=== PATIENT | female | born 1970 | race Caucasian/White ===

== ENCOUNTER 2018-04-25 02:00 | Inpatient (IN) | END 2018-04-29 17:23 | disposition home or self-care (01) | DRG 392 ==

== ENCOUNTER 2019-01-03 18:25 | Inpatient (IN) | payer OTHER ==
[~2019-01-03] VITALS: Ht 162.6 cm; Wt 82.9 kg
[~2019-01-03 18:25] MED LIST: CIPR500T4 PO; METR500T PO
[2019-01-03] MEDS ORDERED: SOD CHLORIDE 0.9% 1,000 ML IV STA (19:42)
[2019-01-03] MEDS ORDERED: ONDANSETRON 4 MG INJ IV STA ×2 (19:42→22:41)
[2019-01-03] MEDS ORDERED: HYDROmorphONE 1 MG/ML SYG IV STA (19:42)
[2019-01-03] MEDS ORDERED: IOHEXOL 300MG/ML 150 ML BTL ONE (21:42)
[2019-01-03] MEDS ORDERED: SOD CHLORIDE 0.9% 100 ML ONE (21:42)
[2019-01-03] MEDS ORDERED: HYDROmorphONE 2 MG/ML SYG IV STA (22:41)
--- NOTE | 2019-01-03 22:54 | ERD ---
ER Documentation Chief Complaint Chief Complaint AP X'S 3 DAYS; HX OF DIVERTICULITIS HPI This is a 48-year-old female with a history of diverticulitis complaints 3 days left lower quadrant pain little bit of nausea vomiting and diarrhea with subjective fever at home yesterday. No bloody stools. No back pain hematuria or dysuria. Pain is in the left lower quadrant constant sharp no radiation no ROS All systems reviewed and are negative except as per history of present illness. Medications Home Meds Active Scripts Metronidazole* (Flagyl*) 500 Mg Tablet, 500 MG PO TID for 5 Days, TAB Prov:DANILO KUNZ MD 04/29/18 Ciprofloxacin Hcl* (Ciprofloxacin Hcl*) 500 Mg Tablet, 500 MG PO BID for 5 Days, #14 TAB Prov:DANILO KUNZ MD 04/29/18 Allergies Allergies: Coded Allergies: No Known Drug Allergy (Verified Allergy, Unknown, 04/10/07) PMhx/Soc History of Surgery: Yes (Inguinal Hernia Repair; Fibroid removal (Aug 2012)) Anesthesia Reaction: No Hx Neurological Disorder: Yes (c/o bilteral lower extremity numbness/tingling) Hx Respiratory Disorders: No Hx Cardiac Disorders: No Hx Psychiatric Problems: No Hx Miscellaneous Medical Probl: No Hx Alcohol Use: Yes ([place] alcoholic drink, 1 glass, 04/21) Hx Substance Use: No (recreational marijuana twice a week) Hx Tobacco Use: No Smoking Status: Current some day smoker FmHx Family History: No coronary disease Physical Exam Vitals Vital Signs Date Temp Pulse Resp B/P (MAP) Pulse Ox O2 O2 Flow FiO2 Time Delivery Rate 01/03/19 99.3 100 18 137/87 99 18:36 (104) Physical Exam Const: Well-developed, well-nourished Head: Atraumatic, normocephalic Eyes: Normal Conjunctiva, PERRLA, EOMI, normal sclera, no nystagmus ENT: Normal External Ears, Nose and Mouth, moist mucus membranes. Neck: Full range of motion. No meningismus, no lymphadenopathy. Resp: Clear to auscultation bilaterally, no wheezing, rhonchi, rales Cardio: Regular rate and rhythm, no murmurs, S1 S2 present Abd: Soft, moderate left lower quadrant tenderness, non distended. Normal bowel sounds, no guarding or rebound, no pulsitile abdominal masses or bruits Skin: No petechiae or rashes, no ecchymosis , no maculopapular rash Back: No midline or flank tenderness Ext: No cyanosis, or edema, FROM x 4, normal inspection, neurovascularly intact x 4 Neur: Awake and alert, STR 5/5 x 4, sensation intact x 4, no focal findings, cerebellum intact Psych: Normal Mood and Affect Result Diagram: 01/03/19185501/03/191855 Results 24 hrs Laboratory Tests Test 01/03/19 18:56 White Blood Count 12.5 10^3/ul Red Blood Count 4.14 10^6/ul Hemoglobin 12.7 g/dl Hematocrit 38.4 % Mean Corpuscular Volume 92.8 fl Mean Corpuscular Hemoglobin 30.7 pg Mean Corpuscular Hemoglobin Concent 33.1 g/dl Red Cell Distribution Width 12.9 % Platelet Count 335 10^3/UL Mean Platelet Volume 9.9 fl Immature Granulocytes % 0.600 % Neutrophils % 76.2 % Lymphocytes % 13.8 % Monocytes % 7.7 % Eosinophils % 1.4 % Basophils % 0.3 % Nucleated Red Blood Cells % 0.0 /100WBC Immature Granulocytes # 0.070 10^3/ul Neutrophils # 9.5 10^3/ul Lymphocytes # 1.7 10^3/ul Monocytes # 1.0 10^3/ul Eosinophils # 0.2 10^3/ul Basophils # 0.0 10^3/ul Nucleated Red Blood Cells # 0.0 10^3/ul Sodium Level 140 mmol/L Potassium Level 4.1 mmol/L Chloride Level 105 mmol/L Carbon Dioxide Level 27 mmol/L Anion Gap 8 Blood Urea Nitrogen 10 mg/dl Creatinine 0.65 mg/dl Est Glomerular Filtrat Rate mL/min > 60 mL/min Glucose Level 123 mg/dl Calcium Level 9.0 mg/dl Total Bilirubin 0.3 mg/dl Direct Bilirubin 0.00 mg/dl Indirect Bilirubin 0.3 mg/dl Aspartate Amino Transf (AST/SGOT) 20 IU/L Alanine Aminotransferase (ALT/SGPT) 13 IU/L Alkaline Phosphatase 117 IU/L Total Protein 7.0 g/dl Albumin 3.9 g/dl Globulin 3.10 g/dl Albumin/Globulin Ratio 1.25 Serum HCG, Qualitative NEGATIVE Current Medications Medications Dose Sig/Trudy Start Time Status Last (Trade) Ordered Route PRN Stop Time Admin Dose Reason Admin Sodium 1,000 ml @ Q1H STAT 01/03/19 DC 01/03/19 Chloride 1,000 mls/hr IV 19:42 01/03/19 20:00 20:41 1 mg ONCE STAT 01/03/19 DC 01/03/19 Hydromorphone IV 19:42 01/03/19 20:00 HCl 19:43 (Dilaudid) Ondansetron 4 mg ONCE STAT 01/03/19 DC 01/03/19 HCl (Zofran IV 19:42 01/03/19 20:00 Inj) 19:43 IV Flush 10 ml STK-MED 01/03/19 DC (NS 10 ml) ONCE .ROUTE 21:42 01/03/19 21:43 Sodium 100 ml @ ud STK-MED 01/03/19 DC Chloride ONCE .ROUTE 21:42 01/03/19 21:43 Iohexol 150 ml STK-MED 01/03/19 DC (Omnipaque ONCE .ROUTE 21:42 01/03/19 300mg/ ml) 21:43 1 mg ONCE STAT 01/03/19 DC 01/03/19 Hydromorphone IV 22:41 01/03/19 22:50 HCl 22:49 (Dilaudid) Ondansetron 4 mg ONCE STAT 01/03/19 DC 01/03/19 HCl (Zofran IV 22:41 01/03/19 22:50 Inj) 22:49 Ertapenem 1 100 ml @ ONCE ONCE 01/03/19 gm/ Sodium 200 mls/hr IVPB 23:00 01/03/19 Chloride 23:29 Procedures/[place] [address] Radiology Main Line: [phone] DIAGNOSTIC IMAGING REPORT Patient: MARCELLO COLLIER : 1970 Age: 48 Sex: F MR #: [id number] DOS: 01/03/191941 Ordering MD: URIAH POON DO Location: E/R Room/Bed: PROCEDURE: CT Abdomen and Pelvis with contrast. CLINICAL INDICATION: Abdominal pain. TECHNIQUE: CT scan of the abdomen and pelvis with contrast was performed on a multi-detector high-resolution CT scanner. The patient was scanned following the uncomplicated intravenous administration of 100 cc of Omnipaque 300. Coron al and sagittal reformatted images were obtained from the axial source images. Images were reviewed on a high-resolution PACS workstation. The total exam CTDI equals 18.2 mGy and the total exam DLP equals 1083.0 mGy-cm. DICOM images are available. One or more of the following dose reduction techniques were utilized: 1.) Automated exposure control 2.) Adjustment of the mA +/- kV according to patient's size 3.) Use of iterative reconstruction technique. COMPARISON: Abdominal series x-rays 04/26/2018. FINDINGS: Partially visualized mild bibasilar pulmonary subsegmental atelectasis. Heart base appears normal. Systemic vasculature appears grossly normal. No pathologic lymphadenopathy identified by imaging criteria. Liver demonstrates normal size and contour, without identifiable focal mass lesion. Portal vein enhances normally. Gallbladder is mildly distended without identifiable pericholecystic inflammatory change or biliary ductal dilatation. Pancreas, spleen and adrenal glands appear normal. Bowel is unobstructed without free air. Appendix appears normal. Multiple scatte red left colonic diverticuli. Moderate segmental wall thickening in the proximal sigmoid colon, likely reflecting acute diverticulitis, in the presence of a 2.7 x 2.1 x 3.0 cm peripherally enhancing exophytic collection of fluid and air with moderate adjacent left lower quadrant mesenteric stranding, thought most likely to reflect a severely distended, inflamed diverticulum, or possibly a contained perforation/abscess. Trace free fluid layers in the adjacent left lower quadrant mesenteries and inferior left paracolic gutter. Kidneys perfuse normally with scattered small bilateral cortical hypoattenuating foci too small to characterize, likely reflecting cysts. No nephrolithiasis nor hydronephrosis. The ureters run unobstructed to a normal - appearing incompletely distended bladder. The uterus contains multiple heterogeneously enhancing masses likely reflecting fibroids, largest appearing subserosal, projecting superiorly from the posterior uterine body and measuring up to 5.2 cm (axial image 135, coronal image 48, sagittal image 62). Complex, multi loculated uterine cervical solid and cystic mass measuring 3.0 x 5.7 x 3.5 cm (axial image 151, coronal image 65, sagittal image 72), concerning for malignancy. Osseous structures are intact with a densely sclerotic 7 mm probable bone island in the left iliac wing (axial image 123, coronal image 65). Mild diffuse developmental narrowing of the lumbar canal related to vertebral morphology with shortened pedicles, with mild multilevel spondylotic changes contributing to probable mild canal and bilateral neural foraminal stenosis at L4-5, suboptimally evaluated by CT. Small fatty umbilical hernia. IMPRESSION: 1. Evidence of severe acute sigmoid diverticulitis in the presence of inflamed, fluid distended 3 cm diverticulum versus contained perforation/abscess. The bowel is unobstructed without free air. 2. 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 Clinical correlation with gynecologic exam recommended. 3. Fibroid uterus with 5.2 cm probable subserosal fibroid projecting superiorly from the posterior uterine body. This can be better evaluated by pelvic ultrasound or MRI pelvis if clinically warranted. 4. No nephrolithiasis nor hydronephrosis. 5. Mild diffuse developmental narrowing of the lumbar canal with mild spondylotic changes most pronounced at L4-5 where there is probable mild focal c anal and bilateral neural foraminal stenosis. This can be better evaluated by MRI L-spine if clinically warranted. Critical findings discussed with and acknowledged by Dr. Poon's nurse for immediate relay to Dr. Poon at 10:30 p.m. 01/03/2019. RPTAT: HSAN Physician Eric Date Time Electronically viewed and signed by Judith Bobby Physician on 01/03/2019 22:54 xN/ CC: URIAH POON DO [id number] Patient has severe diverticulitis with a area of fluid distended 3 cm diverticulum versus contained per/abscess. There is no free air. Patient will be admitted for IV antibiotics and observation Departure Diagnosis: Primary Impression: Diverticulitis Condition: Stable URIAH POON DO Jan 03, 2019 22:54
[2019-01-03] MEDS ORDERED: ERTAPENEM SODIUM 1 GM in SOD CHLORIDE 0.9% 100 ML IVPB ONE (23:00)
[2019-01-03] MEDS ORDERED: SOD CHLORIDE 0.9% 1,000 ML IV SCH (23:14)
[2019-01-03] MEDS ORDERED: ONDANSETRON (ODT) 4 MG TAB ODT STA (23:28)
[2019-01-03] MEDS ORDERED: HYDROmorphONE 0.5 MG/0.5 ML SYG IV STA (23:28)
[2019-01-03] MEDS ORDERED: ACETAMINOPHEN 500 MG TAB PO STA (23:28)
[2019-01-03] MEDS ORDERED: ONDANSETRON 4 MG INJ IV PRN (23:30)
[2019-01-03] MEDS ORDERED: ACETAMINOPHEN 325 MG TAB PO PRN (23:30)
[2019-01-04 00:25] VITALS: Ht 162.6 cm; Wt 82.9 kg
[2019-01-04] MEDS: DEXTROSE 5%-0.9% NACL 1,000 ML IV SCH ×2 (01:04→16:21)
[2019-01-04 02:06] VITALS: BP 99/57; PULSE 68; RESP 19
[2019-01-04] MEDS ORDERED: BIOT1CAP3 PO (02:15)
[2019-01-04] MEDS ORDERED: VIT1TABL46 PO (02:15)
[2019-01-04] MEDS ORDERED: CALC-545 PO (02:15)
[2019-01-04] MEDS ORDERED: LACT1TAB25 PO (02:15)
[2019-01-04] MEDS ORDERED: ACET1TAB40 PO (02:15)
[2019-01-04] MEDS: HYDROmorphONE 0.5 MG/0.5 ML SYG IV PRN ×5 (02:58→20:13)
[2019-01-04] MEDS: PIPER-TAZO 3.375 GM IV (PMX) 100 ML IVPB SCH ×3 (05:30→22:42)
[2019-01-04] MEDS ORDERED: PANTOPRAZOLE 40 MG INJ IV SCH (06:00)
[2019-01-04 07:41] VITALS: BP 101/54; PULSE 68; RESP 18
--- NOTE | 2019-01-04 10:16 | HP ---
Date/Time of Note Date/Time of Note DATE: 01/04/19 TIME: 10:15 Assessment/Plan VTE Prophylaxis Risk score (from [facility])>0 risk: 3 SCD applied (from [facility]): No SCD contraindicated: other Pharmacological prophylaxis: NA/contraindicated Pharm contraindication: surgical contra Lines/Catheters IV [facility]ter Type (from [facility]): Peripheral IV Assessment/Plan Hospital Course 1. SIRS 2.2 diverticulitis 2. Acute diverticulitis. Ct scan showed : Evidence of severe acute sigmoid diverticulitis in the presence of inflamed, fluid distended 3 cm diverticulum versus contained perforation/abscess. The bowel is unobstructed without free air. 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 Clinical correlation with gynecologic exam recommended. Fibroid uterus with 5.2 cm probable subserosal fibroid projecting superiorly from the posterior uterine bod y. This can be better evaluated by pelvic ultrasound or MRI pelvis if clinically warranted. No nephrolithiasis nor hydronephrosis. Mild diffuse developmental narrowing of the lumbar canal with mild spondylotic changes most pronounced at L4-5 where there is probable mild focal canal and bilateral neural foraminal stenosis. 3. Hx of diverticulosis. 4. Normocytic normochromic anemia 5. s/p Inguinal Hernia Repair left ; 6. s/p uterine fibroid removal, 2012 7. Current smoker and marijuana user 8. Obesity 9. 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 Protonix -c/w IV ab - surg. CONSULT dr Lucia did not see pt yet -pelvic US Result Diagram: 01/04/19 0441 01/04/19 0440 Results 24hrs Laboratory Tests Test 01/03/19 18:56 01/04/19 04:40 01/04/19 04:41 White Blood Count 12.5 #H 13.0 H Red Blood Count 4.14 L 3.73 L Hemoglobin 12.7 11.2 L Hematocrit 38.4 34.7 L Mean Corpuscular Volume 92.8 93.0 Mean Corpuscular Hemoglobin 30.7 30.0 Mean Corpuscular Hemoglobin Concent 33.1 32.3 Red Cell Distribution Width 12.9 12.9 Platelet Count 335 # 297 Mean Platelet Volume 9.9 10.2 Immature Granulocytes % 0.600 H 0.500 H Neutrophils % 76.2 73.8 Lymphocytes % 13.8 L 14.7 L Monocytes % 7.7 8.5 Eosinophils % 1.4 2.1 Basophils % 0.3 0.4 Nucleated Red Blood Cells % 0.0 0.0 Immature Granulocytes # 0.070 H 0.060 H Neutrophils # 9.5 H 9.6 H Lymphocytes # 1.7 1.9 Monocytes # 1.0 H 1.1 H Eosinophils # 0.2 0.3 Basophils # 0.0 0.1 Nucleated Red Blood Cells # 0.0 0.0 Sodium Level 140 140 Potassium Level 4.1 4.0 Chloride Level 105 110 Carbon Dioxide Level 27 23 Anion Gap 8 7 Blood Urea Nitrogen 10 6 L Creatinine 0.65 0.52 Est Glomerular Filtrat Rate mL/min > 60 > 60 Glucose Level 123 118 Calcium Level 9.0 8.1 L Total Bilirubin 0.3 0.3 Direct Bilirubin 0.00 0.00 Indirect Bilirubin 0.3 0.3 Aspartate Amino Transf (AST/SGOT) 20 15 Alanine Aminotransferase (ALT/SGPT) 13 16 Alkaline Phosphatase 117 100 Total Protein 7.0 6.2 Albumin 3.9 3.2 L Globulin 3.10 3.00 Albumin/Globulin Ratio 1.25 1.06 Serum HCG, Qualitative NEGATIVE HPI/ROS Admit Date/Time Admit Date/Time Jan 03, 2019 at 23:15 Hx of Present Illness This is a 48-year-old female with a history of diverticulitis complaints on 3 days left lower quadrant pain, she describes it as constant, sharp, without radiation. She reported nausea, vomiting and diarrhea with subjective fever at home. No bloody stools. No back pain hematuria or dysuria. pt was hospitalized in apr, 2018 a dn followed special diet, until recently she might eat seeds of tomato. ROS Respiratory: no complaints, pain, cough, pleuritic pain, shortness of breath, sputum, wheezing, other Gastrointestinal: pain, vomiting; No no complaints, No blood, No constipation, No decreased appetite, No di arrhea, No flatus, No nausea, No passing stool, No other Musculoskeletal: no complaints Neurologic: no complaints PMH/Family/Social Past Medical History Medications Current Medications Sodium Chloride 1,000 ml @ 80 mls/hr [id number] IV ; Start 6/7/19 at 23:14; Stop 01/04/19 at 11:43 Ondansetron HCl (Zofran Inj) 4 mg BRIDGE ORDER PRN IV NAUSEA/VOMITING; Start 01/03/19 at 23:30; Stop 01/04/19 at 23:29 Acetaminophen (Tylenol Tab) 650 mg ER BRIDGE PRN PO .MILD PAIN 1-3 OR TEMP Last administered on 01/03/19at 23:36; Admin Dose 650 MG; Start 01/03/19 at 23:30; Stop 01/04/19 at 23:29 Dextrose/Sodium Chloride 1,000 ml @ 75 mls/hr [id number] IV Last administered on 01/04/19at 01:04; Admin Dose 75 MLS/HR; Start 01/04/19 at 01:00 Pantoprazole (Protonix Iv) 40 mg DAILY@06 IV Last administered on 01/04/19at 05:30; Admin Dose 40 MG; Start 01/04/19 at 06:00 Acetaminophen (Tylenol Supp) 650 mg Q6H PRN [place] PAIN/FEVER; Start 01/04/19 at 01:00 Ondansetron HCl (Zofran Inj) 4 mg Q4H PRN IV NAUSEA AND/OR VOMITING; Start 01/04/19 at 01:00 Hydromorphone HCl (Dilaudid) 0.5 mg Q4H PRN IV SEVERE PAIN LEVEL 7-10 Last administered on 01/04/19at 08:08; Admin Dose 0.5 MG; Start 01/04/19 at 01:00 Piperacillin Sod/ Tazobactam Sod 100 ml @ 200 mls/hr Q8 IVPB Last administered on 01/04/19at 05:30; Admin Dose 200 MLS/HR; Start 01/04/19 at 06:00 Coded Allergies: No Known Drug Allergy (Verified Allergy, Unknown, 04/10/07) Past Surgical History Past Surgical Hx: other ((Inguinal Hernia Repair; Fibroid removal (Aug 2012) Family History Significant Family History: no pertinent family hx Social History lives with Smoking Status: Current every day smoker Exam/Review of Systems Vital Signs Vitals Vital Signs Date Temp Pulse Resp B/P (MAP) Pulse Ox O2 O2 Flow FiO2 Time Delivery Rate 01/04/19 98.1 68 18 101/54 98 Room Air 07:41 (70) Intake and Output 01/03/19 01/03/19 01/04/19 1515:00 23:00 07:00 IntakeIntake Total 650 ml BalanceBalance 650 ml Exam Constitutional: alert, oriented ENMT: nl external ears & nose Neck: supple Respiratory: congested cough Cardiovascular: regular rate and rhythm Gastrointestinal: soft, surgical scars (left inguinal regina) Extremities: normal pulses LAURA FANG Jan 04, 2019 10:16
[2019-01-04] MEDS: NICOTINE (21 MG/24 HR) PATCH TRANSDERM SCH (13:45)
[2019-01-04 14:28] VITALS: BP 106/70; PULSE 66; RESP 18
--- NOTE | 2019-01-04 15:52 | CONS ---
Assessment/Plan Assessment/Plan Hospital Course (Demo Recall) Patient with recurrent diverticulitis in addition large uterus with possible tumor. Patient will be treated with antibiotics. Assessment/Plan (Daily) Patient with recurrent diverticulitis. I spoke to the invasive radiologist. And invasive radiologist does not feel comfortable to drain the but possible he thinks may be diverticular versus abscess. The decision is to continue antibiotics for few days and repeat imaging may be Sunday. [employer] MANAGER consult is required. Consultation Date/Type/Reason Admit Date/Time Jan 03, 2019 at 23:15 Date of Consultation: Jan 04, 2019 Type of Consult Surgical Date/Time of Note DATE: 01/04/19 TIME: 15:43 Hx of Present Illness 48-year-old female with second attack of diverticulitis admitted for emergency room. She had a similar attack year ago was admitted to the to the hospital was treated with antibiotics. She never seek to medical attention since then. This is her second attack. In the emergency room the CT scan was performed that showed there is a possible abscess versus large diverticulum. Constitutional: no complaints, improved Eyes: no complaints ENT: no complaints Respiratory: no complaints Cardiovascular: no complaints Gastrointestinal: pain, decreased appetite Genitourinary: no complaints Musculoskeletal: no complaints Skin: no complaints Neurologic: no complaints Endocrine: no complaints Past Medical History Home Meds Reported Medications Biotin (BIOTIN) 1 Mg Capsule, 1 MG PO DAILY, CAP 01/04/19 Calcium Phosphate Trib/Vit D3 (CALCIUM GUMMIES) 1 Each Tab.chew, 1 EACH PO DAILY, TAB.CHEW 01/04/19 Vitamin B Complex* (Vitamin B Complex*) 1 Each Tablet, 1 TAB PO DAILY, TAB 01/04/19 Lactobacillus Acidophilus (Probiotic Acidophilus) 1 Each Tablet, 1 EACH PO DAILY, TAB 01/04/19 Acetaminophen with Codeine (Acetaminophen-Cod #3 Tablet) 1 Each Tablet, 1 TAB PO Q6H, #7 TAB 01/04/19 Discontinued Scripts Metronidazole* (Flagyl*) 500 Mg Tablet, 500 MG PO TID for 5 Days, TAB Prov:DANILO KUNZ MD 04/29/18 Ciprofloxacin Hcl* (Ciprofloxacin Hcl*) 500 Mg Tablet, 500 MG PO BID for 5 Days, #14 TAB Prov:DANILO KUNZ MD 04/29/18 Medications Current Medications Ondansetron HCl (Zofran Inj) 4 mg BRIDGE ORDER PRN IV NAUSEA/VOMITING; Start 01/03/19 at 23:30; Stop 01/04/19 at 23:29 Acetaminophen (Tylenol Tab) 650 mg ER BRIDGE PRN PO .MILD PAIN 1-3 OR TEMP Last administered on 01/03/19at 23:36; Admin Dose 650 MG; Start 01/03/19 at 23:30; Stop 01/04/19 at 23:29 Dextrose/Sodium Chloride 1,000 ml @ 75 mls/hr [id number] IV Last administered on 01/04/19 01:04; Admin Dose 75 MLS/HR; Start 01/04/19 at 01:00 Pantoprazole (Protonix Iv) 40 mg DAILY@06 IV Last administered on 01/04/19 05:30; Admin Dose 40 MG; Start 01/04/19 at 06:00 Acetaminophen (Tylenol Supp) 650 mg Q6H PRN [place] PAIN/FEVER; Start 01/04/19 at 01:00 Ondansetron HCl (Zofran Inj) 4 mg Q4H PRN IV NAUSEA AND/OR VOMITING; Start 01/04/19 at 01:00 Hydromorphone HCl (Dilaudid) 0.5 mg Q4H PRN IV SEVERE PAIN LEVEL 7-10 Last administered on 01/04/19 12:01; Admin Dose 0.5 MG; Start 01/04/19 at 01:00 Piperacillin Sod/ Tazobactam Sod 100 ml @ 200 mls/hr Q8 IVPB Last administered on 01/04/19 13:46; Admin Dose 200 MLS/HR; Start 01/04/19 at 06:00 Nicotine (Nicoderm 21 Mg/ 24hr) 1 patch DAILY TRANSDERM Last administered on 01/04/19 13:45; Admin Dose 1 PATCH; Start 01/04/19 at 12:00 Allergies: Coded Allergies: No Known Drug Allergy (Verified Allergy, Unknown, 04/10/07) Past Surgical History Past Surgical Hx: other ((Inguinal Hernia Repair; Fibroid removal (Aug 2012) Social History Smoking Status: Current every day smoker Exam/Review of Systems Exam Vitals Vital Signs Date Temp Pulse Resp B/P (MAP) Pulse Ox O2 O2 Flow FiO2 Time Delivery Rate 01/04/19 99.0 66 18 106/70 98 Room Air 14:28 (82) Intake and Output 01/03/19 01/03/19 01/04/19 1515:00 23:00 07:00 IntakeIntake Total 650 ml BalanceBalance 650 ml Constitutional: alert, oriented, well developed Psych: no complaints, nl mood/affect Head: normocephalic, atraumatic Eyes: nl conjunctiva, EOMI, nl lids, nl sclera, PERRL ENMT: nl external ears & nose, nl lips & teeth, nl nasal mucosa & septum Neck: supple, non-tender Respiratory: clear to auscultation, normal air movement Cardiovascular: regular rate and rhythm, nl pulses Gastrointestinal: soft, nl liver, spleen, other (There is a tenderness in the left lower quadrant without rebound.) Musculoskeletal: nl extremities to inspection, nl gait and stance Extremities: normal pulses Neurological: MANAGER AUDIO II-XII intact, nl mental status, nl speech, nl strength Skin: nl turgor; No rash or lesions Lymph: nl lymph nodes Results Result Diagram: 01/04/1944001/04/19439 Results 24hrs Laboratory Tests Test 01/03/19 18:56 01/04/19 04:40 01/04/19 04:41 White Blood Count 12.5 #H 13.0 H Red Blood Count 4.14 L 3.73 L Hemoglobin 12.7 11.2 L Hematocrit 38.4 34.7 L Mean Corpuscular Volume 92.8 93.0 Mean Corpuscular Hemoglobin 30.7 30.0 Mean Corpuscular Hemoglobin Concent 33.1 32.3 Red Cell Distribution Width 12.9 12.9 Platelet Count 335 # 297 Mean Platelet Volume 9.9 10.2 Immature Granulocytes % 0.600 H 0.500 H Neutrophils % 76.2 73.8 Lymphocytes % 13.8 L 14.7 L Monocytes % 7.7 8.5 Eosinophils % 1.4 2.1 Basophils % 0.3 0.4 Nucleated Red Blood Cells % 0.0 0.0 Immature Granulocytes # 0.070 H 0.060 H Neutrophils # 9.5 H 9.6 H Lymphocytes # 1.7 1.9 Monocytes # 1.0 H 1.1 H Eosinophils # 0.2 0.3 Basophils # 0.0 0.1 Nucleated Red Blood Cells # 0.0 0.0 Sodium Level 140 140 Potassium Level 4.1 4.0 Chloride Level 105 110 Carbon Dioxide Level 27 23 Anion Gap 8 7 Blood Urea Nitrogen 10 6 L Creatinine 0.65 0.52 Est Glomerular Filtrat Rate mL/min > 60 > 60 Glucose Level 123 118 Calcium Level 9.0 8.1 L Total Bilirubin 0.3 0.3 Direct Bilirubin 0.00 0.00 Indirect Bilirubin 0.3 0.3 Aspartate Amino Transf (AST/SGOT) 20 15 Alanine Aminotransferase (ALT/SGPT) 13 16 Alkaline Phosphatase 117 100 Total Protein 7.0 6.2 Albumin 3.9 3.2 L Globulin 3.10 3.00 Albumin/Globulin Ratio 1.25 1.06 Serum HCG, Qualitative NEGATIVE Medications Medication Current Medications Ondansetron HCl (Zofran Inj) 4 mg BRIDGE ORDER PRN IV NAUSEA/VOMITING; Start 01/03/19 at 23:30; Stop 01/04/19 at 23:29 Acetaminophen (Tylenol Tab) 650 mg ER BRIDGE PRN PO .MILD PAIN 1-3 OR TEMP Last administered on 01/03/19at 23:36; Admin Dose 650 MG; Start 01/03/19 at 23:30; Stop 01/04/19 at 23:29 Dextrose/Sodium Chloride 1,000 ml @ 75 mls/hr [id number] IV Last administered on 01/04/19at 01:04; Admin Dose 75 MLS/HR; Start 01/04/19 at 01:00 Pantoprazole (Protonix Iv) 40 mg DAILY@06 IV Last administered on 01/04/19at 05:3 0; Admin Dose 40 MG; Start 01/04/19 at 06:00 Acetaminophen (Tylenol Supp) 650 mg Q6H PRN [place] PAIN/FEVER; Start 01/04/19 at 01:00 Ondansetron HCl (Zofran Inj) 4 mg Q4H PRN IV NAUSEA AND/OR VOMITING; Start 01/04/19 at 01:00 Hydromorphone HCl (Dilaudid) 0.5 mg Q4H PRN IV SEVERE PAIN LEVEL 7-10 Last admi nistered on 01/04/19at 12:01; Admin Dose 0.5 MG; Start 01/04/19 at 01:00 Piperacillin Sod/ Tazobactam Sod 100 ml @ 200 mls/hr Q8 IVPB Last administered on 01/04/19at 13:46; Admin Dose 200 MLS/HR; Start 01/04/19 at 06:00 Nicotine (Nicoderm 21 Mg/ 24hr) 1 patch DAILY TRANSDERM Last administered on 01/04/19at 13:45; Admin Dose 1 PATCH; Start 01/04/19 at 12:00 DONNY MEAD MD Jan 04, 2019 15:52
[2019-01-04 19:37] VITALS: BP 112/59; PULSE 85; RESP 18
[2019-01-04] MEDS: ONDANSETRON 4 MG INJ IV PRN (20:12)
[2019-01-04] MEDS: ACETAMINOPHEN 650 MG SUPP PR PRN (22:47)
[2019-01-05 01:27] VITALS: BP 106/70; PULSE 78; RESP 18
[2019-01-05] MEDS: ONDANSETRON 4 MG INJ IV PRN ×3 (01:28→22:42)
[2019-01-05] MEDS: HYDROmorphONE 0.5 MG/0.5 ML SYG IV PRN ×5 (01:32→22:38)
[2019-01-05] MEDS: DEXTROSE 5%-0.9% NACL 1,000 ML IV SCH ×3 (04:28→20:50)
[2019-01-05] MEDS: ACETAMINOPHEN 650 MG SUPP PR PRN ×2 (04:59→16:28)
[2019-01-05] MEDS: PIPER-TAZO 3.375 GM IV (PMX) 100 ML IVPB SCH ×3 (05:43→21:42)
[2019-01-05 07:58] VITALS: BP 98/62; RESP 17
[2019-01-05] MEDS: FAMOTIDINE 20 MG INJ IV SCH ×2 (08:54→20:47)
[2019-01-05] MEDS: NICOTINE (21 MG/24 HR) PATCH TRANSDERM SCH (08:55)
--- NOTE | 2019-01-05 09:58 | PN ---
Date/Time of Note Date/Time of Note DATE: 01/05/19 TIME: 09:57 Assessment/Plan VTE Prophylaxis Risk score (from Ns)>0 risk: 4 SCD applied (from Ns): Yes SCD contraindicated: low risk/ambulating Pharmacological prophylaxis: NA/contraindicated Pharm contraindication: surgical contra Lines/Catheters IV C[facility] Type (from [facility] Peripheral IV Assessment/Plan Hospital Course 1. SIRS 2.2 diverticulitis. WBC decreased 2. Acute diverticulitis. Ct scan showed : Evidence of severe acute sigmoid diverticulitis in the presence of inflamed, fluid distended 3 cm diverticulum versus contained perforation/abscess. The bowel is unobstructed without free air. 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 Clinical correlation with gynecologic exam recommended. Fibroid uterus with 5.2 cm probable subserosal fibroid projecting superiorly from the posterior uterine body. This can be better evaluated by pelvic ultrasound or MRI pelvis if clinically warranted. No nephrolithiasis nor hydronephrosis. Mild diffuse developmental narrowing of the lumbar canal with mild spondylotic changes most pronounced at L4-5 where there is probable mild focal canal and bilateral neural foraminal stenosis. 3. Hx of diverticulosis. 4. Normocytic normochromic iron deficiency anemia 5. s/p Inguinal Hernia Repair left ; 6. s/p uterine fibroid removal, 2012 7. Current smoker and marijuana user 8. Obesity 9. Complex uterine cervical 5.7 cm mass Assessment/Plan -yesterday unable to reach gynecology commissions coordinator via ext. [phone], called for few times, need recommendations for suspicious uterine mass -left a message to a laborist commissions coordinator today dr Misael Darnell, spoke to him to see the pt. -DVT proph. SCD, no chemical due to possible surg. interventions -c/w IV fluids -pain control. after bowel movement severe pain, additional 0.5 mg dose of Dilaudid -start Ferrlicit -nicotine patch -GI proph. Protonix -c/w IV ab - surg. consult dr Lucia consulted the pt -pelvic US reviewed: Fibroid uterus. Cervical Nabothian cysts. Result Diagram: 01/05/195 01/05/19 0425 Results 24hrs Laboratory Tests Test 01/05/19 04:25 White Blood Count 11.4 H Red Blood Count 3.84 L Hemoglobin 11.4 L Hematocrit 35.7 L Mean Corpuscular Volume 93.0 Mean Corpuscular Hemoglobin 29.7 Mean Corpuscular Hemoglobin Concent 31.9 L Red Cell Distribution Width 12.9 Platelet Count 318 Mean Platelet Volume 10.2 Immature Granulocytes % 0.500 H Neutrophils % 76.7 Lymphocytes % 12.4 L Monocytes % 8.4 Eosinophils % 1.8 Basophils % 0.2 Nucleated Red Blood Cells % 0.0 Immature Granulocytes # 0.060 H Neutrophils # 8.8 H Lymphocytes # 1.4 Monocytes # 1.0 H Eosinophils # 0.2 Basophils # 0.0 Nucleated Red Blood Cells # 0.0 Sodium Level 139 Potassium Level 3.8 Chloride Level 109 Carbon Dioxide Level 25 Anion Gap 5 Blood Urea Nitrogen 3 L Creatinine 0.62 Est Glomerular Filtrat Rate mL/min > 60 Glucose Level 104 Calcium Level 8.4 Iron Level 14 L Total Iron Binding Capacity 256 Percent Iron Saturation 5 L Subjective 24 Hr Interval Summary Gastrointestinal: no complaints, pain (mod to severe), blood, constipation, decreased appetite, diarrhea, flatus, nausea, passing stool, vomiting, other Exam/Review of Systems Exam Vitals Vital Signs Date Temp Pulse Resp B/P (MAP) Pulse Ox O2 O2 Flow FiO2 Time Delivery Rate 01/05/19 98.9 17 98/62 (74) 97 Room Air 07:58 01/05/19 78 01:27 Intake and Output 01/04/19 01/04/19 01/05/19 1515:00 23:00 07:00 IntakeIntake Total 100 ml 610 ml 1290 ml BalanceBalance 100 ml 610 ml 1290 ml Constitutional: alert, oriented Psych: no complaints Eyes: nl conjunctiva ENMT: nl external ears & nose Neck: supple Respiratory: diminished breath sounds Cardiovascular: regular rate and rhythm Gastrointestinal: rebound or guarding (lower abdomen) Results Results 24hrs Laboratory Tests Test 01/05/19 04:25 White Blood Count 11.4 H Red Blood Count 3.84 L Hemoglobin 11.4 L Hematocrit 35.7 L Mean Corpuscular Volume 93.0 Mean Corpuscular Hemoglobin 29.7 Mean Corpuscular Hemoglobin Concent 31.9 L Red Cell Distribution Width 12.9 Platelet Count 318 Mean Platelet Volume 10.2 Immature Granulocytes % 0.500 H Neutrophils % 76.7 Lymphocytes % 12.4 L Monocytes % 8.4 Eosinophils % 1.8 Basophils % 0.2 Nucleated Red Blood Cells % 0.0 Immature Granulocytes # 0.060 H Neutrophils # 8.8 H Lymphocytes # 1.4 Monocytes # 1.0 H Eosinophils # 0.2 Basophils # 0.0 Nucleated Red Blood Cells # 0.0 Sodium Level 139 Potassium Level 3.8 Chloride Level 109 Carbon Dioxide Level 25 Anion Gap 5 Blood Urea Nitrogen 3 L Creatinine 0.62 Est Glomerular Filtrat Rate mL/min > 60 Glucose Level 104 Calcium Level 8.4 Iron Level 14 L Total Iron Binding Capacity 256 Percent Iron Saturation 5 L Medications Medication Current Medications Dextrose/Sodium Chloride 1,000 ml @ 75 mls/hr [id number] IV Last administered on 01/05/19 04:28; Admin Dose 75 MLS/HR; Start 01/04/19 at 01:00 Acetaminophen (Tylenol Supp) 650 mg Q6H PRN [place] PAIN/FEVER Last administered on 01/05/19 04:59; Admin Dose 650 MG; Start 01/04/19 at 01:00 Ondansetron HCl (Zofran Inj) 4 mg Q4H PRN IV NAUSEA AND/OR VOMITING Last administered on 01/05/19 01:28; Admin Dose 4 MG; Start 01/04/19 at 01:00 Hydromorphone HCl (Dilaudid) 0.5 mg Q4H PRN IV SEVERE PAIN LEVEL 7-10 Last administered on 01/05/19 01:32; Admin Dose 0.5 MG; Start 01/04/19 at 01:00 Piperacillin Sod/ Tazobactam Sod 100 ml @ 200 mls/hr Q8 IVPB Last administered on 01/05/19 05:43; Admin Dose 200 MLS/HR; Start 01/04/19 at 06:00 Nicotine (Nicoderm 21 Mg/ 24hr) 1 patch DAILY TRANSDERM Last administered on 01/05/19 08:55; Admin Dose 1 PATCH; Start 01/04/19 at 12:00 Famotidine (Pepcid Iv) 20 mg Q12 IV Last administered on 01/05/19 08:54; Admin Dose 20 MG; Start 01/05/19 at 09:00 LAURA FANG Jan 05, 2019 09:58
[2019-01-05] MEDS ORDERED: HYDROmorphONE 0.5 MG/0.5 ML SYG IV STA (10:41)
[2019-01-05] MEDS: LORAZEPAM 2 MG INJ IV PRN (12:32)
[2019-01-05] MEDS: SOD FERRIC GLUC COMPLX 125 MG in SOD CHLORIDE 0.9% 100 ML IVPB SCH (13:16)
[2019-01-05 14:00] VITALS: BP 120/68; PULSE 104; RESP 17
--- NOTE | 2019-01-05 14:53 | QN ---
Documentation Comment Thank you for consulting with [facility] team 48 yo with fibroid uterus ad a cervical mass ,she is admitted with abdominal pain and diverticulitis and possible abscess Denies any VB or N[facility] related symptoms she hasn't seen a electronic publisher for few years PMH Denies PSH Inguila hernia repain Allegy NKDA PE VS stable Gen NAD Abd soft NT ND Genitalia 4 x 5 cm cervical mass is felt in vaginal exam otherwise wNL Ultrasound and CT reviewed The mass is most likely fibroid but malignancy cannot be ruled out Recommendations: --->patient needs a follow up appointment with a electronic publisher or [facility] oncology as an outpatient --->Different alternatives of therapy discussed with patient and she needs to follow up with a electronic publisher in her network --->Questions answered --->If there is any new symptoms please do not hesitate to contact the outside solar sales consultant laborist NA RIZO M.D. Jan 05, 2019 14:53
--- NOTE | 2019-01-05 17:18 | PN ---
Date/Time of Note Date/Time of Note DATE: 01/05/19 TIME: 17:16 Assessment/Plan Lines/Catheters IV Catheter Type (from Nrs): Peripheral IV Assessment/Plan Problems: (1) Diverticulitis Status: Acute Assessment/Plan Patient is secondary on antibiotics for acute diverticulitis, that was not drained by invasive radiologist due to the suspicion there is not an abscess but rather large diverticulum. Patient will need to repeat the CT scan on Sunday. Currently continue antibiotics and keep the patient n.p.o. Subjective 24 Hr Interval Summary Patient is day 2 after admission for acute diverticulitis. Patient feels slightly better. However seen complains of the left side abdominal pain. Is afebrile her white count went down from 12 to 11,000. Patient complains of the lower abdomen pain in addition to the left side pain. Feeding: NPO Pain Control: moderate Exam/Review of Systems Vital Signs Vitals Vital Signs Date Temp Pulse Resp B/P (MAP) Pulse Ox O2 O2 Flow FiO2 Time Delivery Rate 01/05/19 99.6 104 17 120/68 98 Room Air 14:00 (85) Intake and Output 01/04/19 01/04/19 01/05/19 1515:00 23:00 07:00 IntakeIntake Total 100 ml 610 ml 1290 ml BalanceBalance 100 ml 610 ml 1290 ml Exam Gastrointestinal: other (dry can tender in the left lower quadrant with mild rebound.) Results Result Diagram: 01/05/19 0425 01/05/19 0425 DONNY MEAD MD Jan 05, 2019 17:18
[2019-01-05 19:28] VITALS: BP 118/71; PULSE 112; RESP 18
[2019-01-06 02:08] VITALS: BP 116/69; PULSE 97; RESP 18
[2019-01-06] MEDS: ONDANSETRON 4 MG INJ IV PRN ×2 (02:45→15:02)
[2019-01-06] MEDS: HYDROmorphONE 0.5 MG/0.5 ML SYG IV PRN ×5 (02:45→20:08)
[2019-01-06] MEDS: PIPER-TAZO 3.375 GM IV (PMX) 100 ML IVPB SCH ×3 (05:53→22:08)
[2019-01-06 07:36] VITALS: BP 119/69; PULSE 104; RESP 16
[2019-01-06] MEDS: FAMOTIDINE 20 MG INJ IV SCH ×2 (09:08→20:07)
[2019-01-06] MEDS: NICOTINE (21 MG/24 HR) PATCH TRANSDERM SCH (09:08)
[2019-01-06] MEDS: SOD FERRIC GLUC COMPLX 125 MG in SOD CHLORIDE 0.9% 100 ML IVPB SCH (12:50)
[2019-01-06 13:17] VITALS: BP 119/68; PULSE 109; RESP 16
--- NOTE | 2019-01-06 13:26 | PN ---
Date/Time of Note Date/Time of Note DATE: 01/06/19 TIME: 13:22 Assessment/Plan VTE Prophylaxis Risk score (from Ns)>0 risk: 3 SCD applied (from Ns): Yes Pharmacological prophylaxis: NA/contraindicated Pharm contraindication: low risk/ambulating Lines/Catheters IV [facility]ter Type (from [email or web address] Peripheral IV Assessment/Plan Hospital Course 1. SIRS 2.2 diverticulitis. WBC 13 today 2. Acute diverticulitis. Ct scan showed : Evidence of severe acute sigmoid diverticulitis in the presence of inflamed, fluid distended 3 cm diverticulum versus contained perforation/abscess. The bowel is unobstructed without free air. 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 Clinical correlation with gynecologic exam recommended. Fibroid uterus with 5.2 cm probable subserosal fibroid projecting superiorly from the posterior uterine body. This can be better evaluated by pelvic ultrasound or MRI pelvis if clinically warranted. No nephrolithiasis nor hydronephrosis. Mild diffuse developmental narrowing of the lumbar canal with mild spondylotic changes most pronounced at L4-5 where there is probable mild focal canal and bilateral neural foraminal stenosis. 3. Hx of diverticulosis. 4. Normocytic normochromic iron deficiency anemia 5. s/p Inguinal Hernia Repair left ; 6. s/p uterine fibroid removal, 2012 7. Current smoker and marijuana user 8. Obesity 9. Complex uterine cervical 5.7 cm mass however none seen on the vaginal ultrasound Assessment/Plan -Pain control with IV Dilaudid and also with Ativan for anxiety -Continue with IV fluids/n.p.o./Zosyn -Per surgery note will obtain for repeat CAT scan of the abdomen and pelvis tomorrow -Oncology gynecology no intervention now needs to follow-up with the gynecology as an outpatient. per them ; The mass is most likely fibroid but malignancy cannot be ruled out -cw Ferrlicit -nicotine patch -GI proph. Protonix -c/w IV ab - fu Dr Lucia rectigist Result Diagram: 01/06/1945101/06/19451 Results 24hrs Laboratory Tests Test 01/06/19 04:52 White Blood Count 13.0 H Red Blood Count 4.21 Hemoglobin 12.4 Hematocrit 38.6 Mean Corpuscular Volume 91.7 Mean Corpuscular Hemoglobin 29.5 Mean Corpuscular Hemoglobin Concent 32.1 Red Cell Distribution Width 12.8 Platelet Count 353 Mean Platelet Volume 10.1 Immature Granulocytes % 0.600 H Neutrophils % 86.0 H Lymphocytes % 7.1 L Monocytes % 5.8 Eosinophils % 0.3 Basophils % 0.2 Nucleated Red Blood Cells % 0.0 Immature Granulocytes # 0.080 H Neutrophils # 11.2 H Lymphocytes # 0.9 Monocytes # 0.8 Eosinophils # 0.0 Basophils # 0.0 Nucleated Red Blood Cells # 0.0 Sodium Level 138 Potassium Level 4.0 Chloride Level 106 Carbon Dioxide Level 26 Anion Gap 6 Blood Urea Nitrogen 3 L Creatinine 0.62 Est Glomerular Filtrat Rate mL/min > 60 Glucose Level 124 Calcium Level 8.5 Subjective 24 Hr Interval Summary Free Text/Dictation Patient said that her real bad pain yesterday however pain is slightly better than yesterday n.p.o. Exam/Review of Systems Exam Vitals Vital Signs Date Temp Pulse Resp B/P (MAP) Pulse Ox O2 O2 Flow FiO2 Time Delivery Rate 01/06/19 98.8 109 16 119/68 95 13:17 (85) 01/05/19 Room Air 14:00 Intake and Output 01/05/19 01/05/19 01/06/19 1515:00 23:00 07:00 IntakeIntake Total 1150 ml 600 ml BalanceBalance 1150 ml 600 ml Exam Constitutional: alert, oriented Psych: no complaints Eyes: nl conjunctiva ENMT: nl external ears & nose Neck: supple Respiratory: diminished breath sounds Cardiovascular: regular rate and rhythm Gastrointestinal: NO rebound or guarding (lower abdomen), tenderness in the left lower quadrant Results Results 24hrs Laboratory Tests Test 01/06/19 04:52 White Blood Count 13.0 H Red Blood Count 4.21 Hemoglobin 12.4 Hematocrit 38.6 Mean Corpuscular Volume 91.7 Mean Corpuscular Hemoglobin 29.5 Mean Corpuscular Hemoglobin Concent 32.1 Red Cell Distribution Width 12.8 Platelet Count 353 Mean Platelet Volume 10.1 Immature Granulocytes % 0.600 H Neutrophils % 86.0 H Lymphocytes % 7.1 L Monocytes % 5.8 Eosinophils % 0.3 Basophils % 0.2 Nucleated Red Blood Cells % 0.0 Immature Granulocytes # 0.080 H Neutrophils # 11.2 H Lymphocytes # 0.9 Monocytes # 0.8 Eosinophils # 0.0 Basophils # 0.0 Nucleated Red Blood Cells # 0.0 Sodium Level 138 Potassium Level 4.0 Chloride Level 106 Carbon Dioxide Level 26 Anion Gap 6 Blood Urea Nitrogen 3 L Creatinine 0.62 Est Glomerular Filtrat Rate mL/min > 60 Glucose Level 124 Calcium Level 8.5 Medications Medication Current Medications Dextrose/Sodium Chloride 1,000 ml @ 75 mls/hr [id number] IV Last administered on 01/05/19 20:50; Admin Dose 75 MLS/HR; Start 01/04/19 at 01:00 Acetaminophen (Tylenol Supp) 650 mg Q6H PRN ID PAIN/FEVER Last administered on 01/05/19 16:28; Admin Dose 650 MG; Start 01/04/19 at 01:00 Ondansetron HCl (Zofran Inj) 4 mg Q4H PRN IV NAUSEA AND/OR VOMITING Last administered on 01/06/19 02:45; Admin Dose 4 MG; Start 01/04/19 at 01:00 Hydromorphone HCl (Dilaudid) 0.5 mg Q4H PRN IV SEVERE PAIN LEVEL 7-10 Last administered on 01/06/19 11:12; Admin Dose 0.5 MG; Start 01/04/19 at 01:00 Piperacillin Sod/ Tazobactam Sod 100 ml @ 200 mls/hr Q8 IVPB Last administered on 01/06/19 05:53; Admin Dose 200 MLS/HR; Start 01/04/19 at 06:00 Nicotine (Nicoderm 21 Mg/ 24hr) 1 patch DAILY TRANSDERM Last administered on 01/06/19 09:08; Admin Dose 1 PATCH; Start 01/04/19 at 12:00 Famotidine (Pepcid Iv) 20 mg Q12 IV Last administered on 01/06/19 09:08; Admin Dose 20 MG; Start 01/05/19 at 09:00 Ferric Sodium Gluconate Complex 125 mg/Sodium Chloride 100 ml @ 100 mls/hr DAILY@1300 IVPB Last administered on 01/06/19 12:50; Admin Dose 100 MLS/HR; Start 01/05/19 at 13:00; Stop 01/07/19 at 13:59 Lorazepam (Ativan) 0.5 mg Q8H PRN IV ANXIETY Last administered on 01/05/19 12:32; Admin Dose 0.5 MG; Start 01/05/19 at 12:30 DANILO KUNZ MD Jan 06, 2019 13:26
--- NOTE | 2019-01-06 13:57 | PN ---
Date/Time of Note Date/Time of Note DATE: 01/06/19 TIME: 13:55 Assessment/Plan Lines/Catheters IV Catheter Type (from Nrs): Peripheral IV Assessment/Plan Assessment/Plan Patient was probably has a drained abscess in the left lower quadrant needs to be drained NONI Subjective 24 Hr Interval Summary Patient is not responding to conservative treatment. Most probably the patient has undrained diverticular abscess. Highly unlikely that the patient had that size of diverticulum in the sigmoid colon as per radiologist interpretation. Patient needs to be drained as soon as possible. White count is going up. She complains of more pain. Feeding: NPO Pain Control: severe Exam/Review of Systems Vital Signs Vitals Vital Signs Date Temp Pulse Resp B/P (MAP) Pulse Ox O2 O2 Flow FiO2 Time Delivery Rate 01/06/19 98.8 109 16 119/68 95 13:17 (85) 01/05/19 Room Air 14:00 Intake and Output 01/05/19 01/05/19 01/06/19 1515:00 23:00 07:00 IntakeIntake Total 1150 ml 600 ml BalanceBalance 1150 ml 600 ml Exam Gastrointestinal: other (Tender in the left lower quadrant with rebound.) Results Result Diagram: 01/06/19 0452 01/06/19 0452 DONNY MEAD MD Jan 06, 2019 13:57
[2019-01-06] MEDS: ACETAMINOPHEN 650 MG SUPP PR PRN ×2 (14:38→22:18)
[2019-01-06] MEDS: LORAZEPAM 2 MG INJ IV PRN (15:02)
[2019-01-06] MEDS: DEXTROSE 5%-0.9% NACL 1,000 ML IV SCH (17:49)
[2019-01-06 19:38] VITALS: BP 113/61; PULSE 110; RESP 16
[2019-01-07] MEDS: HYDROmorphONE 0.5 MG/0.5 ML SYG IV PRN ×6 (00:14→20:24)
[2019-01-07 02:00] VITALS: BP 116/73; PULSE 105; RESP 16
[2019-01-07] MEDS: ONDANSETRON 4 MG INJ IV PRN ×2 (04:18→23:29)
[2019-01-07] MEDS: PIPER-TAZO 3.375 GM IV (PMX) 100 ML IVPB SCH ×3 (05:34→22:02)
[2019-01-07] MEDS: DEXTROSE 5%-0.9% NACL 1,000 ML IV SCH ×2 (07:00→10:31)
[2019-01-07] MEDS ORDERED: SOD CHLORIDE 0.9% 100 ML ONE (07:37)
[2019-01-07] MEDS ORDERED: IOHEXOL 300MG/ML 150 ML BTL ONE (07:37)
[2019-01-07 07:43] VITALS: BP 115/69; PULSE 108; RESP 18
[2019-01-07] MEDS: NICOTINE (21 MG/24 HR) PATCH TRANSDERM SCH (08:11)
[2019-01-07] MEDS: FAMOTIDINE 20 MG INJ IV SCH ×2 (08:11→20:25)
[2019-01-07] MEDS: SOD FERRIC GLUC COMPLX 125 MG in SOD CHLORIDE 0.9% 100 ML IVPB SCH (12:38)
[2019-01-07 14:46] VITALS: BP 123/69; PULSE 103; RESP 18
--- NOTE | 2019-01-07 15:03 | PN ---
Date/Time of Note Date/Time of Note DATE: 01/07/19 TIME: 15:01 Assessment/Plan Lines/Catheters IV C[facility]ter Type (from [facility]): Saline Lock Assessment/Plan Chief Complaint/Hosp Course Acute perforated diverticulitis on IV antibiotics for 4 days. No collection to drain. Assessment/Plan We will continue antibiotics for the next 24-48hrs. if no improvement will consider surgical intervention. Subjective 24 Hr Interval Summary There is no improvement over the last [address] scan repeated did not show significant changes. Fortunately there is no significant collection to be drained by invasive radiologist. Patient has white count elevated from 13- 16,000. However she remains afebrile. Planes of the left lower quadrant pain will responds to IV narcotics. Feeding: NPO Exam/Review of Systems Vital Signs Vitals Vital Signs Date Temp Pulse Resp B/P (MAP) Pulse Ox O2 O2 Flow FiO2 Time Delivery Rate 01/07/19 100.1 103 18 123/69 97 Room Air 14:46 (87) 01/06/19 1.0 08:30 Intake and Output 01/06/19 01/06/19 01/07/19 1515:00 23:00 07:00 IntakeIntake Total 101 ml 600 ml 1200 ml BalanceBalance 101 ml 600 ml 1200 ml Exam Gastrointestinal: other (Marked tenderness in the left lower quadrant otherwise the abdomen is soft.) Results Result Diagram: 01/07/19 0453 01/07/19 0453 DONNY MEAD MD Jan 07, 2019 15:03
[2019-01-07] MEDS ORDERED: SOD CHLORIDE 0.9% 500 ML IV ONE (15:30)
[2019-01-07] MEDS ORDERED: ACETAMINOPHEN 325 MG TAB PO PRN (15:30)
--- NOTE | 2019-01-07 16:05 | PN ---
Date/Time of Note Date/Time of Note DATE: 01/07/19 TIME: 16:02 Assessment/Plan VTE Prophylaxis Risk score (from Ns)>0 risk: 2 SCD applied (from Ns): Yes Pharmacological prophylaxis: NA/contraindicated Pharm contraindication: low risk/ambulating Lines/Catheters IV Catheter Type (from Nrs): Saline Lock Assessment/Plan Hospital Course 1. SIRS 2.2 diverticulitis. WBC 13 today> [address] scan showed : Evidence of severe acute sigmoid diverticulitis in the presence of inflamed, fluid distended 3 cm diverticulum versus contained perforation/abscess. The bowel is unobstructed without free air. 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 Clinical correlation with gynecologic exam recommended. Fibroid uterus with 5.2 cm probable subserosal fibroid projecting superiorly from the posterior uterine body. This can be better evaluated by pelvic ultrasound or MRI pelvis if clinically warranted. No nephrolithiasis nor hydronephrosis. Mild diffuse developmental narrowing of the lumbar canal with mild spondylotic changes most pronounced at L4-5 where there is probable mild focal canal and bilateral neural foraminal stenosis. 3. Hx of diverticulosis. 4. Normocytic normochromic iron deficiency anemia 5. s/p Inguinal Hernia Repair left ; 6. s/p uterine fibroid removal, 2012 7. Current smoker and marijuana user 8. Obesity 9. Complex uterine cervical 5.7 cm mass however none seen on the vaginal ultrasound Assessment/Plan -Repeat CT scan reviewed with Dr. Christopher ryan. Dr. Lucia spoke to radiology and there is surgical drainage that can be done at this point -Spoke to Dr. lucia , white count has increased from 13-16 patient has low-grade fevers we will maximize maximize the medical treatment at this point and if patient does not respond within a day or so patient would likely need surgery which will be likely colostomy -Continue with IV fluids/n.p.o./Zosyn, add meropenam - cw iv fluids, NS bolus -Oncology gynecology no intervention now needs to follow-up with the gynecology as an outpatient. per them ; The mass is most likely fibroid but malignancy cannot be ruled out -cw Ferrlicit -nicotine patch -GI proph. Protonix - pain control - fu Dr Lucia recs Result Diagram: 01/07/1945201/07/193 Results 24hrs Laboratory Tests Test 6/11/19 04:53 White Blood Count 16.1 #H Red Blood Count 3.97 L Hemoglobin 11.7 L Hematocrit 36.2 L Mean Corpuscular Volume 91.2 Mean Corpuscular Hemoglobin 29.5 Mean Corpuscular Hemoglobin Concent 32.3 Red Cell Distribution Width 12.9 Platelet Count 361 Mean Platelet Volume 10.0 Immature Granulocytes % 1.300 H Neutrophils % 85.3 H Lymphocytes % 6.0 L Monocytes % 6.8 Eosinophils % 0.4 Basophils % 0.2 Nucleated Red Blood Cells % 0.0 Immature Granulocytes # 0.210 H Neutrophils # 13.8 H Lymphocytes # 1.0 Monocytes # 1.1 H Eosinophils # 0.1 Basophils # 0.0 Nucleated Red Blood Cells # 0.0 Sodium Level 138 Potassium Level 3.5 Chloride Level 107 Carbon Dioxide Level 23 Anion Gap 8 Blood Urea Nitrogen 4 L Creatinine 0.54 Est Glomerular Filtrat Rate mL/min > 60 Glucose Level 110 Calcium Level 8.4 Phosphorus Level 2.9 Magnesium Level 2.2 Subjective 24 Hr Interval Summary Free Text/Dictation Low-grade fevers 100.4 Patient still having some abdominal pain Had 2 BM today. Passing gas Exam/Review of Systems Exam Vitals Vital Signs Date Temp Pulse Resp B/P (MAP) Pulse Ox O2 O2 Flow FiO2 Time Delivery Rate 01/07/19 100.1 15:20 01/07/19 103 18 123/69 97 Room Air 14:46 (87) 01/06/19 1.0 08:30 Intake and Output 01/06/19 01/06/19 01/07/19 1515:00 23:00 07:00 IntakeIntake Total 101 ml 600 ml 1200 ml BalanceBalance 101 ml 600 ml 1200 ml Exam Constitutional: alert, oriented Psych: no complaints Eyes: nl conjunctiva ENMT: nl external ears & nose Neck: supple Respiratory: diminished breath sounds Cardiovascular: regular rate and rhythm Gastrointestinal: NO rebound or guarding (lower abdomen), tenderness in the left lower quadrant and diffusely, + BS Results Results 24hrs Laboratory Tests Test 01/07/19 04:53 White Blood Count 16.1 #H Red Blood Count 3.97 L Hemoglobin 11.7 L Hematocrit 36.2 L Mean Corpuscular Volume 91.2 Mean Corpuscular Hemoglobin 29.5 Mean Corpuscular Hemoglobin Concent 32.3 Red Cell Distribution Width 12.9 Platelet Count 361 Mean Platelet Volume 10.0 Immature Granulocytes % 1.300 H Neutrophils % 85.3 H Lymphocytes % 6.0 L Monocytes % 6.8 Eosinophils % 0.4 Basophils % 0.2 Nucleated Red Blood Cells % 0.0 Immature Granulocytes # 0.210 H Neutrophils # 13.8 H Lymphocytes # 1.0 Monocytes # 1.1 H Eosinophils # 0.1 Basophils # 0.0 Nucleated Red Blood Cells # 0.0 Sodium Level 138 Potassium Level 3.5 Chloride Level 107 Carbon Dioxide Level 23 Anion Gap 8 Blood Urea Nitrogen 4 L Creatinine 0.54 Est Glomerular Filtrat Rate mL/min > 60 Glucose Level 110 Calcium Level 8.4 Phosphorus Level 2.9 Magnesium Level 2.2 Medications Medication Current Medications Acetaminophen (Tylenol Supp) 650 mg Q6H PRN IA PAIN/FEVER Last administered on 01/06/19 22:18; Admin Dose 650 MG; Start 01/04/19 at 01:00 Ondansetron HCl (Zofran Inj) 4 mg Q4H PRN IV NAUSEA AND/OR VOMITING Last administered on 01/07/19 04:18; Admin Dose 4 MG; Start 01/04/19 at 01:00 Hydromorphone HCl (Dilaudid) 0.5 mg Q4H PRN IV SEVERE PAIN LEVEL 7-10 Last administered on 01/07/19 12:20; Admin Dose 0.5 MG; Start 01/04/19 at 01:00 Piperacillin Sod/ Tazobactam Sod 100 ml @ 200 mls/hr Q8 IVPB Last administered on 01/07/19 13:53; Admin Dose 200 MLS/HR; Start 01/04/19 at 06:00 Nicotine (Nicoderm 21 Mg/ 24hr) 1 patch DAILY TRANSDERM Last administered on 01/07/19 08:11; Admin Dose 1 PATCH; Start 01/04/19 at 12:00 Famotidine (Pepcid Iv) 20 mg Q12 IV Last administered on 01/07/19 08:11; Admin Dose 20 MG; Start 01/05/19 at 09:00 Lorazepam (Ativan) 0.5 mg Q8H PRN IV ANXIETY Last administered on 01/06/19 15:02; Admin Dose 0.5 MG; Start 01/05/19 at 12:30 Dextrose/Sodium Chloride 1,000 ml @ 75 mls/hr [id number] IV Last administered on 01/07/19at 10:31; Admin Dose 75 MLS/HR; Start 01/07/19 at 07:00 Sodium Chloride 500 ml @ 500 mls/hr Q1H ONCE IV Last administered on 01/07/19at 15:20; Admin Dose 500 MLS/HR; Start 01/07/19 at 15:30; Stop 01/07/19 at 16:29 Acetaminophen (Tylenol Tab) 650 mg Q6H PRN PO MILD PAIN(1-3)OR ELEVATED TEMP Last administered on 01/07/19at 15:20; Admin Dose 650 MG; Start 01/07/19 at 15:30 DANILO KUNZ MD Jan 07, 2019 16:05
--- NOTE | 2019-01-07 17:57 | CONS ---
DATE OF ADMISSION: 01/03/2019 DATE OF CONSULTATION: 01/07/2019 TYPE OF CONSULTATION: Infectious disease. REASON FOR CONSULTATION: Antibiotic management. HISTORY OF PRESENT ILLNESS: Avelina Rossi is a 48-year-old female who comes in with a history of diverticulitis and complaints of 3 days of lower abdominal quadrant pain with nausea, vomiting and d iarrhea. She had subjective fever on the day prior to admission. She has no back pain, hematuria, d ysuria or pyuria. Pain is left lower quadrant sharp without radiation. PAST SURGICAL HISTORY: Inguinal hernia repair, fibroid removal in 08/2012. She also complains of bi lateral lower extremity numbness and tingling and probably neuropathy. PAST MEDICAL HISTORY: Otherwise is as outlined. FAMILY HISTORY: Noncontributory. SOCIAL HISTORY: She drinks occasional alcohol. She smokes on occasion and she uses marijuana twice a week. ALLERGIES: NONE TO PENICILLIN, SULFA OR FOODS. MEDICATIONS: Per chart. REVIEW OF SYSTEMS: Noncontributory. PHYSICAL EXAMINATION: GENERAL: She is a well-developed, well-nourished female who is awake, responsive, in no acute distre ss. VITAL SIGNS: Stable. She is afebrile. SKIN: Without generalized rash. HEENT: Within normal limits. NECK: Supple. LYMPH NODES: None palpable. CHEST: Decreased breath sounds at the bases. ABDOMEN: Soft. On admission, she had moderate left lower quadrant tenderness without distention. EXTREMITIES: Without cyanosis, clubbing or edema. RECTAL AND GENITAL: Deferred. NEUROLOGIC: No focal neurological abnormality. HOSPITAL COURSE: White count on admission was 12.5, H and H of 12.7 and 38.4, platelet count 335,000 . BUN and creatinine is 10/0.65. Glucose of 123. She had 76% neutrophils. The patient was felt to have diverticulitis. She was started on ertapenem. CT scan of the abdomen showed partially visuali zed mild bibasilar pulmonary subsegmental atelectasis, bowel was unobstructed, multiple scattered lef t colonic diverticula, moderate segmental wall thickening in the proximal sigmoid colon likely reflec ting acute diverticulitis in the presence of 2.7 x 2.1 x 3.0 peripherally enhancing exophytic collect ion of fluid with air with moderate adjacent left lower quadrant mesenteric stranding but most likely to reflect severely distended inflamed diverticulum possibly a contained perforation/abscess, trace free fluid layers in the adjacent left lower quadrant, mesentery is in inferior left pericolic border s so she has evidence of severe acute sigmoid diverticulitis and presence of inflammation. She has a complex uterine cervical 5.7 cm mass concerning for malignancy. Clinical correlation with gynecolog ic exam recommended, fibroid uterus, mild diffusely developmental narrowing of the lumbar canal with mild spondylitic changes most pronounced at L4 to L5 where there is probable mild focal canal and day ateral neural foraminal stenosis. The patient was seen for recurrent diverticulitis in addition to l arge uterus with possible tumor. The patient will be treated with antibiotics. Invasive radiology d oes not feel comfortable to drain this. He thinks it may be diverticular versus abscess. So far, we will continue therapy with antibiotics. Dr. Rizo saw the patient in [employer] [employer] consultation. The alisson ent needs a followup appointment with a theater company producer. Mass is most likely fibroid, but malignancy ca nnot be ruled out. Different alternatives of therapy were discussed with patient. She needs to foll ow up with her theater company producer. The patient is with acute diverticulitis as noted by Dr. Rubio. The p atient was placed on Zosyn and again today, she has SIRS secondary to diverticulitis. White count no w is up to 16.1. Acute diverticulitis as noted previously. This may be better evaluated by pelvic u ltrasound or MRI of the pelvis if clinically warranted. Mild diffuse developmental narrowing of the lumbar canal was noted previously. Repeat CT scan reviewed with surgical drainage that can be done at this point. White count has increased. If the patient does not respond within a day or so, the patient would likely need surgery which would entail a colostomy. The patient is currently o n Zosyn. Dr. Rubio was thinking of adding ertapenem which would be a duplication, but Zosyn is what she is on at the present time and meropenem was not added. We will continue her on this regimen and await decision on surgery. I will dictate my findings to Dr. Rubio and Dr. Rodas. Dictated By: AMANDA NOLAN MD, JD/GERTRUDE Conf#: [id number] DID#: [id number] CC: NA RIZO MD; MAE RODAS MD;*End*
[2019-01-07 20:22] VITALS: BP 111/64; PULSE 99; RESP 20
[2019-01-07] MEDS ORDERED: MEROPENEM 500MG/50 ML (PMX) 50 ML IVPB SCH (21:00)
[2019-01-07] MEDS: ACETAMINOPHEN 650 MG SUPP PR PRN (23:40)
[2019-01-07] MEDS: LORAZEPAM 2 MG INJ IV PRN (23:46)
[2019-01-08 02:11] VITALS: BP 114/71; PULSE 96; RESP 18
[2019-01-08] MEDS: ONDANSETRON 4 MG INJ IV PRN ×5 (04:56→21:59)
[2019-01-08] MEDS: HYDROmorphONE 0.5 MG/0.5 ML SYG IV PRN ×5 (04:56→22:00)
[2019-01-08] MEDS: DEXTROSE 5%-0.9% NACL 1,000 ML IV SCH ×2 (06:04→09:40)
[2019-01-08] MEDS: PIPER-TAZO 3.375 GM IV (PMX) 100 ML IVPB SCH ×2 (06:07→13:08)
[2019-01-08 08:13] VITALS: BP 109/62; PULSE 98; RESP 18
[2019-01-08] MEDS: FAMOTIDINE 20 MG INJ IV SCH ×2 (08:48→21:50)
[2019-01-08] MEDS: NICOTINE (21 MG/24 HR) PATCH TRANSDERM SCH (08:51)
--- NOTE | 2019-01-08 12:55 | PN ---
Date/Time of Note Date/Time of Note DATE: 01/08/19 TIME: 12:55 Assessment/Plan VTE Prophylaxis Risk score (from Ns)>0 risk: 2 SCD applied (from Ns): Yes Pharmacological prophylaxis: NA/contraindicated Pharm contraindication: low risk/ambulating Lines/Catheters [facility] Peripheral IV Assessment/Plan Hospital Course 1. SIRS 2.2 diverticulitis. WBC 13 today> [address] scan showed : Evidence of severe acute sigmoid diverticulitis in the presence of inflamed, fluid distended 3 cm diverticulum versus contained perforation/abscess. The bowel is unobstructed without free air. 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 Clinical correlation with gynecologic exam recommended. Fibroid uterus with 5.2 cm prob able subserosal fibroid projecting superiorly from the posterior uterine body. This can be better evaluated by pelvic ultrasound or MRI pelvis if clinically warranted. No nephrolithiasis nor hydronephrosis. Mild diffuse developmental narrowing of the lumbar canal with mild spondylotic changes most pronounced at L4-5 where there is probable mild focal canal and bilateral neural foraminal stenosis. 3. Hx of diverticulosis. 4. Normocytic normochromic iron deficiency anemia 5. s/p Inguinal Hernia Repair left ; 6. s/p uterine fibroid removal, 2012 7. Current smoker and marijuana user 8. Obesity 9. Complex uterine cervical 5.7 cm mass however none seen on the vaginal ultrasound Assessment/Plan -Repeat CT scan reviewed with Dr. Christopher ryan. Dr. Lucia spoke to radiology and there is surgical drainage that can be done at this point - per ID will change to vancomycin/meropenam, wbc improved today - pt clinically feels better today> management per surgery - cw iv fluids -Oncology gynecology no intervention now needs to follow-up with the gynecology as an outpatient. per them ; The mass is most likely fibroid but malignancy cannot be ruled out -GI proph. Protonix - pain control - fu Dr Lucia recs Result Diagram: 01/08/1944801/08/19448 Results 24hrs Laboratory Tests Test 01/08/19 04:49 White Blood Count 14.8 H Red Blood Count 4.01 L Hemoglobin 12.2 Hematocrit 37.0 Mean Corpuscular Volume 92.3 Mean Corpuscular Hemoglobin 30.4 Mean Corpuscular Hemoglobin Concent 33.0 Red Cell Distribution Width 13.0 Platelet Count 401 Mean Platelet Volume 9.6 Immature Granulocytes % 1.200 H Neutrophils % 83.7 H Lymphocytes % 7.7 L Monocytes % 6.4 Eosinophils % 0.7 Basophils % 0.3 Nucleated Red Blood Cells % 0.0 Immature Granulocytes # 0.170 H Neutrophils # 12.4 H Lymphocytes # 1.1 Monocytes # 0.9 Eosinophils # 0.1 Basophils # 0.0 Nucleated Red Blood Cells # 0.0 Sodium Level 144 Potassium Level 3.5 Chloride Level 108 Carbon Dioxide Level 26 Anion Gap 10 Blood Urea Nitrogen 4 L Creatinine 0.58 Est Glomerular Filtrat Rate mL/min > 60 Glucose Level 111 Calcium Level 8.6 Phosphorus Level 3.8 Magnesium Level 2.5 Total Bilirubin 0.3 Direct Bilirubin 0.00 Indirect Bilirubin 0.3 Aspartate Amino Transf (AST/SGOT) 12 L Alanine Aminotransferase (ALT/SGPT) 14 Alkaline Phosphatase 113 Total Protein 6.7 Albumin 3.3 Globulin 3.40 H Albumin/Globulin Ratio 0.97 Subjective 24 Hr Interval Summary Free Text/Dictation pt says that feels alot better today less pain wants to eat Exam/Review of Systems Exam Vitals Vital Signs Date Temp Pulse Resp B/P (MAP) Pulse Ox O2 O2 Flow FiO2 Time Delivery Rate 01/08/19 99.0 98 18 109/62 97 Room Air 08:13 (78) 01/06/19 1.0 08:30 Intake and Output 01/07/19 01/07/19 01/08/19 1515:00 23:00 07:00 IntakeIntake Total 100 ml 1250 ml 550 ml BalanceBalance 100 ml 1250 ml 550 ml Exam onstitutional: alert, oriented Psych: no complaints Eyes: nl conjunctiva ENMT: nl external ears & nose Neck: supple Respiratory: diminished breath sounds Cardiovascular: regular rate and rhythm Gastrointestinal: NO rebound or guarding (lower abdomen), tenderness in the left lower quadrant and diffusely, + BS Results Results 24hrs Laboratory Tests Test 01/08/19 04:49 White Blood Count 14.8 H Red Blood Count 4.01 L Hemoglobin 12.2 Hematocrit 37.0 Mean Corpuscular Volume 92.3 Mean Corpuscular Hemoglobin 30.4 Mean Corpuscular Hemoglobin Concent 33.0 Red Cell Distribution Width 13.0 Platelet Count 401 Mean Platelet Volume 9.6 Immature Granulocytes % 1.200 H Neutrophils % 83.7 H Lymphocytes % 7.7 L Monocytes % 6.4 Eosinophils % 0.7 Basophils % 0.3 Nucleated Red Blood Cells % 0.0 Immature Granulocytes # 0.170 H Neutrophils # 12.4 H Lymphocytes # 1.1 Monocytes # 0.9 Eosinophils # 0.1 Basophils # 0.0 Nucleated Red Blood Cells # 0.0 Sodium Level 144 Potassium Level 3.5 Chloride Level 108 Carbon Dioxide Level 26 Anion Gap 10 Blood Urea Nitrogen 4 L Creatinine 0.58 Est Glomerular Filtrat Rate mL/min > 60 Glucose Level 111 Calcium Level 8.6 Phosphorus Level 3.8 Magnesium Level 2.5 Total Bilirubin 0.3 Direct Bilirubin 0.00 Indirect Bilirubin 0.3 Aspartate Amino Transf (AST/SGOT) 12 L Alanine Aminotransferase (ALT/SGPT) 14 Alkaline Phosphatase 113 Total Protein 6.7 Albumin 3.3 Globulin 3.40 H Albumin/Globulin Ratio 0.97 Medications Medication Current Medications Acetaminophen (Tylenol Supp) 650 mg Q6H PRN [place] PAIN/FEVER Last administered on 01/07/19 23:40; Admin Dose 650 MG; Start 01/04/19 at 01:00 Ondansetron HCl (Zofran Inj) 4 mg Q4H PRN IV NAUSEA AND/OR VOMITING Last administered on 01/08/19 09:00; Admin Dose 4 MG; Start 01/04/19 at 01:00 Hydromorphone HCl (Dilaudid) 0.5 mg Q4H PRN IV SEVERE PAIN LEVEL 7-10 Last administered on 01/08/19 09:00; Admin Dose 0.5 MG; Start 01/04/19 at 01:00 Piperacillin Sod/ Tazobactam Sod 100 ml @ 200 mls/hr Q8 IVPB Last administered on 01/08/19 06:07; Admin Dose 200 MLS/HR; Start 01/04/19 at 06:00 Nicotine (Nicoderm 21 Mg/ 24hr) 1 patch DAILY TRANSDERM Last administered on 01/08/19 08:51; Admin Dose 1 PATCH; Start 01/04/19 at 12:00 Famotidine (Pepcid Iv) 20 mg Q12 IV Last administered on 01/08/19 08:48; Admin Dose 20 MG; Start 01/05/19 at 09:00 Lorazepam (Ativan) 0.5 mg Q8H PRN IV ANXIETY Last administered on 01/07/19at 23:46; Admin Dose 0.5 MG; Start 01/05/19 at 12:30 Dextrose/Sodium Chloride 1,000 ml @ 75 mls/hr [id number] IV Last administered on 01/08/19 06:04; Admin Dose 75 MLS/HR; Start 01/07/19 at 07:00 Acetaminophen (Tylenol Tab) 650 mg Q6H PRN PO MILD PAIN(1-3)OR ELEVATED TEMP Last administered on 01/07/19at 15:20; Admin Dose 650 MG; Start 01/07/19 at 15:30 DANILO KUNZ MD Jan 08, 2019 12:55
--- NOTE | 2019-01-08 13:16 | CONS ---
Assessment/Plan Assessment/Plan Hospital Course (Demo Recall) Patient is alert looks comfortable denies pain no fevers overnight WBC 14.8 platelets 401 neutrophils 83.7 BUN 4 creatinine 0.58 Antimicrobials: Zosyn Physical examination: Well-developed well-nourished middle-aged woman who is alert in no distress. Head atraumatic normocephalic sclera nonicteric vehicle mucosa pink neck is supple chest rise symmetrical breath sounds clear heart: S1- S2 abdomen soft mild tenderness on palpation bowel sounds present extremities without cyanosis Assessment: 1. Acute diverticulitis with abscess 2. Leukocytosis secondary to that Plan: Change antibiotics to meropenem, Vanco and fluconazole, consider midline or PICC line for long-term antibiotics likely 10 days to 2 weeks, repeat CT of the abdomen prior to discontinuation of antibiotics and follow surgical recommendations. Discussed with patient Consultation Date/Type/Reason Admit Date/Time Jan 03, 2019 at 23:15 Initial Consult Date 01/04/19 Type of Consult id Date/Time of Note DATE: 01/08/19 TIME: 13:16 Exam/Review of Systems Exam Vitals Vital Signs Date Temp Pulse Resp B/P (MAP) Pulse Ox O2 O2 Flow FiO2 Time Delivery Rate 01/08/19 99.0 98 18 109/62 97 Room Air 08:13 (78) 01/06/19 1.0 08:30 Intake and Output 01/07/19 01/07/19 01/08/19 1515:00 23:00 07:00 IntakeIntake Total 100 ml 1250 ml 550 ml BalanceBalance 100 ml 1250 ml 550 ml Results Result Diagram: 01/08/19 0449 01/08/19 0449 Results 24hrs Laboratory Tests Test 01/08/19 04:49 White Blood Count 14.8 H Red Blood Count 4.01 L Hemoglobin 12.2 Hematocrit 37.0 Mean Corpuscular Volume 92.3 Mean Corpuscular Hemoglobin 30.4 Mean Corpuscular Hemoglobin Concent 33.0 Red Cell Distribution Width 13.0 Platelet Count 401 Mean Platelet Volume 9.6 Immature Granulocytes % 1.200 H Neutrophils % 83.7 H Lymphocytes % 7.7 L Monocytes % 6.4 Eosinophils % 0.7 Basophils % 0.3 Nucleated Red Blood Cells % 0.0 Immature Granulocytes # 0.170 H Neutrophils # 12.4 H Lymphocytes # 1.1 Monocytes # 0.9 Eosinophils # 0.1 Basophils # 0.0 Nucleated Red Blood Cells # 0.0 Sodium Level 144 Potassium Level 3.5 Chloride Level 108 Carbon Dioxide Level 26 Anion Gap 10 Blood Urea Nitrogen 4 L Creatinine 0.58 Est Glomerular Filtrat Rate mL/min > 60 Glucose Level 111 Calcium Level 8.6 Phosphorus Level 3.8 Magnesium Level 2.5 Total Bilirubin 0.3 Direct Bilirubin 0.00 Indirect Bilirubin 0.3 Aspartate Amino Transf (AST/SGOT) 12 L Alanine Aminotransferase (ALT/SGPT) 14 Alkaline Phosphatase 113 Total Protein 6.7 Albumin 3.3 Globulin 3.40 H Albumin/Globulin Ratio 0.97 Medications Medication Current Medications Acetaminophen (Tylenol Supp) 650 mg Q6H PRN [place] PAIN/FEVER Last administered on 01/07/19 23:40; Admin Dose 650 MG; Start 01/04/19 at 01:00 Ondansetron HCl (Zofran Inj) 4 mg Q4H PRN IV NAUSEA AND/OR VOMITING Last administered on 01/08/19 13:04; Admin Dose 4 MG; Start 01/04/19 at 01:00 Hydromorphone HCl (Dilaudid) 0.5 mg Q4H PRN IV SEVERE PAIN LEVEL 7-10 Last administered on 01/08/19 13:04; Admin Dose 0.5 MG; Start 01/04/19 at 01:00 Piperacillin Sod/ Tazobactam Sod 100 ml @ 200 mls/hr Q8 IVPB Last administered on 01/08/19 13:08; Admin Dose 200 MLS/HR; Start 01/04/19 at 06:00 Nicotine (Nicoderm 21 Mg/ 24hr) 1 patch DAILY TRANSDERM Last administered on 01/08/19 08:51; Admin Dose 1 PATCH; Start 01/04/19 at 12:00 Famotidine (Pepcid Iv) 20 mg Q12 IV Last administered on 01/08/19 08:48; Admin Dose 20 MG; Start 01/05/19 at 09:00 Lorazepam (Ativan) 0.5 mg Q8H PRN IV ANXIETY Last administered on 01/07/19 23:46; Admin Dose 0.5 MG; Start 01/05/19 at 12:30 Dextrose/Sodium Chloride 1,000 ml @ 75 mls/hr [id number] IV Last administered on 6/12/19at 06:04; Admin Dose 75 MLS/HR; Start 01/07/19 at 07:00 Acetaminophen (Tylenol Tab) 650 mg Q6H PRN PO MILD PAIN(1-3)OR ELEVATED TEMP Last administered on 01/07/19at 15:20; Admin Dose 650 MG; Start 01/07/19 at 15:30 DALE ARREOLA NP Jan 08, 2019 13:16
[2019-01-08] MEDS ORDERED: VANCOMYCIN IV PER PHARMACY XX SCH (13:30)
[2019-01-08] MEDS ORDERED: VANCOMYCIN HCL 1.5 GM in SOD CHLORIDE 0.9% 250 ML IVPB ONE (14:00)
[2019-01-08 14:52] VITALS: BP 115/74; PULSE 103; RESP 18
[2019-01-08] MEDS: ACETAMINOPHEN 650 MG SUPP PR PRN (15:55)
[2019-01-08] MEDS ORDERED: SOD CHLORIDE 0.9% 500 ML IV ONE (16:30)
[2019-01-08] MEDS: LORAZEPAM 2 MG INJ IV PRN (16:41)
--- NOTE | 2019-01-08 16:53 | PN ---
Date/Time of Note Date/Time of Note DATE: 01/08/19 TIME: 16:50 Assessment/Plan Lines/Catheters IV Catheter Type (from [facility]): Peripheral IV Assessment/Plan Chief Complaint/Hosp Course Acute perforated diverticulitis on IV antibiotics for 4 days. No collection to drain. Assessment/Plan My impression that in spite of chills the patient has some improvement. I think the patient should be cultured and antibiotics treatment to continue. I would also address her burning sensation during urination. Given the physical exam with soft abdomen and overall significant improvement in pain I do not think the patient is a candidate for surgical treatment currently. Subjective 24 Hr Interval Summary Patient felt this morning significantly better. Pain was minimal. She was ambulating. Hungry. [place] significant improvement. However later this afternoon she developed chills. Pain is still very well controlled. Her white count this morning dropped down to 13 from 16,000 patient also complains on burning sensation during urination. Feeding: NPO Pain Control: well controlled Exam/Review of Systems Vital Signs Vitals Vital Signs Date Temp Pulse Resp B/P (MAP) Pulse Ox O2 O2 Flow FiO2 Time Delivery Rate 01/08/19 100.2 16:44 01/08/19 103 18 115/74 98 Nasal 14:52 (88) Cannula 01/06/19 1.0 08:30 Intake and Output 01/07/19 01/07/19 01/08/19 1515:00 23:00 07:00 IntakeIntake Total 100 ml 1250 ml 550 ml BalanceBalance 100 ml 1250 ml 550 ml Exam Gastrointestinal: other (Pain is significantly softer compared to my exam yesterday. There is no tenderness in the left lower quadrant anymore. No peritoneal signs.) Results Result Diagram: 01/08/19 0449 01/08/19 0449 DONNY MEAD MD Jan 08, 2019 16:53
[2019-01-08] MEDS: FLUCONAZOLE 100 MG/50 ML (PMX) 50 ML IVPB SCH (19:23)
[2019-01-08 19:39] VITALS: BP 115/73; PULSE 110; RESP 18
[2019-01-08] MEDS: MEROPENEM 1 GM/50ML(PMX) 50 ML IVPB SCH (21:50)
[2019-01-09] MEDS: VANCOMYCIN 1 GM 250 ML IVPB SCH ×2 (01:36→14:55)
[2019-01-09] MEDS: DEXTROSE 5%-0.9% NACL 1,000 ML IV SCH ×3 (01:37→16:45)
[2019-01-09 01:52] VITALS: BP 94/56; PULSE 93; RESP 16
[2019-01-09] MEDS: ONDANSETRON 4 MG INJ IV PRN ×5 (02:42→22:25)
[2019-01-09] MEDS: HYDROmorphONE 0.5 MG/0.5 ML SYG IV PRN ×5 (02:42→22:25)
[2019-01-09 07:41] VITALS: BP 116/76; PULSE 86; RESP 18
[2019-01-09] MEDS: FAMOTIDINE 20 MG INJ IV SCH ×2 (08:38→21:34)
[2019-01-09] MEDS: MEROPENEM 1 GM/50ML(PMX) 50 ML IVPB SCH ×2 (08:38→21:34)
--- NOTE | 2019-01-09 10:57 | CONS ---
Assessment/Plan Assessment/Plan Hospital Course (Demo Recall) Low grade temps yesterday, bld cx neg, urine cx neg Antimicrobials: Vanco, Merrem, Diflucan Physical examination: Well-developed well-nourished middle-aged woman who is alert in no distress. Head atraumatic normocephalic sclera nonicteric vehicle mucosa pink neck is supple chest rise symmetrical breath sounds clear heart: S1- S2 abdomen soft mild tenderness on palpation bowel sounds present extremities without cyanosis Assessment: 1. Acute diverticulitis with abscess 2. SIRS Plan: Surgical rec-s noted, continue abx, repeat cxr, await for clinical improvement Consultation Date/Type/Reason Admit Date/Time Jan 03, 2019 at 23:15 Initial Consult Date 01/04/19 Type of Consult id Date/Time of Note DATE: 01/09/19 TIME: 10:55 Exam/Review of Systems Exam Vitals Vital Signs Date Temp Pulse Resp B/P (MAP) Pulse Ox O2 O2 Flow FiO2 Time Delivery Rate 01/09/19 97.9 86 18 116/76 97 Room Air 07:41 (89) 01/06/19 1.0 08:30 Intake and Output 01/08/19 01/08/19 01/09/19 1515:00 23:00 07:00 IntakeIntake Total 100 ml 1350 ml 1150 ml BalanceBalance 100 ml 1350 ml 1150 ml Results Result Diagram: 01/09/19 0814 01/09/19 0814 Results 24hrs Laboratory Tests Test 01/08/19 17:16 01/08/19 17:18 01/08/19 20:03 01/09/19 08:14 Lactic Acid Level 1.0 1.0 White Blood Count 6.2 # 7.0 Red Blood Count 3.93 L 3.79 L Hemoglobin 11.7 L 11.1 L Hematocrit 35.7 L 34.2 L Mean Corpuscular 90.8 90.2 Volume Mean Corpuscular 29.8 29.3 Hemoglobin Mean Corpuscular 32.8 32.5 Hemoglobin Concent Red Cell 13.1 13.3 Distribution Width Platelet Count 313 # 348 Mean Platelet Volume 10.3 9.3 Immature 2.300 H 1.700 H Granulocytes % Neutrophils % 89.0 H 74.9 Lymphocytes % 6.8 L 10.7 L Monocytes % 1.1 8.1 Eosinophils % 0.5 4.3 Basophils % 0.3 0.3 Nucleated Red Blood 0.0 0.0 Cells % Immature 0.140 H 0.120 H Granulocytes # Neutrophils # 5.5 5.3 Lymphocytes # 0.4 L 0.8 Monocytes # 0.1 L 0.6 Eosinophils # 0.0 0.3 Basophils # 0.0 0.0 Nucleated Red Blood 0.0 0.0 Cells # Sodium Level 140 Potassium Level 3.1 L Chloride Level 109 Carbon Dioxide Level 22 Anion Gap 9 Blood Urea Nitrogen 6 L Creatinine 0.46 Est Glomerular > 60 Filtrat Rate mL/min Glucose Level 110 Calcium Level 8.3 L Medications Medication Current Medications Acetaminophen (Tylenol Supp) 650 mg Q6H PRN [place] PAIN/FEVER Last administered on 01/08/19 15:55; Admin Dose 650 MG; Start 01/04/19 at 01:00 Ondansetron HCl (Zofran Inj) 4 mg Q4H PRN IV NAUSEA AND/OR VOMITING Last administered on 01/09/19 06:58; Admin Dose 4 MG; Start 01/04/19 at 01:00 Hydromorphone HCl (Dilaudid) 0.5 mg Q4H PRN IV SEVERE PAIN LEVEL 7-10 Last administered on 01/09/19 06:58; Admin Dose 0.5 MG; Start 01/04/19 at 01:00 Nicotine (Nicoderm 21 Mg/ 24hr) 1 patch DAILY TRANSDERM Last administered on 01/08/19 08:51; Admin Dose 1 PATCH; Start 01/04/19 at 12:00 Famotidine (Pepcid Iv) 20 mg Q12 IV Last administered on 01/09/19 08:38; Admin Dose 20 MG; Start 01/05/19 at 09:00 Lorazepam (Ativan) 0.5 mg Q8H PRN IV ANXIETY Last administered on 01/08/19 16:41; Admin Dose 0.5 MG; Start 01/05/19 at 12:30 Dextrose/Sodium Chloride 1,000 ml @ 100 mls/hr Q10H IV Last administered on 01/09/19 01:37; Admin Dose 100 MLS/HR; Start 01/07/19 at 07:00 Acetaminophen (Tylenol Tab) 650 mg Q6H PRN PO MILD PAIN(1-3)OR ELEVATED TEMP Last administered on 01/07/19at 15:20; Admin Dose 650 MG; Start 01/07/19 at 15:30 Meropenem/Sodium Chloride 50 ml @ 100 mls/hr Q12 IVPB Last administered on 01/09/19at 08:38; Admin Dose 100 MLS/HR; Start 01/08/19 at 21:00 Vancomycin HCl (Vanco Iv Per Pharmacy) VANCOMYCIN PER PHARMACY PER PROTOCOL XX ; Start 01/08/19 at 13:30 Fluconazole/ Sodium Chloride 50 ml @ 50 mls/hr Q24H IVPB Last administered on 01/08/19at 19:23; Admin Dose 50 MLS/HR; Start 01/08/19 at 13:30 Vancomycin HCl 250 ml @ 125 mls/hr Q12H IVPB Last administered on 01/09/19at 01:36; Admin Dose 125 MLS/HR; Start 01/09/19 at 02:00 Potassium Chloride 100 ml @ 50 mls/hr Q2H IVPB ; Start 01/09/19 at 11:30; Stop 01/09/19 at 15:29 DALE ARREOLA NP Jan 09, 2019 10:57
[2019-01-09] MEDS: NICOTINE (21 MG/24 HR) PATCH TRANSDERM SCH (11:23)
[2019-01-09] MEDS: FLUCONAZOLE 100 MG/50 ML (PMX) 50 ML IVPB SCH (13:51)
[2019-01-09 14:00] VITALS: BP 112/80; PULSE 83; RESP 18
[2019-01-09] MEDS: POTASSIUM CHLORIDE 100 ML IVPB SCH ×2 (14:12→16:44)
--- NOTE | 2019-01-09 16:27 | PN ---
Date/Time of Note Date/Time of Note DATE: 01/09/19 TIME: 16:26 Assessment/Plan VTE Prophylaxis Risk score (from Nsg)>0 risk: 2 SCD applied (from Ns): No SCD contraindicated: low risk/ambulating Pharmacological prophylaxis: NA/contraindicated Pharm contraindication: low risk/ambulating Lines/Catheters IV Catheter Type (from Nrs): Peripheral IV Assessment/Plan Hospital Course 1. SIRS 2.2 diverticulitis. WBC 13 today> [address] Acute [address]. [address] scan showed : Evidence of severe acute sigmoid diverticulitis in the presence of inflamed, fluid distended 3 cm diverticulum versus contained perforation/abscess. The bowel is unobstructed without free air. 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 Clinical correlation with gynecologic exam recommended. Fibroid uterus with 5.2 cm probable subserosal fibroid projecting superiorly from the posterior uterine body. This can be better evaluated by pelvic ultrasound or MRI pelvis if clinically warranted. No nephrolithiasis nor hydronephrosis. Mild diffuse developmental narrowing of the lumbar canal with mild spondylotic changes most pronounced at L4-5 where there is probable mild focal canal and bilateral neural foraminal stenosis. 3. Hx of diverticulosis. 4. Normocytic normochromic iron deficiency anemia 5. s/p Inguinal Hernia Repair left ; 6. s/p uterine fibroid removal, 2012 7. Current smoker and marijuana user 8. Obesity 9. Complex uterine cervical 5.7 cm mass however none seen on the vaginal ultrasound Assessment/Plan - cw vancomycin/meropenam and fluconazole - pt clinically feels better today> management per surgery - cw iv fluids -Oncology gynecology no intervention now needs to follow-up with the gynecology as an outpatient. per them ; The mass is most likely fibroid but malignancy cannot be ruled out -GI proph. Protonix - pain control - fu Dr Lucia recs Result Diagram: 01/09/19 0814 01/09/19 0814 Results 24hrs Laboratory Tests Test 01/08/19 17:16 01/08/19 17:18 01/08/19 20:03 01/09/19 08:14 Lactic Acid Level 1.0 1.0 White Blood Count 6.2 # 7.0 Red Blood Count 3.93 L 3.79 L Hemoglobin 11.7 L 11.1 L Hematocrit 35.7 L 34.2 L Mean Corpuscular 90.8 90.2 Volume Mean Corpuscular 29.8 29.3 Hemoglobin Mean Corpuscular 32.8 32.5 Hemoglobin Concent Red Cell 13.1 13.3 Distribution Width Platelet Count 313 # 348 Mean Platelet Volume 10.3 9.3 Immature 2.300 H 1.700 H Granulocytes % Neutrophils % 89.0 H 74.9 Lymphocytes % 6.8 L 10.7 L Monocytes % 1.1 8.1 Eosinophils % 0.5 4.3 Basophils % 0.3 0.3 Nucleated Red Blood 0.0 0.0 Cells % Immature 0.140 H 0.120 H Granulocytes # Neutrophils # 5.5 5.3 Lymphocytes # 0.4 L 0.8 Monocytes # 0.1 L 0.6 Eosinophils # 0.0 0.3 Basophils # 0.0 0.0 Nucleated Red Blood 0.0 0.0 Cells # Sodium Level 140 Potassium Level 3.1 L Chloride Level 109 Carbon Dioxide Level 22 Anion Gap 9 Blood Urea Nitrogen 6 L Creatinine 0.46 Est Glomerular > 60 Filtrat Rate mL/min Glucose Level 110 Calcium Level 8.3 L Subjective 24 Hr Interval Summary Free Text/Dictation FEELS BETTER TODAY Exam/Review of Systems Exam Vitals Vital Signs Date Temp Pulse Resp B/P (MAP) Pulse Ox O2 O2 Flow FiO2 Time Delivery Rate 01/09/19 98.3 83 18 112/80 97 Room Air 14:00 (91) 01/06/19 1.0 08:30 Intake and Output 01/08/19 01/08/19 01/09/19 1515:00 23:00 07:00 IntakeIntake Total 100 ml 1350 ml 1150 ml BalanceBalance 100 ml 1350 ml 1150 ml Exam onstitutional: alert, oriented Psych: no complaints Eyes: nl conjunctiva ENMT: nl external ears & nose Neck: supple Respiratory: diminished breath sounds Cardiovascular: regular rate and rhythm Gastrointestinal: NO rebound or guarding (lower abdomen), tenderness in the left lower quadrant IMPROVED Results Results 24hrs Laboratory Tests Test 01/08/19 17:16 01/08/19 17:18 01/08/19 20:03 01/09/19 08:14 Lactic Acid Level 1.0 1.0 White Blood Count 6.2 # 7.0 Red Blood Count 3.93 L 3.79 L Hemoglobin 11.7 L 11.1 L Hematocrit 35.7 L 34.2 L Mean Corpuscular 90.8 90.2 Volume Mean Corpuscular 29.8 29.3 Hemoglobin Mean Corpuscular 32.8 32.5 Hemoglobin Concent Red Cell 13.1 13.3 Distribution Width Platelet Count 313 # 348 Mean Platelet Volume 10.3 9.3 Immature 2.300 H 1.700 H Granulocytes % Neutrophils % 89.0 H 74.9 Lymphocytes % 6.8 L 10.7 L Monocytes % 1.1 8.1 Eosinophils % 0.5 4.3 Basophils % 0.3 0.3 Nucleated Red Blood 0.0 0.0 Cells % Immature 0.140 H 0.120 H Granulocytes # Neutrophils # 5.5 5.3 Lymphocytes # 0.4 L 0.8 Monocytes # 0.1 L 0.6 Eosinophils # 0.0 0.3 Basophils # 0.0 0.0 Nucleated Red Blood 0.0 0.0 Cells # Sodium Level 140 Potassium Level 3.1 L Chloride Level 109 Carbon Dioxide Level 22 Anion Gap 9 Blood Urea Nitrogen 6 L Creatinine 0.46 Est Glomerular > 60 Filtrat Rate mL/min Glucose Level 110 Calcium Level 8.3 L Medications Medication Current Medications Acetaminophen (Tylenol Supp) 650 mg Q6H PRN [place] PAIN/FEVER Last administered on 01/08/19 15:55; Admin Dose 650 MG; Start 01/04/19 at 01:00 Ondansetron HCl (Zofran Inj) 4 mg Q4H PRN IV NAUSEA AND/OR VOMITING Last administered on 01/09/19 13:49; Admin Dose 4 MG; Start 01/04/19 at 01:00 Hydromorphone HCl (Dilaudid) 0.5 mg Q4H PRN IV SEVERE PAIN LEVEL 7-10 Last administered on 01/09/19 13:49; Admin Dose 0.5 MG; Start 01/04/19 at 01:00 Nicotine (Nicoderm 21 Mg/ 24hr) 1 patch DAILY TRANSDERM Last administered on 01/09/19 11:23; Admin Dose 1 PATCH; Start 01/04/19 at 12:00 Famotidine (Pepcid Iv) 20 mg Q12 IV Last administered on 01/09/19 08:38; Admin Dose 20 MG; Start 01/05/19 at 09:00 Lorazepam (Ativan) 0.5 mg Q8H PRN IV ANXIETY Last administered on 01/08/19at 16:41; Admin Dose 0.5 MG; Start 01/05/19 at 12:30 Dextrose/Sodium Chloride 1,000 ml @ 100 mls/hr Q10H IV Last administered on 01/09/19at 01:37; Admin Dose 100 MLS/HR; Start 01/07/19 at 07:00 Acetaminophen (Tylenol Tab) 650 mg Q6H PRN PO MILD PAIN(1-3)OR ELEVATED TEMP Last administered on 01/07/19at 15:20; Admin Dose 650 MG; Start 01/07/19 at 15:30 Meropenem/Sodium Chloride 50 ml @ 100 mls/hr Q12 IVPB Last administered on 01/09/19 08:38; Admin Dose 100 MLS/HR; Start 01/08/19 at 21:00 Vancomycin HCl (Vanco Iv Per Pharmacy) VANCOMYCIN PER PHARMACY PER PROTOCOL XX ; Start 01/08/19 at 13:30 Fluconazole/ Sodium Chloride 50 ml @ 50 mls/hr Q24H IVPB Last administered on 01/09/19at 13:51; Admin Dose 50 MLS/HR; Start 01/08/19 at 13:30 Vancomycin HCl 250 ml @ 125 mls/hr Q12H IVPB Last administered on 01/09/19at 14:55; Admin Dose 125 MLS/HR; Start 01/09/19 at 02:00 Miscellaneous Information (*Rx Drug Level Order Reminder*) VANCO TR ON 01/10 @ 100 0100 ONCE XX ; Start 01/10/19 at 01:00; Stop 01/10/19 at 01:01 DANILO KUNZ MD Jan 09, 2019 16:27
--- NOTE | 2019-01-09 17:51 | PN ---
Date/Time of Note Date/Time of Note DATE: 01/09/19 TIME: 17:50 Assessment/Plan Lines/Catheters IV Catheter Type (from [facility]): Peripheral IV Assessment/Plan Chief Complaint/Hosp Course Acute perforated diverticulitis on IV antibiotics for 6 days. No collection to drain. Assessment/Plan Acute perforated diverticulitis responding to antibiotics. Will consider start clears tomorrow. Subjective 24 Hr Interval Summary Patient with acute perforated diverticulitis. Significant improvement over the last 24 hours. Patient is afebrile stable, pain is minimal. White count dropped down to normal. Exam/Review of Systems Vital Signs Vitals Vital Signs Date Temp Pulse Resp B/P (MAP) Pulse Ox O2 O2 Flow FiO2 Time Delivery Rate 01/09/19 98.3 83 18 112/80 97 Room Air 14:00 (91) 01/06/19 1.0 08:30 Intake and Output 01/08/19 01/08/19 01/09/19 1515:00 23:00 07:00 IntakeIntake Total 100 ml 1350 ml 1150 ml BalanceBalance 100 ml 1350 ml 1150 ml Exam Gastrointestinal: soft, nl liver, spleen, non-tender Results Result Diagram: 01/09/19 0814 01/09/19 0814 DONNY MEAD MD Jan 09, 2019 17:51
[2019-01-09 20:33] VITALS: BP 127/73; PULSE 87; RESP 18
[2019-01-10] MEDS: DEXTROSE 5%-0.9% NACL 1,000 ML IV SCH ×3 (02:05→18:50)
[2019-01-10] MEDS: VANCOMYCIN 1 GM 250 ML IVPB SCH ×3 (02:07→18:49)
[2019-01-10] MEDS: HYDROmorphONE 0.5 MG/0.5 ML SYG IV PRN ×5 (02:10→19:44)
[2019-01-10] MEDS: ONDANSETRON 4 MG INJ IV PRN ×4 (02:10→18:49)
[2019-01-10 02:53] VITALS: BP 125/70; PULSE 94; RESP 19
[2019-01-10 07:55] VITALS: BP 111/62; PULSE 75; RESP 18
[2019-01-10] MEDS: FAMOTIDINE 20 MG INJ IV SCH ×2 (10:20→21:40)
[2019-01-10] MEDS: NICOTINE (21 MG/24 HR) PATCH TRANSDERM SCH (10:20)
[2019-01-10] MEDS: MEROPENEM 1 GM/50ML(PMX) 50 ML IVPB SCH ×2 (10:20→21:40)
--- NOTE | 2019-01-10 10:37 | PN ---
Date/Time of Note Date/Time of Note DATE: 01/10/19 TIME: 10:35 Assessment/Plan VTE Prophylaxis Risk score (from Ns)>0 risk: 2 SCD applied (from Ns): No SCD contraindicated: low risk/ambulating Pharmacological prophylaxis: NA/contraindicated Pharm contraindication: surgical contra Lines/Catheters IV Catheter Type (from [facility]): Peripheral IV Assessment/Plan Hospital Course 1. SIRS 2.2 diverticulitis. WBC decreased 2. Acute diverticulitis, now perforated. Ct scan showed : Evidence of severe acute sigmoid diverticulitis in the presence of inflamed, fluid distended 3 cm diverticulum versus contained perforation/abscess. The bowel is unobstructed wi thout free air. 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 Clinical correlation with gynecologic exam recommended. Fibroid uterus with 5.2 cm probable subserosal fibroid projecting superiorly from the posterior uterine body. This can be better evaluated by pelvic ultrasound or MRI pelvis if clinically warranted. No nephrolithiasis nor hydronephrosis. Mild diffuse developmental narrowing of the lumbar canal with mild spondylotic changes most pronounced at L4-5 where there is probable mild focal canal and bilateral neural foraminal stenosis. 3. Hx of diverticulosis. 4. Normocytic normochromic iron deficiency anemia 5. s/p Inguinal Hernia Repair left ; 6. s/p uterine fibroid removal, 2012 7. Current smoker and marijuana user 8. Obesity 9. 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 Anxiety Assessment/Plan - cw iv fluids -Oncology gynecology no intervention now needs to follow-up with the gynecology as an outpatient. per them ; The mass is most likely fibroid but malignancy cannot be ruled out -GI proph. Protonix - pain control -DVT proph. SCD and ambulation GI proph,. Protonix - fu Dr Lucia recs Result Diagram: 01/10/1952701/10/19527 Results 24hrs Laboratory Tests Test 01/10/19 00:49 01/10/19 05:28 Vancomycin Level Trough < 5.0 L White Blood Count 4.9 # Red Blood Count 3.89 L Hemoglobin 11.5 L Hematocrit 35.7 L Mean Corpuscular Volume 91.8 Mean Corpuscular Hemoglobin 29.6 Mean Corpuscular Hemoglobin Concent 32.2 Red Cell Distribution Width 13.6 Platelet Count 390 Mean Platelet Volume 9.4 Immature Granulocytes % 2.300 H Neutrophils % 66.5 Lymphocytes % 19.5 Monocytes % 6.8 Eosinophils % 4.5 Basophils % 0.4 Nucleated Red Blood Cells % 0.0 Immature Granulocytes # 0.110 H Neutrophils # 3.3 Lymphocytes # 1.0 Monocytes # 0.3 Eosinophils # 0.2 Basophils # 0.0 Nucleated Red Blood Cells # 0.0 Sodium Level 142 Potassium Level 3.7 Chloride Level 110 Carbon Dioxide Level 24 Anion Gap 8 Blood Urea Nitrogen 6 L Creatinine 0.49 Est Glomerular Filtrat Rate mL/min > 60 Glucose Level 90 Calcium Level 8.3 L Phosphorus Level 3.5 Magnesium Level 2.3 Subjective 24 Hr Interval Summary Constitutional: improved Exam/Review of Systems Exam Vitals Vital Signs Date Temp Pulse Resp B/P (MAP) Pulse Ox O2 O2 Flow FiO2 Time Delivery Rate 01/10/19 98.1 75 18 111/62 97 Room Air 07:55 (78) 01/06/19 1.0 08:30 Intake and Output 01/09/19 01/09/19 01/10/19 1515:00 23:00 07:00 IntakeIntake Total 100 ml 1250 ml 700 ml BalanceBalance 100 ml 1250 ml 700 ml Constitutional: alert, oriented Psych: anxiety Respiratory: clear to auscultation Cardiovascular: regular rate and rhythm Gastrointestinal: soft Results Results 24hrs Laboratory Tests Test 01/10/19 00:49 01/10/19 05:28 Vancomycin Level Trough < 5.0 L White Blood Count 4.9 # Red Blood Count 3.89 L Hemoglobin 11.5 L Hematocrit 35.7 L Mean Corpuscular Volume 91.8 Mean Corpuscular Hemoglobin 29.6 Mean Corpuscular Hemoglobin Concent 32.2 Red Cell Distribution Width 13.6 Platelet Count 390 Mean Platelet Volume 9.4 Immature Granulocytes % 2.300 H Neutrophils % 66.5 Lymphocytes % 19.5 Monocytes % 6.8 Eosinophils % 4.5 Basophils % 0.4 Nucleated Red Blood Cells % 0.0 Immature Granulocytes # 0.110 H Neutrophils # 3.3 Lymphocytes # 1.0 Monocytes # 0.3 Eosinophils # 0.2 Basophils # 0.0 Nucleated Red Blood Cells # 0.0 Sodium Level 142 Potassium Level 3.7 Chloride Level 110 Carbon Dioxide Level 24 Anion Gap 8 Blood Urea Nitrogen 6 L Creatinine 0.49 Est Glomerular Filtrat Rate mL/min > 60 Glucose Level 90 Calcium Level 8.3 L Phosphorus Level 3.5 Magnesium Level 2.3 Medications Medication Current Medications Acetaminophen (Tylenol Supp) 650 mg Q6H PRN [place] PAIN/FEVER Last administered on 01/08/19 15:55; Admin Dose 650 MG; Start 01/04/19 at 01:00 Ondansetron HCl (Zofran Inj) 4 mg Q4H PRN IV NAUSEA AND/OR VOMITING Last administered on 01/10/19 06:50; Admin Dose 4 MG; Start 01/04/19 at 01:00 Hydromorphone HCl (Dilaudid) 0.5 mg Q4H PRN IV SEVERE PAIN LEVEL 7-10 Last administered on 01/10/19 06:50; Admin Dose 0.5 MG; Start 01/04/19 at 01:00 Nicotine (Nicoderm 21 Mg/ 24hr) 1 patch DAILY TRANSDERM Last administered on 01/10/19 10:20; Admin Dose 1 PATCH; Start 01/04/19 at 12:00 Famotidine (Pepcid Iv) 20 mg Q12 IV Last administered on 01/10/19 10:20; Admin Dose 20 MG; Start 01/05/19 at 09:00 Lorazepam (Ativan) 0.5 mg Q8H PRN IV ANXIETY Last administered on 01/08/19 16:41; Admin Dose 0.5 MG; Start 01/05/19 at 12:30 Acetaminophen (Tylenol Tab) 650 mg Q6H PRN PO MILD PAIN(1-3)OR ELEVATED TEMP Last administered on 01/07/19 15:20; Admin Dose 650 MG; Start 01/07/19 at 15:30 Meropenem/Sodium Chloride 50 ml @ 100 mls/hr Q12 IVPB Last administered on 01/10/19 10:20; Admin Dose 100 MLS/HR; Start 01/08/19 at 21:00 Vancomycin HCl (Vanco Iv Per Pharmacy) VANCOMYCIN PER PHARMACY PER PROTOCOL XX ; Start 01/08/19 at 13:30 Fluconazole/ Sodium Chloride 50 ml @ 50 mls/hr Q24H IVPB Last administered on 01/09/19 13:51; Admin Dose 50 MLS/HR; Start 01/08/19 at 13:30 Vancomycin HCl 250 ml @ 125 mls/hr Q8H IVPB Last administered on 01/10/19at 02:07; Admin Dose 125 MLS/HR; Start 01/10/19 at 02:00 LAURA FANG Jan 10, 2019 10:37
--- NOTE | 2019-01-10 12:02 | CONS ---
Assessment/Plan Assessment/Plan Hospital Course (Demo Recall) No events over night, no fevers Antimicrobials: Vanco, Merrem, Diflucan Physical examination: Well-developed well-nourished middle-aged woman who is alert in no distress. Head atraumatic normocephalic sclera nonicteric vehicle mucosa pink neck is supple chest rise symmetrical breath sounds clear heart: S1- S2 abdomen soft mild tenderness on palpation bowel sounds present extremities without cyanosis Assessment: 1. Acute diverticulitis with abscess 2. SIRS Plan: Stable, anticipate te keep on current abx for at least 7 more days and possibly longer with repeat CT at the end of therapy, surgical rec-s noted Consultation Date/Type/Reason Admit Date/Time Jan 03, 2019 at 23:15 Initial Consult Date 01/04/19 Type of Consult id Date/Time of Note DATE: 01/10/19 TIME: 12:01 Exam/Review of Systems Exam Vitals Vital Signs Date Temp Pulse Resp B/P (MAP) Pulse Ox O2 O2 Flow FiO2 Time Delivery Rate 01/10/19 98.1 75 18 111/62 97 Room Air 07:55 (78) 01/06/19 1.0 08:30 Intake and Output 01/09/19 01/09/19 01/10/19 1515:00 23:00 07:00 IntakeIntake Total 100 ml 1250 ml 700 ml BalanceBalance 100 ml 1250 ml 700 ml Results Result Diagram: 01/10/19 0528 01/10/19 0528 Results 24hrs Laboratory Tests Test 01/10/19 00:49 01/10/19 05:28 Vancomycin Level Trough < 5.0 L White Blood Count 4.9 # Red Blood Count 3.89 L Hemoglobin 11.5 L Hematocrit 35.7 L Mean Corpuscular Volume 91.8 Mean Corpuscular Hemoglobin 29.6 Mean Corpuscular Hemoglobin Concent 32.2 Red Cell Distribution Width 13.6 Platelet Count 390 Mean Platelet Volume 9.4 Immature Granulocytes % 2.300 H Neutrophils % 66.5 Lymphocytes % 19.5 Monocytes % 6.8 Eosinophils % 4.5 Basophils % 0.4 Nucleated Red Blood Cells % 0.0 Immature Granulocytes # 0.110 H Neutrophils # 3.3 Lymphocytes # 1.0 Monocytes # 0.3 Eosinophils # 0.2 Basophils # 0.0 Nucleated Red Blood Cells # 0.0 Sodium Level 142 Potassium Level 3.7 Chloride Level 110 Carbon Dioxide Level 24 Anion Gap 8 Blood Urea Nitrogen 6 L Creatinine 0.49 Est Glomerular Filtrat Rate mL/min > 60 Glucose Level 90 Calcium Level 8.3 L Phosphorus Level 3.5 Magnesium Level 2.3 Medications Medication Current Medications Acetaminophen (Tylenol Supp) 650 mg Q6H PRN [place] PAIN/FEVER Last administered on 01/08/19 15:55; Admin Dose 650 MG; Start 01/04/19 at 01:00 Ondansetron HCl (Zofran Inj) 4 mg Q4H PRN IV NAUSEA AND/OR VOMITING Last administered on 01/10/19 11:32; Admin Dose 4 MG; Start 01/04/19 at 01:00 Hydromorphone HCl (Dilaudid) 0.5 mg Q4H PRN IV SEVERE PAIN LEVEL 7-10 Last administered on 01/10/19 11:20; Admin Dose 0.5 MG; Start 01/04/19 at 01:00 Nicotine (Nicoderm 21 Mg/ 24hr) 1 patch DAILY TRANSDERM Last administered on 01/10/19 10:20; Admin Dose 1 PATCH; Start 01/04/19 at 12:00 Famotidine (Pepcid Iv) 20 mg Q12 IV Last administered on 01/10/19 10:20; Admin Dose 20 MG; Start 01/05/19 at 09:00 Lorazepam (Ativan) 0.5 mg Q8H PRN IV ANXIETY Last administered on 01/08/19 16: 41; Admin Dose 0.5 MG; Start 01/05/19 at 12:30 Acetaminophen (Tylenol Tab) 650 mg Q6H PRN PO MILD PAIN(1-3)OR ELEVATED TEMP Last administered on 01/07/19 15:20; Admin Dose 650 MG; Start 01/07/19 at 15:30 Meropenem/Sodium Chloride 50 ml @ 100 mls/hr Q12 IVPB Last administered on 01/10/19 10:20; Admin Dose 100 MLS/HR; Start 01/08/19 at 21:00 Vancomycin HCl (Vanco Iv Per Pharmacy) VANCOMYCIN PER PHARMACY PER PROTOCOL XX ; Start 01/08/19 at 13:30 Fluconazole/ Sodium Chloride 50 ml @ 50 mls/hr Q24H IVPB Last administered on 01/09/19 13:51; Admin Dose 50 MLS/HR; Start 01/08/19 at 13:30 Vancomycin HCl 250 ml @ 125 mls/hr Q8H IVPB Last administered on 01/10/19 11:20; Admin Dose 125 MLS/HR; Start 01/10/19 at 02:00 Dextrose/Sodium Chloride 1,000 ml @ 40 mls/hr Q24H IV Last administered on 01/10/19 11:20; Admin Dose 40 MLS/HR; Start 01/10/19 at 11:00 DALE ARREOLA NP Jan 10, 2019 12:02
[2019-01-10] MEDS: FLUCONAZOLE 100 MG/50 ML (PMX) 50 ML IVPB SCH ×2 (13:30→15:27)
[2019-01-10 13:46] VITALS: BP 116/70; PULSE 71; RESP 18
[2019-01-10 19:30] VITALS: BP 122/71; PULSE 79; RESP 18
[2019-01-10] MEDS: LORAZEPAM 2 MG INJ IV PRN (21:48)
[2019-01-11] MEDS: VANCOMYCIN 1 GM 250 ML IVPB SCH ×2 (01:27→11:00)
[2019-01-11 01:29] VITALS: BP 116/71; PULSE 78; RESP 18
[2019-01-11 08:33] VITALS: BP 119/69; PULSE 88; RESP 18
[2019-01-11] MEDS: FAMOTIDINE 20 MG INJ IV SCH ×2 (08:38→20:13)
[2019-01-11] MEDS: ONDANSETRON 4 MG INJ IV PRN ×2 (08:38→15:41)
[2019-01-11] MEDS: NICOTINE (21 MG/24 HR) PATCH TRANSDERM SCH (08:45)
[2019-01-11] MEDS: MEROPENEM 1 GM/50ML(PMX) 50 ML IVPB SCH ×2 (10:14→22:24)
--- NOTE | 2019-01-11 10:44 | PN ---
Date/Time of Note Date/Time of Note DATE: 01/11/19 TIME: 10:43 Assessment/Plan VTE Prophylaxis Risk score (from Ns)>0 risk: 2 SCD applied (from Ns): No SCD contraindicated: low risk/ambulating Pharmacological prophylaxis: NA/contraindicated Pharm contraindication: surgical contra Lines/Catheters IV [facility] (from [facility]): Mid Line Urinary Cath still in place: No Assessment/Plan Hospital Course 1. SIRS 2.2 diverticulitis. WBC decreased 2. Acute diverticulitis, now perforated. Ct scan showed : Evidence of severe acute sigmoid diverticulitis in the presence of inflamed, fluid distended 3 cm diverticulum versus contained perforation/abscess. The bowel is unobstructed without free air. 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 Clinical correlation with gynecologic exam recommended. Fibroid uterus with 5.2 cm probable subserosal fibroid projecting superiorly from the posterior uterine body. This can be better evaluated by pelvic ultrasound or MRI pelvis if clinically warranted. No nephrolithiasis nor hydronephrosis. Mild diffuse developmental narrowing of the lumbar canal with mild spondylotic changes most pronounced at L4-5 where there is probable mild focal canal and bilateral neural foraminal stenosis. 3. Hx of diverticulosis. 4. Normocytic normochromic iron deficiency anemia 5. s/p Inguinal Hernia Repair left ; 6. s/p uterine fibroid removal, 2012 7. Current smoker and marijuana user 8. Obesity 9. 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 Anxiety Assessment/Plan - cw iv fluids -potassium supplement -Oncology gynecology no intervention now -GI proph. Protonix - pain control -DVT proph. SCD and ambulation GI proph,. Protonix - fu Dr Lucia recs Result Diagram: 01/11/19 0438 01/11/19 0438 Results 24hrs Laboratory Tests Test 01/11/19 04:38 01/11/19 09:07 White Blood Count 4.1 L Red Blood Count 3.66 L Hemoglobin 10.7 L Hematocrit 33.3 L Mean Corpuscular Volume 91.0 Mean Corpuscular Hemoglobin 29.2 Mean Corpuscular Hemoglobin Concent 32.1 Red Cell Distribution Width 13.3 Platelet Count 383 Mean Platelet Volume 9.5 Immature Granulocytes % 2.000 H Neutrophils % 58.8 Lymphocytes % 22.9 Monocytes % 10.6 Eosinophils % 5.2 Basophils % 0.5 Nucleated Red Blood Cells % 0.0 Immature Granulocytes # 0.080 H Neutrophils # 2.4 Lymphocytes # 0.9 Monocytes # 0.4 Eosinophils # 0.2 Basophils # 0.0 Nucleated Red Blood Cells # 0.0 Sodium Level 141 Potassium Level 3.4 L Chloride Level 109 Carbon Dioxide Level 25 Anion Gap 7 Blood Urea Nitrogen 4 L Creatinine 0.48 Est Glomerular Filtrat Rate mL/min > 60 Glucose Level 85 Calcium Level 8.2 L Vancomycin Level Trough 7.4 L Subjective 24 Hr Interval Summary Gastrointestinal: pain; No no complaints, No blood, No constipation, No decreased appetite, No diarrhea, No flatus, No nausea, No passing stool, No vomiting, No other Exam/Review of Systems Exam Vitals Vital Signs Date Temp Pulse Resp B/P (MAP) Pulse Ox O2 O2 Flow FiO2 Time Delivery Rate 01/11/19 98.5 88 18 119/69 98 Room Air 08:33 (86) Intake and Output 01/10/19 01/10/19 01/11/19 1515:00 23:00 07:00 IntakeIntake Total 300 ml 350 ml 570 ml BalanceBalance 300 ml 350 ml 570 ml Constitutional: alert, oriented Respiratory: clear to auscultation Cardiovascular: regular rate and rhythm Gastrointestinal: rebound or guarding; No soft, No nl liver, spleen, No non-tender, No ascites, No bowel sounds, No distended, No firm, No hepatomegaly, No mass, No splenomegaly, No surgical scars, No tender, No other Results Results 24hrs Laboratory Tests Test 01/11/19 04:38 01/11/19 09:07 White Blood Count 4.1 L Red Blood Count 3.66 L Hemoglobin 10.7 L Hematocrit 33.3 L Mean Corpuscular Volume 91.0 Mean Corpuscular Hemoglobin 29.2 Mean Corpuscular Hemoglobin Concent 32.1 Red Cell Distribution Width 13.3 Platelet Count 383 Mean Platelet Volume 9.5 Immature Granulocytes % 2.000 H Neutrophils % 58.8 Lymphocytes % 22.9 Monocytes % 10.6 Eosinophils % 5.2 Basophils % 0.5 Nucleated Red Blood Cells % 0.0 Immature Granulocytes # 0.080 H Neutrophils # 2.4 Lymphocytes # 0.9 Monocytes # 0.4 Eosinophils # 0.2 Basophils # 0.0 Nucleated Red Blood Cells # 0.0 Sodium Level 141 Potassium Level 3.4 L Chloride Level 109 Carbon Dioxide Level 25 Anion Gap 7 Blood Urea Nitrogen 4 L Creatinine 0.48 Est Glomerular Filtrat Rate mL/min > 60 Glucose Level 85 Calcium Level 8.2 L Vancomycin Level Trough 7.4 L Medications Medication Current Medications Acetaminophen (Tylenol Supp) 650 mg Q6H PRN [place] PAIN/FEVER Last administered on 01/08/19 15:55; Admin Dose 650 MG; Start 01/04/19 at 01:00 Ondansetron HCl (Zofran Inj) 4 mg Q4H PRN IV NAUSEA AND/OR VOMITING Last administered on 01/11/19 08:38; Admin Dose 4 MG; Start 01/04/19 at 01:00 Hydromorphone HCl (Dilaudid) 0.5 mg Q4H PRN IV SEVERE PAIN LEVEL 7-10 Last administered on 01/10/19 19:44; Admin Dose 0.5 MG; Start 01/04/19 at 01:00 Nicotine (Nicoderm 21 Mg/ 24hr) 1 patch DAILY TRANSDERM Last administered on 01/11/19 08:45; Admin Dose 1 PATCH; Start 01/04/19 at 12:00 Famotidine (Pepcid Iv) 20 mg Q12 IV Last administered on 01/11/19 08:38; Admin Dose 20 MG; Start 01/05/19 at 09:00 Lorazepam (Ativan) 0.5 mg Q8H PRN IV ANXIETY Last administered on 01/10/19 21:48; Admin Dose 0.5 MG; Start 01/05/19 at 12:30 Acetaminophen (Tylenol Tab) 650 mg Q6H PRN PO MILD PAIN(1-3)OR ELEVATED TEMP Last administered on 01/07/19 15:20; Admin Dose 650 MG; Start 01/07/19 at 15:30 Meropenem/Sodium Chloride 50 ml @ 100 mls/hr Q12 IVPB Last administered on 01/11/19 10:14; Admin Dose 100 MLS/HR; Start 01/08/19 at 21:00 Vancomycin HCl (Vanco Iv Per Pharmacy) VANCOMYCIN PER PHARMACY PER PROTOCOL XX ; Start 01/08/19 at 13:30 Fluconazole/ Sodium Chloride 50 ml @ 50 mls/hr Q24H IVPB Last administered on 01/10/19 15:27; Admin Dose 50 MLS/HR; Start 01/08/19 at 13:30 Vancomycin HCl 250 ml @ 125 mls/hr Q8H IVPB Last administered on 01/11/19at 01:27; Admin Dose 125 MLS/HR; Start 01/10/19 at 02:00 Dextrose/Sodium Chloride 1,000 ml @ 40 mls/hr Q24H IV Last administered on 12/28 11/15at 18:50; Admin Dose 40 MLS/HR; Start 01/10/19 at 11:00 LAURA FANG Jan 11, 2019 10:44
--- NOTE | 2019-01-11 14:07 | CONS ---
Assessment/Plan Assessment/Plan Hospital Course (Demo Recall) Patient is alert feels good denies pain no fevers overnight Antimicrobials: Vanco, Merrem, Diflucan Physical examination: Well-developed well-nourished middle-aged woman who is alert in no distress. Head atraumatic normocephalic sclera nonicteric vehicle mucosa pink neck is supple chest rise symmetrical breath sounds clear heart: S1- S2 abdomen soft mild tenderness on palpation bowel sounds present extremities without cyanosis Assessment: 1. Acute diverticulitis with abscess 2. SIRS Plan: Stable, continue antibiotics, consider repeat CT, follow surgical recommendation Consultation Date/Type/Reason Admit Date/Time Jan 03, 2019 at 23:15 Initial Consult Date 01/04/19 Type of Consult id Date/Time of Note DATE: 01/11/19 TIME: 14:06 Exam/Review of Systems Exam Vitals Vital Signs Date Temp Pulse Resp B/P (MAP) Pulse Ox O2 O2 Flow FiO2 Time Delivery Rate 01/11/19 98.5 88 18 119/69 98 Room Air 08:33 (86) Intake and Output 01/10/19 01/10/19 01/11/19 1515:00 23:00 07:00 IntakeIntake Total 300 ml 350 ml 570 ml BalanceBalance 300 ml 350 ml 570 ml Results Result Diagram: 01/11/19 0438 01/11/19 0438 Results 24hrs Laboratory Tests Test 01/11/19 04:38 01/11/19 09:07 White Blood Count 4.1 L Red Blood Count 3.66 L Hemoglobin 10.7 L Hematocrit 33.3 L Mean Corpuscular Volume 91.0 Mean Corpuscular Hemoglobin 29.2 Mean Corpuscular Hemoglobin Concent 32.1 Red Cell Distribution Width 13.3 Platelet Count 383 Mean Platelet Volume 9.5 Immature Granulocytes % 2.000 H Neutrophils % 58.8 Lymphocytes % 22.9 Monocytes % 10.6 Eosinophils % 5.2 Basophils % 0.5 Nucleated Red Blood Cells % 0.0 Immature Granulocytes # 0.080 H Neutrophils # 2.4 Lymphocytes # 0.9 Monocytes # 0.4 Eosinophils # 0.2 Basophils # 0.0 Nucleated Red Blood Cells # 0.0 Sodium Level 141 Potassium Level 3.4 L Chloride Level 109 Carbon Dioxide Level 25 Anion Gap 7 Blood Urea Nitrogen 4 L Creatinine 0.48 Est Glomerular Filtrat Rate mL/min > 60 Glucose Level 85 Calcium Level 8.2 L Vancomycin Level Trough 7.4 L Medications Medication Current Medications Acetaminophen (Tylenol Supp) 650 mg Q6H PRN [place] PAIN/FEVER Last administered on 01/08/19 15:55; Admin Dose 650 MG; Start 01/04/19 at 01:00 Ondansetron HCl (Zofran Inj) 4 mg Q4H PRN IV NAUSEA AND/OR VOMITING Last administered on 01/11/19 08:38; Admin Dose 4 MG; Start 01/04/19 at 01:00 Hydromorphone HCl (Dilaudid) 0.5 mg Q4H PRN IV SEVERE PAIN LEVEL 7-10 Last administered on 01/10/19 19:44; Admin Dose 0.5 MG; Start 01/04/19 at 01:00 Nicotine (Nicoderm 21 Mg/ 24hr) 1 patch DAILY TRANSDERM Last administered on 01/11/19 08:45; Admin Dose 1 PATCH; Start 01/04/19 at 12:00 Famotidine (Pepcid Iv) 20 mg Q12 IV Last administered on 01/11/19 08:38; Admin Dose 20 MG; Start 01/05/19 at 09:00 Lorazepam (Ativan) 0.5 mg Q8H PRN IV ANXIETY Last administered on 01/10/19 21:48; Admin Dose 0.5 MG; Start 01/05/19 at 12:30 Acetaminophen (Tylenol Tab) 650 mg Q6H PRN PO MILD PAIN(1-3)OR ELEVATED TEMP Last administered on 01/07/19 15:20; Admin Dose 650 MG; Start 01/07/19 at 15:30 Meropenem/Sodium Chloride 50 ml @ 100 mls/hr Q12 IVPB Last administered on 01/11/19 10:14; Admin Dose 100 MLS/HR; Start 01/08/19 at 21:00 Vancomycin HCl (Vanco Iv Per Pharmacy) VANCOMYCIN PER PHARMACY PER PROTOCOL XX ; Start 01/08/19 at 13:30 Fluconazole/ Sodium Chloride 50 ml @ 50 mls/hr Q24H IVPB Last administered on 01/10/19 15:27; Admin Dose 50 MLS/HR; Start 01/08/19 at 13:30 Vancomycin HCl 250 ml @ 125 mls/hr Q8H IVPB Last administered on 01/11/19at 11:00; Admin Dose 125 MLS/HR; Start 01/10/19 at 02:00; Stop 01/11/19 at 16:00 Dextrose/Sodium Chloride 1,000 ml @ 40 mls/hr Q24H IV Last administered on 01/10/19at 18:50; Admin Dose 40 MLS/HR; Start 01/10/19 at 11:00 Potassium Chloride 100 ml @ 50 mls/hr Q2H IVPB ; Start 01/11/19 at 12:00; Stop 01/11/19 at 15:59 Vancomycin HCl 1.25 gm/Sodium Chloride 250 ml @ 83.333 mls/ hr Q8H IVPB ; Start 01/11/19 at 20:00 DALE ARREOLA NP Jan 11, 2019 14:07
[2019-01-11 14:21] VITALS: BP 118/79; PULSE 99; RESP 18
[2019-01-11] MEDS ORDERED: TPN 1,000 ML IV SCH (14:35)
[2019-01-11] MEDS: FLUCONAZOLE 100 MG/50 ML (PMX) 50 ML IVPB SCH (16:58)
[2019-01-11] MEDS ORDERED: ACCU-CHEK XX SCH (17:00)
[2019-01-11] MEDS: HYDROmorphONE 0.5 MG/0.5 ML SYG IV PRN ×2 (17:04→21:09)
[2019-01-11] MEDS: POTASSIUM CHLORIDE 100 ML IVPB SCH ×2 (18:19→20:13)
[2019-01-11 19:37] VITALS: BP 129/86; PULSE 84; RESP 18
[2019-01-11] MEDS: VANCOMYCIN HCL 1.25 GM in SOD CHLORIDE 0.9% 250 ML IVPB SCH ×2 (20:00→23:39)
[2019-01-12] MEDS: LORAZEPAM 2 MG INJ IV PRN ×2 (01:21→22:08)
[2019-01-12 01:36] VITALS: BP 118/76; PULSE 73; RESP 18
[2019-01-12] MEDS: HYDROmorphONE 0.5 MG/0.5 ML SYG IV PRN ×4 (04:57→18:34)
[2019-01-12 07:30] VITALS: BP 112/71; PULSE 71; RESP 17
[2019-01-12] MEDS: VANCOMYCIN HCL 1.25 GM in SOD CHLORIDE 0.9% 250 ML IVPB SCH ×3 (07:36→23:14)
[2019-01-12] MEDS ORDERED: FAT EMULSION 20% 250 ML IV SCH (09:00)
[2019-01-12] MEDS: MEROPENEM 1 GM/50ML(PMX) 50 ML IVPB SCH ×2 (09:01→21:28)
[2019-01-12] MEDS: FAMOTIDINE 20 MG INJ IV SCH ×2 (09:01→21:28)
[2019-01-12] MEDS: NICOTINE (21 MG/24 HR) PATCH TRANSDERM SCH (09:02)
--- NOTE | 2019-01-12 10:51 | PN ---
Date/Time of Note Date/Time of Note DATE: 01/12/19 TIME: 10:50 Assessment/Plan VTE Prophylaxis Risk score (from Ns)>0 risk: 1 SCD applied (from Ns): No SCD contraindicated: low risk/ambulating Pharmacological prophylaxis: NA/contraindicated Pharm contraindication: surgical contra Lines/Catheters [facility] Mid Line Urinary Cath still in place: No Assessment/Plan Hospital Course 1. SIRS 2.2 diverticulitis. WBC decreased 2. Acute diverticulitis, now perforated. Ct scan showed : Evidence of severe acute sigmoid diverticulitis in the presence of inflamed, fluid distended 3 cm diverticulum versus contained perforation/abscess. The bowel is unobstructed without free air. 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 Clinical correlation with gynecologic exam recommended. Fibroid uterus with 5.2 cm probable subserosal fibroid projecting superiorly from the posterior uterine body. This can be better evaluated by pelvic ultrasound or MRI pelvis if clinically warranted. No nephrolithiasis nor hydronephrosis. Mild diffuse developmental narrowing of the lumbar canal with mild spondylotic changes most pronounced at L4-5 where there is probable mild focal canal and bilateral neural foraminal stenosis. 3. Hx of diverticulosis. 4. Normocytic normochromic iron deficiency anemia 5. s/p Inguinal Hernia Repair left ; 6. s/p uterine fibroid removal, 2012 7. Current smoker and marijuana user 8. Obesity 9. 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 Anxiety Assessment/Plan - cw iv fluids -start clear liquid -ambulate -decrease4 am. of narcotics -potassium supplement PRN -Oncology gynecology no intervention now -GI proph. Protonix - pain control -DVT proph. SCD and ambulation -GI proph,. Protonix - fu Dr Lucia recs Result Diagram: 01/12/19 0444 01/12/19 0445 Results 24hrs Laboratory Tests Test 01/11/19 15:03 01/12/19 04:44 01/12/19 04:45 Sodium Level 142 138 Potassium Level 3.6 3.8 Chloride Level 108 109 Carbon Dioxide Level 24 20 L Anion Gap 10 9 Blood Urea Nitrogen 5 L 5 L Creatinine 0.48 0.40 L Est Glomerular Filtrat Rate mL/min > 60 > 60 Glucose Level 93 82 Calcium Level 8.7 8.2 L Phosphorus Level 3.6 3.3 Magnesium Level 2.3 2.2 Total Bilirubin 0.2 Direct Bilirubin 0.00 Indirect Bilirubin 0.2 Aspartate Amino Transf (AST/SGOT) 28 Alanine Aminotransferase (ALT/SGPT) 21 Alkaline Phosphatase 108 Total Protein 6.9 Albumin 3.5 Globulin 3.40 H Albumin/Globulin Ratio 1.02 Prealbumin 8.8 L Triglycerides Level 217 H White Blood Count 4.9 Red Blood Count 3.64 L Hemoglobin 10.8 L Hematocrit 33.4 L Mean Corpuscular Volume 91.8 Mean Corpuscular Hemoglobin 29.7 Mean Corpuscular Hemoglobin Concent 32.3 Red Cell Distribution Width 13.2 Platelet Count 392 Mean Platelet Volume 9.3 Immature Granulocytes % 2.000 H Neutrophils % 63.6 Lymphocytes % 23.3 Monocytes % 7.7 Eosinophils % 3.2 Basophils % 0.2 Nucleated Red Blood Cells % 0.0 Immature Granulocytes # 0.100 H Neutrophils # 3.1 Lymphocytes # 1.2 Monocytes # 0.4 Eosinophils # 0.2 Basophils # 0.0 Nucleated Red Blood Cells # 0.0 Subjective 24 Hr Interval Summary Constitutional: improved Gastrointestinal: pain; No no complaints, No blood, No constipation, No decreased appetite, No diarrhea, No flatus, No nausea, No passing stool, No vomiting, No other Exam/Review of Systems Exam Vitals Vital Signs Date Temp Pulse Resp B/P (MAP) Pulse Ox O2 O2 Flow FiO2 Time Delivery Rate 01/12/19 98.3 71 17 112/71 97 Room Air 07:30 (85) Intake and Output 01/11/19 01/11/19 01/12/19 1515:00 23:00 07:00 IntakeIntake Total 300 ml 250 ml 370 ml BalanceBalance 300 ml 250 ml 370 ml Constitutional: alert, oriented Neck: supple Respiratory: clear to auscultation Cardiovascular: regular rate and rhythm Gastrointestinal: soft, rebound or guarding; No nl liver, spleen, No non-tender, No ascites, No bowel sounds, No distended, No firm, No hepatomegaly, No mass, No splenomegaly, No surgical scars, No tender, No other Results Results 24hrs Laboratory Tests Test 01/11/19 15:03 01/12/19 04:44 01/12/19 04:45 Sodium Level 142 138 Potassium Level 3.6 3.8 Chloride Level 108 109 Carbon Dioxide Level 24 20 L Anion Gap 10 9 Blood Urea Nitrogen 5 L 5 L Creatinine 0.48 0.40 L Est Glomerular Filtrat Rate mL/min > 60 > 60 Glucose Level 93 82 Calcium Level 8.7 8.2 L Phosphorus Level 3.6 3.3 Magnesium Level 2.3 2.2 Total Bilirubin 0.2 Direct Bilirubin 0.00 Indirect Bilirubin 0.2 Aspartate Amino Transf (AST/SGOT) 28 Alanine Aminotransferase (ALT/SGPT) 21 Alkaline Phosphatase 108 Total Protein 6.9 Albumin 3.5 Globulin 3.40 H Albumin/Globulin Ratio 1.02 Prealbumin 8.8 L Triglycerides Level 217 H White Blood Count 4.9 Red Blood Count 3.64 L Hemoglobin 10.8 L Hematocrit 33.4 L Mean Corpuscular Volume 91.8 Mean Corpuscular Hemoglobin 29.7 Mean Corpuscular Hemoglobin Concent 32.3 Red Cell Distribution Width 13.2 Platelet Count 392 Mean Platelet Volume 9.3 Immature Granulocytes % 2.000 H Neutrophils % 63.6 Lymphocytes % 23.3 Monocytes % 7.7 Eosinophils % 3.2 Basophils % 0.2 Nucleated Red Blood Cells % 0.0 Immature Granulocytes # 0.100 H Neutrophils # 3.1 Lymphocytes # 1.2 Monocytes # 0.4 Eosinophils # 0.2 Basophils # 0.0 Nucleated Red Blood Cells # 0.0 Medications Medication Current Medications Acetaminophen (Tylenol Supp) 650 mg Q6H PRN [place] PAIN/FEVER Last administered on 01/08/19 15:55; Admin Dose 650 MG; Start 01/04/19 at 01:00 Ondansetron HCl (Zofran Inj) 4 mg Q4H PRN IV NAUSEA AND/OR VOMITING Last administered on 01/11/19 15:41; Admin Dose 4 MG; Start 01/04/19 at 01:00 Hydromorphone HCl (Dilaudid) 0.5 mg Q4H PRN IV SEVERE PAIN LEVEL 7-10 Last adm inistered on 01/12/19 09:22; Admin Dose 0.5 MG; Start 01/04/19 at 01:00 Nicotine (Nicoderm 21 Mg/ 24hr) 1 patch DAILY TRANSDERM Last administered on 01/12/19 09:02; Admin Dose 1 PATCH; Start 01/04/19 at 12:00 Famotidine (Pepcid Iv) 20 mg Q12 IV Last administered on 01/12/19 09:01; Admin Dose 20 MG; Start 01/05/19 at 09:00 Lorazepam (Ativan) 0.5 mg Q8H PRN IV ANXIETY Last administered on 01/12/19 01:21; Admin Dose 0.5 MG; Start 01/05/19 at 12:30 Acetaminophen (Tylenol Tab) 650 mg Q6H PRN PO MILD PAIN(1-3)OR ELEVATED TEMP Last administered on 01/07/19 15:20; Admin Dose 650 MG; Start 01/07/19 at 15:30 Meropenem/Sodium Chloride 50 ml @ 100 mls/hr Q12 IVPB Last administered on 01/12/19 09:01; Admin Dose 100 MLS/HR; Start 01/08/19 at 21:00 Vancomycin HCl (Vanco Iv Per Pharmacy) VANCOMYCIN PER PHARMACY PER PROTOCOL XX ; Start 01/08/19 at 13:30 Fluconazole/ Sodium Chloride 50 ml @ 50 mls/hr Q24H IVPB Last administered on 01/11/19 16:58; Admin Dose 50 MLS/HR; Start 01/08/19 at 13:30 Dextrose/Sodium Chloride 1,000 ml @ 40 mls/hr Q24H IV Last administered on 01/10/19 18:50; Admin Dose 40 MLS/HR; Start 01/10/19 at 11:00 Diagnostic Test (Pha) (Accu-Chek) 1 ea Q4 XX ; Start 01/11/19 at 17:00; Status UNV Total Parenteral Nutrition 1,000 ml @ 0 mls/hr Q0M IV ; Start 01/11/19 at 14 :35; Status UNV Fat Emulsion Intravenous 250 ml @ 20 mls/hr DAILY IV ; Start 01/12/19 at 09:00; Status UNV Miscellaneous Information (* Miscellaneous Pharmacy Order) 1 ea ONCE ONCE XX ; Start 01/11/19 at 15:00; Stop 01/11/19 at 15:01; Status UNV Vancomycin HCl 1.25 gm/Sodium Chloride 250 ml @ 83.333 mls/ hr Q8H IVPB Last administered on 01/12/19at 07:36; Admin Dose 83.333 MLS/HR; Start 01/12/19 at 07:30 LAURA FANG Jan 12, 2019 10:51
[2019-01-12] MEDS: DEXTROSE 5%-0.9% NACL 1,000 ML IV SCH (11:00)
[2019-01-12] MEDS: FLUCONAZOLE 100 MG/50 ML (PMX) 50 ML IVPB SCH (13:51)
[2019-01-12 14:05] VITALS: BP 117/76; PULSE 73; RESP 18
--- NOTE | 2019-01-12 15:14 | CONS ---
Consultation Date/Type/Reason Admit Date/Time Jan 03, 2019 at 23:15 Initial Consult Date 01/04/19 Type of Consult SUBJECTIVE: Patient is awake,alert, afebrile VS: stable T: 98.0 LABS: reviewed. WBC- 4.9 Antimicrobials: Vanco, Merrem, Diflucan Physical examination: GEN: Well-developed well-nourished middle-aged woman, who is alert in no distress. HENT: Head atraumatic normocephalic; sclera nonicteric vehicle mucosa pink; neck is supple PULM: chest rise symmetrical breath sounds clear Heart: S1-S2 Abdomen: soft, mild tenderness on palpation bowel sounds present Extremities without cyanosis Assessment: 1. Acute diverticulitis with abscess 2. SIRS Plan: Pt is stable. Continue current antibiotics. Consider repeat CT, follow surgical recommendation Date/Time of Note DATE: 01/12/19 TIME: 15:12 Exam/Review of Systems Exam Vitals Vital Signs Date Temp Pulse Resp B/P (MAP) Pulse Ox O2 O2 Flow FiO2 Time Delivery Rate 01/12/19 98.0 73 18 117/76 97 Room Air 14:05 (90) Intake and Output 01/11/19 01/11/19 01/12/19 1515:00 23:00 07:00 IntakeIntake Total 300 ml 250 ml 370 ml BalanceBalance 300 ml 250 ml 370 ml Results Result Diagram: 01/12/19 0444 01/12/19 0445 Results 24hrs Laboratory Tests Test 01/12/19 04:44 01/12/19 04:45 White Blood Count 4.9 Red Blood Count 3.64 L Hemoglobin 10.8 L Hematocrit 33.4 L Mean Corpuscular Volume 91.8 Mean Corpuscular Hemoglobin 29.7 Mean Corpuscular Hemoglobin Concent 32.3 Red Cell Distribution Width 13.2 Platelet Count 392 Mean Platelet Volume 9.3 Immature Granulocytes % 2.000 H Neutrophils % 63.6 Lymphocytes % 23.3 Monocytes % 7.7 Eosinophils % 3.2 Basophils % 0.2 Nucleated Red Blood Cells % 0.0 Immature Granulocytes # 0.100 H Neutrophils # 3.1 Lymphocytes # 1.2 Monocytes # 0.4 Eosinophils # 0.2 Basophils # 0.0 Nucleated Red Blood Cells # 0.0 Phosphorus Level 3.3 Magnesium Level 2.2 Sodium Level 138 Potassium Level 3.8 Chloride Level 109 Carbon Dioxide Level 20 L Anion Gap 9 Blood Urea Nitrogen 5 L Creatinine 0.40 L Est Glomerular Filtrat Rate mL/min > 60 Glucose Level 82 Calcium Level 8.2 L Medications Medication Current Medications Acetaminophen (Tylenol Supp) 650 mg Q6H PRN [place] PAIN/FEVER Last administered on 01/08/19 15:55; Admin Dose 650 MG; Start 01/04/19 at 01:00 Ondansetron HCl (Zofran Inj) 4 mg Q4H PRN IV NAUSEA AND/OR VOMITING Last administered on 01/11/19 15:41; Admin Dose 4 MG; Start 01/04/19 at 01:00 Hydromorphone HCl (Dilaudid) 0.5 mg Q4H PRN IV SEVERE PAIN LEVEL 7-10 Last administered on 01/12/19 13:55; Admin Dose 0.5 MG; Start 01/04/19 at 01:00 Nicotine (Nicoderm 21 Mg/ 24hr) 1 patch DAILY TRANSDERM Last administered on 01/12/19 09:02; Admin Dose 1 PATCH; Start 01/04/19 at 12:00 Famotidine (Pepcid Iv) 20 mg Q12 IV Last administered on 01/12/19 09:01; Admin Dose 20 MG; Start 01/05/19 at 09:00 Lorazepam (Ativan) 0.5 mg Q8H PRN IV ANXIETY Last administered on 01/12/19 01:21; Admin Dose 0.5 MG; Start 01/05/19 at 12:30 Acetaminophen (Tylenol Tab) 650 mg Q6H PRN PO MILD PAIN(1-3)OR ELEVATED TEMP Last administered on 01/07/19 15:20; Admin Dose 650 MG; Start 01/07/19 at 15:30 Meropenem/Sodium Chloride 50 ml @ 100 mls/hr Q12 IVPB Last administered on 01/12/19 09:01; Admin Dose 100 MLS/HR; Start 01/08/19 at 21:00 Vancomycin HCl (Vanco Iv Per Pharmacy) VANCOMYCIN PER PHARMACY PER PROTOCOL XX ; Start 01/08/19 at 13:30 Fluconazole/ Sodium Chloride 50 ml @ 50 mls/hr Q24H IVPB Last administered on 01/12/19 13:51; Admin Dose 50 MLS/HR; Start 01/08/19 at 13:30 Dextrose/Sodium Chloride 1,000 ml @ 40 mls/hr Q24H IV Last administered on 01/10/19at 18:50; Admin Dose 40 MLS/HR; Start 01/10/19 at 11:00 Diagnostic Test (Pha) (Accu-Chek) 1 ea Q4 XX ; Start 01/11/19 at 17:00; Status UNV Total Parenteral Nutrition 1,000 ml @ 0 mls/hr Q0M IV ; Start 01/11/19 at 14:35; Status UNV Fat Emulsion Intravenous 250 ml @ 20 mls/hr DAILY IV ; Start 01/12/19 at 09:00; Status UNV Miscellaneous Information (* Miscellaneous Pharmacy Order) 1 ea ONCE ONCE XX ; Start 01/11/19 at 15:00; Stop 01/11/19 at 15:01; Status UNV Vancomycin HCl 1.25 gm/Sodium Chloride 250 ml @ 83.333 mls/ hr Q8H IVPB Last administered on 01/12/19at 07:36; Admin Dose 83.333 MLS/HR; Start 01/12/19 at 07:30 Miscellaneous Information (*Rx Drug Level Order Reminder*) VANCOMYCIN TROUGH AT 0630 0630 ONCE XX ; Start 01/13/19 at 06:30; Stop 01/13/19 at 06:31 SHARMIN BYRNE Jan 12, 2019 15:14
[2019-01-12] MEDS: ONDANSETRON 4 MG INJ IV PRN (16:35)
[2019-01-12] MEDS ORDERED: TPN 1,000 ML IV SCH ×2 (18:00→19:00)
[2019-01-12 19:37] VITALS: BP 128/74; PULSE 85; RESP 18
[2019-01-12] MEDS: NYSTATIN 15 GM CR TOP SCH (21:28)
[2019-01-13 01:11] VITALS: BP 118/77; PULSE 82; RESP 18
[2019-01-13] MEDS: ONDANSETRON 4 MG INJ IV PRN ×4 (06:31→21:49)
[2019-01-13] MEDS: HYDROmorphONE 0.5 MG/0.5 ML SYG IV PRN ×4 (06:33→21:50)
[2019-01-13 08:05] VITALS: BP 118/63; PULSE 95; RESP 20
[2019-01-13] MEDS: VANCOMYCIN HCL 1.25 GM in SOD CHLORIDE 0.9% 250 ML IVPB SCH ×2 (08:07→15:47)
[2019-01-13] MEDS: NICOTINE (21 MG/24 HR) PATCH TRANSDERM SCH (08:40)
[2019-01-13] MEDS: MEROPENEM 1 GM/50ML(PMX) 50 ML IVPB SCH (08:40)
[2019-01-13] MEDS: FAMOTIDINE 20 MG INJ IV SCH ×2 (08:40→20:07)
[2019-01-13] MEDS: NYSTATIN 15 GM CR TOP SCH ×2 (08:57→20:09)
--- NOTE | 2019-01-13 11:31 | PN ---
Date/Time of Note Date/Time of Note DATE: 01/13/19 TIME: 11:30 Assessment/Plan Lines/Catheters IV Catheter Type (from Nrs): Mid Line Alberto in Place (from Nrs): No Assessment/Plan Chief Complaint/Hosp Course Acute perforated diverticulitis on IV antibiotics for 10 days. No collection to drain. Assessment/Plan Advance diet discharge planning. Will follow as needed Subjective 24 Hr Interval Summary Resolving acute diverticulitis. Good response to antibiotics. Pain subsided. Tolerating liquids. Exam/Review of Systems Vital Signs Vitals Vital Signs Date Temp Pulse Resp B/P (MAP) Pulse Ox O2 O2 Flow FiO2 Time Delivery Rate 01/13/19 98.3 95 20 118/63 97 08:05 (81) 01/12/19 Room Air 14:05 Intake and Output 01/12/19 01/12/19 01/13/19 1515:00 23:00 07:00 IntakeIntake Total 710 ml 900 ml 250 ml BalanceBalance 710 ml 900 ml 250 ml Exam Gastrointestinal: soft, nl liver, spleen, non-tender Results Result Diagram: 01/13/19 0612 01/12/19 0445 DONNY MEAD MD Jan 13, 2019 11:31
--- NOTE | 2019-01-13 11:36 | PN ---
Date/Time of Note Date/Time of Note DATE: 01/13/19 TIME: 11:35 Assessment/Plan Lines/Catheters IV Catheter Type (from [facility]): Mid Line Alberto in Place (from [facility]): No Assessment/Plan Chief Complaint/Hosp Course Acute perforated diverticulitis on IV antibiotics for 10 days. No collection to drain. Assessment/Plan Advance diet. Will follow as needed Subjective 24 Hr Interval Summary Acute perforated diverticulitis responded to antibiotics. Exam/Review of Systems Vital Signs Vitals Vital Signs Date Temp Pulse Resp B/P (MAP) Pulse Ox O2 O2 Flow FiO2 Time Delivery Rate 01/13/19 98.3 95 20 118/63 97 08:05 (81) 01/12/19 Room Air 14:05 Intake and Output 01/12/19 01/12/19 01/13/19 1515:00 23:00 07:00 IntakeIntake Total 710 ml 900 ml 250 ml BalanceBalance 710 ml 900 ml 250 ml Results Result Diagram: 01/13/19 0612 01/12/19 0445 DONNY MEAD MD Jan 13, 2019 11:36
[2019-01-13] MEDS: FLUCONAZOLE 100 MG/50 ML (PMX) 50 ML IVPB SCH (13:14)
--- NOTE | 2019-01-13 13:24 | PN ---
Date/Time of Note Date/Time of Note DATE: 01/13/19 TIME: 13:24 Assessment/Plan VTE Prophylaxis Risk score (from Ns)>0 risk: 1 SCD applied (from Ns): Yes Pharmacological prophylaxis: NA/contraindicated Pharm contraindication: low risk/ambulating Lines/Catheters [facility]from [facility] Mid Line Urinary Cath still in place: No Assessment/Plan Hospital Course 1. SIRS 2.2 diverticulitis. WBC 13 today> 16 > resolved 5.2 2. Acute diverticulitis. with abscess 3. Hx of diverticulosis. 4. Normocytic normochromic iron deficiency anemia 5. s/p Inguinal Hernia Repair left ; 6. s/p uterine fibroid removal, 2012 7. Current smoker and marijuana user 8. Obesity 9. 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 drug Assessment/Plan - add benadryl for rash - spoke to ID tapering abx? - cw vancomycin/meropenam and fluconazole for now - pt clinically feels better today> management per surgery> advance to full liquids - cw iv fluids -Oncology gynecology no intervention now needs to follow-up with the gynecology as an outpatient. per them ; The mass is most likely fibroid but malignancy cannot be ruled out -GI proph. Protonix - pain control - fu Dr Rea pate Result Diagram: 01/13/19 0612 01/12/19 0445 Results 24hrs Laboratory Tests Test 01/13/19 06:12 White Blood Count 5.2 Red Blood Count 4.02 L Hemoglobin 11.8 L Hematocrit 36.3 L Mean Corpuscular Volume 90.3 Mean Corpuscular Hemoglobin 29.4 Mean Corpuscular Hemoglobin Concent 32.5 Red Cell Distribution Width 13.1 Platelet Count 428 H Mean Platelet Volume 9.3 Immature Granulocytes % 1.300 H Neutrophils % 65.7 Lymphocytes % 19.3 Monocytes % 9.4 Eosinophils % 3.9 Basophils % 0.4 Nucleated Red Blood Cells % 0.0 Immature Granulocytes # 0.070 H Neutrophils # 3.4 Lymphocytes # 1.0 Monocytes # 0.5 Eosinophils # 0.2 Basophils # 0.0 Nucleated Red Blood Cells # 0.0 Vancomycin Level Trough 14.7 Subjective 24 Hr Interval Summary Free Text/Dictation feels a lot better today able to tolerate clear liquids rash noted on sides of abdomen/feet Exam/Review of Systems Exam Vitals Vital Signs Date Temp Pulse Resp B/P (MAP) Pulse Ox O2 O2 Flow FiO2 Time Delivery Rate 01/13/19 98.3 95 20 118/63 97 08:05 (81) 01/12/19 Room Air 14:05 Intake and Output 01/12/19 01/12/19 01/13/19 1515:00 23:00 07:00 IntakeIntake Total 710 ml 900 ml 250 ml BalanceBalance 710 ml 900 ml 250 ml Exam Constitutional: alert, oriented Neck: supple Respiratory: clear to auscultation Cardiovascular: regular rate and rhythm Gastrointestinal: soft, rebound or guarding; maculopapular rash on sides of abdomen, hands Results Results 24hrs Laboratory Tests Test 01/13/19 06:12 White Blood Count 5.2 Red Blood Count 4.02 L Hemoglobin 11.8 L Hematocrit 36.3 L Mean Corpuscular Volume 90.3 Mean Corpuscular Hemoglobin 29.4 Mean Corpuscular Hemoglobin Concent 32.5 Red Cell Distribution Width 13.1 Platelet Count 428 H Mean Platelet Volume 9.3 Immature Granulocytes % 1.300 H Neutrophils % 65.7 Lymphocytes % 19.3 Monocytes % 9.4 Eosinophils % 3.9 Basophils % 0.4 Nucleated Red Blood Cells % 0.0 Immature Granulocytes # 0.070 H Neutrophils # 3.4 Lymphocytes # 1.0 Monocytes # 0.5 Eosinophils # 0.2 Basophils # 0.0 Nucleated Red Blood Cells # 0.0 Vancomycin Level Trough 14.7 Medications Medication Current Medications Acetaminophen (Tylenol Supp) 650 mg Q6H PRN [place] PAIN/FEVER Last administered on 01/08/19at 15:55; Admin Dose 650 MG; Start 01/04/19 at 01:00 Ondansetron HCl (Zofran Inj) 4 mg Q4H PRN IV NAUSEA AND/OR VOMITING Last administered on 01/13/19at 12:13; Admin Dose 4 MG; Start 01/04/19 at 01:00 Hydromorphone HCl (Dilaudid) 0.5 mg Q4H PRN IV SEVERE PAIN LEVEL 7-10 Last administered on 01/13/19at 12:13; Admin Dose 0.5 MG; Start 01/04/19 at 01:00 Nicotine (Nicoderm 21 Mg/ 24hr) 1 patch DAILY TRANSDERM Last administered on 01/13/19 08:40; Admin Dose 1 PATCH; Start 01/04/19 at 12:00 Famotidine (Pepcid Iv) 20 mg Q12 IV Last administered on 01/13/19 08:40; Admin Dose 20 MG; Start 01/05/19 at 09:00 Lorazepam (Ativan) 0.5 mg Q8H PRN IV ANXIETY Last administered on 01/12/19 22:08; Admin Dose 0.5 MG; Start 01/05/19 at 12:30 Acetaminophen (Tylenol Tab) 650 mg Q6H PRN PO MILD PAIN(1-3)OR ELEVATED TEMP Last administered on 01/07/19 15:20; Admin Dose 650 MG; Start 01/07/19 at 15:30 Meropenem/Sodium Chloride 50 ml @ 100 mls/hr Q12 IVPB Last administered on 01/13/19 08:40; Admin Dose 100 MLS/HR; Start 01/08/19 at 21:00 Vancomycin HCl (Vanco Iv Per Pharmacy) VANCOMYCIN PER PHARMACY PER PROTOCOL XX ; Start 01/08/19 at 13:30 Fluconazole/ Sodium Chloride 50 ml @ 50 mls/hr Q24H IVPB Last administered on 01/13/19 13:14; Admin Dose 50 MLS/HR; Start 01/08/19 at 13:30 Vancomycin HCl 1.25 gm/Sodium Chloride 250 ml @ 83.333 mls/ hr Q8H IVPB Last administered on 01/13/19 08:07; Admin Dose 83.333 MLS/HR; Start 01/12/19 at 07:30 Nystatin (Nystatin Cr) 1 applic BID TOP Last administered on 01/13/19 08:57; Admin Dose 1 APPLIC; Start 01/12/19 at 21:00 Diphenhydramine HCl (Benadryl) 25 mg Q6H PRN IV ITCHING; Start 01/13/19 at 13:30; Status DANILO TORRES MD Jan 13, 2019 13:24
[2019-01-13 13:29] VITALS: BP 146/73; PULSE 96; RESP 20
[2019-01-13] MEDS: DIPHENHYDRAMINE 50 MG INJ IV PRN (13:42)
--- NOTE | 2019-01-13 15:19 | CONS ---
Assessment/Plan Assessment/Plan Hospital Course (Demo Recall) Patient is alert feels good, developed rash last night, no fevers Antimicrobials: Vanco, Merrem, Diflucan Physical examination: Well-developed well-nourished middle-aged woman who is alert in no distress. Head atraumatic normocephalic sclera nonicteric vehicle mucosa pink neck is supple chest rise symmetrical breath sounds clear heart: S1- S2 abdomen soft mild tenderness on palpation bowel sounds present extremities without cyanosis Assessment: 1. Acute diverticulitis with abscess 2. SIRS 3. Rash, consistent with allergic Plan: Patient remains stable we will discontinue meropenem and start her on aztreonam and Flagyl, continue Benadryl, repeat CT of the abdomen Consultation Date/Type/Reason Admit Date/Time Jan 03, 2019 at 23:15 Initial Consult Date 01/04/19 Type of Consult id Date/Time of Note DATE: 01/13/19 TIME: 15:17 Exam/Review of Systems Exam Vitals Vital Signs Date Temp Pulse Resp B/P (MAP) Pulse Ox O2 O2 Flow FiO2 Time Delivery Rate 01/13/19 98.6 96 20 146/73 98 13:29 (97) 01/12/19 Room Air 14:05 Intake and Output 01/12/19 01/12/19 01/13/19 1515:00 23:00 07:00 IntakeIntake Total 710 ml 900 ml 250 ml BalanceBalance 710 ml 900 ml 250 ml Results Result Diagram: 01/13/19 0612 01/12/19 0445 Results 24hrs Laboratory Tests Test 01/13/19 06:12 White Blood Count 5.2 Red Blood Count 4.02 L Hemoglobin 11.8 L Hematocrit 36.3 L Mean Corpuscular Volume 90.3 Mean Corpuscular Hemoglobin 29.4 Mean Corpuscular Hemoglobin Concent 32.5 Red Cell Distribution Width 13.1 Platelet Count 428 H Mean Platelet Volume 9.3 Immature Granulocytes % 1.300 H Neutrophils % 65.7 Lymphocytes % 19.3 Monocytes % 9.4 Eosinophils % 3.9 Basophils % 0.4 Nucleated Red Blood Cells % 0.0 Immature Granulocytes # 0.070 H Neutrophils # 3.4 Lymphocytes # 1.0 Monocytes # 0.5 Eosinophils # 0.2 Basophils # 0.0 Nucleated Red Blood Cells # 0.0 Vancomycin Level Trough 14.7 Medications Medication Current Medications Acetaminophen (Tylenol Supp) 650 mg Q6H PRN [place] PAIN/FEVER Last administered on 01/08/19 15:55; Admin Dose 650 MG; Start 01/04/19 at 01:00 Ondansetron HCl (Zofran Inj) 4 mg Q4H PRN IV NAUSEA AND/OR VOMITING Last administered on 01/13/19 12:13; Admin Dose 4 MG; Start 01/04/19 at 01:00 Hydromorphone HCl (Dilaudid) 0.5 mg Q4H PRN IV SEVERE PAIN LEVEL 7-10 Last administered on 01/13/19 12:13; Admin Dose 0.5 MG; Start 01/04/19 at 01:00 Nicotine (Nicoderm 21 Mg/ 24hr) 1 patch DAILY TRANSDERM Last administered on 01/13/19 08:40; Admin Dose 1 PATCH; Start 01/04/19 at 12:00 Famotidine (Pepcid Iv) 20 mg Q12 IV Last administered on 01/13/19 08:40; Admin Dose 20 MG; Start 01/05/19 at 09:00 Lorazepam (Ativan) 0.5 mg Q8H PRN IV ANXIETY Last administered on 01/12/19at 2 2:08; Admin Dose 0.5 MG; Start 01/05/19 at 12:30 Acetaminophen (Tylenol Tab) 650 mg Q6H PRN PO MILD PAIN(1-3)OR ELEVATED TEMP Last administered on 01/07/19at 15:20; Admin Dose 650 MG; Start 01/07/19 at 15:30 Meropenem/Sodium Chloride 50 ml @ 100 mls/hr Q12 IVPB Last administered on 01/13/19 08:40; Admin Dose 100 MLS/HR; Start 01/08/19 at 21:00 Vancomycin HCl (Vanco Iv Per Pharmacy) VANCOMYCIN PER PHARMACY PER PROTOCOL XX ; Start 01/08/19 at 13:30 Fluconazole/ Sodium Chloride 50 ml @ 50 mls/hr Q24H IVPB Last administered on 01/13/19 13:14; Admin Dose 50 MLS/HR; Start 01/08/19 at 13:30 Vancomycin HCl 1.25 gm/Sodium Chloride 250 ml @ 83.333 mls/ hr Q8H IVPB Last administered on 6/17/19at 08:07; Admin Dose 83.333 MLS/HR; Start 01/12/19 at 07:30 Nystatin (Nystatin Cr) 1 applic BID TOP Last administered on 01/13/19at 08:57; Admin Dose 1 APPLIC; Start 01/12/19 at 21:00 Diphenhydramine HCl (Benadryl) 25 mg Q6H PRN IV ITCHING Last administered on 01/13/19at 13:42; Admin Dose 25 MG; Start 01/13/19 at 13:30 Zinc Acetate/ Diphenhydramine (Benadryl 2% Cr) 1 applic Q8 TOP ; Start 01/13/19 at 15:00 DALE ARREOLA NP Jan 13, 2019 15:19
[2019-01-13] MEDS: DIPHENHYDRAMINE 2%/ZINC 28.4 GM CR TOP SCH ×2 (15:47→21:52)
[2019-01-13 19:47] VITALS: BP 115/61; PULSE 92; RESP 18
[2019-01-13] MEDS: AZTREONAM 1 GM/NS (PMX) 50 ML IVPB SCH (20:07)
[2019-01-13] MEDS: metroNIDAZOLE 500 MG/NS (PMX) 100 ML IVPB SCH (21:49)
[2019-01-14] MEDS: LORAZEPAM 2 MG INJ IV PRN ×2 (00:16→14:40)
[2019-01-14] MEDS: VANCOMYCIN HCL 1.25 GM in SOD CHLORIDE 0.9% 250 ML IVPB SCH ×4 (00:16→23:36)
[2019-01-14 02:00] VITALS: BP 94/58; PULSE 83; RESP 18
[2019-01-14] MEDS: DIPHENHYDRAMINE 2%/ZINC 28.4 GM CR TOP SCH ×3 (05:30→22:10)
[2019-01-14] MEDS: metroNIDAZOLE 500 MG/NS (PMX) 100 ML IVPB SCH ×3 (05:30→22:06)
[2019-01-14] MEDS: ONDANSETRON 4 MG INJ IV PRN ×4 (07:00→20:27)
[2019-01-14] MEDS: HYDROmorphONE 0.5 MG/0.5 ML SYG IV PRN ×4 (07:01→20:33)
[2019-01-14 07:48] VITALS: BP 107/56; PULSE 75; RESP 20
[2019-01-14] MEDS ORDERED: SOD CHLORIDE 0.9% 100 ML ONE (08:13)
[2019-01-14] MEDS ORDERED: IOHEXOL 300MG/ML 150 ML BTL ONE (08:13)
[2019-01-14] MEDS: NICOTINE (21 MG/24 HR) PATCH TRANSDERM SCH (08:45)
[2019-01-14] MEDS: FAMOTIDINE 20 MG INJ IV SCH ×2 (08:45→20:30)
[2019-01-14] MEDS: NYSTATIN 15 GM CR TOP SCH ×2 (08:46→22:08)
--- NOTE | 2019-01-14 11:56 | CONS ---
Assessment/Plan Assessment/Plan Hospital Course (Demo Recall) no acute changes, CT abd noted Antimicrobials: Vanco, Azactam Flagyl, Diflucan Physical examination: Well-developed well-nourished middle-aged woman who is alert in no distress. Head atraumatic normocephalic sclera nonicteric vehicle mucosa pink neck is supple chest rise symmetrical breath sounds clear heart: S1- S2 abdomen soft mild tenderness on palpation bowel sounds present extremities without cyanosis Assessment: 1. Acute diverticulitis with abscess 2. SIRS 3. Rash, consistent with allergic Plan: Clinically unchanged, repeat CT abdomen noted, surgical rec-s noted, continue abx Consultation Date/Type/Reason Admit Date/Time Jan 03, 2019 at 23:15 Initial Consult Date 01/04/19 Type of Consult id Date/Time of Note DATE: 01/14/19 TIME: 11:54 Exam/Review of Systems Exam Vitals Vital Signs Date Temp Pulse Resp B/P (MAP) Pulse Ox O2 O2 Flow FiO2 Time Delivery Rate 01/14/19 98.8 75 20 107/56 96 07:48 (73) 01/12/19 Room Air 14:05 Intake and Output 01/13/19 01/13/19 01/14/19 1515:00 23:00 07:00 IntakeIntake Total 1590 ml 1070 ml 400 ml BalanceBalance 1590 ml 1070 ml 400 ml Results Result Diagram: 01/14/19 0437 01/14/19 0436 Results 24hrs Laboratory Tests Test 01/14/19 04:36 01/14/19 04:37 Sodium Level 140 Potassium Level 3.6 Chloride Level 104 Carbon Dioxide Level 28 Anion Gap 8 Blood Urea Nitrogen 5 L Creatinine 0.43 L Est Glomerular Filtrat Rate mL/min > 60 Glucose Level 96 Calcium Level 8.7 Triglycerides Level 188 H White Blood Count 5.0 Red Blood Count 3.99 L Hemoglobin 11.6 L Hematocrit 36.0 L Mean Corpuscular Volume 90.2 Mean Corpuscular Hemoglobin 29.1 Mean Corpuscular Hemoglobin Concent 32.2 Red Cell Distribution Width 13.0 Platelet Count 440 H Mean Platelet Volume 9.6 Immature Granulocytes % 1.800 H Neutrophils % 63.0 Lymphocytes % 20.9 Monocytes % 9.9 Eosinophils % 4.0 Basophils % 0.4 Nucleated Red Blood Cells % 0.0 Immature Granulocytes # 0.090 H Neutrophils # 3.1 Lymphocytes # 1.0 Monocytes # 0.5 Eosinophils # 0.2 Basophils # 0.0 Nucleated Red Blood Cells # 0.0 Phosphorus Level 3.9 Magnesium Level 2.2 Medications Medication Current Medications Acetaminophen (Tylenol Supp) 650 mg Q6H PRN [place] PAIN/FEVER Last administered on 01/08/19 15:55; Admin Dose 650 MG; Start 01/04/19 at 01:00 Ondansetron HCl (Zofran Inj) 4 mg Q4H PRN IV NAUSEA AND/OR VOMITING Last administered on 01/14/19 11:40; Admin Dose 4 MG; Start 01/04/19 at 01:00 Hydromorphone HCl (Dilaudid) 0.5 mg Q4H PRN IV SEVERE PAIN LEVEL 7-10 Last administered on 01/14/19 11:41; Admin Dose 0.5 MG; Start 01/04/19 at 01:00 Nicotine (Nicoderm 21 Mg/ 24hr) 1 patch DAILY TRANSDERM Last administered on 01/14/19 08:45; Admin Dose 1 PATCH; Start 01/04/19 at 12:00 Famotidine (Pepcid Iv) 20 mg Q12 IV Last administered on 01/14/19 08:45; Admin Dose 20 MG; Start 01/05/19 at 09:00 Lorazepam (Ativan) 0.5 mg Q8H PRN IV ANXIETY Last administered on 01/14/19 00:16; Admin Dose 0.5 MG; Start 01/05/19 at 12:30 Acetaminophen (Tylenol Tab) 650 mg Q6H PRN PO MILD PAIN(1-3)OR ELEVATED TEMP Last administered on 01/07/19 15:20; Admin Dose 650 MG; Start 01/07/19 at 15:30 Vancomycin HCl (Vanco Iv Per Pharmacy) VANCOMYCIN PER PHARMACY PER PROTOCOL XX ; Start 01/08/19 at 13:30 Fluconazole/ Sodium Chloride 50 ml @ 50 mls/hr Q24H IVPB Last administered on 01/13/19 13:14; Admin Dose 50 MLS/HR; Start 01/08/19 at 13:30 Vancomycin HCl 1.25 gm/Sodium Chloride 250 ml @ 83.333 mls/ hr Q8H IVPB Last administered on 6/18/19at 08:46; Admin Dose 83.333 MLS/HR; Start 01/12/19 at 07:30 Nystatin (Nystatin Cr) 1 applic BID TOP Last administered on 01/14/19at 08:46; Admin Dose 1 APPLIC; Start 01/12/19 at 21:00 Diphenhydramine HCl (Benadryl) 25 mg Q6H PRN IV ITCHING Last administered on 01/13/19at 13:42; Admin Dose 25 MG; Start 01/13/19 at 13:30 Zinc Acetate/ Diphenhydramine (Benadryl 2% Cr) 1 applic Q8 TOP Last administered on 01/14/19at 05:30; Admin Dose 1 APPLIC; Start 01/13/19 at 15:00 Aztreonam 50 ml @ 100 mls/hr Q12 IVPB Last administered on 01/13/19at 20:07; Admin Dose 100 MLS/HR; Start 01/13/19 at 21:00 Metronidazole 100 ml @ 100 mls/hr Q8 IVPB Last administered on 01/14/19at 05:30; Admin Dose 100 MLS/HR; Start 01/13/19 at 22:00 DALE ARREOLA NP Jan 14, 2019 11:56
[2019-01-14] MEDS: AZTREONAM 1 GM/NS (PMX) 50 ML IVPB SCH (12:54)
[2019-01-14 13:45] VITALS: BP 113/68; PULSE 101; RESP 20
[2019-01-14] MEDS: FLUCONAZOLE 100 MG/50 ML (PMX) 50 ML IVPB SCH (14:19)
--- NOTE | 2019-01-14 15:10 | PN ---
Date/Time of Note Date/Time of Note DATE: 01/14/19 TIME: 15:07 Assessment/Plan VTE Prophylaxis Risk score (from Ns)>0 risk: 1 SCD applied (from Ns): Yes Pharmacological prophylaxis: NA/contraindicated Pharm contraindication: low risk/ambulating Lines/Catheters IV Catheter Type (from [facility]): Mid Line Urinary Cath still in place: No Assessment/Plan Hospital Course 1. SIRS 2.2 diverticulitis. WBC 13 today> 16 > resolved 5.2 2. Acute diverticulitis. with abscess 3. Hx of diverticulosis. 4. Normocytic normochromic iron deficiency anemia 5. s/p Inguinal Hernia Repair left ; 6. s/p uterine fibroid removal, 2012 7. Current smoker and marijuana user 8. Obesity 9. 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 drug reaction to meropenam? Assessment/Plan - cw benadryl for rash - cw vancomycin/Aztreonam nd fluconazole /flagyl - spoke to surgery Dr Lucia who will review the CT scan today - pt clinically feels better today> management per surgery> advance to full liquids - cw iv fluids -Oncology gynecology no intervention now needs to follow-up with the gynecology as an outpatient. per them ; The mass is most likely fibroid but malignancy cannot be ruled out -GI proph. Protonix - pain control - fu Dr Lucia recs Result Diagram: 01/14/19 0437 01/14/19 0436 Results 24hrs Laboratory Tests Test 01/14/19 04:36 01/14/19 04:37 Sodium Level 140 Potassium Level 3.6 Chloride Level 104 Carbon Dioxide Level 28 Anion Gap 8 Blood Urea Nitrogen 5 L Creatinine 0.43 L Est Glomerular Filtrat Rate mL/min > 60 Glucose Level 96 Calcium Level 8.7 Triglycerides Level 188 H White Blood Count 5.0 Red Blood Count 3.99 L Hemoglobin 11.6 L Hematocrit 36.0 L Mean Corpuscular Volume 90.2 Mean Corpuscular Hemoglobin 29.1 Mean Corpuscular Hemoglobin Concent 32.2 Red Cell Distribution Width 13.0 Platelet Count 440 H Mean Platelet Volume 9.6 Immature Granulocytes % 1.800 H Neutrophils % 63.0 Lymphocytes % 20.9 Monocytes % 9.9 Eosinophils % 4.0 Basophils % 0.4 Nucleated Red Blood Cells % 0.0 Immature Granulocytes # 0.090 H Neutrophils # 3.1 Lymphocytes # 1.0 Monocytes # 0.5 Eosinophils # 0.2 Basophils # 0.0 Nucleated Red Blood Cells # 0.0 Phosphorus Level 3.9 Magnesium Level 2.2 Subjective 24 Hr Interval Summary Free Text/Dictation Patient's abdominal pain has improved Exam/Review of Systems Exam Vitals Vital Signs Date Temp Pulse Resp B/P (MAP) Pulse Ox O2 O2 Flow FiO2 Time Delivery Rate 01/14/19 98.2 101 20 113/68 98 13:45 (83) 01/12/19 Room Air 14:05 Intake and Output 01/13/19 01/13/19 01/14/19 1515:00 23:00 07:00 IntakeIntake Total 1590 ml 1070 ml 400 ml BalanceBalance 1590 ml 1070 ml 400 ml Exam Constitutional: alert, oriented Neck: supple Respiratory: clear to auscultation Cardiovascular: regular rate and rhythm Gastrointestinal: soft, rebound or guarding; maculopapular rash on sides of abdomen, hands Results Results 24hrs Laboratory Tests Test 01/14/19 04:36 01/14/19 04:37 Sodium Level 140 Potassium Level 3.6 Chloride Level 104 Carbon Dioxide Level 28 Anion Gap 8 Blood Urea Nitrogen 5 L Creatinine 0.43 L Est Glomerular Filtrat Rate mL/min > 60 Glucose Level 96 Calcium Level 8.7 Triglycerides Level 188 H White Blood Count 5.0 Red Blood Count 3.99 L Hemoglobin 11.6 L Hematocrit 36.0 L Mean Corpuscular Volume 90.2 Mean Corpuscular Hemoglobin 29.1 Mean Corpuscular Hemoglobin Concent 32.2 Red Cell Distribution Width 13.0 Platelet Count 440 H Mean Platelet Volume 9.6 Immature Granulocytes % 1.800 H Neutrophils % 63.0 Lymphocytes % 20.9 Monocytes % 9.9 Eosinophils % 4.0 Basophils % 0.4 Nucleated Red Blood Cells % 0.0 Immature Granulocytes # 0.090 H Neutrophils # 3.1 Lymphocytes # 1.0 Monocytes # 0.5 Eosinophils # 0.2 Basophils # 0.0 Nucleated Red Blood Cells # 0.0 Phosphorus Level 3.9 Magnesium Level 2.2 Medications Medication Current Medications Acetaminophen (Tylenol Supp) 650 mg Q6H PRN [place] PAIN/FEVER Last administered on 01/08/19at 15:55; Admin Dose 650 MG; Start 01/04/19 at 01:00 Ondansetron HCl (Zofran Inj) 4 mg Q4H PRN IV NAUSEA AND/OR VOMITING Last admi nistered on 01/14/19 11:40; Admin Dose 4 MG; Start 01/04/19 at 01:00 Hydromorphone HCl (Dilaudid) 0.5 mg Q4H PRN IV SEVERE PAIN LEVEL 7-10 Last administered on 01/14/19 11:41; Admin Dose 0.5 MG; Start 01/04/19 at 01:00 Nicotine (Nicoderm 21 Mg/ 24hr) 1 patch DAILY TRANSDERM Last administered on 08:45; Admin Dose 1 PATCH; Start 01/04/19 at 12:00 Famotidine (Pepcid Iv) 20 mg Q12 IV Last administered on 01/14/19 08:45; Admin Dose 20 MG; Start 01/05/19 at 09:00 Lorazepam (Ativan) 0.5 mg Q8H PRN IV ANXIETY Last administered on 01/14/19 14:40; Admin Dose 0.5 MG; Start 01/05/19 at 12:30 Acetaminophen (Tylenol Tab) 650 mg Q6H PRN PO MILD PAIN(1-3)OR ELEVATED TEMP Last administered on 01/07/19 15:20; Admin Dose 650 MG; Start 01/07/19 at 15:30 Vancomycin HCl (Vanco Iv Per Pharmacy) VANCOMYCIN PER PHARMACY PER PROTOCOL XX ; Start 01/08/19 at 13:30 Fluconazole/ Sodium Chloride 50 ml @ 50 mls/hr Q24H IVPB Last administered on 01/14/19 14:19; Admin Dose 50 MLS/HR; Start 01/08/19 at 13:30 Vancomycin HCl 1.25 gm/Sodium Chloride 250 ml @ 83.333 mls/ hr Q8H IVPB Last administered on 01/14/19 08:46; Admin Dose 83.333 MLS/HR; Start 01/12/19 at 07:30 Nystatin (Nystatin Cr) 1 applic BID TOP Last administered on 01/14/19 08:46; Admin Dose 1 APPLIC; Start 01/12/19 at 21:00 Diphenhydramine HCl (Benadryl) 25 mg Q6H PRN IV ITCHING Last administered on 6/17/19at 13:42; Admin Dose 25 MG; Start 01/13/19 at 13:30 Zinc Acetate/ Diphenhydramine (Benadryl 2% Cr) 1 applic Q8 TOP Last ad ministered on 01/14/19at 14:23; Admin Dose 1 APPLIC; Start 01/13/19 at 15:00 Aztreonam 50 ml @ 100 mls/hr Q12 IVPB Last administered on 01/14/19at 12:54; Admin Dose 100 MLS/HR; Start 01/13/19 at 21:00 Metronidazole 100 ml @ 100 mls/hr Q8 IVPB Last administered on 01/14/19at 14:41; Admin Dose 100 MLS/HR; Start 01/13/19 at 22:00 DANILO KUNZ MD Jan 14, 2019 15:10
--- NOTE | 2019-01-14 15:19 | CONS ---
Assessment/Plan Assessment/Plan Hospital Course (Demo Recall) Patient is alert feels good and tolerates full liquid diet, no pain no nausea vomiting diarrhea Antimicrobials: Vanco, Azactam Flagyl, Diflucan Physical examination: Well-developed well-nourished middle-aged woman who is alert in no distress. Head atraumatic normocephalic sclera nonicteric vehicle mucosa pink neck is supple chest rise symmetrical breath sounds clear heart: S1- S2 abdomen soft mild tenderness on palpation bowel sounds present extremities without cyanosis Assessment: 1. Acute diverticulitis with abscess 2. SIRS 3. Rash, consistent with allergic Plan: Clinically unchanged, repeat CT abdomen noted, will change aztreonam to Levaquin, continue antibiotics we will ask surgical team to evaluate CAT scan of the abdomen Consultation Date/Type/Reason Admit Date/Time Jan 03, 2019 at 23:15 Initial Consult Date 01/04/19 Type of Consult id Date/Time of Note DATE: 01/14/19 TIME: 15:18 Exam/Review of Systems Exam Vitals Vital Signs Date Temp Pulse Resp B/P (MAP) Pulse Ox O2 O2 Flow FiO2 Time Delivery Rate 01/14/19 98.2 101 20 113/68 98 13:45 (83) 01/12/19 Room Air 14:05 Intake and Output 01/13/19 01/13/19 01/14/19 1515:00 23:00 07:00 IntakeIntake Total 1590 ml 1070 ml 400 ml BalanceBalance 1590 ml 1070 ml 400 ml Results Result Diagram: 01/14/19 0437 01/14/19 0436 Results 24hrs Laboratory Tests Test 01/14/19 04:36 01/14/19 04:37 Sodium Level 140 Potassium Level 3.6 Chloride Level 104 Carbon Dioxide Level 28 Anion Gap 8 Blood Urea Nitrogen 5 L Creatinine 0.43 L Est Glomerular Filtrat Rate mL/min > 60 Glucose Level 96 Calcium Level 8.7 Triglycerides Level 188 H White Blood Count 5.0 Red Blood Count 3.99 L Hemoglobin 11.6 L Hematocrit 36.0 L Mean Corpuscular Volume 90.2 Mean Corpuscular Hemoglobin 29.1 Mean Corpuscular Hemoglobin Concent 32.2 Red Cell Distribution Width 13.0 Platelet Count 440 H Mean Platelet Volume 9.6 Immature Granulocytes % 1.800 H Neutrophils % 63.0 Lymphocytes % 20.9 Monocytes % 9.9 Eosinophils % 4.0 Basophils % 0.4 Nucleated Red Blood Cells % 0.0 Immature Granulocytes # 0.090 H Neutrophils # 3.1 Lymphocytes # 1.0 Monocytes # 0.5 Eosinophils # 0.2 Basophils # 0.0 Nucleated Red Blood Cells # 0.0 Phosphorus Level 3.9 Magnesium Level 2.2 Medications Medication Current Medications Acetaminophen (Tylenol Supp) 650 mg Q6H PRN [place] PAIN/FEVER Last administered on 01/08/19 15:55; Admin Dose 650 MG; Start 01/04/19 at 01:00 Ondansetron HCl (Zofran Inj) 4 mg Q4H PRN IV NAUSEA AND/OR VOMITING Last administered on 01/14/19 11:40; Admin Dose 4 MG; Start 01/04/19 at 01:00 Hydromorphone HCl (Dilaudid) 0.5 mg Q4H PRN IV SEVERE PAIN LEVEL 7-10 Last administered on 01/14/19 11:41; Admin Dose 0.5 MG; Start 01/04/19 at 01:00 Nicotine (Nicoderm 21 Mg/ 24hr) 1 patch DAILY TRANSDERM Last administered on 01/14/19 08:45; Admin Dose 1 PATCH; Start 01/04/19 at 12:00 Famotidine (Pepcid Iv) 20 mg Q12 IV Last administered on 01/14/19 08:45; Admin Dose 20 MG; Start 01/05/19 at 09:00 Lorazepam (Ativan) 0.5 mg Q8H PRN IV ANXIETY Last administered on 01/14/19 14:40; Admin Dose 0.5 MG; Start 01/05/19 at 12:30 Acetaminophen (Tylenol Tab) 650 mg Q6H PRN PO MILD PAIN(1-3)OR ELEVATED TEMP Last administered on 01/07/19 15:20; Admin Dose 650 MG; Start 01/07/19 at 15:30 Vancomycin HCl (Vanco Iv Per Pharmacy) VANCOMYCIN PER PHARMACY PER PROTOCOL XX ; Start 01/08/19 at 13:30 Fluconazole/ Sodium Chloride 50 ml @ 50 mls/hr Q24H IVPB Last administered on 01/14/19 14:19; Admin Dose 50 MLS/HR; Start 01/08/19 at 13:30 Vancomycin HCl 1.25 gm/Sodium Chloride 250 ml @ 83.333 mls/ hr Q8H IVPB Last administered on 01/14/19 08:46; Admin Dose 83.333 MLS/HR; Start 01/12/19 at 07:30 Nystatin (Nystatin Cr) 1 applic BID TOP Last administered on 01/14/19 08:46; Admin Dose 1 APPLIC; Start 01/12/19 at 21:00 Diphenhydramine HCl (Benadryl) 25 mg Q6H PRN IV ITCHING Last administered on 01/13/19 13:42; Admin Dose 25 MG; Start 01/13/19 at 13:30 Zinc Acetate/ Diphenhydramine (Benadryl 2% Cr) 1 applic Q8 TOP Last administered on 01/14/19 14:23; Admin Dose 1 APPLIC; Start 01/13/19 at 15:00 Aztreonam 50 ml @ 100 mls/hr Q12 IVPB Last administered on 01/14/19 12:54; Admin Dose 100 MLS/HR; Start 01/13/19 at 21:00 Metronidazole 100 ml @ 100 mls/hr Q8 IVPB Last administered on 01/14/19 14:41; Admin Dose 100 MLS/HR; Start 01/13/19 at 22:00 DALE ARREOLA NP Jan 14, 2019 15:19
[2019-01-14 19:48] VITALS: BP 127/71; PULSE 90; RESP 18
[2019-01-14] MEDS: LEVOFLOXACIN 750MG/D5W (PMX) 150 ML IVPB SCH (20:24)
[2019-01-14] MEDS: DIPHENHYDRAMINE 50 MG INJ IV PRN (22:25)
[2019-01-15] MEDS: LORAZEPAM 2 MG INJ IV PRN (00:10)
[2019-01-15 01:51] VITALS: BP 105/73; PULSE 76; RESP 19
[2019-01-15] MEDS: ONDANSETRON 4 MG INJ IV PRN ×2 (04:24→12:06)
[2019-01-15] MEDS: metroNIDAZOLE 500 MG/NS (PMX) 100 ML IVPB SCH ×2 (05:13→14:19)
[2019-01-15] MEDS: DIPHENHYDRAMINE 2%/ZINC 28.4 GM CR TOP SCH ×2 (05:14→14:19)
[2019-01-15] MEDS: VANCOMYCIN HCL 1.25 GM in SOD CHLORIDE 0.9% 250 ML IVPB SCH ×2 (06:30→15:30)
[2019-01-15 07:47] VITALS: BP 92/50; PULSE 73; RESP 18
[2019-01-15] MEDS: FAMOTIDINE 20 MG INJ IV SCH (08:36)
[2019-01-15] MEDS: NYSTATIN 15 GM CR TOP SCH (08:37)
[2019-01-15] MEDS: NICOTINE (21 MG/24 HR) PATCH TRANSDERM SCH (08:37)
[2019-01-15] MEDS: HYDROmorphONE 0.5 MG/0.5 ML SYG IV PRN ×2 (09:42→14:49)
[2019-01-15 09:45] VITALS: BP 101/61; RESP 18
[2019-01-15] MEDS: FLUCONAZOLE 100 MG/50 ML (PMX) 50 ML IVPB SCH (13:30)
--- NOTE | 2019-01-15 13:55 | CONS ---
Assessment/Plan Assessment/Plan Hospital Course (Demo Recall) No events, no fevers Antimicrobials: Vanco, Levaquin Flagyl, Diflucan Physical examination: Well-developed well-nourished middle-aged woman who is alert in no distress. Head atraumatic normocephalic sclera nonicteric vehicle mucosa pink neck is supple chest rise symmetrical breath sounds clear heart: S1- S2 abdomen soft mild tenderness on palpation bowel sounds present extremities without cyanosis Assessment: 1. Acute diverticulitis with abscess 2. SIRS 3. Rash, consistent with allergic Plan: Stable, continue abx, surgical rec-s noted, unable to do CT guided drainage Consultation Date/Type/Reason Admit Date/Time Jan 03, 2019 at 23:15 Initial Consult Date 01/04/19 Type of Consult id Date/Time of Note DATE: 01/15/19 TIME: 13:53 Exam/Review of Systems Exam Vitals Vital Signs Date Temp Pulse Resp B/P (MAP) Pulse Ox O2 O2 Flow FiO2 Time Delivery Rate 01/15/19 101/61 09:45 (74) 01/15/19 98.3 73 97 07:47 01/12/19 Room Air 14:05 Intake and Output 01/14/19 01/14/19 01/15/19 1515:00 23:00 07:00 IntakeIntake Total 1420 ml 1070 ml 450 ml BalanceBalance 1420 ml 1070 ml 450 ml Results Result Diagram: 01/15/19 0440 01/15/19 0440 Results 24hrs Laboratory Tests Test 01/15/19 04:40 01/15/19 08:18 White Blood Count 5.6 Red Blood Count 3.98 L Hemoglobin 11.7 L Hematocrit 36.4 L Mean Corpuscular Volume 91.5 Mean Corpuscular Hemoglobin 29.4 Mean Corpuscular Hemoglobin Concent 32.1 Red Cell Distribution Width 13.2 Platelet Count 444 H Mean Platelet Volume 9.4 Immature Granulocytes % 0.700 H Neutrophils % 66.6 Lymphocytes % 19.0 Monocytes % 10.2 Eosinophils % 3.0 Basophils % 0.5 Nucleated Red Blood Cells % 0.0 Immature Granulocytes # 0.040 H Neutrophils # 3.7 Lymphocytes # 1.1 Monocytes # 0.6 Eosinophils # 0.2 Basophils # 0.0 Nucleated Red Blood Cells # 0.0 Sodium Level 144 Potassium Level 3.8 Chloride Level 104 Carbon Dioxide Level 27 Anion Gap 13 Blood Urea Nitrogen 3 L Creatinine 0.50 Est Glomerular Filtrat Rate mL/min > 60 Glucose Level 100 Calcium Level 8.6 Phosphorus Level 4.3 Magnesium Level 2.1 Prothrombin Time 14.9 Prothrombin Time Ratio 1.2 INR International Normalized Ratio 1.16 Activated Partial Thromboplast Time 32.8 Medications Medication Current Medications Acetaminophen (Tylenol Supp) 650 mg Q6H PRN [place] PAIN/FEVER Last administered on 01/08/19 15:55; Admin Dose 650 MG; Start 01/04/19 at 01:00 Ondansetron HCl (Zofran Inj) 4 mg Q4H PRN IV NAUSEA AND/OR VOMITING Last administered on 01/15/19 12:06; Admin Dose 4 MG; Start 01/04/19 at 01:00 Hydromorphone HCl (Dilaudid) 0.5 mg Q4H PRN IV SEVERE PAIN LEVEL 7-10 Last adm inistered on 01/15/19 09:42; Admin Dose 0.5 MG; Start 01/04/19 at 01:00 Nicotine (Nicoderm 21 Mg/ 24hr) 1 patch DAILY TRANSDERM Last administered on 01/15/19 08:37; Admin Dose 1 PATCH; Start 01/04/19 at 12:00 Famotidine (Pepcid Iv) 20 mg Q12 IV Last administered on 01/15/19 08:36; Admin Dose 20 MG; Start 01/05/19 at 09:00 Lorazepam (Ativan) 0.5 mg Q8H PRN IV ANXIETY Last administered on 01/15/19 00:10; Admin Dose 0.5 MG; Start 01/05/19 at 12:30 Acetaminophen (Tylenol Tab) 650 mg Q6H PRN PO MILD PAIN(1-3)OR ELEVATED TEMP Last administered on 01/07/19 15:20; Admin Dose 650 MG; Start 01/07/19 at 15:30 Vancomycin HCl (Vanco Iv Per Pharmacy) VANCOMYCIN PER PHARMACY PER PROTOCOL XX ; Start 01/08/19 at 13:30 Fluconazole/ Sodium Chloride 50 ml @ 50 mls/hr Q24H IVPB Last administered on 01/14/19 14:19; Admin Dose 50 MLS/HR; Start 01/08/19 at 13:30 Vancomycin HCl 1.25 gm/Sodium Chloride 250 ml @ 83.333 mls/ hr Q8H IVPB Last administered on 01/15/19 06:30; Admin Dose 83.333 MLS/HR; Start 01/12/19 at 07:30 Nystatin (Nystatin Cr) 1 applic BID TOP Last administered on 01/15/19at 08:37; A dmin Dose 1 APPLIC; Start 01/12/19 at 21:00 Diphenhydramine HCl (Benadryl) 25 mg Q6H PRN IV ITCHING Last administered on 01/14/19at 22:25; Admin Dose 25 MG; Start 01/13/19 at 13:30 Zinc Acetate/ Diphenhydramine (Benadryl 2% Cr) 1 applic Q8 TOP Last administered on 01/15/19at 05:14; Admin Dose 1 APPLIC; Start 01/13/19 at 15:00 Metronidazole 100 ml @ 100 mls/hr Q8 IVPB Last administered on 01/15/19 05:13; Admin Dose 100 MLS/HR; Start 01/13/19 at 22:00 Levofloxacin/ Dextrose 150 ml @ 100 mls/hr Q24H IVPB Last administered on 01/14/19at 20:24; Admin Dose 100 MLS/HR; Start 01/14/19 at 17:00 DALE ARREOLA NP Jan 15, 2019 13:55
--- NOTE | 2019-01-15 15:04 | PN ---
Date/Time of Note Date/Time of Note DATE: 01/15/19 TIME: 15:02 Assessment/Plan VTE Prophylaxis Risk score (from Ns)>0 risk: 1 SCD applied (from [facility] [place]): No SCD contraindicated: low risk/ambulating Pharmacological prophylaxis: NA/contraindicated Pharm contraindication: low risk/ambulating Lines/Catheters IV Catheter Type (from [facility], [place]): Mid Line Urinary Cath still in place: No Assessment/Plan Hospital Course 1. SIRS 2.2 diverticulitis. WBC 13 today> 16 > resolved 5.2 2. Acute diverticulitis. with abscess however unable to drain as per radiology 3. Hx of diverticulosis. 4. Normocytic normochromic iron deficiency anemia 5. s/p Inguinal Hernia Repair left ; 6. s/p uterine fibroid removal, 2012 7. Current smoker and marijuana user 8. Obesity 9. 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 drug reaction to meropenam? Assessment/Plan - cw benadryl for rash -CT guided drainage not possible due to location patient is clinically improving no fevers tolerating diet, check with surgery if they are okay patient will be sent home - fu DR Rea irving planning if cleared by dr longo Result Diagram: 01/15/19 0440 01/15/19 0440 Results 24hrs Laboratory Tests Test 01/15/19 04:40 01/15/19 08:18 White Blood Count 5.6 Red Blood Count 3.98 L Hemoglobin 11.7 L Hematocrit 36.4 L Mean Corpuscular Volume 91.5 Mean Corpuscular Hemoglobin 29.4 Mean Corpuscular Hemoglobin Concent 32.1 Red Cell Distribution Width 13.2 Platelet Count 444 H Mean Platelet Volume 9.4 Immature Granulocytes % 0.700 H Neutrophils % 66.6 Lymphocytes % 19.0 Monocytes % 10.2 Eosinophils % 3.0 Basophils % 0.5 Nucleated Red Blood Cells % 0.0 Immature Granulocytes # 0.040 H Neutrophils # 3.7 Lymphocytes # 1.1 Monocytes # 0.6 Eosinophils # 0.2 Basophils # 0.0 Nucleated Red Blood Cells # 0.0 Sodium Level 144 Potassium Level 3.8 Chloride Level 104 Carbon Dioxide Level 27 Anion Gap 13 Blood Urea Nitrogen 3 L Creatinine 0.50 Est Glomerular Filtrat Rate mL/min > 60 Glucose Level 100 Calcium Level 8.6 Phosphorus Level 4.3 Magnesium Level 2.1 Prothrombin Time 14.9 Prothrombin Time Ratio 1.2 INR International Normalized Ratio 1.16 Activated Partial Thromboplast Time 32.8 Subjective 24 Hr Interval Summary Free Text/Dictation She feels a lot better today tolerated the low residue diet. no Fevers Exam/Review of Systems Exam Vitals Vital Signs Date Temp Pulse Resp B/P (MAP) Pulse Ox O2 O2 Flow FiO2 Time Delivery Rate 01/15/19 18 101/61 09:45 (74) 01/15/19 98.3 73 97 07:47 01/12/19 Room Air 14:05 Intake and Output 01/14/19 01/14/19 01/15/19 1515:00 23:00 07:00 IntakeIntake Total 1420 ml 1070 ml 450 ml BalanceBalance 1420 ml 1070 ml 450 ml Exam Constitutional: alert, oriented Neck: supple Respiratory: clear to auscultation Cardiovascular: regular rate and rhythm Gastrointestinal: soft, no rebound or guarding; maculopapular rash on sides of abdomen, hands Results Results 24hrs Laboratory Tests Test 01/15/19 04:40 01/15/19 08:18 White Blood Count 5.6 Red Blood Count 3.98 L Hemoglobin 11.7 L Hematocrit 36.4 L Mean Corpuscular Volume 91.5 Mean Corpuscular Hemoglobin 29.4 Mean Corpuscular Hemoglobin Concent 32.1 Red Cell Distribution Width 13.2 Platelet Count 444 H Mean Platelet Volume 9.4 Immature Granulocytes % 0.700 H Neutrophils % 66.6 Lymphocytes % 19.0 Monocytes % 10.2 Eosinophils % 3.0 Basophils % 0.5 Nucleated Red Blood Cells % 0.0 Immature Granulocytes # 0.040 H Neutrophils # 3.7 Lymphocytes # 1.1 Monocytes # 0.6 Eosinophils # 0.2 Basophils # 0.0 Nucleated Red Blood Cells # 0.0 Sodium Level 144 Potassium Level 3.8 Chloride Level 104 Carbon Dioxide Level 27 Anion Gap 13 Blood Urea Nitrogen 3 L Creatinine 0.50 Est Glomerular Filtrat Rate mL/min > 60 Glucose Level 100 Calcium Level 8.6 Phosphorus Level 4.3 Magnesium Level 2.1 Prothrombin Time 14.9 Prothrombin Time Ratio 1.2 INR International Normalized Ratio 1.16 Activated Partial Thromboplast Time 32.8 Medications Medication Current Medications Acetaminophen (Tylenol Supp) 650 mg Q6H PRN FL PAIN/FEVER Last administered on 01/08/19 15:55; Admin Dose 650 MG; Start 01/04/19 at 01:00 Ondansetron HCl (Zofran Inj) 4 mg Q4H PRN IV NAUSEA AND/OR VOMITING Last administered on 01/15/19 12:06; Admin Dose 4 MG; Start 01/04/19 at 01:00 Hydromorphone HCl (Dilaudid) 0.5 mg Q4H PRN IV SEVERE PAIN LEVEL 7-10 Last administered on 01/15/19 14:49; Admin Dose 0.5 MG; Start 01/04/19 at 01:00 Nicotine (Nicoderm 21 Mg/ 24hr) 1 patch DAILY TRANSDERM Last administered on 01/15/19 08:37; Admin Dose 1 PATCH; Start 01/04/19 at 12:00 Famotidine (Pepcid Iv) 20 mg Q12 IV Last administered on 01/15/19 08:36; Admin Dose 20 MG; Start 01/05/19 at 09:00 Lorazepam (Ativan) 0.5 mg Q8H PRN IV ANXIETY Last administered on 01/15/19 00:10; Admin Dose 0.5 MG; Start 01/05/19 at 12:30 Acetaminophen (Tylenol Tab) 650 mg Q6H PRN PO MILD PAIN(1-3)OR ELEVATED TEMP Last administered on 01/07/19 15:20; Admin Dose 650 MG; Start 01/07/19 at 15:30 Vancomycin HCl (Vanco Iv Per Pharmacy) VANCOMYCIN PER PHARMACY PER PROTOCOL XX ; Start 01/08/19 at 13:30 Fluconazole/ Sodium Chloride 50 ml @ 50 mls/hr Q24H IVPB Last administered on 01/14/19 14:19; Admin Dose 50 MLS/HR; Start 01/08/19 at 13:30 Vancomycin HCl 1.25 gm/Sodium Chloride 250 ml @ 83.333 mls/ hr Q8H IVPB Last administered on 01/15/19 06:30; Admin Dose 83.333 MLS/HR; Start 01/12/19 at 07:30 Nystatin (Nystatin Cr) 1 applic BID TOP Last administered on 01/15/19 08:37; Admin Dose 1 APPLIC; Start 01/12/19 at 21:00 Diphenhydramine HCl (Benadryl) 25 mg Q6H PRN IV ITCHING Last administered on 01/14/19at 22:25; Admin Dose 25 MG; Start 01/13/19 at 13:30 Zinc Acetate/ Diphenhydramine (Benadryl 2% Cr) 1 applic Q8 TOP Last administered on 01/15/19at 14:19; Admin Dose 1 APPLIC; Start 01/13/19 at 15:00 Metronidazole 100 ml @ 100 mls/hr Q8 IVPB Last administered on 01/15/19at 14:19; Admin Dose 100 MLS/HR; Start 01/13/19 at 22:00 Levofloxacin/ Dextrose 150 ml @ 100 mls/hr Q24H IVPB Last administered on 01/14/19at 20:24; Admin Dose 100 MLS/HR; Start 01/14/19 at 17:00 DANILO KUNZ MD Jan 15, 2019 15:04
--- NOTE | 2019-01-15 15:14 | PDOCDIS ---
Discharge Instructions DIAGNOSIS Discharge Diagnosis Diverticulitis with abscess CONDITION [id number] Patient Condition: [id number] Fair HOME CARE INSTRUCTIONS: [id number] Special Diet: [id number] Low residue diet ACTIVITY: [id number] Activity Restrictions: [id number] Slowly Increase Activity Rest between Activity Avoid heavy lifting FOLLOW UP/APPOINTMENTS Follow-up Plan fu With PCP in about 1 to 2 weeks follow up with surgery in about 1 to 2 weeks Take antibiotics as directed Return to ER if has severe abdominal pain nausea vomiting fevers chills DANILO KUNZ MD Jan 15, 2019 15:14
[2019-01-15] MEDS ORDERED: DIPH25CA6 PO (15:16)
[2019-01-15] MEDS ORDERED: LEVO750T25 PO (15:16)
[2019-01-15] MEDS ORDERED: METR500T PO (15:16)
[2019-01-15] MEDS ORDERED: ONDA4TAB13 PO (15:16)
[2019-01-15] MEDS ORDERED: NICO-546 TRANSDERM (15:16)
[2019-01-15] MEDS ORDERED: HYDR-4011 PO (15:16)
[2019-01-15 16:13] VITALS: BP 111/66; RESP 17
[2019-01-15] MEDS: LEVOFLOXACIN 750MG/D5W (PMX) 150 ML IVPB SCH (17:00)
--- NOTE | 2019-01-16 10:11 | DS ---
DATE OF ADMISSION: 01/03/2019 DATE OF DISCHARGE: 01/15/2019 HISTORY OF PRESENT ILLNESS AND HOSPITAL COURSE: This is a 48-year-old female with a history of diver ticulitis, present in the past, presented to the emergency department complaining of left lower quadr ant pain reported nausea, vomiting and diarrhea with subjective fevers, chills at home, low back pain , hematuria and dysuria. On admission, vital signs were stable. The patient had soft surgical scars in the left inguinal area. No rebound, guarding or tenderness. No peritoneal signs. The patient h ad a CT of the abdomen and pelvis that showed evidence of acute sigmoid diverticulitis, presence of i nflamed fluid distended diverticulum versus contained perforation abscess. The bowel is nonobstructe d without free air complex 5.7 cm mass malignancy. Clinical correlation with gynecological exam is r ecommended, fibroid from the posterior uterine body, mild diffuse developmental narrowing, lumbar can al spondylotic changes. The patient was seen by Dr. Rizo and the mass is most likely fibroid, ma lignancy cannot be ruled out. According to him, the patient will need appointment with pharmacy cashier [employer] as an outpatient. The patient was asymptomatic from this. The patient was started on IV Zos yn. The patient was seen by Dr. Farley for surgery consultation. The patient was continued on IV ant ibiotics. The patient's condition was waxing and waning during the hospitalization course. Next day she started having fevers. White count went up to 16,000. The patient again had an abdominal CT th at was done on 01/07/2019 for loculated fluid collection suggestive of abscess, stable in size of mul tiple requests for radiology to drain the abscess. However, according to the location, it could not be drained. ID was consulted. Antibiotics were switched. The patient was started on vancomycin, az treonam and then fluconazole. The patient's condition got better. Fever subsided. White count came down to 5.6. Clinically, the patient was improving every day. Blood cultures have been negative. The patient also had again CT scan, which was done on 01/14/2019 that showed consistent with acute si gmoid diverticulitis, rim enhancing fluid and gas collection on the superior aspect of inflamed sigmo id colon, loop of distal ileum representing pericolonic abscess contained perforation cannot be ruled out given the presence of gas. Extensive inflammatory changes in the mid abdomen and pelvis, decrea sed wall thickening of terminal ileum, likely secondary to inflammatory changes, mass extending to th e pelvis is decreased, interval resolution of right and interval decrease in the right, trace left pl eural effusion, large uterine fibroid. The patient was clinically improving every day. Again, radio logy request for possible surgery for drainage; however, it could not be done because of the location ; however, the patient was clinically feeling better every day, was tolerating low residue diet with no present of any nausea, vomiting, fevers. Clinically, the patient is stable to be discharged home on oral antibiotics as per ID and Dr. Farley. The patient was seen by surgery who had cleared her bef ore discharge. The patient also started having some maculopapular rash, possibly secondary to Merope nem. Meropenem, which was discontinued. The patient was started on Benadryl. The rash is improving . The patient will be going home on Levaquin and Flagyl for a 10-day course. FINAL DISCHARGE DIAGNOSES: 1. Sore secondary to diverticulitis, improved. 2. Code diverticulitis with abscess with a contained perforation, questionable. The patient clinica lly improved, unable to drain the abscess as per etiology. As per surgery, the patient is stable to be discharged home. 3. History of diverticulosis. 4. Normocytic normochromic anemia. 5. Status post inguinal hernia, left. 6. History of uterine fibroid removal with the new fibroid. 7. History of smoking and marijuana user. 8. Obesity. 9. Complex rash uterine cervical, 5.7 cm mass will need to be followed up as an outpatient. 10. Drug rash, probably secondary to meropenem per ID. DISCHARGE CONDITION: Stable. DISCHARGE DIET: Low residue diet. DISCHARGE MEDICATIONS: 1. Benadryl q.8h. p.r.n. rash. 2. [place] 1 tab p.o. q.6 p.r.n. pain. 3. Levaquin 750 daily for 10 days. 4. Flagyl 500 mg p.o. hours for 10 days. 5. Nicotine patch and Zofran p.r.n. nausea, vomiting. PLAN: The patient was instructed to return to the ER if she has severe abdominal pain, nausea, vomit ing, fevers and chills. The patient should follow up with PCP in 1 to 2 weeks, GI in 2 to 3 weeks si nce surgery, Dr. Farley in about 2 to 3 weeks. Return precautions were explained to the patient. Dictated By: DANILO KIRKLAND/GERTRUDE Conf#: [id number] DID#: [id number] CC: NA RIZO MD; MAE RODAS MD;*EndCC*
== END 2019-01-15 17:15 | disposition home or self-care (01) | DRG 392 ==
LOC: E/R 18:25 → 2NE 23:15
PROVIDERS: ADMIT Internal Medicine Nephrology; ATTEND Internal Medicine Nephrology
DX: K57.20 Diverticulitis of large intestine with perforation and abscess without bleeding (principal); R65.10 Systemic inflammatory response syndrome (SIRS) of non-infectious origin without acute organ dysfunction; D64.9 Anemia, unspecified; E66.9 Obesity, unspecified; Z68.31 Body mass index [BMI] 31.0-31.9, adult; Z72.0 Tobacco use; F12.90 Cannabis use, unspecified, uncomplicated; N88.8 Other specified noninflammatory disorders of cervix uteri; R30.0 Dysuria; R21 Rash and other nonspecific skin eruption
CPT/HCPCS: 36415; 74177; 76700; 76830; 80048; 80053; 80202; 83540; 83605; 83735; 84100; 84134; 84478; 84703; 85025; 85610; 85730; 87086; 96374; 96375; 96376; C9113; J1170; J1200; J1335; J1450; J1956; J2060; J2185; J2405; J2543; J2916; J3370; J3480; J7030; J7040; J7042; J7050; Q9967

== ENCOUNTER 2019-01-26 21:45 | Inpatient (IN) | payer OTHER ==
[~2019-01-26] VITALS: Ht 162.6 cm; Wt 78.6 kg
[~2019-01-26 21:45] MED LIST changes: +ACET1TAB40 PO; +BIOT1CAP3 PO; +CALC-545 PO; -CIPR500T4 PO; +DIPH25CA6 PO; +HYDR-4011 PO; +LACT1TAB25 PO; +LEVO750T25 PO; +NICO-546 TRANSDERM; +ONDA4TAB13 PO; +VIT1TABL46 PO
[2019-01-27] MEDS ORDERED: ACETAMINOPHEN 325 MG TAB PO STA (00:14)
[2019-01-27] MEDS ORDERED: CEFTRIAXONE 1 GM/50 ML (PMX) 50 ML IVPB STA (00:14)
[2019-01-27] MEDS ORDERED: SODIUM CHLORIDE 0.9% 1L BAG IV* STA (00:14)
--- NOTE | 2019-01-27 00:22 | ERD ---
ER Documentation Chief Complaint Chief Complaint FEVER, CHILLS X'S 4 HRS. RECENTLY RELEASED AFTER ADMIT DIVERTICULITIS HPI 48-year-old female with history of diverticulitis presenting to the emergency department with sudden onset fever and chills and body aches about 6 hours prior to my examination. She took no medication for relief of symptoms. She also reports weakness in her legs. She had some left upper quadrant abdominal pain earlier but it has now resolved. She denies any nausea, vomiting, diarrhea, sore throat, cough, dysuria, or other symptoms at this time. Symptoms are currently moderate in severity. ROS All systems reviewed and are negative except as per history of present illness. Medications Home Meds Active Scripts Diphenhydramine Hcl (Benadryl) 25 Mg Cap, 25 MG PO Q8 PRN for rash for 10 Days, CAP Prov:DANILO KUNZ MD 01/15/19 Hydrocodone/Acetaminophen ([place]ba 5-325 Tablet) 1 Each Tablet, 1 EACH PO Q8 PRN for PAIN for 10 Days, TAB Prov:DANILO KUNZ MD 01/15/19 Ondansetron Hcl* (Zofran*) 4 Mg Tab, 20 MG PO Q6H PRN for NAUSEA AND OR VOMITING for 10 Days, TAB Prov:DANILO KUNZ MD 01/15/19 Metronidazole* (Flagyl*) 500 Mg Tablet, 500 MG PO Q8 for 10 Days, TAB Prov:DANILO KUNZ MD 01/15/19 Levofloxacin* (Levaquin*) 750 Mg Tablet, 750 MG PO DAILY for 10 Days, TAB Prov:DANILO KUNZ MD 01/15/19 Nicotine* (Nicotine* Patch) 21 mg/day Patch, 1 PATCH TRANSDERM DAILY for 14 Days Prov:DANILO KUNZ MD 01/15/19 Reported Medications Biotin (BIOTIN) 1 Mg Capsule, 1 MG PO DAILY, CAP 01/04/19 Calcium Phosphate Trib/Vit D3 (CALCIUM GUMMIES) 1 Each Tab.chew, 1 EACH PO DAILY, TAB.CHEW 01/04/19 Vitamin B Complex* (Vitamin B Complex*) 1 Each Tablet, 1 TAB PO DAILY, TAB 01/04/19 Lactobacillus Acidophilus (Probiotic Acidophilus) 1 Each Tablet, 1 EACH PO DAILY, TAB 01/04/19 Acetaminophen with Codeine (Acetaminophen-Cod #3 Tablet) 1 Each Tablet, 1 TAB PO Q6H, #7 TAB 01/04/19 Allergies Allergies: Coded Allergies: No Known Drug Allergy (Verified Allergy, Unknown, 04/10/07) PMhx/Soc History of Surgery: No (INGUINAL HERNIA REPAIR(2013), FIBROID REMOVAL (2012)) Anesthesia Reaction: No Hx Neurological Disorder: Yes (BLE NUMBNESS/TINGLING) Hx Respiratory Disorders: No Hx Cardiac Disorders: No Hx Psychiatric Problems: No Hx Miscellaneous Medical Probl: Yes (Mass on Cervix, Diverticulitis) Hx Alcohol Use: Yes (SOCIALLY) Hx Substance Use: No Hx Tobacco Use: Yes Smoking Status: Current every day smoker FmHx Family History: No diabetes Physical Exam Vitals Vital Signs Date Temp Pulse Resp B/P (MAP) Pulse Ox O2 O2 Flow FiO2 Time Delivery Rate 01/27/19 100.6 00:45 01/26/19 100.6 139 18 117/70 96 21:55 (86) Physical Exam Const: No acute distress Head: Atraumatic Eyes: Normal Conjunctiva ENT: Normal External Ears, Nose and Mouth. Neck: Full range of motion. No meningismus. Resp: Clear to auscultation bilaterally Cardio: Regular rate and rhythm, no murmurs Abd: Soft, mild left upper quadrant tenderness on palpation, no rebound tenderness or guarding, no McBurney's point tenderness, non distended. Normal bowel sounds Skin: No petechiae or rashes Back: No midline or flank tenderness Ext: No cyanosis, or edema Neur: Awake and alert Psych: Normal Mood and Affect Result Diagram: 01/27/19 0026 01/27/19 0026 Results 24 hrs Laboratory Tests Test 01/27/19 00:26 01/27/19 00:30 01/27/19 00:45 01/27/19 02:26 White Blood Count 22.1 10^3/ul Red Blood Count 4.26 10^6/ul Hemoglobin 12.6 g/dl Hematocrit 38.7 % Mean Corpuscular 90.8 fl Volume Mean Corpuscular 29.6 pg Hemoglobin Mean Corpuscular 32.6 g/dl Hemoglobin Concent Red Cell Distribution 13.3 % Width Platelet Count 354 10^3/UL Mean Platelet Volume 10.4 fl Immature Granulocytes 1.000 % % Neutrophils % % Segmented Neutrophils 82 % % (Manual) Band Neutrophils % 15 % (Manual) Lymphocytes % % Lymphocytes % 1 % (Manual) Monocytes % % Monocytes % (Manual) 2 % Eosinophils % % Basophils % % Nucleated Red Blood 0.0 /100WBC Cells % Immature Granulocytes 0.220 10^3/ul # Neutrophils # 10^3/ul Neutrophils # 18.9 10^3/ul (Manual) Band Neutrophils # 3.3 10^3/ul Lymphocytes (Manual) 0.2 10^3/ul Lymphocytes # 10^3/ul Monocytes # 10^3/ul Monocytes # (Manual) 0.4 10^3/ul Eosinophils # 10^3/ul Basophils # 10^3/ul Nucleated Red Blood 10^3/ul Cells # Platelet Estimate NORMAL Giant Platelets 2 % Polychromasia 1+ Prothrombin Time 12.8 Sec Prothrombin Time 1.0 Ratio INR International 0.96 Normalized Ratio Activated 25.9 Sec Partial Thromboplast Time Urine Color YELLOW Urine Clarity CLEAR Urine pH 5.0 Urine Specific 1.026 [place] Urine Ketones TRACE mg/dL Urine Nitrite NEGATIVE mg/dL Urine Bilirubin NEGATIVE mg/dL Urine Urobilinogen NEGATIVE mg/dL Urine Leukocyte NEGATIVE Sena/ul Esterase Urine Hemoglobin NEGATIVE mg/dL Urine Glucose NEGATIVE mg/dL Urine Total Protein NEGATIVE mg/dl Sodium Level 142 mmol/L Potassium Level 3.9 mmol/L Chloride Level 104 mmol/L Carbon Dioxide Level 27 mmol/L Anion Gap 11 Blood Urea Nitrogen 10 mg/dl Creatinine 0.59 mg/dl Est Glomerular > 60 mL/min Filtrat Rate mL/min Glucose Level 102 mg/dl Calcium Level 9.5 mg/dl Total Bilirubin 0.3 mg/dl Direct Bilirubin 0.00 mg/dl Indirect Bilirubin 0.3 mg/dl Aspartate Amino 19 IU/L Transf (AST/SGOT) Alanine 23 IU/L Aminotransferase (ALT /SGPT) Alkaline Phosphatase 150 IU/L Troponin I < 0.012 ng/ml Total Protein 7.2 g/dl Albumin 3.9 g/dl Globulin 3.30 g/dl Albumin/Globulin 1.18 Ratio POC Venous Lactate 1.7 mmol/L POC Beta HCG, NEGATIVE Qualitative Lactic Acid Level 1.2 mmol/L Current Medications Medications Dose Sig/Trudy Start Time Status Last (Trade) Ordered Route PRN Stop Time Admin Dose Reason Admin Sodium 2,260 ml BOLUS OVER 2 01/27/19 DC 01/27/19 Chloride HOURS STAT 00:14 01/27/19 00:36 (NS) IV* 00:18 650 mg ONCE STAT 01/27/19 DC 01/27/19 Acetaminophen PO 00:14 01/27/19 00:45 (Tylenol 00:18 Tab) Ceftriaxone 50 ml @ ONCE STAT 01/27/19 DC 01/27/19 Sodium 100 mls/hr IVPB 00:14 01/27/19 00:44 00:43 Sodium 100 ml @ ud STK-MED 01/27/19 DC 01/27/19 Chloride ONCE .ROUTE 01:21 01/27/19 01:39 01:22 Iohexol 150 ml STK-MED 01/27/19 DC 01/27/19 (Omnipaque ONCE .ROUTE 01:01/27/19 01:39 300mg/ ml) 01:22 Piperacillin 100 ml @ ONCE ONCE 01/27/19 DC 01/27/19 Sod/ 200 mls/hr IVPB 03:30 01/27/19 04:06 Tazobactam 03:59 Sod Lorazepam 1 mg ONCE ONCE 01/27/19 DC 01/27/19 (Ativan) IV 04:30 01/27/19 04:28 04:31 [place] [id number] Radiology Main Line: [phone] DIAGNOSTIC IMAGING REPORT Patient: MARCELLO COLLIER : 1970 Age: 48 Sex: F MR #: [id number] DOS: 01/27/19 0000 Ordering MD: FRANCISCO FLORENCE PA-C Location: E Room/Bed: PROCEDURE: CT Abdomen and Pelvis with contrast. CLINICAL INDICATION: Abdominal pain and fever TECHNIQUE: CT scan of the abdomen and pelvis with contrast was performed on a multi-detector high-resolution CT scanner. The patient was scanned following the intravenous administration of 100 cc of Omnipaque-300. Coronal and sagittal reformatted images were obtained from the axial source images. Images were reviewed on a high-resolution PACS workstation. The total exam CTDI equals 14.03 mGy and the total exam DLP equals 841.13 mGy-cm. One or more the following dose reduction techniques were utilized: Automated exposure control, adjustment of the mA and / or kV according to patient's size, or use of iterative reconstruction technique. DICOM images are available. COMPARISON: CT 01/14/2019 FINDINGS: Mild dependent atelectasis at posterior lung bases. No free pneumoperitoneum is seen. No abnormalities in the liver, gallbladder, pancreas, spleen or adrenals. Multiple bilateral sub centimeter rounded renal densities too small to characterize are again seen in the kidneys the largest 8 mm in the mid right kidney - no follow-up imaging of these is recommended. There is nonspecific minimal hydronephrosis bilaterally appearing since previous study. No abdominal aortic aneurysm is seen. Small umbilical hernia containing fat only again seen. No biliary dilatation is seen. No abnormalities seen in the bladder. Phleboliths in the pelvis. There is again the appearance of rounded uterine masses most likely fibroids the largest 4.5 cm arising from the posterior body. Nabothian cyst apparent in the cervix. There has been overall no significant change in acute diverticulitis since previous study. There is an approximate 3.5 cm maximum dimension rounded apparent complex fluid collection with small foci of air in the proximal to mid sigmoid colon consistent with a pericolonic abscess with inflammation involving adjacent small bowel loops again seen overall not significantly changed in size compared to the previous study. Diverticula are again seen in the sigmoid colon. There has been some interval decrease in soft tissue stranding in the adjacent fat. Diverticula are also seen in the descending colon. There is the appearance of a non-inflamed appendix. There is nonspecific mild dilatation of a small bowel loop in the left mid abdomen with maximal diameter approximately 2.8 cm. There is no evidence of small bowel obstruction seen. No enlarged lymph nodes are seen in the abdomen or pelvis. Small scattered likely bone islands again seen. Mild degenerative enthesopathy in spine. IMPRESSION: Overall no significant change in acute diverticulitis since the previous study. There is an approximate 3.5 cm maximum dimension rounded apparent complex fluid collection with small foci of air in the proximal to mid sigmoid colon consistent with a pericolonic abscess with inflammation involving adjacent small bowel loops again seen overall not significantly changed in size compared to the previous study. Diverticula are again seen in the sigmoid colon. There has been some interval decrease in soft tissue stranding in the adjacent fat. Diverticula are also seen in the descending colon. Nonspecific minimal bilateral hydronephrosis appearing since previous study. Consistent with uterine fibroids again seen. Please see above. RPTAT: HJES .Alexi Nielsen MD, MD Date Time Electronically viewed and signed by .Alexi Nielsen MD, MD on 01/27/2019 03:09 .S/ CC: FRANCISCO FLORENCE PA-C [id number] Procedures/MDM 48-year-old female presenting to the emergency department with complaints of sudden onset high fevers and chills which began just prior to arrival. Signs were concerning for possible sepsis on arrival and sepsis protocol was initiated. Initial lactic was 1.7. Patient was administered IV Rocephin and 30 cc fluid per hour normal saline. Patient was made comfortable. CT scan of the abdomen and pelvis revealed a pericolonic abscess. White count was notable at 22,000. Patient will need to be admitted for surgical consultation and further management of intra-abdominal infection. Patient is made aware of results and she agreed with plan for admission. I did speak to the attending ED physician, Dr. Harjinder Byrnes, who is in agreement with the ED course and further facilitated the admission process. The patient remained hemodynamically stable under my direct care. EKG: Interpreted by ED physician. Rate/Rhythm: Sinus tachycardia with a rate of 109 bpm. QRS, ST, T-waves: No changes consistent w/ acute ischemia Impression: No evidence of ischemia or arrhythmia Departure Diagnosis: Primary Impression: Pericolonic abscess due to diverticulitis Condition: Fair FRANCISCO FLORENCE PA-C Jan 27, 2019 00:22
[2019-01-27] MEDS ORDERED: IOHEXOL 300MG/ML 150 ML BTL ONE (01:21)
[2019-01-27] MEDS ORDERED: SOD CHLORIDE 0.9% 100 ML ONE (01:21)
[2019-01-27] MEDS ORDERED: PIPER-TAZO 3.375 GM IV (PMX) 100 ML IVPB ONE (03:30)
[2019-01-27] MEDS ORDERED: LORAZEPAM 2 MG INJ IV ONE (04:30)
[2019-01-27 08:01] VITALS: BP 109/60; PULSE 98; RESP 20
[2019-01-27 08:05] VITALS: Ht 162.6 cm; Wt 78.6 kg
[2019-01-27] MEDS ORDERED: NACL 0.9% 3 ML SYG IV SCH (10:30)
[2019-01-27] MEDS ORDERED: morphine 2 MG INJ IV PRN (10:30)
[2019-01-27] MEDS ORDERED: ACETAMINOPHEN 325 MG TAB PO PRN (10:30)
[2019-01-27] MEDS: SOD CHLORIDE 0.9% 1,000 ML IV SCH ×2 (10:36→20:08)
[2019-01-27] MEDS ORDERED: HYDROmorphONE 2 MG/ML SYG IV PRN (11:22)
[2019-01-27] MEDS: metroNIDAZOLE 500 MG/NS (PMX) 100 ML IVPB SCH ×2 (13:49→21:23)
--- NOTE | 2019-01-27 14:26 | CONS ---
DATE OF ADMISSION: 01/27/2019 DATE OF CONSULTATION: 01/27/2019 HISTORY OF PRESENT ILLNESS: The patient is a 48-year-old female with a history of diverticulitis, co mes to the Emergency Room for fever, chills and abdominal pain. In the ER, she was evaluated. On a CAT scan, the patient was found to have a diverticulitis with a small abscess. The patient had the s rosalino abscess during last hospitalization and they could not drain it. Surgical consult was called in and patient's surgeon was reluctant to do any kind of surgery. The patient was placed on Levaquin an d Flagyl; does not respond to oral antibiotic. Her WBC count today is 22,000. No GI bleeding, no ch est pain, no shortness of breath, no or CREW PERSON problem. ALLERGIES: As per the EMR, NUTS. PAST MEDICAL HISTORY: Inguinal hernia surgery. SOCIAL HISTORY: Drinks socially, smokes on a regular basis. FAMILY HISTORY: No diabetes. PHYSICAL EXAMINATION: GENERAL: Well-built, nourished, not in distress. VITAL SIGNS: Stable. HEENT: Unremarkable. NECK: Supple, no thyromegaly, no lymphadenopathy. CARDIOVASCULAR: No murmur, gallop or click. LUNGS: Clear. ABDOMEN: Surprisingly is benign, very minimal tenderness in the left lower quadrant. Bowel sounds g ood. No mass felt per abdomen. EXTREMITIES: No edema. CENTRAL NERVOUS SYSTEM: Grossly within normal limits. LABORATORY DATA: WBC is 22,000, hematocrit is stable. CMP is also grossly within normal limit excep t for a mild elevation of alkaline phosphatase. IMPRESSION: Persistent diverticulitis with a leukocytosis and abscess. PLAN: To keep the patient n.p.o. Continue Zosyn. We will add Flagyl to the present regimen. Monit or WBC count and clinically her symptoms and we talked to the radiologist if they can still drain shaista t. Otherwise, will treat the patient conservatively. Dictated By: LEONA VILLATORO/GERTRUDE Conf#: [id number] DID#: [id number] CC: DANILO KUNZ;*EndCC*
[2019-01-27 14:30] VITALS: BP 119/58; PULSE 78; RESP 19
[2019-01-27] MEDS: PIPER-TAZO 3.375 GM IV (PMX) 100 ML IVPB SCH ×2 (14:45→22:03)
[2019-01-27] MEDS: ONDANSETRON 4 MG INJ IV PRN ×2 (14:49→21:36)
--- NOTE | 2019-01-27 14:49 | HP ---
DATE OF ADMISSION: 01/27/2019 REASON FOR ADMISSION: Abdominal pain and fevers. HISTORY OF PRESENTING ILLNESS: This is a 48-year-old female with a past medical history of fibroids, history of inguinal hernia repair, history of complex uterine cervical mass, who was recently admitted in [facility] from 01/04/2019 to 01/15/2019. At that time, the patient was treated for diverticulitis. The patient was seen by Dr. Farley for a surgical consultation. The patient had a sore secondary to diverticulitis with abscess. The patient was treated conservatively. The patient's abdominal pain was improved. White count had improved from 12.5 to 5 and the patient was discharged home with Levaquin and Flagyl for 10 days. According to the patient when she left before, she was also developing rash which was thought probably secondary to meropenem per ID. The patient said that when she went home on 01/18/2019 she had hives all over. She had skin peeling on her hand and she went to [facility]. Her antibiotics were discontinued and she was started on amoxicillin. The patient had been taking the medication; however last night she started having chills, started having lower abdominal pain and came to the emergency department for further evaluation. On admission, the patient had fever of 100.6. Her initial pulse was 139. White count was 22. BMP within normal limit. Had a CT of the abdomen and pelvis that showed overall not significantly acute diverticulitis, approximately 3.5 cm rounded complex fluid collection, small foci of air proximal to mid colon consistent with pericolonic abscess which is significantly changed. The patient was treated for Zosyn and Rocephin and was admitted for further management. PAST MEDICAL HISTORY: 1. History of diverticulitis x2. 2. Inguinal hernia repair in 2013. 3. Fibroid removal in 2012. ALLERGIES: 1. QUESTIONABLE ALLERGY TO MEROPENEM. 2. QUESTIONABLE LEVAQUIN, NOT SURE. SOCIAL HISTORY: The patient is an ex-smoker and also uses marijuana. Lives at home with family. FAMILY HISTORY: Noncontributory. REVIEW OF SYSTEMS: The patient complained of pain in the upper abdomen. Denied any nausea or vomiting. Had bowel movement yesterday. Had some low grade fevers. Denied any hematuria. Denied any hematemesis, any melena. The rash in the body is resolved. PHYSICAL EXAMINATION: VITAL SIGNS: Temperature 100.6, heart rate 139, blood pressure 117/70, saturating 90% on room air. GENERAL: The patient is awake, alert, oriented, does not appear to be in acute distress. HEENT: Pupils are equal, round, reactive to light. NECK: Supple. HEART: Tachycardic. LUNGS: Clear to auscultate bilaterally. ABDOMEN: Some mild left upper quadrant tenderness. No McBurney point tenderness. Normal bowel sounds. LABORATORY DATA: White count 22.1. BUN and creatinine within normal limit. DIAGNOSTIC DATA: CT of the abdomen and pelvis: As above. Chest x-ray: Decreased lung inflation. ASSESSMENT AND PLAN: This is a 48-year-old female with: 1. Recurrent diverticulitis with pericolonic abscess. 2. Systemic inflammatory response syndrome with leukocytosis secondary to #1. 3. Drug rash, likely meropenem 4. History of diverticulosis. 5. Normocytic normochromic anemia. 6. History of inguinal hernia repair. 7. History of uterine fibroid removal in 2018. 8. History of complex uterine mass and vaginal ultrasound need to be followed up with gynecology as an outpatient. PLAN: At this period of time, the patient will be kept n.p.o., started on IV antibiotics with Zosyn and Flagyl. Surgery consultation with Dr. Lucia has been obtained again. We will also call Dr. Hoyt for GI consultation. I am not sure we will discuss with ID if the patient needs to be on. Listed as a rash to Levaquin and meropenem. Rest of the treatment will depend of the patient's hospitalization course. Dictated By: DANILO KIRKLAND/GERTRUDE Conf#: [id number] DID#: [id number] CC: AMANDA NOLAN MD;*EndCC* MTDD
[2019-01-27] MEDS ORDERED: HYDROmorphONE 1 MG/ML SYG IV PRN (15:22)
--- NOTE | 2019-01-27 17:07 | CONS ---
DATE OF ADMISSION: 01/27/2019 DATE OF CONSULTATION: 01/27/2019 TYPE OF CONSULTATION: Infectious disease. REASON FOR CONSULTATION: Antibiotic management. HISTORY OF PRESENT ILLNESS: Avelina Rossi is a 48-year-old female. She comes in with fever and chills for 4 hours, recently released after admission for diverticulitis. The patient is a 48-year-o ld with history of diverticulitis, presented to the emergency room with sudden onset of fever, chills and bodyaches. She was seen in the emergency room and examined. She had some left upper quadrant p ain earlier, but that is now resolved. She denies any nausea, vomiting, diarrhea or sore throat. Martinez raymundo has a history of an inguinal hernia repair in 2013 and removal of fibroids in 2012. She has bilate ral lower extremity numbness and tingling. She also has a mass on her cervix and a history of divert iculitis. PAST MEDICAL HISTORY: As outlined. FAMILY HISTORY: Noncontributory. SOCIAL HISTORY: She is a current every day smoker and she drinks socially. She does not abuse drugs . On admission, her temperature was 100.6. Her white count was 22.1 today with 82% neutrophils, 15% ba nds, H and H of 12.6 and 38.7, platelet count 354,000. BUN and creatinine is 10/0.59, glucose of 102 . PHYSICAL EXAMINATION: SKIN: Without generalized rash. HEENT: Within normal limits. NECK: Supple. LYMPH NODES: None palpable. CHEST: Decreased breath sounds at the bases. HEART: Without murmur or gallop. ABDOMEN: Soft. She has mild left upper quadrant tenderness on palpation. She has no rebound, no Mc Atkins point tenderness. EXTREMITIES: Without cyanosis, clubbing or edema. RECTAL AND GENITAL: Deferred. NEUROLOGICAL: No focal neurological abnormalities. HOSPITAL COURSE: Urine is negative for nitrite and leukocyte esterase. She was given ceftriaxone an d then given Zosyn. A CT scan of the abdomen and pelvis shows that there is an approximately 3.5 cm maximal dimension rounded apparent complex fluid collection with small foci of air in the proximal to mid sigmoid colon consistent with pericolonic abscess with inflammation involving adjacent small bow el loops again seen overall not significantly changed in size compared to the previous study. Divert icula are again seen in the sigmoid colon. There has been some interval decrease in soft tissue stra nding in the adjacent fat. Diverticula were also seen in the descending colon. Nonspecific minimal bilateral hydronephrosis appearing since the previous study consistent with uterine fibroids again we re seen. The patient had signs consistent with sepsis on arrival. CT scan showed pericolonic absces s. White count was 22,000. The patient was admitted for further management of intraabdominal infect ion. I believe that she was put on Zosyn and Flagyl, although Zosyn has good coverage. She had an a llergic reaction to meropenem on her last visit, so we will observe her carefully with regards to Zos yn. I will dictate my findings to the hospitalist. Dictated By: AMANDA NOLAN MD, JD/GERTRUDE Conf#: [id number] DID#: [id number] CC: DANILO KUNZ;*EndCC*
--- NOTE | 2019-01-27 17:18 | CONS ---
Assessment/Plan Assessment/Plan Assessment/Plan (Daily) Acute perforated diverticulitis, relapse, in spite of prolonged antibiotic treatment. Patient exhausted conservative measures. Plan for surgery tomorrow. My plan is to proceed with laparoscopy washout drainage of the abscess and diverting loop ileostomy. Consultation Date/Type/Reason Admit Date/Time Jan 27, 2019 at 04:42 Date of Consultation: Jan 27, 2019 Type of Consult Surgical Reason for Consultation Recurrent attack of acute diverticulitis Date/Time of Note DATE: 01/27/19 TIME: 17:17 Hx of Present Illness This is a 48-year-old female with a past medical history of fibroids, history of inguinal hernia repair, history of complex uterine cervical mass, who was recently admitted in [facility] from 01/04/2019 to 01/15/2019. At that time, the patient was treated for diverticulitis. The patient was seen by Dr. Farley for a surgical consultation. The patient had a sore secondary to diverticulitis with abscess. The patient was treated conservatively. The patient's abdominal pain was improved. White count had improved from 12.5 to 5 and the patient was discharged home with Levaquin and Flagyl for 10 days. According to the patient when she left before, she was also developing rash which was thought probably secondary to meropenem per ID. The patient said that when she went home on 01/18/2019 she had hives all over. She had skin peeling on her hand and she went to [facility]. Her antibiotics were disconti nued and she was started on amoxicillin. The patient had been taking the medication; however last night she started having chills, started having lower abdominal pain and came to the emergency department for further evaluation. On admission, the patient had fever of 100.6. Her initial pulse was 139. White count was 22. BMP within normal limit. Had a CT of the abdomen and pelvis that showed overall not significantly acute diverticulitis, approximately 3.5 cm rounded complex fluid collection, small foci of air proximal to mid colon consistent with pericolonic abscess which is significantly changed. The patient was treated for Zosyn and Rocephin and was admitted for further management. Constitutional: chills Eyes: no complaints ENT: no complaints Respiratory: no complaints Cardiovascular: no complaints Gastrointestinal: pain, decreased appetite Genitourinary: no complaints Musculoskeletal: no complaints Skin: no complaints Neurologic: no complaints Endocrine: no complaints Past Medical History Home Meds Active Scripts Diphenhydramine Hcl (Benadryl) 25 Mg Cap, 25 MG PO Q8 PRN for rash for 10 Days, CAP Prov:DANILO KUNZ MD 01/15/19 Hydrocodone/Acetaminophen (Cement 5-325 Tablet) 1 Each Tablet, 1 EACH PO Q8 PRN for PAIN for 10 Days, TAB Prov:DANILO KUNZ MD 01/15/19 Ondansetron Hcl* (Zofran*) 4 Mg Tab, 20 MG PO Q6H PRN for NAUSEA AND OR VOMITING for 10 Days, TAB Prov:DANILO KUNZ MD 01/15/19 Metronidazole* (Flagyl*) 500 Mg Tablet, 500 MG PO Q8 for 10 Days, TAB Prov:DANILO KUNZ MD 01/15/19 Levofloxacin* (Levaquin*) 750 Mg Tablet, 750 MG PO DAILY for 10 Days, TAB Prov:DANILO KUNZ MD 01/15/19 Nicotine* (Nicotine* Patch) 21 mg/day Patch, 1 PATCH TRANSDERM DAILY for 14 Days Prov:DANILO KUNZ MD 01/15/19 Reported Medications Biotin (BIOTIN) 1 Mg Capsule, 1 MG PO DAILY, CAP 01/04/19 Calcium Phosphate Trib/Vit D3 (CALCIUM GUMMIES) 1 Each Tab.chew, 1 EACH PO DAILY, TAB.CHEW 01/04/19 Vitamin B Complex* (Vitamin B Complex*) 1 Each Tablet, 1 TAB PO DAILY, TAB 01/04/19 Lactobacillus Acidophilus (Probiotic Acidophilus) 1 Each Tablet, 1 EACH PO DAILY, TAB 01/04/19 Acetaminophen with Codeine (Acetaminophen-Cod #3 Tablet) 1 Each Tablet, 1 TAB PO Q6H, #7 TAB 01/04/19 Medications Current Medications Sodium Chloride 1,000 ml @ 100 mls/hr Q10H IV Last administered on 01/27/19at 10:36; Admin Dose 100 MLS/HR; Start 01/27/19 at 10:08 IV Flush (NS 3 ml) 3 ml PER PROTOCOL IV ; Start 01/27/19 at 10:30 Ondansetron HCl (Zofran Inj) 4 mg Q6H PRN IV NAUSEA/VOMITING Last administered on 01/27/19at 14:49; Admin Dose 4 MG; Start 01/27/19 at 10:30 Acetaminophen (Tylenol Tab) 650 mg Q6H PRN PO .PAIN 1-3 OR TEMP; Start 01/27/19 at 10:30 Pantoprazole (Protonix Iv) 40 mg DAILY@06 IV ; Start 01/28/19 at 06:00 Piperacillin Sod/ Tazobactam Sod 100 ml @ 200 mls/hr Q8 IVPB Last administered on 01/27/19at 14:45; Admin Dose 200 MLS/HR; Start 01/27/19 at 14:00 Metronidazole 100 ml @ 100 mls/hr Q8 IVPB Last administered on 01/27/19at 13:49; Admin Dose 100 MLS/HR; Start 01/27/19 at 14:00 Hydromorphone HCl (Dilaudid) 0.5 mg Q4H PRN IV SEVERE PAIN LEVEL 7-10; Start 01/27/19 at 15:22 Allergies: Coded Allergies: meropenem (Verified Allergy, Severe, rash all over the body, 01/27/19) Past Surgical History Past Surgical Hx: no surgical history, other Family History Significant Family History: no pertinent family hx Social History Smoking Status: Former smoker Exam/Review of Systems Exam Vitals Vital Signs Date Temp Pulse Resp B/P (MAP) Pulse Ox O2 O2 Flow FiO2 Time Delivery Rate 01/27/19 98.0 78 19 119/58 96 14:30 (78) 01/27/19 Room Air 08:01 Intake and Output 01/26/19 01/26/19 01/27/19 1515:00 23:00 07:00 IntakeIntake Total 2510 ml BalanceBalance 2510 ml Constitutional: alert, oriented, well developed Psych: no complaints, nl mood/affect Head: normocephalic, atraumatic Eyes: nl conjunctiva, EOMI, nl lids, nl sclera, PERRL ENMT: nl external ears & nose, nl lips & teeth, nl nasal mucosa & septum Neck: supple, non-tender Respiratory: clear to auscultation, normal air movement Cardiovascular: regular rate and rhythm, nl pulses Gastrointestinal: soft, nl liver, spleen, other (Tenderness in the left lower quadrant otherwise the abdomen is soft.) Musculoskeletal: nl extremities to inspection, nl gait and stance Extremities: normal pulses Neurological: SENIOR MEDIA DIRECTOR II-XII intact, nl mental status, nl speech, nl strength Skin: nl turgor; No rash or lesions Lymph: nl lymph nodes Results Result Diagram: 01/27/19 0026 01/27/19 0026 Results 24hrs Laboratory Tests Test 01/27/19 00:26 01/27/19 00:30 01/27/19 00:45 01/27/19 02:26 White Blood Count 22.1 #H Red Blood Count 4.26 Hemoglobin 12.6 Hematocrit 38.7 Mean Corpuscular Volume 90.8 Mean Corpuscular 29.6 Hemoglobin Mean Corpuscular 32.6 Hemoglobin Concent Red Cell Distribution 13.3 Width Platelet Count 354 # Mean Platelet Volume 10.4 Immature Granulocytes % 1.000 H Neutrophils % Segmented Neutrophils 82 H % (Manual) Band Neutrophils % 15 H (Manual) Lymphocytes % Lymphocytes % (Manual) 1 L Monocytes % Monocytes % (Manual) 2 Eosinophils % Basophils % Nucleated Red Blood 0.0 Cells % Immature Granulocytes # 0.220 H Neutrophils # Neutrophils # (Manual) 18.9 H Band Neutrophils # 3.3 H Lymphocytes (Manual) 0.2 L Lymphocytes # Monocytes # Monocytes # (Manual) 0.4 Eosinophils # Basophils # Nucleated Red Blood Cells # Platelet Estimate NORMAL Giant Platelets 2 H Polychromasia 1+ Prothrombin Time 12.8 Prothrombin Time Ratio 1.0 INR International 0.96 Normalized Ratio Activated 25.9 Partial Thromboplast Time Urine Color YELLOW Urine Clarity CLEAR Urine pH 5.0 Urine Specific [place] 1.026 Urine Ketones TRACE A Urine Nitrite NEGATIVE Urine Bilirubin NEGATIVE Urine Urobilinogen NEGATIVE Urine Leukocyte Esterase NEGATIVE Urine Hemoglobin NEGATIVE Urine Glucose NEGATIVE Urine Total Protein NEGATIVE Sodium Level 142 Potassium Level 3.9 Chloride Level 104 Carbon Dioxide Level 27 Anion Gap 11 Blood Urea Nitrogen 10 Creatinine 0.59 Est Glomerular Filtrat > 60 Rate mL/min Glucose Level 102 Calcium Level 9.5 Total Bilirubin 0.3 Direct Bilirubin 0.00 Indirect Bilirubin 0.3 Aspartate Amino 19 Transf (AST/SGOT) Alanine 23 Aminotransferase (ALT/SG PT) Alkaline Phosphatase 150 H Troponin I < 0.012 Total Protein 7.2 Albumin 3.9 Globulin 3.30 H Albumin/Globulin Ratio 1.18 POC Venous Lactate 1.7 POC Beta HCG, NEGATIVE Qualitative Lactic Acid Level 1.2 Test 01/27/19 06:35 Lactic Acid Level 1.0 Medications Medication Current Medications Sodium Chloride 1,000 ml @ 100 mls/hr Q10H IV Last administered on 01/27/19at 10:36; Admin Dose 100 MLS/HR; Start 01/27/19 at 10:08 IV Flush (NS 3 ml) 3 ml PER PROTOCOL IV ; Start 01/27/19 at 10:30 Ondansetron HCl (Zofran Inj) 4 mg Q6H PRN IV NAUSEA/VOMITING Last administered on 01/27/19at 14:49; Admin Dose 4 MG; Start 01/27/19 at 10:30 Acetaminophen (Tylenol Tab) 650 mg Q6H PRN PO .PAIN 1-3 OR TEMP; Start 01/27/19 at 10:30 Pantoprazole (Protonix Iv) 40 mg DAILY@06 IV ; Start 01/28/19 at 06:00 Piperacillin Sod/ Tazobactam Sod 100 ml @ 200 mls/hr Q8 IVPB Last administered on 01/27/19at 14:45; Admin Dose 200 MLS/HR; Start 01/27/19 at 14:00 Metronidazole 100 ml @ 100 mls/hr Q8 IVPB Last administered on 01/27/19at 13:49; Admin Dose 100 MLS/HR; Start 01/27/19 at 14:00 Hydromorphone HCl (Dilaudid) 0.5 mg Q4H PRN IV SEVERE PAIN LEVEL 7-10; Start 01/27/19 at 15:22 DONNY MEAD MD Jan 27, 2019 17:18
--- NOTE | 2019-01-27 17:40 | PREAC ---
Date/Time of Note Date/Time of Note DATE: 01/27/19 TIME: 17:39 Anesthesia Eval and Record Evaluation Time Pre-Procedure Interview DATE: 01/27/19 TIME: 17:39 Age 48 Sex female NPO: 8 hrs Preoperative diagnosis Acute perforated diverticulitis Planned procedure EXPLORATORY LAPAROSCOPY LOOP ILEOSTOMY Past Medical History Past Medical History: Includes Pulm: Smoking Hx GI: Obesity Surgery & Anesthesia Issues No known issue Meds Anticoagulation: No Beta Juan Luis within 24 hr: No Reason Beta Juan Luis not given: Pt. not on B-Juan Luis Active Scripts Diphenhydramine Hcl (Benadryl) 25 Mg Cap, 25 MG PO Q8 PRN for rash for 10 Days, CAP Prov:DANILO KUNZ MD 01/15/19 Hydrocodone/Acetaminophen ([place] 5-325 Tablet) 1 Each Tablet, 1 EACH PO Q8 PRN for PAIN for 10 Days, TAB Prov:DANILO KUNZ MD 01/15/19 Ondansetron Hcl* (Zofran*) 4 Mg Tab, 20 MG PO Q6H PRN for NAUSEA AND OR VOMITING for 10 Days, TAB Prov:DANILO KUNZ MD 01/15/19 Metronidazole* (Flagyl*) 500 Mg Tablet, 500 MG PO Q8 for 10 Days, TAB Prov:DANILO KUNZ MD 01/15/19 Levofloxacin* (Levaquin*) 750 Mg Tablet, 750 MG PO DAILY for 10 Days, TAB Prov:DANILO KUNZ MD 01/15/19 Nicotine* (Nicotine* Patch) 21 mg/day Patch, 1 PATCH TRANSDERM DAILY for 14 Days Prov:DANILO KUNZ MD 01/15/19 Reported Medications Biotin (BIOTIN) 1 Mg Capsule, 1 MG PO DAILY, CAP 01/04/19 Calcium Phosphate Trib/Vit D3 (CALCIUM GUMMIES) 1 Each Tab.chew, 1 EACH PO DAILY, TAB.CHEW 01/04/19 Vitamin B Complex* (Vitamin B Complex*) 1 Each Tablet, 1 TAB PO DAILY, TAB 01/04/19 Lactobacillus Acidophilus (Probiotic Acidophilus) 1 Each Tablet, 1 EACH PO DAILY, TAB 01/04/19 Acetaminophen with Codeine (Acetaminophen-Cod #3 Tablet) 1 Each Tablet, 1 TAB PO Q6H, #7 TAB 01/04/19 Current Medications Sodium Chloride 1,000 ml @ 100 mls/hr Q10H IV Last administered on 01/27/19at 10:36; Admin Dose 100 MLS/HR; Start 01/27/19 at 10:08 IV Flush (NS 3 ml) 3 ml PER PROTOCOL IV ; Start 01/27/19 at 10:30 Ondansetron HCl (Zofran Inj) 4 mg Q6H PRN IV NAUSEA/VOMITING Last administered on 01/27/19at 14:49; Admin Dose 4 MG; Start 01/27/19 at 10:30 Acetaminophen (Tylenol Tab) 650 mg Q6H PRN PO .PAIN 1-3 OR TEMP; Start 01/27/19 at 10:30 Pantoprazole (Protonix Iv) 40 mg DAILY@06 IV ; Start 01/28/19 at 06:00 Piperacillin Sod/ Tazobactam Sod 100 ml @ 200 mls/hr Q8 IVPB Last administered on 01/27/19at 14:45; Admin Dose 200 MLS/HR; Start 01/27/19 at 14:00 Metronidazole 100 ml @ 100 mls/hr Q8 IVPB Last administered on 01/27/19at 13:49; Admin Dose 100 MLS/HR; Start 01/27/19 at 14:00 Hydromorphone HCl (Dilaudid) 0.5 mg Q4H PRN IV SEVERE PAIN LEVEL 7-10; Start 01/27/19 at 15:22 Meds reviewed: Yes Allergies Coded Allergies: meropenem (Verified Allergy, Severe, rash all over the body, 01/27/19) Allergies Reviewed: Yes Labs/Studies Labs Reviewed: Reviewed by anesthesiologist Result Diagram: 01/27/19 0026 01/27/19 0026 Laboratory Tests 01/27/19 00:26 test: Negative Pre-procedure Exam Last vitals Vital Signs Date Temp Pulse Resp B/P (MAP) Pulse Ox O2 O2 Flow FiO2 Time Delivery Rate 01/27/19 98.0 78 19 119/58 96 14:30 (78) 01/27/19 Room Air 08:01 Airway: Adequate mouth opening Mallampati: Mallampati II Teeth: Normal Lung: Normal Heart: Normal ASA Physical Status ASA physical status: 2 Emergency: None Planned Anesthetic General/MAC: ETT Pre-operative Attestations Prior to commencing anesthesia and surgery, the patient was re-evaluated, there was verification of: *The patient's identity *The results of appropriate recent lab work and preoperative vital signs *The above evaluation not changing prior to induction *Anesthetic plan, risk benefits, alternative and complications discussed with patient/family; questions answered; patient/family understands, accepts and wishes to proceed. CINTHYA VILLANUEVA Jan 27, 2019 17:40
[2019-01-27] MEDS: HYDROmorphONE 0.5 MG/0.5 ML SYG IV PRN ×2 (17:52→22:01)
[2019-01-27 20:15] VITALS: BP 118/68; PULSE 82; RESP 18
[2019-01-28] VITALS (21 sets, daily range): BP systolic 95–122; BP diastolic 59–74; PULSE 74–102; RESP 10–20
[2019-01-28] MEDS: SOD CHLORIDE 0.9% 1,000 ML IV SCH ×3 (00:23→14:09)
[2019-01-28] MEDS: HYDROmorphONE 0.5 MG/0.5 ML SYG IV PRN ×4 (02:16→14:56)
[2019-01-28] MEDS: ONDANSETRON 4 MG INJ IV PRN ×2 (03:44→14:17)
[2019-01-28] MEDS: PIPER-TAZO 3.375 GM IV (PMX) 100 ML IVPB SCH ×3 (05:42→22:12)
[2019-01-28] MEDS: PANTOPRAZOLE 40 MG INJ IV SCH (05:42)
[2019-01-28] MEDS: metroNIDAZOLE 500 MG/NS (PMX) 100 ML IVPB SCH ×3 (05:42→22:43)
--- NOTE | 2019-01-28 08:23 | CONS ---
Assessment/Plan Assessment/Plan Hospital Course (Demo Recall) 48 yo female with 1. Persistent diverticulitis with an abscess. -EXPLORATORY LAPAROSCOPY LOOP ILEOSTOMY planned for today 2. Leukocytosis -resolved -continue with abx 3. Mild anemia, normocytic and normochromic -will monitor 4. H/O inguinal hernia repair. 5. Rash likely drug induced (meropenum) -improved PLAN: NPO IVF hydration continue with antibiotics. Surgical recommendations- ex lap today Pt examined and plan of care d/w Dr. Hoyt Consultation Date/Type/Reason Admit Date/Time Jan 27, 2019 at 04:42 Initial Consult Date 01/27/19 Date/Time of Note DATE: 01/28/19 TIME: 08:09 24 HR Interval Summary Free Text/Dictation Pt continues to have abd tenderness but improved, pt is receiving dilaudid. BM yesterday, soft, formed with mucus. WBC wnl. NPO for exploratory lap Exam/Review of Systems Exam Vitals Vital Signs Date Temp Pulse Resp B/P (MAP) Pulse Ox O2 O2 Flow FiO2 Time Delivery Rate 01/28/19 98.4 97 20 122/60 96 07:41 (80) 01/27/19 Room Air 08:01 Intake and Output 01/27/19 01/27/19 01/28/19 1515:00 23:00 07:00 IntakeIntake Total 200 ml 550 ml 1350 ml BalanceBalance 200 ml 550 ml 1350 ml Constitutional: alert, oriented Psych: no complaints Head: normocephalic Respiratory: normal air movement Cardiovascular: regular rate and rhythm Gastrointestinal: soft, bowel sounds, tender Musculoskeletal: nl gait and stance Extremities: normal pulses Neurological: nl mental status Results Result Diagram: 01/28/19 0444 01/28/19 0444 Results 24hrs Laboratory Tests Test 01/28/19 04:44 White Blood Count 10.7 # Red Blood Count 3.88 L Hemoglobin 11.4 L Hematocrit 35.2 L Mean Corpuscular Volume 90.7 Mean Corpuscular Hemoglobin 29.4 Mean Corpuscular Hemoglobin Concent 32.4 Red Cell Distribution Width 13.5 Platelet Count 271 # Mean Platelet Volume 10.4 Immature Granulocytes % 0.800 H Neutrophils % 80.2 H Lymphocytes % 10.9 L Monocytes % 7.2 Eosinophils % 0.7 Basophils % 0.2 Nucleated Red Blood Cells % 0.0 Immature Granulocytes # 0.090 H Neutrophils # 8.6 H Lymphocytes # 1.2 Monocytes # 0.8 Eosinophils # 0.1 Basophils # 0.0 Nucleated Red Blood Cells # 0.0 Sodium Level 138 Potassium Level 3.9 Chloride Level 105 Carbon Dioxide Level 25 Anion Gap 8 Blood Urea Nitrogen 6 L Creatinine 0.55 Est Glomerular Filtrat Rate mL/min > 60 Glucose Level 108 Hemoglobin A1c 5.2 Calcium Level 8.3 L Phosphorus Level 4.1 Magnesium Level 2.1 Total Bilirubin 0.6 Direct Bilirubin 0.00 Indirect Bilirubin 0.6 Aspartate Amino Transf (AST/SGOT) 24 Alanine Aminotransferase (ALT/SGPT) 31 Alkaline Phosphatase 96 Total Protein 6.0 #L Albumin 3.1 L Globulin 2.90 Albumin/Globulin Ratio 1.06 Medications Medication Current Medications Sodium Chloride 1,000 ml @ 100 mls/hr Q10H IV Last administered on 01/28/19 00:23; Admin Dose 100 MLS/HR; Start 01/27/19 at 10:08 IV Flush (NS 3 ml) 3 ml PER PROTOCOL IV ; Start 01/27/19 at 10:30 Ondansetron HCl (Zofran Inj) 4 mg Q6H PRN IV NAUSEA/VOMITING Last administered on 01/28/19at 03:44; Admin Dose 4 MG; Start 01/27/19 at 10:30 Acetaminophen (Tylenol Tab) 650 mg Q6H PRN PO .PAIN 1-3 OR TEMP Last administered on 01/27/19at 21:36; Admin Dose 650 MG; Start 01/27/19 at 10:30 Pantoprazole (Protonix Iv) 40 mg DAILY@06 IV Last administered on 01/28/19at 05 :42; Admin Dose 40 MG; Start 01/28/19 at 06:00 Piperacillin Sod/ Tazobactam Sod 100 ml @ 200 mls/hr Q8 IVPB Last administered on 01/28/19 05:42; Admin Dose 200 MLS/HR; Start 01/27/19 at 14:00 Metronidazole 100 ml @ 100 mls/hr Q8 IVPB Last administered on 01/28/19 05:42; Admin Dose 100 MLS/HR; Start 01/27/19 at 14:00 Hydromorphone HCl (Dilaudid) 0.5 mg Q4H PRN IV SEVERE PAIN LEVEL 7-10 Last administered on 01/28/19at 06:44; Admin Dose 0.5 MG; Start 01/27/19 at 15:22 DANIEL CROWLEY Jan 28, 2019 08:21
--- NOTE | 2019-01-28 14:33 | PN ---
Date/Time of Note Date/Time of Note DATE: 01/28/19 TIME: 14:32 Assessment/Plan VTE Prophylaxis Risk score (from Ns)>0 risk: 1 SCD applied (from Ns): No SCD contraindicated: low risk/ambulating Pharmacological prophylaxis: NA/contraindicated Pharm contraindication: low risk/ambulating Lines/Catheters IV C[facility] Type [facility]from [facility]): Peripheral IV Urinary Cath still in place: No Assessment/Plan Assessment/Plan ASSESSMENT AND PLAN: This is a 48-year-old female with: 1. Recurrent diverticulitis with pericolonic abscess. 2. Systemic inflammatory response syndrome with leukocytosis secondary to #1. 3. Drug rash, questionable meropenem which has been resolved. 4. History of diverticulosis. 5. Normocytic normochromic anemia. 6. History of inguinal hernia repair. 7. History of uterine fibroid removal in 2018. 8. History of complex uterine mass and vaginal ultrasound need to be followed up with gynecology as an outpatient. Plan - WBC improved today - OR today - cw zosyn/flagyl - NS at 100 cc/hr - pain control Result Diagram: 01/28/194 01/28/19 0444 Results 24hrs Laboratory Tests Test 01/28/19 04:44 White Blood Count 10.7 # Red Blood Count 3.88 L Hemoglobin 11.4 L Hematocrit 35.2 L Mean Corpuscular Volume 90.7 Mean Corpuscular Hemoglobin 29.4 Mean Corpuscular Hemoglobin Concent 32.4 Red Cell Distribution Width 13.5 Platelet Count 271 # Mean Platelet Volume 10.4 Immature Granulocytes % 0.800 H Neutrophils % 80.2 H Lymphocytes % 10.9 L Monocytes % 7.2 Eosinophils % 0.7 Basophils % 0.2 Nucleated Red Blood Cells % 0.0 Immature Granulocytes # 0.090 H Neutrophils # 8.6 H Lymphocytes # 1.2 Monocytes # 0.8 Eosinophils # 0.1 Basophils # 0.0 Nucleated Red Blood Cells # 0.0 Sodium Level 138 Potassium Level 3.9 Chloride Level 105 Carbon Dioxide Level 25 Anion Gap 8 Blood Urea Nitrogen 6 L Creatinine 0.55 Est Glomerular Filtrat Rate mL/min > 60 Glucose Level 108 Hemoglobin A1c 5.2 Calcium Level 8.3 L Phosphorus Level 4.1 Magnesium Level 2.1 Total Bilirubin 0.6 Direct Bilirubin 0.00 Indirect Bilirubin 0.6 Aspartate Amino Transf (AST/SGOT) 24 Alanine Aminotransferase (ALT/SGPT) 31 Alkaline Phosphatase 96 Total Protein 6.0 #L Albumin 3.1 L Globulin 2.90 Albumin/Globulin Ratio 1.06 Subjective 24 Hr Interval Summary Free Text/Dictation Clinically feels better today White count is improved. Exam/Review of Systems Exam Vitals Vital Signs Date Temp Pulse Resp B/P (MAP) Pulse Ox O2 O2 Flow FiO2 Time Delivery Rate 01/28/19 98.4 95 20 111/70 98 13:42 (84) 01/27/19 Room Air 08:01 Intake and Output 01/27/19 01/27/19 01/28/19 1515:00 23:00 07:00 IntakeIntake Total 200 ml 550 ml 1350 ml BalanceBalance 200 ml 550 ml 1350 ml Exam GENERAL: The patient is awake, alert, oriented, does not appear to be in acute distress. HEENT: Pupils are equal, round, reactive to light. NECK: Supple. HEART ctab LUNGS: Clear to auscultate bilaterally. ABDOMEN: Some mild left upper quadrant tenderness. No McBurney point tenderness. Normal bowel sounds. Results Results 24hrs Laboratory Tests Test 01/28/19 04:44 White Blood Count 10.7 # Red Blood Count 3.88 L Hemoglobin 11.4 L Hematocrit 35.2 L Mean Corpuscular Volume 90.7 Mean Corpuscular Hemoglobin 29.4 Mean Corpuscular Hemoglobin Concent 32.4 Red Cell Distribution Width 13.5 Platelet Count 271 # Mean Platelet Volume 10.4 Immature Granulocytes % 0.800 H Neutrophils % 80.2 H Lymphocytes % 10.9 L Monocytes % 7.2 Eosinophils % 0.7 Basophils % 0.2 Nucleated Red Blood Cells % 0.0 Immature Granulocytes # 0.090 H Neutrophils # 8.6 H Lymphocytes # 1.2 Monocytes # 0.8 Eosinophils # 0.1 Basophils # 0.0 Nucleated Red Blood Cells # 0.0 Sodium Level 138 Potassium Level 3.9 Chloride Level 105 Carbon Dioxide Level 25 Anion Gap 8 Blood Urea Nitrogen 6 L Creatinine 0.55 Est Glomerular Filtrat Rate mL/min > 60 Glucose Level 108 Hemoglobin A1c 5.2 Calcium Level 8.3 L Phosphorus Level 4.1 Magnesium Level 2.1 Total Bilirubin 0.6 Direct Bilirubin 0.00 Indirect Bilirubin 0.6 Aspartate Amino Transf (AST/SGOT) 24 Alanine Aminotransferase (ALT/SGPT) 31 Alkaline Phosphatase 96 Total Protein 6.0 #L Albumin 3.1 L Globulin 2.90 Albumin/Globulin Ratio 1.06 Medications Medication Current Medications Sodium Chloride 1,000 ml @ 100 mls/hr Q10H IV Last administered on 01/28/19 14:09; Admin Dose 100 MLS/HR; Start 01/27/19 at 10:08 IV Flush (NS 3 ml) 3 ml PER PROTOCOL IV ; Start 01/27/19 at 10:30 Ondansetron HCl (Zofran Inj) 4 mg Q6H PRN IV NAUSEA/VOMITING Last administered on 01/28/19 14:17; Admin Dose 4 MG; Start 01/27/19 at 10:30 Acetaminophen (Tylenol Tab) 650 mg Q6H PRN PO .PAIN 1-3 OR TEMP Last administered on 01/27/19 21:36; Admin Dose 650 MG; Start 01/27/19 at 10:30 Pantoprazole (Protonix Iv) 40 mg DAILY@06 IV Last administered on 01/28/19 05:42; Admin Dose 40 MG; Start 01/28/19 at 06:00 Piperacillin Sod/ Tazobactam Sod 100 ml @ 200 mls/hr Q8 IVPB Last administered on 01/28/19 14:09; Admin Dose 200 MLS/HR; Start 01/27/19 at 14:00 Metronidazole 100 ml @ 100 mls/hr Q8 IVPB Last administered on 01/28/19 05:42; Admin Dose 100 MLS/HR; Start 01/27/19 at 14:00 Hydromorphone HCl (Dilaudid) 0.5 mg Q4H PRN IV SEVERE PAIN LEVEL 7-10 Last administered on 01/28/19 10:56; Admin Dose 0.5 MG; Start 01/27/19 at 15:22 DANILO KUNZ MD Jan 28, 2019 14:33
--- NOTE | 2019-01-28 15:10 | CONS ---
Assessment/Plan Assessment/Plan Hospital Course (Demo Recall) Patient is alert feels better looks comfortable she is afebrile, waiting for surgery. WBC 10.7 platelets 271 neutrophils 80.2 BUN 6 creatinine 0.55 Blood culture and urine culture negative Antimicrobials: Zosyn and Flagyl Physical examination: Well-developed well-nourished middle-aged woman who is alert in no distress. Head atraumatic normocephalic sclera nonicteric vehicle mucosa pink neck is supple chest rise symmetrical breath sounds clear heart: S1- S2 abdomen soft mild tenderness on palpation bowel sounds present extremities without cyanosis Assessment: 1. Acute diverticulitis with abscess 2. SIRS Plan: Stable, continue abx, plan for OR today Consultation Date/Type/Reason Admit Date/Time Jan 27, 2019 at 04:42 Initial Consult Date 01/27/19 Type of Consult id Date/Time of Note DATE: 01/28/19 TIME: 15:09 Exam/Review of Systems Exam Vitals Vital Signs Date Temp Pulse Resp B/P (MAP) Pulse Ox O2 O2 Flow FiO2 Time Delivery Rate 01/28/19 98.4 95 20 111/70 98 13:42 (84) 01/27/19 Room Air 08:01 Intake and Output 01/27/19 01/27/19 01/28/19 1515:00 23:00 07:00 IntakeIntake Total 200 ml 550 ml 1350 ml BalanceBalance 200 ml 550 ml 1350 ml Results Result Diagram: 01/28/19 0444 01/28/19 0444 Results 24hrs Laboratory Tests Test 01/28/19 04:44 White Blood Count 10.7 # Red Blood Count 3.88 L Hemoglobin 11.4 L Hematocrit 35.2 L Mean Corpuscular Volume 90.7 Mean Corpuscular Hemoglobin 29.4 Mean Corpuscular Hemoglobin Concent 32.4 Red Cell Distribution Width 13.5 Platelet Count 271 # Mean Platelet Volume 10.4 Immature Granulocytes % 0.800 H Neutrophils % 80.2 H Lymphocytes % 10.9 L Monocytes % 7.2 Eosinophils % 0.7 Basophils % 0.2 Nucleated Red Blood Cells % 0.0 Immature Granulocytes # 0.090 H Neutrophils # 8.6 H Lymphocytes # 1.2 Monocytes # 0.8 Eosinophils # 0.1 Basophils # 0.0 Nucleated Red Blood Cells # 0.0 Sodium Level 138 Potassium Level 3.9 Chloride Level 105 Carbon Dioxide Level 25 Anion Gap 8 Blood Urea Nitrogen 6 L Creatinine 0.55 Est Glomerular Filtrat Rate mL/min > 60 Glucose Level 108 Hemoglobin A1c 5.2 Calcium Level 8.3 L Phosphorus Level 4.1 Magnesium Level 2.1 Total Bilirubin 0.6 Direct Bilirubin 0.00 Indirect Bilirubin 0.6 Aspartate Amino Transf (AST/SGOT) 24 Alanine Aminotransferase (ALT/SGPT) 31 Alkaline Phosphatase 96 Total Protein 6.0 #L Albumin 3.1 L Globulin 2.90 Albumin/Globulin Ratio 1.06 Medications Medication Current Medications Sodium Chloride 1,000 ml @ 100 mls/hr Q10H IV Last administered on 01/28/19 14:09; Admin Dose 100 MLS/HR; Start 01/27/19 at 10:08 IV Flush (NS 3 ml) 3 ml PER PROTOCOL IV ; Start 01/27/19 at 10:30 Ondansetron HCl (Zofran Inj) 4 mg Q6H PRN IV NAUSEA/VOMITING Last administered on 01/28/19 14:17; Admin Dose 4 MG; Start 01/27/19 at 10:30 Acetaminophen (Tylenol Tab) 650 mg Q6H PRN PO .PAIN 1-3 OR TEMP Last admini stered on 01/27/19 21:36; Admin Dose 650 MG; Start 01/27/19 at 10:30 Pantoprazole (Protonix Iv) 40 mg DAILY@06 IV Last administered on 01/28/19 05:42; Admin Dose 40 MG; Start 01/28/19 at 06:00 Piperacillin Sod/ Tazobactam Sod 100 ml @ 200 mls/hr Q8 IVPB Last administered on 01/28/19 14:09; Admin Dose 200 MLS/HR; Start 01/27/19 at 14:00 Metronidazole 100 ml @ 100 mls/hr Q8 IVPB Last administered on 01/28/19 14:53; Admin Dose 100 MLS/HR; Start 01/27/19 at 14:00 Hydromorphone HCl (Dilaudid) 0.5 mg Q4H PRN IV SEVERE PAIN LEVEL 7-10 Last administered on 01/28/19 14:56; Admin Dose 0.5 MG; Start 01/27/19 at 15:22 DALE ARREOLA NP Jan 28, 2019 15:10
--- NOTE | 2019-01-28 16:59 | PN ---
Date/Time of Note Date/Time of Note DATE: 01/28/19 TIME: 16:57 Assessment/Plan Lines/Catheters IV Catheter Type (from Nrs): Peripheral IV Alberto in Place (from Nrs): No Assessment/Plan Problems: (1) Pericolonic abscess due to diverticulitis Status: Acute Assessment/Plan Patient failed the conservative treatment. Invasive radiology cannot drain here abscess. Plan is for exploratory laparoscopy drainage of the intra-abdominal abscess and possible diverting loop ileostomy. We discussed risks and benefits were discussed possible side effects, possible complications including but not limited to bleeding, infection, injury to other organs, anesthesia complication, patient understood risk and benefits and wished to proceed. Subjective 24 Hr Interval Summary Patient still febrile. Complains of left lower quadrant pain Constitutional: chills, febrile Feeding: NPO Pain Control: moderate Exam/Review of Systems Vital Signs Vitals Vital Signs Date Temp Pulse Resp B/P (MAP) Pulse Ox O2 O2 Flow FiO2 Time Delivery Rate 01/28/19 98.4 95 20 111/70 98 13:42 (84) 01/27/19 Room Air 08:01 Intake and Output 01/27/19 01/27/19 01/28/19 1414:59 22:59 06:59 IntakeIntake Total 200 ml 550 ml 1350 ml BalanceBalance 200 ml 550 ml 1350 ml Exam Gastrointestinal: tender (Right lower quadrant tenderness) Results Result Diagram: 01/28/19 0444 01/28/19 0444 DONNY MEAD MD Jan 28, 2019 16:59
[2019-01-28] MEDS ORDERED: BUPIVACAINE 0.25%/EPI (SDV) 30 ML INJ ONE (17:32)
[2019-01-28] MEDS ORDERED: LIDOCAINE 1% (MPF) 30 ML INJ ONE (17:32)
[2019-01-28] MEDS ORDERED: SEVOFLURANE 15 MIN ONE (18:00)
[2019-01-28] MEDS ORDERED: ROCURONIUM 50 MG INJ ONE (18:01)
[2019-01-28] MEDS ORDERED: LIDOCAINE 2% (SDV) 5 ML INJ ONE (18:01)
[2019-01-28] MEDS ORDERED: SUCCINYLCHOLINE CHLORIDE 100 MG/5 ML SYG IV ONE (18:01)
[2019-01-28] MEDS ORDERED: PROPOFOL 20 ML ONE (18:01)
[2019-01-28] MEDS ORDERED: MIDAZOLAM 1 MG/ML 2 ML INJ ONE (18:02)
[2019-01-28] MEDS ORDERED: ROPIVACAINE 0.5 % 30 ML VIAL ONE (18:02)
[2019-01-28] MEDS ORDERED: metroNIDAZOLE 500 MG/NS (PMX) 100 ML IVPB ONE (18:24)
[2019-01-28] MEDS ORDERED: ONDANSETRON 4 MG INJ ONE (18:27)
[2019-01-28] MEDS ORDERED: DEXAMETHASONE 4 MG/ML 5 ML INJ ONE (18:27)
[2019-01-28] MEDS ORDERED: FAMOTIDINE 20 MG INJ ONE (18:27)
[2019-01-28] MEDS ORDERED: PIPER-TAZO 3.375 GM IV (PMX) 100 ML IVPB SCH (18:30)
[2019-01-28] MEDS ORDERED: GLYCOPYRROLATE 0.4 MG INJ ONE (19:15)
[2019-01-28] MEDS ORDERED: NEOSTIGMINE 3 MG/3 ML SYRINGE ONE (19:15)
[2019-01-28] MEDS ORDERED: KETOROLAC 30 MG INJ ONE (19:17)
--- NOTE | 2019-01-28 19:22 | SIPON ---
Date/Time of Note Date/Time of Note DATE: 01/28/19 TIME: 19:20 Operative Report Preoperative Diagnosis Perforated diverticulitis with intra-abdominal abscess Postoperative Diagnosis The same Operation/Procedure Performed Exploratory laparoscopy and drainage of the intra-abdominal abscess Surgeon see signature line physician's assistant None Anesthesia: general Estimated blood loss: 0 - 10 ml's Transfusion Required none Specimen None Grafts/Implants none Complications none DONNY MEAD MD Jan 28, 2019 19:22
[2019-01-28] MEDS ORDERED: ONDANSETRON 4 MG INJ IV PRN ×2 (19:30→20:00)
[2019-01-28] MEDS ORDERED: DIPHENHYDRAMINE 50 MG INJ IV PRN ×2 (19:30→20:00)
[2019-01-28] MEDS ORDERED: ACETAMINOPHEN 325 MG TAB PO PRN (19:30)
[2019-01-28] MEDS ORDERED: KETOROLAC 30 MG INJ IV PRN (19:30)
--- NOTE | 2019-01-28 19:34 | PAC ---
Date/Time of Note Date/Time of Note DATE: 01/28/19 TIME: 19:34 Post-Anesthesia Notes Post-Anesthesia Note Last documented vital signs Vital Signs Date Temp Pulse Resp B/P (MAP) Pulse Ox O2 O2 Flow FiO2 Time Delivery Rate 01/28/19 98.4 95 20 111/70 98 13:42 (84) 01/27/19 Room Air 08:01 Activity: WNL Respiratory function: WNL Cardiovascular function: WNL Mental status: Baseline Pain reasonably controlled: Yes Hydration appropriate: Yes Nausea/Vomiting absent: Yes Comments BP: 116/63 HR: 99 RR: 15 T: 97.9 SaO2: 100% JANENE SCHULTZ MD Jan 28, 2019 19:34
[2019-01-28] MEDS: HYDROmorphONE 1 MG/5 ML IV SYRINGE IV PRN ×2 (19:55→20:08)
[2019-01-28] MEDS: FENTAnyl 50 MCG/ML VIAL IV PRN ×2 (19:56→20:09)
[2019-01-28] MEDS ORDERED: PROCHLORPERAZINE 10 MG INJ IV PRN (20:00)
[2019-01-28] MEDS ORDERED: FENTAnyl 50 MCG/ML VIAL IV PRN ×2 (20:00)
[2019-01-28] MEDS ORDERED: HYDROmorphONE 1 MG/5 ML IV SYRINGE IV PRN ×2 (20:00)
[2019-01-28] MEDS ORDERED: MEPERIDINE 25 MG INJ IV PRN (20:00)
[2019-01-28] MEDS: D5W-0.45 NACL + KCL 20 MEQ 1,000 ML IV SCH (21:54)
[2019-01-29] MEDS: HYDROmorphONE 0.5 MG/0.5 ML SYG IV PRN ×5 (01:09→18:54)
[2019-01-29 02:28] VITALS: BP 90/57; PULSE 76; RESP 18
[2019-01-29] MEDS: PANTOPRAZOLE 40 MG INJ IV SCH (05:14)
[2019-01-29] MEDS: PIPER-TAZO 3.375 GM IV (PMX) 100 ML IVPB SCH ×3 (05:14→21:27)
[2019-01-29] MEDS: D5W-0.45 NACL + KCL 20 MEQ 1,000 ML IV SCH ×2 (05:22→11:37)
[2019-01-29] MEDS: metroNIDAZOLE 500 MG/NS (PMX) 100 ML IVPB SCH ×3 (05:48→22:15)
[2019-01-29 07:54] VITALS: BP 109/70; PULSE 63; RESP 16
[2019-01-29] MEDS: LORAZEPAM 2 MG INJ IV PRN ×2 (11:19→19:54)
--- NOTE | 2019-01-29 13:02 | PN ---
Date/Time of Note Date/Time of Note DATE: 01/29/19 TIME: 12:57 Assessment/Plan VTE Prophylaxis Risk score (from Ns)>0 risk: 2 SCD applied (from Ns): Yes Pharmacological prophylaxis: NA/contraindicated Pharm contraindication: low risk/ambulating Lines/Catheters [facility] Peripheral IV Urinary Cath still in place: No Assessment/Plan Assessment/Plan This is a 48-year-old female with: 1. Recurrent diverticulitis with pericolonic abscess.S/P Exploratory laparoscopy and drainage of the intra-abdominal abscess POD#1 2. Systemic inflammatory response syndrome with leukocytosis secondary to #1. 3. Drug rash, questionable meropenem which has been resolved. 4. History of diverticulosis. 5. Normocytic normochromic anemia. 6. History of inguinal hernia repair. 7. History of uterine fibroid removal in 2018. 8. History of complex uterine mass and vaginal ultrasound need to be followed up with gynecology as an outpatient. Plan - WBC improved today - Pain control - cw zosyn/flagyl - NS with kcl at 100 cc/hr - pain control Result Diagram: 01/29/19 0452 01/29/19 0452 Results 24hrs Laboratory Tests Test 01/29/19 04:52 White Blood Count 11.2 H Red Blood Count 3.45 L Hemoglobin 10.2 L Hematocrit 31.2 L Mean Corpuscular Volume 90.4 Mean Corpuscular Hemoglobin 29.6 Mean Corpuscular Hemoglobin Concent 32.7 Red Cell Distribution Width 13.3 Platelet Count 229 Mean Platelet Volume 10.7 H Immature Granulocytes % 0.800 H Neutrophils % 87.7 H Lymphocytes % 6.0 L Monocytes % 5.3 Eosinophils % 0.0 Basophils % 0.2 Nucleated Red Blood Cells % 0.0 Immature Granulocytes # 0.090 H Neutrophils # 9.8 H Lymphocytes # 0.7 L Monocytes # 0.6 Eosinophils # 0.0 Basophils # 0.0 Nucleated Red Blood Cells # 0.0 Sodium Level 138 Potassium Level 4.5 Chloride Level 108 Carbon Dioxide Level 22 Anion Gap 8 Blood Urea Nitrogen 5 L Creatinine 0.46 Est Glomerular Filtrat Rate mL/min > 60 Glucose Level 147 Calcium Level 8.1 L Phosphorus Level 3.8 Magnesium Level 2.3 Subjective 24 Hr Interval Summary Free Text/Dictation sp Exploratory laparoscopy and drainage of the intra-abdominal abscess POD#1 Passed gas but no bowel movement yet Exam/Review of Systems Exam Vitals Vital Signs Date Temp Pulse Resp B/P (MAP) Pulse Ox O2 O2 Flow FiO2 Time Delivery Rate 01/29/19 98.0 63 16 109/70 100 07:54 (83) 01/28/19 Nasal 2.0 23:19 Cannula Intake and Output 01/28/19 01/28/19 01/29/19 1515:00 23:00 07:00 IntakeIntake Total 600 ml 100 ml 1000 ml OutputOutput Total 155 ml 70 ml BalanceBalance 600 ml -55 ml 930 ml Exam Exam GENERAL: The patient is awake, alert, oriented, does not appear to be in acute distress. HEENT: Pupils are equal, round, reactive to light. NECK: Supple. HEART ctab LUNGS: Clear to auscultate bilaterally. ABDOMEN: Some mild left upper quadrant tenderness. cheri DRAIN Results Results 24hrs Laboratory Tests Test 01/29/19 04:52 White Blood Count 11.2 H Red Blood Count 3.45 L Hemoglobin 10.2 L Hematocrit 31.2 L Mean Corpuscular Volume 90.4 Mean Corpuscular Hemoglobin 29.6 Mean Corpuscular Hemoglobin Concent 32.7 Red Cell Distribution Width 13.3 Platelet Count 229 Mean Platelet Volume 10.7 H Immature Granulocytes % 0.800 H Neutrophils % 87.7 H Lymphocytes % 6.0 L Monocytes % 5.3 Eosinophils % 0.0 Basophils % 0.2 Nucleated Red Blood Cells % 0.0 Immature Granulocytes # 0.090 H Neutrophils # 9.8 H Lymphocytes # 0.7 L Monocytes # 0.6 Eosinophils # 0.0 Basophils # 0.0 Nucleated Red Blood Cells # 0.0 Sodium Level 138 Potassium Level 4.5 Chloride Level 108 Carbon Dioxide Level 22 Anion Gap 8 Blood Urea Nitrogen 5 L Creatinine 0.46 Est Glomerular Filtrat Rate mL/min > 60 Glucose Level 147 Calcium Level 8.1 L Phosphorus Level 3.8 Magnesium Level 2.3 Medications Medication Current Medications IV Flush (NS 3 ml) 3 ml PER PROTOCOL IV ; Start 01/27/19 at 10:30 Ondansetron HCl (Zofran Inj) 4 mg Q6H PRN IV NAUSEA/VOMITING Last administered on 01/28/19at 14:17; Admin Dose 4 MG; Start 01/27/19 at 10:30 Pantoprazole (Protonix Iv) 40 mg DAILY@06 IV Last administered on 01/29/19at 05:14; Admin Dose 40 MG; Start 01/28/19 at 06:00 Piperacillin Sod/ Tazobactam Sod 100 ml @ 200 mls/hr Q8 IVPB Last administered on 01/29/19at 05:14; Admin Dose 200 MLS/HR; Start 01/27/19 at 14:00 Metronidazole 100 ml @ 100 mls/hr Q8 IVPB Last administered on 01/29/19at 05:48; Admin Dose 100 MLS/HR; Start 01/27/19 at 14:00 Hydromorphone HCl (Dilaudid) 0.5 mg Q4H PRN IV SEVERE PAIN LEVEL 7-10 Last administered on 01/29/19at 09:29; Admin Dose 0.5 MG; Start 01/27/19 at 15:22 Morphine Sulfate (morphine) 2 mg Q2H PRN IV BREAKTHROUGH PAIN; Start 01/28/19 at 19:30 Acetaminophen/ Hydrocodone Bitart ([place] (5/325)) 1 tab Q6H PRN PO PAIN LEVEL 6-10; Start 01/28/19 at 19:30 Ketorolac Tromethamine (Toradol) 30 mg Q6H PRN IV PAIN; Start 01/28/19 at 19:30; Stop 01/31/19 at 19:29 Acetaminophen (Tylenol Tab) 650 mg Q6H PRN PO MILD PAIN(1-3)OR ELEVATED TEMP; Start 01/28/19 at 19:30 Diphenhydramine HCl (Benadryl) 25 mg Q6H PRN IV ITCHING; Start 01/28/19 at 19:30 Metoclopramide HCl (Reglan) 10 mg Q6H PRN IV NAUSEA AND/OR VOMITING; Start 01/28/19 at 19:30 Ondansetron HCl (Zofran Inj) 4 mg Q6H PRN IV NAUSEA AND/OR VOMITING; Start 01/28/19 at 19:30 Potassium Chloride/Dextrose/ Sod Cl 1,000 ml @ 100 mls/hr Q10H IV Last administered on 01/29/19at 11:37; Admin Dose 100 MLS/HR; Start 01/28/19 at 19:22 Lorazepam (Ativan) 0.5 mg Q8H PRN IV anxiety Last administered on 01/29/19at 11:19; Admin Dose 0.5 MG; Start 01/29/19 at 10:00 DANILO KUNZ MD Jan 29, 2019 13:02
--- NOTE | 2019-01-29 13:45 | CONS ---
Assessment/Plan Assessment/Plan Hospital Course (Demo Recall) Alert, feels better, no fevers, nad Blood culture and urine culture negative Antimicrobials: Zosyn and Flagyl Physical examination: Well-developed well-nourished middle-aged woman who is alexis rt in no distress. Head atraumatic normocephalic sclera nonicteric vehicle mucosa pink neck is supple chest rise symmetrical breath sounds clear heart: S1- S2 abdomen soft, OSMAN present, sero-sanguinous drainage, mild tenderness on palpation bowel sounds present extremities without cyanosis Assessment: 1. Acute diverticulitis with abscess, s/p exploratory laparoscopy and drainage of the intra-abdominal abscess 01/28/19 2. SIRS Plan: Doing better, continue abx, f/u surgical rec-s, IS DW pt Consultation Date/Type/Reason Admit Date/Time Jan 27, 2019 at 04:42 Initial Consult Date 01/27/19 Type of Consult id Date/Time of Note DATE: 01/29/19 TIME: 13:43 Exam/Review of Systems Exam Vitals Vital Signs Date Temp Pulse Resp B/P (MAP) Pulse Ox O2 O2 Flow FiO2 Time Delivery Rate 01/29/19 98.0 63 16 109/70 100 07:54 (83) 01/28/19 Nasal 2.0 23:19 Cannula Intake and Output 01/28/19 01/28/19 01/29/19 1414:59 22:59 06:59 IntakeIntake Total 600 ml 100 ml 1000 ml OutputOutput Total 155 ml 70 ml BalanceBalance 600 ml -55 ml 930 ml Results Result Diagram: 01/29/19 0452 01/29/19 0452 Results 24hrs Laboratory Tests Test 01/29/19 04:52 White Blood Count 11.2 H Red Blood Count 3.45 L Hemoglobin 10.2 L Hematocrit 31.2 L Mean Corpuscular Volume 90.4 Mean Corpuscular Hemoglobin 29.6 Mean Corpuscular Hemoglobin Concent 32.7 Red Cell Distribution Width 13.3 Platelet Count 229 Mean Platelet Volume 10.7 H Immature Granulocytes % 0.800 H Neutrophils % 87.7 H Lymphocytes % 6.0 L Monocytes % 5.3 Eosinophils % 0.0 Basophils % 0.2 Nucleated Red Blood Cells % 0.0 Immature Granulocytes # 0.090 H Neutrophils # 9.8 H Lymphocytes # 0.7 L Monocytes # 0.6 Eosinophils # 0.0 Basophils # 0.0 Nucleated Red Blood Cells # 0.0 Sodium Level 138 Potassium Level 4.5 Chloride Level 108 Carbon Dioxide Level 22 Anion Gap 8 Blood Urea Nitrogen 5 L Creatinine 0.46 Est Glomerular Filtrat Rate mL/min > 60 Glucose Level 147 Calcium Level 8.1 L Phosphorus Level 3.8 Magnesium Level 2.3 Medications Medication Current Medications IV Flush (NS 3 ml) 3 ml PER PROTOCOL IV ; Start 01/27/19 at 10:30 Ondansetron HCl (Zofran Inj) 4 mg Q6H PRN IV NAUSEA/VOMITING Last administered on 01/28/19at 14:17; Admin Dose 4 MG; Start 01/27/19 at 10:30 Pantoprazole (Protonix Iv) 40 mg DAILY@06 IV Last administered on 01/29/19at 05:14; Admin Dose 40 MG; Start 01/28/19 at 06:00 Piperacillin Sod/ Tazobactam Sod 100 ml @ 200 mls/hr Q8 IVPB Last administered on 01/29/19at 05:14; Admin Dose 200 MLS/HR; Start 01/27/19 at 14:00 Metronidazole 100 ml @ 100 mls/hr Q8 IVPB Last administered on 01/29/19at 05:48; Admin Dose 100 MLS/HR; Start 01/27/19 at 14:00 Hydromorphone HCl (Dilaudid) 0.5 mg Q4H PRN IV SEVERE PAIN LEVEL 7-10 Last administered on 01/29/19at 09:29; Admin Dose 0.5 MG; Start 01/27/19 at 15:22 Morphine Sulfate (morphine) 2 mg Q2H PRN IV BREAKTHROUGH PAIN; Start 01/28/19 at 19:30 Acetaminophen/ Hydrocodone Bitart ([place] (5/325)) 1 tab Q6H PRN PO PAIN LEVEL 6-10; Start 01/28/19 at 19:30 Ketorolac Tromethamine (Toradol) 30 mg Q6H PRN IV PAIN; Start 01/28/19 at 19:30; Stop 01/31/19 at 19:29 Acetaminophen (Tylenol Tab) 650 mg Q6H PRN PO MILD PAIN(1-3)OR ELEVATED TEMP; Start 01/28/19 at 19:30 Diphenhydramine HCl (Benadryl) 25 mg Q6H PRN IV ITCHING; Start 01/28/19 at 19:30 Metoclopramide HCl (Reglan) 10 mg Q6H PRN IV NAUSEA AND/OR VOMITING; Start 01/28/19 at 19:30 Ondansetron HCl (Zofran Inj) 4 mg Q6H PRN IV NAUSEA AND/OR VOMITING; Start 01/28/19 at 19:30 Potassium Chloride/Dextrose/ Sod Cl 1,000 ml @ 100 mls/hr Q10H IV Last administered on 01/29/19at 11:37; Admin Dose 100 MLS/HR; Start 01/28/19 at 19:22 Lorazepam (Ativan) 0.5 mg Q8H PRN IV anxiety Last administered on 01/29/19at 11:19; Admin Dose 0.5 MG; Start 01/29/19 at 10:00 DALE ARREOLA NP Jan 29, 2019 13:45
[2019-01-29 14:54] VITALS: BP 107/68; PULSE 67; RESP 15
--- NOTE | 2019-01-29 15:43 | PN ---
Date/Time of Note Date/Time of Note DATE: 01/29/19 TIME: 15:40 Assessment/Plan Lines/Catheters IV Catheter Type (from Nrsg): Peripheral IV Alberto in Place (from Nrsg): No Assessment/Plan Assessment/Plan Small post operative course. Await hoahaoism of the bowel function to feed. Continue antibiotics. Subjective 24 Hr Interval Summary Post operative day #1 after laparoscopic drainage of the intra-abdominal abscess. Patient remains afebrile, pain is well controlled, patient feels overall well. Ambulating. Still not passing gas. Denies nausea and vomiting. OSMAN drainage drain serosanguineous fluid. Wounds clean. Abdomen is soft. Mild incisional tenderness. Feeding: NPO Pain Control: well controlled Exam/Review of Systems Vital Signs Vitals Vital Signs Date Temp Pulse Resp B/P (MAP) Pulse Ox O2 O2 Flow FiO2 Time Delivery Rate 01/29/19 98.1 67 15 107/68 97 14:54 (81) 01/28/19 Nasal 2.0 23:19 Cannula Intake and Output 01/28/19 01/28/19 01/29/19 1515:00 23:00 07:00 IntakeIntake Total 600 ml 100 ml 1000 ml OutputOutput Total 155 ml 70 ml BalanceBalance 600 ml -55 ml 930 ml Results Result Diagram: 01/29/19 0452 01/29/19 0452 DONNY MEAD MD Jan 29, 2019 15:43
--- NOTE | 2019-01-29 18:29 | CONS ---
Assessment/Plan Assessment/Plan Assessment/Plan (Daily) Hospital Course (Demo Recall) 48 yo female with 1. Persistent diverticulitis with an abscess. -EXPLORATORY LAPAROSCOPY LOOP ILEOSTOMY planned for today 2. Leukocytosis -resolved -continue with abx 3. Mild anemia, normocytic and normochromic -will monitor 4. H/O inguinal hernia repair. 5. Rash likely drug induced (meropenum) -improved 6. Status post laparoscopic drainage of diverticular abscess PLAN: NPO IVF hydration continue with antibiotics. Continue postoperative care Consultation Date/Type/Reason Admit Date/Time Jan 27, 2019 at 04:42 Initial Consult Date 01/27/19 Date/Time of Note DATE: 01/29/19 TIME: 18:28 24 HR Interval Summary Free Text/Dictation And had a good bowel movements No nausea no vomiting Abdominal pain is reduced Constitutional: improved Exam/Review of Systems Exam Vitals Vital Signs Date Temp Pulse Resp B/P (MAP) Pulse Ox O2 O2 Flow FiO2 Time Delivery Rate 01/29/19 98.1 67 15 107/68 97 14:54 (81) 01/28/19 Nasal 2.0 23:19 Cannula Intake and Output 01/28/19 01/28/19 01/29/19 1515:00 23:00 07:00 IntakeIntake Total 600 ml 100 ml 1000 ml OutputOutput Total 155 ml 70 ml BalanceBalance 600 ml -55 ml 930 ml Eyes: nl conjunctiva ENMT: nl lips & teeth Cardiovascular: regular rate and rhythm, nl pulses Gastrointestinal: soft, surgical scars Results Result Diagram: 01/29/19 0452 01/29/19 0452 Results 24hrs Laboratory Tests Test 01/29/19 04:52 White Blood Count 11.2 H Red Blood Count 3.45 L Hemoglobin 10.2 L Hematocrit 31.2 L Mean Corpuscular Volume 90.4 Mean Corpuscular Hemoglobin 29.6 Mean Corpuscular Hemoglobin Concent 32.7 Red Cell Distribution Width 13.3 Platelet Count 229 Mean Platelet Volume 10.7 H Immature Granulocytes % 0.800 H Neutrophils % 87.7 H Lymphocytes % 6.0 L Monocytes % 5.3 Eosinophils % 0.0 Basophils % 0.2 Nucleated Red Blood Cells % 0.0 Immature Granulocytes # 0.090 H Neutrophils # 9.8 H Lymphocytes # 0.7 L Monocytes # 0.6 Eosinophils # 0.0 Basophils # 0.0 Nucleated Red Blood Cells # 0.0 Sodium Level 138 Potassium Level 4.5 Chloride Level 108 Carbon Dioxide Level 22 Anion Gap 8 Blood Urea Nitrogen 5 L Creatinine 0.46 Est Glomerular Filtrat Rate mL/min > 60 Glucose Level 147 Calcium Level 8.1 L Phosphorus Level 3.8 Magnesium Level 2.3 Medications Medication Current Medications IV Flush (NS 3 ml) 3 ml PER PROTOCOL IV ; Start 01/27/19 at 10:30 Ondansetron HCl (Zofran Inj) 4 mg Q6H PRN IV NAUSEA/VOMITING Last administered on 01/28/19at 14:17; Admin Dose 4 MG; Start 01/27/19 at 10:30 Pantoprazole (Protonix Iv) 40 mg DAILY@06 IV Last administered on 01/29/19at 05: 14; Admin Dose 40 MG; Start 01/28/19 at 06:00 Piperacillin Sod/ Tazobactam Sod 100 ml @ 200 mls/hr Q8 IVPB Last administered on 01/29/19at 15:02; Admin Dose 200 MLS/HR; Start 01/27/19 at 14:00 Metronidazole 100 ml @ 100 mls/hr Q8 IVPB Last administered on 01/29/19at 15:02; Admin Dose 100 MLS/HR; Start 01/27/19 at 14:00 Hydromorphone HCl (Dilaudid) 0.5 mg Q4H PRN IV SEVERE PAIN LEVEL 7-10 Last administered on 01/29/19at 14:32; Admin Dose 0.5 MG; Start 01/27/19 at 15:22 Morphine Sulfate (morphine) 2 mg Q2H PRN IV BREAKTHROUGH PAIN; Start 01/28/19 at 19:30 Acetaminophen/ Hydrocodone Bitart ([place] (5/325)) 1 tab Q6H PRN PO PAIN LEVEL 6-10; Start 01/28/19 at 19:30 Ketorolac Tromethamine (Toradol) 30 mg Q6H PRN IV PAIN; Start 01/28/19 at 19:30; Stop 01/31/19 at 19:29 Acetaminophen (Tylenol Tab) 650 mg Q6H PRN PO MILD PAIN(1-3)OR ELEVATED TEMP; Start 01/28/19 at 19:30 Diphenhydramine HCl (Benadryl) 25 mg Q6H PRN IV ITCHING; Start 01/28/19 at 19:30 Metoclopramide HCl (Reglan) 10 mg Q6H PRN IV NAUSEA AND/OR VOMITING; Start 01/28/19 at 19:30 Ondansetron HCl (Zofran Inj) 4 mg Q6H PRN IV NAUSEA AND/OR VOMITING; Start 01/28/19 at 19:30 Potassium Chloride/Dextrose/ Sod Cl 1,000 ml @ 100 mls/hr Q10H IV Last administered on 01/29/19at 11:37; Admin Dose 100 MLS/HR; Start 01/28/19 at 19:22 Lorazepam (Ativan) 0.5 mg Q8H PRN IV anxiety Last administered on 01/29/19at 11:19; Admin Dose 0.5 MG; Start 01/29/19 at 10:00 LEONA OLIVAREZ MD Jan 29, 2019 18:29
[2019-01-29 20:01] VITALS: BP 107/69; PULSE 60; RESP 16
[2019-01-30] MEDS: D5W-0.45 NACL + KCL 20 MEQ 1,000 ML IV SCH ×2 (00:24→13:35)
[2019-01-30] MEDS: HYDROmorphONE 0.5 MG/0.5 ML SYG IV PRN ×5 (00:37→20:49)
[2019-01-30 01:56] VITALS: BP 110/60; PULSE 62; RESP 16
[2019-01-30] MEDS: PANTOPRAZOLE 40 MG INJ IV SCH (05:25)
[2019-01-30] MEDS: PIPER-TAZO 3.375 GM IV (PMX) 100 ML IVPB SCH ×3 (05:25→21:29)
[2019-01-30] MEDS: metroNIDAZOLE 500 MG/NS (PMX) 100 ML IVPB SCH ×3 (06:00→22:15)
[2019-01-30 07:44] VITALS: BP 105/64; PULSE 61; RESP 15
--- NOTE | 2019-01-30 12:42 | PN ---
Date/Time of Note Date/Time of Note DATE: 01/30/19 TIME: 12:41 Assessment/Plan VTE Prophylaxis Risk score (from Ns)>0 risk: 2 SCD applied (from Ns): Yes Pharmacological prophylaxis: NA/contraindicated Pharm contraindication: low risk/ambulating Lines/Catheters IV Catheter Type (from Nrsg): Peripheral IV Urinary Cath still in place: No Assessment/Plan Assessment/Plan This is a 48-year-old female with: 1. Recurrent diverticulitis with pericolonic abscess.S/P Exploratory laparoscopy and drainage of the intra-abdominal abscess POD#2 2. Systemic inflammatory response syndrome with leukocytosis secondary to #1. 3. Drug rash, questionable meropenem which has been resolved. 4. History of diverticulosis. 5. Normocytic normochromic anemia. 6. History of inguinal hernia repair. 7. History of uterine fibroid removal in 2018. 8. History of complex uterine mass and vaginal ultrasound need to be followed up with gynecology as an outpatient. Plan - Clear liquid diet - WBC improved today - Pain control - cw zosyn/flagyl - decNS with kcl - pain control ambulate - fu cx Result Diagram: 01/30/19 0509 01/30/19 0509 Results 24hrs Laboratory Tests Test 01/30/19 05:09 White Blood Count 8.7 # Red Blood Count 3.24 L Hemoglobin 9.4 L Hematocrit 29.4 L Mean Corpuscular Volume 90.7 Mean Corpuscular Hemoglobin 29.0 Mean Corpuscular Hemoglobin Concent 32.0 Red Cell Distribution Width 13.8 Platelet Count 239 Mean Platelet Volume 10.7 H Immature Granulocytes % 0.800 H Neutrophils % 65.0 Lymphocytes % 25.1 Monocytes % 8.2 Eosinophils % 0.6 Basophils % 0.3 Nucleated Red Blood Cells % 0.0 Immature Granulocytes # 0.070 H Neutrophils # 5.7 Lymphocytes # 2.2 Monocytes # 0.7 Eosinophils # 0.1 Basophils # 0.0 Nucleated Red Blood Cells # 0.0 Sodium Level 139 Potassium Level 3.8 Chloride Level 111 H Carbon Dioxide Level 25 Anion Gap 3 L Blood Urea Nitrogen 5 L Creatinine 0.51 Est Glomerular Filtrat Rate mL/min > 60 Glucose Level 116 Calcium Level 7.9 L Phosphorus Level 2.3 #L Magnesium Level 2.2 Subjective 24 Hr Interval Summary Free Text/Dictation pt feels better just some sorenss had bowel movement x2 on clears Exam/Review of Systems Exam Vitals Vital Signs Date Temp Pulse Resp B/P (MAP) Pulse Ox O2 O2 Flow FiO2 Time Delivery Rate 01/30/19 98.6 61 15 105/64 98 07:44 (78) 01/29/19 Nasal 2.0 22:05 Cannula Intake and Output 01/29/19 01/29/19 01/30/19 1515:00 23:00 07:00 IntakeIntake Total 400 ml 1100 ml 1750 ml OutputOutput Total 30 ml 20 ml BalanceBalance 400 ml 1070 ml 1730 ml Exam ENERAL: The patient is awake, alert, oriented, does not appear to be in acute distress. HEENT: Pupils are equal, round, reactive to light. NECK: Supple. HEART ctab LUNGS: Clear to auscultate bilaterally. ABDOMEN: Some mild left upper quadrant tenderness. cheri DRAIN Results Results 24hrs Laboratory Tests Test 01/30/19 05:09 White Blood Count 8.7 # Red Blood Count 3.24 L Hemoglobin 9.4 L Hematocrit 29.4 L Mean Corpuscular Volume 90.7 Mean Corpuscular Hemoglobin 29.0 Mean Corpuscular Hemoglobin Concent 32.0 Red Cell Distribution Width 13.8 Platelet Count 239 Mean Platelet Volume 10.7 H Immature Granulocytes % 0.800 H Neutrophils % 65.0 Lymphocytes % 25.1 Monocytes % 8.2 Eosinophils % 0.6 Basophils % 0.3 Nucleated Red Blood Cells % 0.0 Immature Granulocytes # 0.070 H Neutrophils # 5.7 Lymphocytes # 2.2 Monocytes # 0.7 Eosinophils # 0.1 Basophils # 0.0 Nucleated Red Blood Cells # 0.0 Sodium Level 139 Potassium Level 3.8 Chloride Level 111 H Carbon Dioxide Level 25 Anion Gap 3 L Blood Urea Nitrogen 5 L Creatinine 0.51 Est Glomerular Filtrat Rate mL/min > 60 Glucose Level 116 Calcium Level 7.9 L Phosphorus Level 2.3 #L Magnesium Level 2.2 Medications Medication Current Medications IV Flush (NS 3 ml) 3 ml PER PROTOCOL IV ; Start 01/27/19 at 10:30 Ondansetron HCl (Zofran Inj) 4 mg Q6H PRN IV NAUSEA/VOMITING Last administered on 01/28/19at 14:17; Admin Dose 4 MG; Start 01/27/19 at 10:30 Pantoprazole (Protonix Iv) 40 mg DAILY@06 IV Last administered on 01/30/19at 05:25; Admin Dose 40 MG; Start 01/28/19 at 06:00 Piperacillin Sod/ Tazobactam Sod 100 ml @ 200 mls/hr Q8 IVPB Last administered on 01/30/19at 05:25; Admin Dose 200 MLS/HR; Start 01/27/19 at 14:00 Metronidazole 100 ml @ 100 mls/hr Q8 IVPB Last administered on 01/30/19at 06:00; Admin Dose 100 MLS/HR; Start 01/27/19 at 14:00 Hydromorphone HCl (Dilaudid) 0.5 mg Q4H PRN IV SEVERE PAIN LEVEL 7-10 Last administered on 01/30/19at 09:10; Admin Dose 0.5 MG; Start 01/27/19 at 15:22 Morphine Sulfate (morphine) 2 mg Q2H PRN IV BREAKTHROUGH PAIN; Start 01/28/19 at 19:30 Acetaminophen/ Hydrocodone Bitart ([place] (5/325)) 1 tab Q6H PRN PO PAIN LEVEL 6-10; Start 01/28/19 at 19:30 Ketorolac Tromethamine (Toradol) 30 mg Q6H PRN IV PAIN; Start 01/28/19 at 19:30; Stop 01/31/19 at 19:29 Acetaminophen (Tylenol Tab) 650 mg Q6H PRN PO MILD PAIN(1-3)OR ELEVATED TEMP; Start 01/28/19 at 19:30 Diphenhydramine HCl (Benadryl) 25 mg Q6H PRN IV ITCHING; Start 01/28/19 at 19:30 Metoclopramide HCl (Reglan) 10 mg Q6H PRN IV NAUSEA AND/OR VOMITING; Start 01/28/19 at 19:30 Ondansetron HCl (Zofran Inj) 4 mg Q6H PRN IV NAUSEA AND/OR VOMITING; Start 01/28/19 at 19:30 Potassium Chloride/Dextrose/ Sod Cl 1,000 ml @ 100 mls/hr Q10H IV Last administered on 01/30/19at 00:24; Admin Dose 100 MLS/HR; Start 01/28/19 at 19:22 Lorazepam (Ativan) 0.5 mg Q8H PRN IV anxiety Last administered on 01/29/19at 19:54; Admin Dose 0.5 MG; Start 01/29/19 at 10:00 DANILO KUNZ MD Jan 30, 2019 12:42
[2019-01-30 14:32] VITALS: BP 128/85; PULSE 79; RESP 19
[2019-01-30] MEDS: ONDANSETRON 4 MG INJ IV PRN (14:38)
--- NOTE | 2019-01-30 14:39 | CONS ---
Assessment/Plan Assessment/Plan Assessment/Plan (Daily) Hospital Course (Demo Recall) 48 yo female with 1. Persistent diverticulitis with an abscess. -EXPLORATORY LAPAROSCOPY LOOP ILEOSTOMY planned for today 2. Leukocytosis -resolved -continue with abx 3. Mild anemia, normocytic and normochromic -will monitor 4. H/O inguinal hernia repair. 5. Rash likely drug induced (meropenum) -improved 6. Status post laparoscopic drainage of diverticular abscess PLAN: NPO IVF hydration continue with antibiotics. Continue postoperative care Advance diet as per the surgeon Consultation Date/Type/Reason Admit Date/Time Jan 27, 2019 at 04:42 Initial Consult Date 01/27/19 Date/Time of Note DATE: 01/30/19 TIME: 14:39 24 HR Interval Summary Constitutional: improved Exam/Review of Systems Exam Vitals Vital Signs Date Temp Pulse Resp B/P (MAP) Pulse Ox O2 O2 Flow FiO2 Time Delivery Rate 01/30/19 98.1 79 19 128/85 98 14:32 (99) 01/29/19 Nasal 2.0 22:05 Cannula Intake and Output 01/29/19 01/29/19 01/30/19 1515:00 23:00 07:00 IntakeIntake Total 400 ml 1100 ml 1750 ml OutputOutput Total 30 ml 20 ml BalanceBalance 400 ml 1070 ml 1730 ml Constitutional: alert, oriented, well developed Psych: no complaints, nl mood/affect Head: normocephalic, atraumatic Eyes: nl conjunctiva, EOMI, nl lids, nl sclera, PERRL ENMT: nl external ears & nose, nl lips & teeth, nl nasal mucosa & septum Neck: supple, non-tender Respiratory: clear to auscultation, normal air movement Cardiovascular: regular rate and rhythm, nl pulses Gastrointestinal: soft, nl liver, spleen, non-tender Musculoskeletal: nl extremities to inspection, nl gait and stance Extremities: normal pulses Neurological: H[employer] ROLLER II-XII intact, nl mental status, nl speech, nl strength Skin: nl turgor; No rash or lesions Lymph: nl lymph nodes Results Result Diagram: 01/30/19 0509 01/30/19 0509 Results 24hrs Laboratory Tests Test 01/30/19 05:09 White Blood Count 8.7 # Red Blood Count 3.24 L Hemoglobin 9.4 L Hematocrit 29.4 L Mean Corpuscular Volume 90.7 Mean Corpuscular Hemoglobin 29.0 Mean Corpuscular Hemoglobin Concent 32.0 Red Cell Distribution Width 13.8 Platelet Count 239 Mean Platelet Volume 10.7 H Immature Granulocytes % 0.800 H Neutrophils % 65.0 Lymphocytes % 25.1 Monocytes % 8.2 Eosinophils % 0.6 Basophils % 0.3 Nucleated Red Blood Cells % 0.0 Immature Granulocytes # 0.070 H Neutrophils # 5.7 Lymphocytes # 2.2 Monocytes # 0.7 Eosinophils # 0.1 Basophils # 0.0 Nucleated Red Blood Cells # 0.0 Sodium Level 139 Potassium Level 3.8 Chloride Level 111 H Carbon Dioxide Level 25 Anion Gap 3 L Blood Urea Nitrogen 5 L Creatinine 0.51 Est Glomerular Filtrat Rate mL/min > 60 Glucose Level 116 Calcium Level 7.9 L Phosphorus Level 2.3 #L Magnesium Level 2.2 Medications Medication Current Medications IV Flush (NS 3 ml) 3 ml PER PROTOCOL IV ; Start 01/27/19 at 10:30 Ondansetron HCl (Zofran Inj) 4 mg Q6H PRN IV NAUSEA/VOMITING Last administered on 01/28/19at 14:17; Admin Dose 4 MG; Start 01/27/19 at 10:30 Pantoprazole (Protonix Iv) 40 mg DAILY@06 IV Last administered on 01/30/19at 05:25; Admin Dose 40 MG; Start 01/28/19 at 06:00 Piperacillin Sod/ Tazobactam Sod 100 ml @ 200 mls/hr Q8 IVPB Last administered on 01/30/19at 05:25; Admin Dose 200 MLS/HR; Start 01/27/19 at 14:00 Metronidazole 100 ml @ 100 mls/hr Q8 IVPB Last administered on 01/30/19at 13:36; Admin Dose 100 MLS/HR; Start 01/27/19 at 14:00 Hydromorphone HCl (Dilaudid) 0.5 mg Q4H PRN IV SEVERE PAIN LEVEL 7-10 Last administered on 01/30/19at 09:10; Admin Dose 0.5 MG; Start 01/27/19 at 15:22 Morphine Sulfate (morphine) 2 mg Q2H PRN IV BREAKTHROUGH PAIN; Start 01/28/19 at 19:30 Acetaminophen/ Hydrocodone Bitart ([place] (5/325)) 1 tab Q6H PRN PO PAIN LEVEL 6-10; Start 01/28/19 at 19:30 Ketorolac Tromethamine (Toradol) 30 mg Q6H PRN IV PAIN Last administered on 01/30/19at 13:36; Admin Dose 30 MG; Start 01/28/19 at 19:30; Stop 01/31/19 at 19:29 Acetaminophen (Tylenol Tab) 650 mg Q6H PRN PO MILD PAIN(1-3)OR ELEVATED TEMP; Start 01/28/19 at 19:30 Diphenhydramine HCl (Benadryl) 25 mg Q6H PRN IV ITCHING; Start 01/28/19 at 19:30 Metoclopramide HCl (Reglan) 10 mg Q6H PRN IV NAUSEA AND/OR VOMITING; Start 01/28/19 at 19:30 Ondansetron HCl (Zofran Inj) 4 mg Q6H PRN IV NAUSEA AND/OR VOMITING; Start 01/28/19 at 19:30 Potassium Chloride/Dextrose/ Sod Cl 1,000 ml @ 50 mls/hr Q20H IV Last administered on 01/30/19at 13:35; Admin Dose 50 MLS/HR; Start 01/28/19 at 19:22 Lorazepam (Ativan) 0.5 mg Q8H PRN IV anxiety Last administered on 01/29/19at 19:54; Admin Dose 0.5 MG; Start 01/29/19 at 10:00 LEONA OLIVAREZ MD Jan 30, 2019 14:39
--- NOTE | 2019-01-30 15:51 | PN ---
Date/Time of Note Date/Time of Note DATE: 01/30/19 TIME: 15:49 Assessment/Plan Lines/Catheters IV Catheter Type (from Nrs): Peripheral IV Alberto in Place (from Nrs): No Assessment/Plan Assessment/Plan Plan is to advance diet slowly, continue antibiotics. Subjective 24 Hr Interval Summary Patient is day 2 after laparoscopic drainage of the intra-abdominal abscess secondary to perforated diverticulitis. Patient is improving, stable, afebrile, white blood cells normalized. Patient is passing gas. However complains of nausea. Abdomen is soft not tender. Incisions dry. OSMAN drain draining serosanguineous fluid. Feeding: advancing diet Pain Control: well controlled Exam/Review of Systems Vital Signs Vitals Vital Signs Date Temp Pulse Resp B/P (MAP) Pulse Ox O2 O2 Flow FiO2 Time Delivery Rate 01/30/19 98.1 79 19 128/85 98 14:32 (99) 01/29/19 Nasal 2.0 22:05 Cannula Intake and Output 01/29/19 01/29/19 01/30/19 1515:00 23:00 07:00 IntakeIntake Total 400 ml 1100 ml 1750 ml OutputOutput Total 30 ml 20 ml BalanceBalance 400 ml 1070 ml 1730 ml Results Result Diagram: 01/30/19 0509 01/30/19 0509 DONNY MEAD MD Jan 30, 2019 15:51
--- NOTE | 2019-01-30 19:01 | CONS ---
Assessment/Plan Assessment/Plan Hospital Course (Demo Recall) ID PROGRESS NOTE CURRENT ABX: DAY # =>Zosyn + Flagyl 24H INTERVAL SUMMARY * POD #2 -> s/p 01/28/19 Lap drainage of perf diverticulitis abscess drainage, Sepsis on admission RESOLVING * Resting in bed, TMAX 99.2 No fevers, VSS, NAD -- OSMAN present w/ serosanguineous drainage, DIAGNOSTIC IMAGING * 01/27/19 CT: Perf diverticula w/abscess MICRO * 01/27/19 BCX (-); Urine Cx (-) PHYSICAL EXAMINATION: GENERAL: VSS, NAD HEENT: AT, NC, NECK: Supple, CHEST: Rise symmetrical HEART: Pulse RRR ABDOMEN: OSMAN present w/ serosanguineous drainage EXTREMITIES: Warm, dry SKIN: No rash, no diaphoresis ID ASSESSMENT 48 yo F admit with: 1. SIRS -> s/p Sepsis on admission w/fevers, tachycardia, Leukocytosis/Bandemia * 01/27/19 BCx (-) 2. Acute Perforated Diverticulitis w/abscess present on admission 3. ABD pain due to #2 [address] w/hx of fibroid removal in past ABX ALLERGIES: MERREM INVASIVES: PIV CURRENT ABX: DAY # => Zosyn + Flagyl ID RECOMMENDATIONS/PLAN: 1. Continue current ABX -- Will follow Consultation Date/Type/Reason Admit Date/Time Jan 27, 2019 at 04:42 Initial Consult Date 01/27/19 Date/Time of Note DATE: 01/30/19 TIME: 18:53 Exam/Review of Systems Exam Vitals Vital Signs Date Temp Pulse Resp B/P (MAP) Pulse Ox O2 O2 Flow FiO2 Time Delivery Rate 01/30/19 98.1 79 19 128/85 98 14:32 (99) 01/29/19 Nasal 2.0 22:05 Cannula Intake and Output 01/29/19 01/29/19 01/30/19 1515:00 23:00 07:00 IntakeIntake Total 400 ml 1100 ml 1750 ml OutputOutput Total 30 ml 20 ml BalanceBalance 400 ml 1070 ml 1730 ml Results Result Diagram: 01/30/19 0509 01/30/19 0509 Results 24hrs Laboratory Tests Test 01/30/19 05:09 White Blood Count 8.7 # Red Blood Count 3.24 L Hemoglobin 9.4 L Hematocrit 29.4 L Mean Corpuscular Volume 90.7 Mean Corpuscular Hemoglobin 29.0 Mean Corpuscular Hemoglobin Concent 32.0 Red Cell Distribution Width 13.8 Platelet Count 239 Mean Platelet Volume 10.7 H Immature Granulocytes % 0.800 H Neutrophils % 65.0 Lymphocytes % 25.1 Monocytes % 8.2 Eosinophils % 0.6 Basophils % 0.3 Nucleated Red Blood Cells % 0.0 Immature Granulocytes # 0.070 H Neutrophils # 5.7 Lymphocytes # 2.2 Monocytes # 0.7 Eosinophils # 0.1 Basophils # 0.0 Nucleated Red Blood Cells # 0.0 Sodium Level 139 Potassium Level 3.8 Chloride Level 111 H Carbon Dioxide Level 25 Anion Gap 3 L Blood Urea Nitrogen 5 L Creatinine 0.51 Est Glomerular Filtrat Rate mL/min > 60 Glucose Level 116 Calcium Level 7.9 L Phosphorus Level 2.3 #L Magnesium Level 2.2 Medications Medication Current Medications IV Flush (NS 3 ml) 3 ml PER PROTOCOL IV ; Start 01/27/19 at 10:30 Ondansetron HCl (Zofran Inj) 4 mg Q6H PRN IV NAUSEA/VOMITING Last administered on 01/30/19at 14:38; Admin Dose 4 MG; Start 01/27/19 at 10:30 Pantoprazole (Protonix Iv) 40 mg DAILY@06 IV Last administered on 01/30/19at 05:25; Admin Dose 40 MG; Start 01/28/19 at 06:00 Piperacillin Sod/ Tazobactam Sod 100 ml @ 200 mls/hr Q8 IVPB Last administered on 01/30/19at 14:39; Admin Dose 200 MLS/HR; Start 01/27/19 at 14:00 Metronidazole 100 ml @ 100 mls/hr Q8 IVPB Last administered on 01/30/19at 13:36; Admin Dose 100 MLS/HR; Start 01/27/19 at 14:00 Hydromorphone HCl (Dilaudid) 0.5 mg Q4H PRN IV SEVERE PAIN LEVEL 7-10 Last administered on 01/30/19at 16:29; Admin Dose 0.5 MG; Start 01/27/19 at 15:22 Morphine Sulfate (morphine) 2 mg Q2H PRN IV BREAKTHROUGH PAIN; Start 01/28/19 at 19:30 Acetaminophen/ Hydrocodone Bitart ([place] (5/325)) 1 tab Q6H PRN PO PAIN LEVEL 6-10; Start 01/28/19 at 19:30 Ketorolac Tromethamine (Toradol) 30 mg Q6H PRN IV PAIN Last administered on 01/30/19 13:36; Admin Dose 30 MG; Start 01/28/19 at 19:30; Stop 01/31/19 at 19:29 Acetaminophen (Tylenol Tab) 650 mg Q6H PRN PO MILD PAIN(1-3)OR ELEVATED TEMP; Start 01/28/19 at 19:30 Diphenhydramine HCl (Benadryl) 25 mg Q6H PRN IV ITCHING; Start 01/28/19 at 19:30 Metoclopramide HCl (Reglan) 10 mg Q6H PRN IV NAUSEA AND/OR VOMITING; Start 01/28/19 at 19:30 Ondansetron HCl (Zofran Inj) 4 mg Q6H PRN IV NAUSEA AND/OR VOMITING; Start 01/28/19 at 19:30 Potassium Chloride/Dextrose/ Sod Cl 1,000 ml @ 50 mls/hr Q20H IV Last administered on 01/30/19 13:35; Admin Dose 50 MLS/HR; Start 01/28/19 at 19:22 Lorazepam (Ativan) 0.5 mg Q8H PRN IV anxiety Last administered on 01/29/19 19:54; Admin Dose 0.5 MG; Start 01/29/19 at 10:00 LUDWIG JAMES NP Jan 30, 2019 19:01
[2019-01-30 19:27] VITALS: BP 103/69; PULSE 70; RESP 15
[2019-01-30] MEDS: LORAZEPAM 2 MG INJ IV PRN (22:15)
[2019-01-31] MEDS: HYDROmorphONE 0.5 MG/0.5 ML SYG IV PRN ×4 (01:24→14:32)
[2019-01-31 02:00] VITALS: BP 114/75; PULSE 83; RESP 18
[2019-01-31] MEDS: D5W-0.45 NACL + KCL 20 MEQ 1,000 ML IV SCH (03:41)
[2019-01-31] MEDS: PIPER-TAZO 3.375 GM IV (PMX) 100 ML IVPB SCH ×3 (05:33→21:33)
[2019-01-31] MEDS: PANTOPRAZOLE 40 MG INJ IV SCH (05:33)
[2019-01-31] MEDS: metroNIDAZOLE 500 MG/NS (PMX) 100 ML IVPB SCH ×3 (06:48→22:12)
[2019-01-31 07:40] VITALS: BP 115/71; PULSE 82; RESP 18
[2019-01-31] MEDS ORDERED: SOD PHOS MONO/DIBAS 250 MG TAB PO ONE (11:00)
--- NOTE | 2019-01-31 11:29 | PN ---
LAURA FANG 01/31/19 1129: Date/Time of Note Date/Time of Note DATE: 01/31/19 TIME: 11:26 Assessment/Plan VTE Prophylaxis Risk score (from [facility])>0 risk: 2 SCD applied (from [facility]): Yes SCD contraindicated: low risk/ambulating Pharmacological prophylaxis: NA/contraindicated Pharm contraindication: low risk/ambulating Lines/Catheters IV [facility] Peripheral IV Urinary Cath still in place: No Assessment/Plan Hospital Course 1. Recurrent diverticulitis with pericolonic abscess. S/P Exploratory laparosc opy and drainage of the intra-abdominal abscess POD # 3 2. Systemic inflammatory response syndrome with leukocytosis secondary to #1. 3. Drug rash, questionable meropenem which has been resolved. 4. History of diverticulosis. 5. Normocytic normochromic anemia. 6. History of inguinal hernia repair. 7. History of uterine fibroid removal in 2018. 8. History of complex uterine mass and vaginal ultrasound need to be followed up with gynecology as an outpatient. 9. Overweight Assessment/Plan - Clear liquid diet - Pain control - cw zosyn/flagyl - c/w NS with kcl - pain control -phos. was replaced -DVY prophylaxis ambulate - fu cx, negative so far -GI proph Protonix Result Diagram: 01/30/1950801/30/19508 Subjective 24 Hr Interval Summary Gastrointestinal: no complaints, pain, blood, constipation, decreased appetite, diarrhea, flatus, nausea, passing stool, vomiting, other Exam/Review of Systems Exam Vitals Vital Signs Date Temp Pulse Resp B/P (MAP) Pulse Ox O2 O2 Flow FiO2 Time Delivery Rate 01/31/19 97.7 82 18 115/71 97 07:40 (86) 01/29/19 Nasal 2.0 22:05 Cannula Intake and Output 01/30/19 01/30/19 01/31/19 1414:59 22:59 06:59 IntakeIntake Total 1070 ml 470 ml 1100 ml OutputOutput Total 65 ml 20 ml BalanceBalance 1070 ml 405 ml 1080 ml Constitutional: alert, oriented Respiratory: clear to auscultation Cardiovascular: regular rate and rhythm Gastrointestinal: other (drain) Results Result Diagram: 01/30/1950801/30/19508 Medications Medication Current Medications IV Flush (NS 3 ml) 3 ml PER PROTOCOL IV ; Start 01/27/19 at 10:30 Ondansetron HCl (Zofran Inj) 4 mg Q6H PRN IV NAUSEA/VOMITING Last administered on 01/30/19at 14:38; Admin Dose 4 MG; Start 01/27/19 at 10:30 Pantoprazole (Protonix Iv) 40 mg DAILY@06 IV Last administered on 01/31/19at 05:33; Admin Dose 40 MG; Start 01/28/19 at 06:00 Piperacillin Sod/ Tazobactam Sod 100 ml @ 200 mls/hr Q8 IVPB Last administered on 01/31/19at 05:33; Admin Dose 200 MLS/HR; Start 01/27/19 at 14:00 Metronidazole 100 ml @ 100 mls/hr Q8 IVPB Last administered on 01/31/19at 06:48; Admin Dose 100 MLS/HR; Start 01/27/19 at 14:00 Hydromorphone HCl (Dilaudid) 0.5 mg Q4H PRN IV SEVERE PAIN LEVEL 7-10 Last administered on 01/31/19at 10:14; Admin Dose 0.5 MG; Start 01/27/19 at 15:22 Morphine Sulfate (morphine) 2 mg Q2H PRN IV BREAKTHROUGH PAIN; Start 01/28/19 at 19:30 Acetaminophen/ Hydrocodone Bitart ([place] (5/325)) 1 tab Q6H PRN PO PAIN LEVEL 6-10; Start 01/28/19 at 19:30 Ketorolac Tromethamine (Toradol) 30 mg Q6H PRN IV PAIN Last administered on 01/30/19at 13:36; Admin Dose 30 MG; Start 01/28/19 at 19:30; Stop 01/31/19 at 19:29 Acetaminophen (Tylenol Tab) 650 mg Q6H PRN PO MILD PAIN(1-3)OR ELEVATED TEMP; Start 01/28/19 at 19:30 Diphenhydramine HCl (Benadryl) 25 mg Q6H PRN IV ITCHING; Start 01/28/19 at 19:30 Metoclopramide HCl (Reglan) 10 mg Q6H PRN IV NAUSEA AND/OR VOMITING; Start 01/28 at 19:30 Ondansetron HCl (Zofran Inj) 4 mg Q6H PRN IV NAUSEA AND/OR VOMITING; Start 01/28/19 at 19:30 Potassium Chloride/Dextrose/ Sod Cl 1,000 ml @ 50 mls/hr Q20H IV Last administered on 01/31/19at 03:41; Admin Dose 50 MLS/HR; Start 01/28/19 at 19:22 Lorazepam (Ativan) 0.5 mg Q8H PRN IV anxiety Last administered on 01/30/19at 22:15; Admin Dose 0.5 MG; Start 01/29/19 at 10:00 DANILO KNUZ MD 01/31/19 1550: Assessment/Plan Assessment/Plan Assessment/Plan adnvance diet per surgery Result Diagram: 01/30/19 0509 01/30/19 0509 LAURA FANG Jan 31, 2019 11:29 DANILO KUNZ MD Jan 31, 2019 15:50
--- NOTE | 2019-01-31 13:12 | CONS ---
Assessment/Plan Assessment/Plan Assessment/Plan (Daily) Assessment/Plan (Daily) Hospital Course (Demo Recall) 48 yo female with 1. Persistent diverticulitis with an abscess. -EXPLORATORY LAPAROSCOPY LOOP ILEOSTOMY planned for today 2. Leukocytosis -resolved -continue with abx 3. Mild anemia, normocytic and normochromic -will monitor 4. H/O inguinal hernia repair. 5. Rash likely drug induced (meropenum) -improved 6. Status post laparoscopic drainage of diverticular abscess PLAN: NPO IVF hydration continue with antibiotics. Continue postoperative care Advance diet as per the surgeon Consultation Date/Type/Reason Admit Date/Time Jan 27, 2019 at 04:42 Initial Consult Date 01/27/19 Date/Time of Note DATE: 01/31/19 TIME: 13:11 24 HR Interval Summary Free Text/Dictation Patient complains of abdominal pain and some nausea Able to tolerate liquid diet Patient has positive flatus Exam/Review of Systems Exam Vitals Vital Signs Date Temp Pulse Resp B/P (MAP) Pulse Ox O2 O2 Flow FiO2 Time Delivery Rate 01/31/19 97.7 82 18 115/71 97 07:40 (86) 01/29/19 Nasal 2.0 22:05 Cannula Intake and Output 01/30/19 01/30/19 01/31/19 1515:00 23:00 07:00 IntakeIntake Total 1070 ml 470 ml 1100 ml OutputOutput Total 65 ml 20 ml BalanceBalance 1070 ml 405 ml 1080 ml Constitutional: alert, oriented, well developed Psych: no complaints, nl mood/affect Head: normocephalic, atraumatic Eyes: nl conjunctiva, EOMI, nl lids, nl sclera, PERRL ENMT: nl external ears & nose, nl lips & teeth, nl nasal mucosa & septum Neck: supple, non-tender Respiratory: clear to auscultation, normal air movement Cardiovascular: regular rate and rhythm, nl pulses Gastrointestinal: soft, nl liver, spleen, non-tender Musculoskeletal: nl extremities to inspection, nl gait and stance Extremities: normal pulses Neurological: MARINE [employer]AMFIT[employer] II-XII intact, nl mental status, nl speech, nl strength Skin: nl turgor; No rash or lesions Lymph: nl lymph nodes Results Result Diagram: 01/30/19 0509 01/30/19 0509 Medications Medication Current Medications IV Flush (NS 3 ml) 3 ml PER PROTOCOL IV ; Start 01/27/19 at 10:30 Ondansetron HCl (Zofran Inj) 4 mg Q6H PRN IV NAUSEA/VOMITING Last administered on 01/30/19at 14:38; Admin Dose 4 MG; Start 01/27/19 at 10:30 Pantoprazole (Protonix Iv) 40 mg DAILY@06 IV Last administered on 01/31/19at 05:33; Admin Dose 40 MG; Start 01/28/19 at 06:00 Piperacillin Sod/ Tazobactam Sod 100 ml @ 200 mls/hr Q8 IVPB Last administered on 01/31/19at 05:33; Admin Dose 200 MLS/HR; Start 01/27/19 at 14:00 Metronidazole 100 ml @ 100 mls/hr Q8 IVPB Last administered on 01/31/19at 06:48; Admin Dose 100 MLS/HR; Start 01/27/19 at 14:00 Hydromorphone HCl (Dilaudid) 0.5 mg Q4H PRN IV SEVERE PAIN LEVEL 7-10 Last administered on 01/31/19at 10:14; Admin Dose 0.5 MG; Start 01/27/19 at 15:22 Morphine Sulfate (morphine) 2 mg Q2H PRN IV BREAKTHROUGH PAIN; Start 01/28/19 at 19:30 Acetaminophen/ Hydrocodone Bitart ([place] (5/325)) 1 tab Q6H PRN PO PAIN LEVEL 6-10; Start 01/28/19 at 19:30 Ketorolac Tromethamine (Toradol) 30 mg Q6H PRN IV PAIN Last administered on 01/30/19at 13:36; Admin Dose 30 MG; Start 01/28/19 at 19:30; Stop 01/31/19 at 19:29 Acetaminophen (Tylenol Tab) 650 mg Q6H PRN PO MILD PAIN(1-3)OR ELEVATED TEMP; Start 01/28/19 at 19:30 Diphenhydramine HCl (Benadryl) 25 mg Q6H PRN IV ITCHING; Start 01/28/19 at 19:30 Metoclopramide HCl (Reglan) 10 mg Q6H PRN IV NAUSEA AND/OR VOMITING; Start 01/28/19 at 19:30 Ondansetron HCl (Zofran Inj) 4 mg Q6H PRN IV NAUSEA AND/OR VOMITING; Start 01/28/19 at 19:30 Potassium Chloride/Dextrose/ Sod Cl 1,000 ml @ 50 mls/hr Q20H IV Last administered on 01/31/19at 03:41; Admin Dose 50 MLS/HR; Start 01/28/19 at 19:22 Lorazepam (Ativan) 0.5 mg Q8H PRN IV anxiety Last administered on 01/30/19at 22:15; Admin Dose 0.5 MG; Start 01/29/19 at 10:00 LEONA OLIVAREZ MD Jan 31, 2019 13:12
[2019-01-31 14:14] VITALS: BP 100/62; PULSE 76; RESP 18
--- NOTE | 2019-01-31 17:25 | CONS ---
Assessment/Plan Assessment/Plan Hospital Course (Demo Recall) ID PROGRESS NOTE CURRENT ABX: DAY # =>Zosyn + Flagyl 24H INTERVAL SUMMARY * POD #3 -> s/p 01/28/19 Lap drainage of perf diverticulitis abscess drainage, Sepsis on admission RESOLVING * Clinically stable === OSMAN drain w/clear pink tinged serous fluid * Resting in bed, has been ambulatory, No fevers, VSS, NAD DIAGNOSTIC IMAGING * 01/27/19 CT: Perf diverticula w/abscess MICRO * 01/27/19 BCX (-); Urine Cx (-) PHYSICAL EXAMINATION: GENERAL: VSS, NAD HEENT: AT, NC, NECK: Supple, CHEST: Rise symmetrical HEART: Pulse RRR ABDOMEN: OSMAN present w/ serosanguineous drainage EXTREMITIES: Warm, dry SKIN: No rash, no diaphoresis ID ASSESSMENT 48 yo F admit with: 1. SIRS -> s/p Sepsis on admission w/fevers, tachycardia, Leukocytosis/Bandemia * 01/27/19 BCx (-) 2. Acute Perforated Diverticulitis w/abscess present on admission 3. ABD pain due to #2 4. Uterine Fibroids per CT w/hx of fibroid removal in past ABX ALLERGIES: MERREM INVASIVES: PIV CURRENT ABX: DAY # => Zosyn + Flagyl ID RECOMMENDATIONS/PLAN: 1. Continue current ABX -- Will follow Consultation Date/Type/Reason Admit Date/Time Jan 27, 2019 at 04:42 Initial Consult Date 01/27/19 Date/Time of Note DATE: 01/31/19 TIME: 17:24 Exam/Review of Systems Exam Vitals Vital Signs Date Temp Pulse Resp B/P (MAP) Pulse Ox O2 O2 Flow FiO2 Time Delivery Rate 01/31/19 98.8 76 18 100/62 100 14:14 (75) 01/29/19 Nasal 2.0 22:05 Cannula Intake and Output 01/30/19 01/30/19 01/31/19 1515:00 23:00 07:00 IntakeIntake Total 1070 ml 470 ml 1100 ml OutputOutput Total 65 ml 20 ml BalanceBalance 1070 ml 405 ml 1080 ml Results Result Diagram: 01/30/19 0509 01/30/19 0509 Medications Medication Current Medications IV Flush (NS 3 ml) 3 ml PER PROTOCOL IV ; Start 01/27/19 at 10:30 Ondansetron HCl (Zofran Inj) 4 mg Q6H PRN IV NAUSEA/VOMITING Last administered on 01/30/19 14:38; Admin Dose 4 MG; Start 01/27/19 at 10:30 Pantoprazole (Protonix Iv) 40 mg DAILY@06 IV Last administered on 01/31/19 05:33; Admin Dose 40 MG; Start 01/28/19 at 06:00 Piperacillin Sod/ Tazobactam Sod 100 ml @ 200 mls/hr Q8 IVPB Last administered on 01/31/19 13:38; Admin Dose 200 MLS/HR; Start 01/27/19 at 14:00 Metronidazole 100 ml @ 100 mls/hr Q8 IVPB Last administered on 01/31/19 14:33; Admin Dose 100 MLS/HR; Start 01/27/19 at 14:00 Morphine Sulfate (morphine) 2 mg Q2H PRN IV BREAKTHROUGH PAIN; Start 01/28/19 at 19:30 Acetaminophen/ Hydrocodone Bitart ([place] (5/325)) 1 tab Q6H PRN PO PAIN LEVEL 6-10; Start 01/28/19 at 19:30 Ketorolac Tromethamine (Toradol) 30 mg Q6H PRN IV PAIN Last administered on 01/30/19 13:36; Admin Dose 30 MG; Start 01/28/19 at 19:30; Stop 01/31/19 at 19:29 Acetaminophen (Tylenol Tab) 650 mg Q6H PRN PO MILD PAIN(1-3)OR ELEVATED TEMP; Start 01/28/19 at 19:30 Diphenhydramine HCl (Benadryl) 25 mg Q6H PRN IV ITCHING; Start 01/28/19 at 19:30 Metoclopramide HCl (Reglan) 10 mg Q6H PRN IV NAUSEA AND/OR VOMITING; Start 01/28/19 at 19:30 Ondansetron HCl (Zofran Inj) 4 mg Q6H PRN IV NAUSEA AND/OR VOMITING; Start 01/28/19 at 19:30 Potassium Chloride/Dextrose/ Sod Cl 1,000 ml @ 50 mls/hr Q20H IV Last administered on 01/31/19 03:41; Admin Dose 50 MLS/HR; Start 01/28/19 at 19:22 Lorazepam (Ativan) 0.5 mg Q8H PRN IV anxiety Last administered on 01/30/19at 22:15; Admin Dose 0.5 MG; Start 01/29/19 at 10:00 LUDWIG JAMES NP Jan 31, 2019 17:25
[2019-01-31 19:48] VITALS: BP 111/66; PULSE 81; RESP 18
--- NOTE | 2019-01-31 19:53 | OPR ---
Date/Time of Note Date/Time of Note DATE: 01/31/19 TIME: 19:50 Operative Report Procedure Date: Jan 28, 2019 Preoperative Diagnosis Perforated diverticulitis with intra-abdominal abscess Postoperative Diagnosis The same Operation/Procedure Performed Exploratory laparoscopy with drainage of the intra-abdominal abscess Surgeon see signature line Casing Soaker None Anesthesia Type: general Estimated Blood Loss: minimal Transfusion none Specimen None Grafts/Implants none Complications none Pt Condition Post Procedure: stable Disposition: PACU Indications Patient with perforated diverticulitis not responding to antibiotics and intra- abdominal abscess that is not amenable for percutaneous drainage. We discussed risks and benefits were discussed possible side effects, possible complications including but not limited to bleeding, infection, injury to other organs, anesthesia complication, patient understood risk and benefits and wished to proceed. Procedure Description Patient was brought to operating room positioned supine. General endotracheal anesthesia was induced. The abdomen was prepped and draped usual sterile fashion. Veress needle was placed in the left subcostal position and abdomen was insufflated with CO2 up to 15 mmHg. After that 35 mm trochars were placed in the right abdomen. Using 5 mm 30 degree scope and 2 blunt graspers I was able to dissect the omentum off the sigmoid colon with a large inflammatory mass was found. The small bowel was adherent to the sigmoid colon that I was able to easily peel off. After that the abscess was found which was opened and past was evacuated. Abdomen was irrigated the OSMAN drain was placed into the abdominal abscess cavity. After that the hemostasis was confirmed abdomen was desufflated all the trochars were removed. Skin was approximated with a with 3-0 Monocryl. The drain was secured to the skin with nylon suture. Patient tolerated procedure well was extubated transferred to recovery room. Instrument and sponge counts were correct x2. DONNY MEAD MD Jan 31, 2019 19:53
--- NOTE | 2019-01-31 19:54 | PN ---
Date/Time of Note Date/Time of Note DATE: 01/31/19 TIME: 19:54 Assessment/Plan Lines/Catheters IV C[facility]ter Type (from [facility] Peripheral IV Alberto in Place (from Nrs): No Assessment/Plan Assessment/Plan Advance diet. Continue antibiotics. Subjective 24 Hr Interval Summary Day 3 after drainage of the intra-abdominal abscess and laparoscopy. Patient is doing well. Afebrile. Tolerate liquids. Abdomen soft. OSMAN drain serosangui neous. Labs within normal limits. Exam/Review of Systems Vital Signs Vitals Vital Signs Date Temp Pulse Resp B/P (MAP) Pulse Ox O2 O2 Flow FiO2 Time Delivery Rate 01/31/19 98.8 76 18 100/62 100 14:14 (75) 01/29/19 Nasal 2.0 22:05 Cannula Intake and Output 01/30/19 01/30/19 01/31/19 1515:00 23:00 07:00 IntakeIntake Total 1070 ml 470 ml 1100 ml OutputOutput Total 65 ml 20 ml BalanceBalance 1070 ml 405 ml 1080 ml Results Result Diagram: 01/30/19 0509 01/30/19 0509 DONNY MEAD MD Jan 31, 2019 19:54
[2019-01-31] MEDS: HYDROCODONE/APAP (5/325) TAB PO PRN (19:58)
[2019-01-31] MEDS: LORAZEPAM 2 MG INJ IV PRN (21:43)
[2019-02-01 02:18] VITALS: BP 104/67; PULSE 78; RESP 20
[2019-02-01] MEDS: HYDROCODONE/APAP (5/325) TAB PO PRN ×3 (02:20→17:51)
[2019-02-01] MEDS: PANTOPRAZOLE 40 MG INJ IV SCH (05:42)
[2019-02-01] MEDS: metroNIDAZOLE 500 MG/NS (PMX) 100 ML IVPB SCH ×3 (05:42→21:18)
[2019-02-01] MEDS: PIPER-TAZO 3.375 GM IV (PMX) 100 ML IVPB SCH ×3 (05:42→22:14)
[2019-02-01 07:52] VITALS: BP 114/74; PULSE 76; RESP 20
--- NOTE | 2019-02-01 10:19 | PN ---
LAURA FANG 02/01/19 1019: Date/Time of Note Date/Time of Note DATE: 02/01/19 TIME: 10:19 Assessment/Plan VTE Pro[place]axis [place] [facility] [place]: 2 [place]CD [place] [facility] [place] SCD contraindicated: low risk/ambulating Pharmacological prophylaxis: NA/contraindicated Pharm contraindication: low risk/ambulating Lines/Catheters IV C[facility]ter Type (from [facility]): Peripheral IV Urinary Cath still in place: No Assessment/Plan Hospital Course 1. Recurrent diverticulitis with pericolonic abscess. S/P Exploratory laparosc opy and drainage of the intra-abdominal abscess POD # 3 2. Systemic inflammatory response syndrome with leukocytosis secondary to #1. 3. Drug rash, questionable meropenem which has been resolved. 4. History of diverticulosis. 5. Normocytic normochromic anemia. 6. History of inguinal hernia repair. 7. History of uterine fibroid removal in 2018. 8. History of complex uterine mass and vaginal ultrasound need to be followed up with gynecology as an outpatient. 9. Overweight Assessment/Plan - diet advanced to liquid full -ambulation -purulent output from [facility] - Pain control - cw zosyn/flagyl - c/w NS with kcl - pain control -DVT prophylaxis ambulate - fu cx, negative 5 days -GI proph Protonix Result Diagram: 02/01/19 0522 02/01/19 0521 Results 24hrs Laboratory Tests Test 02/01/19 05:21 02/01/19 05:22 Sodium Level 142 Potassium Level 3.7 Chloride Level 109 Carbon Dioxide Level 24 Anion Gap 9 Blood Urea Nitrogen 2 L Creatinine 0.45 Est Glomerular Filtrat Rate mL/min > 60 Glucose Level 93 Calcium Level 8.3 L White Blood Count 11.5 #H Red Blood Count 3.39 L Hemoglobin 10.1 L Hematocrit 30.8 L Mean Corpuscular Volume 90.9 Mean Corpuscular Hemoglobin 29.8 Mean Corpuscular Hemoglobin Concent 32.8 Red Cell Distribution Width 13.5 Platelet Count 260 Mean Platelet Volume 10.2 Immature Granulocytes % 1.000 H Neutrophils % 77.1 H Lymphocytes % 13.0 L Monocytes % 8.0 Eosinophils % 0.7 Basophils % 0.2 Nucleated Red Blood Cells % 0.0 Immature Granulocytes # 0.110 H Neutrophils # 8.8 H Lymphocytes # 1.5 Monocytes # 0.9 Eosinophils # 0.1 Basophils # 0.0 Nucleated Red Blood Cells # 0.0 Subjective 24 Hr Interval Summary Gastrointestinal: pain Exam/Review of Systems Exam Vitals Vital Signs Date Temp Pulse Resp B/P (MAP) Pulse Ox O2 O2 Flow FiO2 Time Delivery Rate 02/01/19 98.6 76 20 114/74 96 07:52 (87) 01/29/19 Nasal 2.0 22:05 Cannula Intake and Output 01/31/19 01/31/19 02/01/19 1515:00 23:00 07:00 IntakeIntake Total 1280 ml 1480 ml 200 ml OutputOutput Total 15 ml BalanceBalance 1280 ml 1465 ml 200 ml Constitutional: alert, oriented Neck: supple Respiratory: clear to auscultation Cardiovascular: regular rate and rhythm Gastrointestinal: soft, other (CHERI with puss) Results Result Diagram: 02/01/19 0522 02/01/19 0521 Results 24hrs Laboratory Tests Test 02/01/19 05:21 02/01/19 05:22 Sodium Level 142 Potassium Level 3.7 Chloride Level 109 Carbon Dioxide Level 24 Anion Gap 9 Blood Urea Nitrogen 2 L Creatinine 0.45 Est Glomerular Filtrat Rate mL/min > 60 Glucose Level 93 Calcium Level 8.3 L White Blood Count 11.5 #H Red Blood Count 3.39 L Hemoglobin 10.1 L Hematocrit 30.8 L Mean Corpuscular Volume 90.9 Mean Corpuscular Hemoglobin 29.8 Mean Corpuscular Hemoglobin Concent 32.8 Red Cell Distribution Width 13.5 Platelet Count 260 Mean Platelet Volume 10.2 Immature Granulocytes % 1.000 H Neutrophils % 77.1 H Lymphocytes % 13.0 L Monocytes % 8.0 Eosinophils % 0.7 Basophils % 0.2 Nucleated Red Blood Cells % 0.0 Immature Granulocytes # 0.110 H Neutrophils # 8.8 H Lymphocytes # 1.5 Monocytes # 0.9 Eosinophils # 0.1 Basophils # 0.0 Nucleated Red Blood Cells # 0.0 Medications Medication Current Medications IV Flush (NS 3 ml) 3 ml PER PROTOCOL IV ; Start 01/27/19 at 10:30 Ondansetron HCl (Zofran Inj) 4 mg Q6H PRN IV NAUSEA/VOMITING Last administered on 01/30/19at 14:38; Admin Dose 4 MG; Start 01/27/19 at 10:30 Pantoprazole (Protonix Iv) 40 mg DAILY@06 IV Last administered on 02/01/19at 05:42; Admin Dose 40 MG; Start 01/28/19 at 06:00 Piperacillin Sod/ Tazobactam Sod 100 ml @ 200 mls/hr Q8 IVPB Last administered on 02/01/19at 05:42; Admin Dose 200 MLS/HR; Start 01/27/19 at 14:00 Metronidazole 100 ml @ 100 mls/hr Q8 IVPB Last administered on 02/01/19at 05:42; Admin Dose 100 MLS/HR; Start 01/27/19 at 14:00 Morphine Sulfate (morphine) 2 mg Q2H PRN IV BREAKTHROUGH PAIN; Start 01/28/19 at 19:30 Acetaminophen/ Hydrocodone Bitart ([place] (5/325)) 1 tab Q6H PRN PO PAIN LEVEL 6-10 Last administered on 02/01/19at 09:17; Admin Dose 1 TAB; Start 01/28/19 at 19:30 Acetaminophen (Tylenol Tab) 650 mg Q6H PRN PO MILD PAIN(1-3)OR ELEVATED TEMP; Start 01/28/19 at 19:30 Diphenhydramine HCl (Benadryl) 25 mg Q6H PRN IV ITCHING; Start 01/28/19 at 19:30 Metoclopramide HCl (Reglan) 10 mg Q6H PRN IV NAUSEA AND/OR VOMITING; Start 01/28/19 at 19:30 Ondansetron HCl (Zofran Inj) 4 mg Q6H PRN IV NAUSEA AND/OR VOMITING; Start 01/28/19 at 19:30 Lorazepam (Ativan) 0.5 mg Q8H PRN IV anxiety Last administered on 01/31/19at 21:43; Admin Dose 0.5 MG; Start 01/29/19 at 10:00 DANILO KUNZ MD 02/01/19 1428: Assessment/Plan Assessment/Plan Assessment/Plan cheri delia purulent output cw montio\wbc increased per surgery Result Diagram: 02/01/19 0522 02/01/19 0521 LAURA FANG Feb 01, 2019 10:19 DANILO KUNZ MD Feb 01, 2019 14:28
--- NOTE | 2019-02-01 10:35 | CONS ---
Assessment/Plan Assessment/Plan Assessment/Plan (Daily) Assessment/Plan (Daily) Hospital Course (Demo Recall) 48 yo female with 1. Persistent diverticulitis with an abscess. -EXPLORATORY LAPAROSCOPY LOOP ILEOSTOMY planned for today 2. Leukocytosis -resolved -continue with abx 3. Mild anemia, normocytic and normochromic -will monitor 4. H/O inguinal hernia repair. 5. Rash likely drug induced (meropenum) -improved 6. Status post laparoscopic drainage of diverticular abscess, OSMAN drainage has a purulent material PLAN: NPO IVF hydration continue with antibiotics. Continue postoperative care Advance diet as per the surgeon Consultation Date/Type/Reason Admit Date/Time Jan 27, 2019 at 04:42 Initial Consult Date 01/27/19 Date/Time of Note DATE: 02/01/19 TIME: 10:33 24 HR Interval Summary Free Text/Dictation Patient complains of abdominal pain Passing gas Exam/Review of Systems Exam Vitals Vital Signs Date Temp Pulse Resp B/P (MAP) Pulse Ox O2 O2 Flow FiO2 Time Delivery Rate 02/01/19 98.6 76 20 114/74 96 07:52 (87) 01/29/19 Nasal 2.0 22:05 Cannula Intake and Output 01/31/19 01/31/19 02/01/19 1515:00 23:00 07:00 IntakeIntake Total 1280 ml 1480 ml 200 ml OutputOutput Total 15 ml BalanceBalance 1280 ml 1465 ml 200 ml Constitutional: alert, oriented, well developed Respiratory: clear to auscultation, normal air movement Gastrointestinal: soft, nl liver, spleen, non-tender Extremities: normal pulses Neurological: LAB HEAD II-XII intact Results Result Diagram: 02/01/19 0522 02/01/19 0521 Results 24hrs Laboratory Tests Test 02/01/19 05:21 02/01/19 05:22 Sodium Level 142 Potassium Level 3.7 Chloride Level 109 Carbon Dioxide Level 24 Anion Gap 9 Blood Urea Nitrogen 2 L Creatinine 0.45 Est Glomerular Filtrat Rate mL/min > 60 Glucose Level 93 Calcium Level 8.3 L White Blood Count 11.5 #H Red Blood Count 3.39 L Hemoglobin 10.1 L Hematocrit 30.8 L Mean Corpuscular Volume 90.9 Mean Corpuscular Hemoglobin 29.8 Mean Corpuscular Hemoglobin Concent 32.8 Red Cell Distribution Width 13.5 Platelet Count 260 Mean Platelet Volume 10.2 Immature Granulocytes % 1.000 H Neutrophils % 77.1 H Lymphocytes % 13.0 L Monocytes % 8.0 Eosinophils % 0.7 Basophils % 0.2 Nucleated Red Blood Cells % 0.0 Immature Granulocytes # 0.110 H Neutrophils # 8.8 H Lymphocytes # 1.5 Monocytes # 0.9 Eosinophils # 0.1 Basophils # 0.0 Nucleated Red Blood Cells # 0.0 Medications Medication Current Medications IV Flush (NS 3 ml) 3 ml PER PROTOCOL IV ; Start 01/27/19 at 10:30 Ondansetron HCl (Zofran Inj) 4 mg Q6H PRN IV NAUSEA/VOMITING Last administered on 01/30/19at 14:38; Admin Dose 4 MG; Start 01/27/19 at 10:30 Pantoprazole (Protonix Iv) 40 mg DAILY@06 IV Last administered on 02/01/19at 05:42; Admin Dose 40 MG; Start 01/28/19 at 06:00 Piperacillin Sod/ Tazobactam Sod 100 ml @ 200 mls/hr Q8 IVPB Last administered on 02/01/19at 05:42; Admin Dose 200 MLS/HR; Start 01/27/19 at 14:00 Metronidazole 100 ml @ 100 mls/hr Q8 IVPB Last administered on 02/01/19at 05:42; Admin Dose 100 MLS/HR; Start 01/27/19 at 14:00 Morphine Sulfate (morphine) 2 mg Q2H PRN IV BREAKTHROUGH PAIN; Start 01/28/19 at 19:30 Acetaminophen/ Hydrocodone Bitart ([place] (5/325)) 1 tab Q6H PRN PO PAIN LEVEL 6-10 Last administered on 02/01/19at 09:17; Admin Dose 1 TAB; Start 01/28/19 at 19:30 Acetaminophen (Tylenol Tab) 650 mg Q6H PRN PO MILD PAIN(1-3)OR ELEVATED TEMP; Start 01/28/19 at 19:30 Diphenhydramine HCl (Benadryl) 25 mg Q6H PRN IV ITCHING; Start 01/28/19 at 19:30 Metoclopramide HCl (Reglan) 10 mg Q6H PRN IV NAUSEA AND/OR VOMITING; Start 01/28/19 at 19:30 Ondansetron HCl (Zofran Inj) 4 mg Q6H PRN IV NAUSEA AND/OR VOMITING; Start 01/28/19 at 19:30 Lorazepam (Ativan) 0.5 mg Q8H PRN IV anxiety Last administered on 01/31/19at 21:43; Admin Dose 0.5 MG; Start 01/29/19 at 10:00 LEONA OLIVAREZ MD Feb 01, 2019 10:34
[2019-02-01 13:31] VITALS: BP 130/85; PULSE 77; RESP 20
--- NOTE | 2019-02-01 13:35 | PN ---
Date/Time of Note Date/Time of Note DATE: 02/01/19 TIME: 13:34 Assessment/Plan Lines/Catheters IV Catheter Type (from Nrs): Saline Lock Alberto in Place (from Nrs): No Assessment/Plan Assessment/Plan Keep on liquid diet. Continue antibiotics. Subjective 24 Hr Interval Summary Patient is postoperative day 4 after laparoscopic drainage of the intra- abdominal abscess secondary to perforated diverticulitis. Patient is recovering slow. Still complains of abdominal pain. Afebrile. Labs are normal. Tolerates clears. OSMAN drain still drains purulent material. Exam/Review of Systems Vital Signs Vitals Vital Signs Date Temp Pulse Resp B/P (MAP) Pulse Ox O2 O2 Flow FiO2 Time Delivery Rate 02/01/19 98.5 77 20 130/85 97 13:31 (100) 01/29/19 Nasal 2.0 22:05 Cannula Intake and Output 01/31/19 01/31/19 02/01/19 1515:00 23:00 07:00 IntakeIntake Total 1280 ml 1480 ml 200 ml OutputOutput Total 15 ml BalanceBalance 1280 ml 1465 ml 200 ml Results Result Diagram: 02/01/19 0522 02/01/19 0521 DONNY MEAD MD Feb 01, 2019 13:35
[2019-02-01] MEDS ORDERED: HYDROmorphONE 0.5 MG/0.5 ML SYG IV STA (14:29)
--- NOTE | 2019-02-01 18:18 | CONS ---
Assessment/Plan Assessment/Plan Hospital Course (Demo Recall) ID PROGRESS NOTE CURRENT ABX: DAY # =>Zosyn + Flagyl 02/01/19 0522 02/01/19 0521 24H INTERVAL SUMMARY * POD #4 -> s/p 01/28/19 Lap drainage of perf diverticulitis abscess drainage, Sepsis on admission RESOLVING * WBC MILDLY ELEVATED TODAY -- NO FEVERS, STILL HAS SOME ABD PAIN YET TAKING CLEARS * CHANGE IN OSMAN drain OUTPUT --> TODAY more PURULENT -- prior was w/clear pink tinged serous fluid * NOW W/Melena stools -- dark chocolate brown with yellow hemosiderin pigments in porcelain bowel upon flushing * Resting in bed, has been ambulatory, No fevers, VSS, NAD DIAGNOSTIC IMAGING * 01/27/19 CT: Perf diverticula w/abscess MICRO * 01/27/19 BCX (-); Urine Cx (-) PHYSICAL EXAMINATION: GENERAL: VSS, NAD HEENT: AT, NC, NECK: Supple, CHEST: Rise symmetrical HEART: Pulse RRR ABDOMEN: OSMAN present w/ serosanguineous drainage EXTREMITIES: Warm, dry SKIN: No rash, no diaphoresis ID ASSESSMENT 48 yo F admit with: 1. SIRS -> s/p Sepsis on admission w/fevers, tachycardia, Leukocytosis/Bandemia * 01/27/19 BCx (-) 2. Acute Perforated Diverticulitis w/abscess present on admission 3. ABD pain due to #[address] w/hx of fibroid removal in past ABX ALLERGIES: MERREM INVASIVES: PIV CURRENT ABX: DAY # => Zosyn + Flagyl ID RECOMMENDATIONS/PLAN: 1. Continue current ABX -- Consider repeat CT ABD for PURULENT drainage 2. Check stool for C.Diff and FOBT . Consultation Date/Type/Reason Admit Date/Time Jan 27, 2019 at 04:42 Initial Consult Date 01/27/19 Date/Time of Note DATE: 02/01/19 TIME: 18:11 Exam/Review of Systems Exam Vitals Vital Signs Date Temp Pulse Resp B/P (MAP) Pulse Ox O2 O2 Flow FiO2 Time Delivery Rate 02/01/19 98.5 77 20 130/85 97 13:31 (100) 01/29/19 Nasal 2.0 22:05 Cannula Intake and Output 01/31/19 01/31/19 02/01/19 1515:00 23:00 07:00 IntakeIntake Total 1280 ml 1480 ml 200 ml OutputOutput Total 15 ml BalanceBalance 1280 ml 1465 ml 200 ml Results Result Diagram: 02/01/19 0522 02/01/19 0521 Results 24hrs Laboratory Tests Test 02/01/19 05:21 02/01/19 05:22 Sodium Level 142 Potassium Level 3.7 Chloride Level 109 Carbon Dioxide Level 24 Anion Gap 9 Blood Urea Nitrogen 2 L Creatinine 0.45 Est Glomerular Filtrat Rate mL/min > 60 Glucose Level 93 Calcium Level 8.3 L White Blood Count 11.5 #H Red Blood Count 3.39 L Hemoglobin 10.1 L Hematocrit 30.8 L Mean Corpuscular Volume 90.9 Mean Corpuscular Hemoglobin 29.8 Mean Corpuscular Hemoglobin Concent 32.8 Red Cell Distribution Width 13.5 Platelet Count 260 Mean Platelet Volume 10.2 Immature Granulocytes % 1.000 H Neutrophils % 77.1 H Lymphocytes % 13.0 L Monocytes % 8.0 Eosinophils % 0.7 Basophils % 0.2 Nucleated Red Blood Cells % 0.0 Immature Granulocytes # 0.110 H Neutrophils # 8.8 H Lymphocytes # 1.5 Monocytes # 0.9 Eosinophils # 0.1 Basophils # 0.0 Nucleated Red Blood Cells # 0.0 Medications Medication Current Medications IV Flush (NS 3 ml) 3 ml PER PROTOCOL IV ; Start 01/27/19 at 10:30 Ondansetron HCl (Zofran Inj) 4 mg Q6H PRN IV NAUSEA/VOMITING Last administered on 01/30/19at 14:38; Admin Dose 4 MG; Start 01/27/19 at 10:30 Pantoprazole (Protonix Iv) 40 mg DAILY@06 IV Last administered on 02/01/19at 05:42; Admin Dose 40 MG; Start 01/28/19 at 06:00 Piperacillin Sod/ Tazobactam Sod 100 ml @ 200 mls/hr Q8 IVPB Last administered on 02/01/19at 14:46; Admin Dose 200 MLS/HR; Start 01/27/19 at 14:00 Metronidazole 100 ml @ 100 mls/hr Q8 IVPB Last administered on 02/01/19at 14:46; Admin Dose 100 MLS/HR; Start 01/27/19 at 14:00 Morphine Sulfate (morphine) 2 mg Q2H PRN IV BREAKTHROUGH PAIN; Start 01/28/19 at 19:30 Acetaminophen/ Hydrocodone Bitart ([place] (5/325)) 1 tab Q6H PRN PO PAIN LEVEL 6-10 Last administered on 02/01/19at 17:51; Admin Dose 1 TAB; Start 01/28/19 at 19:30 Acetaminophen (Tylenol Tab) 650 mg Q6H PRN PO MILD PAIN(1-3)OR ELEVATED TEMP; Start 01/28/19 at 19:30 Diphenhydramine HCl (Benadryl) 25 mg Q6H PRN IV ITCHING; Start 01/28/19 at 19:30 Metoclopramide HCl (Reglan) 10 mg Q6H PRN IV NAUSEA AND/OR VOMITING; Start 01/28/19 at 19:30 Ondansetron HCl (Zofran Inj) 4 mg Q6H PRN IV NAUSEA AND/OR VOMITING; Start 01/28/19 at 19:30 Lorazepam (Ativan) 0.5 mg Q8H PRN IV anxiety Last administered on 01/31/19at 21:4 3; Admin Dose 0.5 MG; Start 01/29/19 at 10:00 LUDWIG JAMES NP Feb 01, 2019 18:18
[2019-02-01 20:28] VITALS: BP 125/82; PULSE 67; RESP 16
[2019-02-01] MEDS: morphine 2 MG INJ IV PRN (21:24)
[2019-02-02] MEDS: ONDANSETRON 4 MG INJ IV PRN (01:02)
[2019-02-02] MEDS: LORAZEPAM 2 MG INJ IV PRN ×3 (01:12→23:21)
[2019-02-02 02:12] VITALS: BP 112/71; PULSE 68; RESP 18
[2019-02-02] MEDS: PANTOPRAZOLE 40 MG INJ IV SCH (05:24)
[2019-02-02] MEDS: PIPER-TAZO 3.375 GM IV (PMX) 100 ML IVPB SCH ×3 (05:24→21:36)
[2019-02-02] MEDS: metroNIDAZOLE 500 MG/NS (PMX) 100 ML IVPB SCH ×3 (06:04→22:25)
[2019-02-02 07:40] VITALS: BP 117/69; PULSE 76; RESP 18
--- NOTE | 2019-02-02 12:51 | PN ---
Date/Time of Note Date/Time of Note DATE: 02/02/19 TIME: 12:50 Assessment/Plan VTE Prophylaxis Risk score (from [facility] [place]0 risk: 2 SCD applied (from [facility] [place]): Yes Pharmacological prophylaxis: NA/contraindicated Pharm contraindication: surgical contra Lines/Catheters IV Catheter Type (from [facility]): Peripheral IV Urinary Cath still in place: No Assessment/Plan Hospital Course 1. Recurrent diverticulitis with pericolonic abscess. S/P Exploratory laparoscopy and drainage of the intra-abdominal abscess POD # 3 2. Systemic inflammatory response syndrome with leukocytosis secondary to #1. 3. Drug rash, questionable meropenem which has been resolved. 4. History of diverticulosis. 5. Normocytic normochromic anemia. 6. History of inguinal hernia repair. 7. History of uterine fibroid removal in 2018. 8. History of complex uterine mass and vaginal ultrasound need to be followed up with gynecology as an outpatient. 9. Overweight Assessment/Plan - liquid full -ambulation -purulent output from OSMAN - Pain control - cw zosyn/flagyl - c/w NS with kcl - pain control -DVT prophylaxis ambulate - fu cx, negative 5 days -GI proph Protonix Result Diagram: 02/02/1952102/02/19 0522 Results 24hrs Laboratory Tests Test 02/01/19 18:44 02/02/19 05:22 Stool Occult Blood NEGATIVE White Blood Count 10.9 H Red Blood Count 3.55 L Hemoglobin 10.4 L Hematocrit 32.2 L Mean Corpuscular Volume 90.7 Mean Corpuscular Hemoglobin 29.3 Mean Corpuscular Hemoglobin Concent 32.3 Red Cell Distribution Width 13.2 Platelet Count 282 Mean Platelet Volume 10.0 Immature Granulocytes % 1.100 H Neutrophils % 75.7 Lymphocytes % 15.1 Monocytes % 5.0 Eosinophils % 2.8 Basophils % 0.3 Nucleated Red Blood Cells % 0.0 Immature Granulocytes # 0.120 H Neutrophils # 8.2 H Lymphocytes # 1.7 Monocytes # 0.6 Eosinophils # 0.3 Basophils # 0.0 Nucleated Red Blood Cells # 0.0 Sodium Level 140 Potassium Level 3.8 Chloride Level 107 Carbon Dioxide Level 25 Anion Gap 8 Blood Urea Nitrogen 3 L Creatinine 0.45 Est Glomerular Filtrat Rate mL/min > 60 Glucose Level 89 Calcium Level 8.5 Subjective 24 Hr Interval Summary Constitutional: improved Exam/Review of Systems Exam Vitals Vital Signs Date Temp Pulse Resp B/P (MAP) Pulse Ox O2 O2 Flow FiO2 Time Delivery Rate 02/02/19 98.3 76 18 117/69 97 07:40 (85) 01/29/19 Nasal 2.0 22:05 Cannula Intake and Output 02/01/19 02/01/19 02/02/19 1515:00 23:00 07:00 IntakeIntake Total 1440 ml 880 ml 400 ml OutputOutput Total 10 ml 5 ml BalanceBalance 1430 ml 875 ml 400 ml Constitutional: alert, oriented Respiratory: clear to auscultation Cardiovascular: regular rate and rhythm Gastrointestinal: soft, surgical scars, other (OSMAN with pus) Results Results 24hrs Laboratory Tests Test 02/01/19 18:44 02/02/19 05:22 Stool Occult Blood NEGATIVE White Blood Count 10.9 H Red Blood Count 3.55 L Hemoglobin 10.4 L Hematocrit 32.2 L Mean Corpuscular Volume 90.7 Mean Corpuscular Hemoglobin 29.3 Mean Corpuscular Hemoglobin Concent 32.3 Red Cell Distribution Width 13.2 Platelet Count 282 Mean Platelet Volume 10.0 Immature Granulocytes % 1.100 H Neutrophils % 75.7 Lymphocytes % 15.1 Monocytes % 5.0 Eosinophils % 2.8 Basophils % 0.3 Nucleated Red Blood Cells % 0.0 Immature Granulocytes # 0.120 H Neutrophils # 8.2 H Lymphocytes # 1.7 Monocytes # 0.6 Eosinophils # 0.3 Basophils # 0.0 Nucleated Red Blood Cells # 0.0 Sodium Level 140 Potassium Level 3.8 Chloride Level 107 Carbon Dioxide Level 25 Anion Gap 8 Blood Urea Nitrogen 3 L Creatinine 0.45 Est Glomerular Filtrat Rate mL/min > 60 Glucose Level 89 Calcium Level 8.5 Medications Medication Current Medications IV Flush (NS 3 ml) 3 ml PER PROTOCOL IV ; Start 01/27/19 at 10:30 Ondansetron HCl (Zofran Inj) 4 mg Q6H PRN IV NAUSEA/VOMITING Last administered on 02/02/19at 01:02; Admin Dose 4 MG; Start 01/27/19 at 10:30 Pantoprazole (Protonix Iv) 40 mg DAILY@06 IV Last administered on 02/02/19at 05:24; Admin Dose 40 MG; Start 01/28/19 at 06:00 Piperacillin Sod/ Tazobactam Sod 100 ml @ 200 mls/hr Q8 IVPB Last administered on 02/02/19 05:24; Admin Dose 200 MLS/HR; Start 01/27/19 at 14:00 Metronidazole 100 ml @ 100 mls/hr Q8 IVPB Last administered on 02/02/19 06:04; Admin Dose 100 MLS/HR; Start 01/27/19 at 14:00 Morphine Sulfate (morphine) 2 mg Q2H PRN IV BREAKTHROUGH PAIN Last administered on 02/01/19 21:24; Admin Dose 2 MG; Start 01/28/19 at 19:30 Acetaminophen/ Hydrocodone Bitart ([place] (5/325)) 1 tab Q6H PRN PO PAIN LEVEL 6 -10 Last administered on 02/01/19 17:51; Admin Dose 1 TAB; Start 01/28/19 at 19:30 Acetaminophen (Tylenol Tab) 650 mg Q6H PRN PO MILD PAIN(1-3)OR ELEVATED TEMP; Start 01/28/19 at 19:30 Diphenhydramine HCl (Benadryl) 25 mg Q6H PRN IV ITCHING; Start 01/28/19 at 19:30 Metoclopramide HCl (Reglan) 10 mg Q6H PRN IV NAUSEA AND/OR VOMITING; Start 01/28/19 at 19:30 Ondansetron HCl (Zofran Inj) 4 mg Q6H PRN IV NAUSEA AND/OR VOMITING; Start 01/28/19 at 19:30 Lorazepam (Ativan) 0.5 mg Q8H PRN IV anxiety Last administered on 02/02/19 01:12; Admin Dose 0.5 MG; Start 01/29/19 at 10:00 LAURA FANG Feb 02, 2019 12:51
[2019-02-02] MEDS: HYDROCODONE/APAP (5/325) TAB PO PRN ×2 (13:36→20:08)
[2019-02-02 13:40] VITALS: BP 125/82; PULSE 85; RESP 20
--- NOTE | 2019-02-02 14:00 | CONS ---
Assessment/Plan Assessment/Plan Assessment/Plan (Daily) 1. Persistent diverticulitis with an abscess. -EXPLORATORY LAPAROSCOPY LOOP ILEOSTOMY planned for today 2. Leukocytosis -resolved -continue with abx 3. Mild anemia, normocytic and normochromic -will monitor 4. H/O inguinal hernia repair. 5. Rash likely drug induced (meropenum) -improved 6. Status post laparoscopic drainage of diverticular abscess, OSMAN drainage has a purulent material PLAN: NPO IVF hydration continue with antibiotics. Continue postoperative care Advance diet as per the surgeon Consultation Date/Type/Reason Admit Date/Time Jan 27, 2019 at 04:42 Initial Consult Date 01/27/19 Date/Time of Note DATE: 02/02/19 TIME: 13:59 24 HR Interval Summary Free Text/Dictation Complains of abdominal pain, good bowel movements. No nausea no vomiting Exam/Review of Systems Exam Vitals Vital Signs Date Temp Pulse Resp B/P (MAP) Pulse Ox O2 O2 Flow FiO2 Time Delivery Rate 02/02/19 99.0 85 20 125/82 99 13:40 (96) 01/29/19 Nasal 2.0 22:05 Cannula Intake and Output 02/01/19 02/01/19 02/02/19 1515:00 23:00 07:00 IntakeIntake Total 1440 ml 880 ml 400 ml OutputOutput Total 10 ml 5 ml BalanceBalance 1430 ml 875 ml 400 ml Constitutional: alert, oriented, well developed Psych: no complaints, nl mood/affect Head: normocephalic, atraumatic Eyes: nl conjunctiva, EOMI, nl lids, nl sclera, PERRL ENMT: nl external ears & nose, nl lips & teeth, nl nasal mucosa & septum Neck: supple, non-tender Respiratory: clear to auscultation, normal air movement Cardiovascular: regular rate and rhythm, nl pulses Gastrointestinal: soft, nl liver, spleen, non-tender Musculoskeletal: nl extremities to inspection, nl gait and stance Extremities: normal pulses Neurological: BACK END ENGINEER II-XII intact, nl mental status, nl speech, nl strength Skin: nl turgor; No rash or lesions Lymph: nl lymph nodes Results Result Diagram: 02/02/19 0522 02/02/19 05 Results 24hrs Laboratory Tests Test 02/01/19 18:44 02/02/19 05:22 Stool Occult Blood NEGATIVE White Blood Count 10.9 H Red Blood Count 3.55 L Hemoglobin 10.4 L Hematocrit 32.2 L Mean Corpuscular Volume 90.7 Mean Corpuscular Hemoglobin 29.3 Mean Corpuscular Hemoglobin Concent 32.3 Red Cell Distribution Width 13.2 Platelet Count 282 Mean Platelet Volume 10.0 Immature Granulocytes % 1.100 H Neutrophils % 75.7 Lymphocytes % 15.1 Monocytes % 5.0 Eosinophils % 2.8 Basophils % 0.3 Nucleated Red Blood Cells % 0.0 Immature Granulocytes # 0.120 H Neutrophils # 8.2 H Lymphocytes # 1.7 Monocytes # 0.6 Eosinophils # 0.3 Basophils # 0.0 Nucleated Red Blood Cells # 0.0 Sodium Level 140 Potassium Level 3.8 Chloride Level 107 Carbon Dioxide Level 25 Anion Gap 8 Blood Urea Nitrogen 3 L Creatinine 0.45 Est Glomerular Filtrat Rate mL/min > 60 Glucose Level 89 Calcium Level 8.5 Medications Medication Current Medications IV Flush (NS 3 ml) 3 ml PER PROTOCOL IV ; Start 01/27/19 at 10:30 Ondansetron HCl (Zofran Inj) 4 mg Q6H PRN IV NAUSEA/VOMITING Last administered on 02/02/19 01:02; Admin Dose 4 MG; Start 01/27/19 at 10:30 Pantoprazole (Protonix Iv) 40 mg DAILY@06 IV Last administered on 02/02/19 05:24; Admin Dose 40 MG; Start 01/28/19 at 06:00 Piperacillin Sod/ Tazobactam Sod 100 ml @ 200 mls/hr Q8 IVPB Last administered on 02/02/19 05:24; Admin Dose 200 MLS/HR; Start 01/27/19 at 14:00 Metronidazole 100 ml @ 100 mls/hr Q8 IVPB Last administered on 02/02/19 13:36; Admin Dose 100 MLS/HR; Start 01/27/19 at 14:00 Morphine Sulfate (morphine) 2 mg Q2H PRN IV BREAKTHROUGH PAIN Last administered on 02/01/19 21:24; Admin Dose 2 MG; Start 01/28/19 at 19:30 Acetaminophen/ Hydrocodone Bitart ([place] (5/325)) 1 tab Q6H PRN PO PAIN LEVEL 6-10 Last administered on 02/02/19 13:36; Admin Dose 1 TAB; Start 01/28/19 at 19:30 Acetaminophen (Tylenol Tab) 650 mg Q6H PRN PO MILD PAIN(1-3)OR ELEVATED TEMP; Start 01/28/19 at 19:30 Diphenhydramine HCl (Benadryl) 25 mg Q6H PRN IV ITCHING; Start 01/28/19 at 19:30 Metoclopramide HCl (Reglan) 10 mg Q6H PRN IV NAUSEA AND/OR VOMITING; Start 01/28/19 at 19:30 Ondansetron HCl (Zofran Inj) 4 mg Q6H PRN IV NAUSEA AND/OR VOMITING; Start 01/28/19 at 19:30 Lorazepam (Ativan) 0.5 mg Q8H PRN IV anxiety Last administered on 02/02/19at 01:12; Admin Dose 0.5 MG; Start 01/29/19 at 10:00 LEONA OLIVAREZ MD Feb 02, 2019 14:00
--- NOTE | 2019-02-02 16:47 | PN ---
Date/Time of Note Date/Time of Note DATE: 02/02/19 TIME: 16:46 Assessment/Plan Lines/Catheters IV Catheter Type (from Nrsg): Peripheral IV Alberto in Place (from Nrsg): No Assessment/Plan Assessment/Plan Continue liquid diet. Continue antibiotics will possibly advance her diet tomorrow. Subjective 24 Hr Interval Summary Patient tolerated liquids, stable afebrile, pain well controlled. OSMAN still draining small amount of purulent discharge. Exam/Review of Systems Vital Signs Vitals Vital Signs Date Temp Pulse Resp B/P (MAP) Pulse Ox O2 O2 Flow FiO2 Time Delivery Rate 02/02/19 99.0 85 20 125/82 99 13:40 (96) 01/29/19 Nasal 2.0 22:05 Cannula Intake and Output 02/01/19 02/01/19 02/02/19 1414:59 22:59 06:59 IntakeIntake Total 1440 ml 880 ml 400 ml OutputOutput Total 10 ml 5 ml BalanceBalance 1430 ml 875 ml 400 ml Results Result Diagram: 02/02/19 0522 02/02/19 0522 DONNY MEAD MD Feb 02, 2019 16:47
--- NOTE | 2019-02-02 18:14 | CONS ---
Assessment/Plan Assessment/Plan Hospital Course (Demo Recall) ID PROGRESS NOTE CURRENT ABX: DAY # =>Zosyn + Flagyl 24H INTERVAL SUMMARY * POD #5 -> s/p 01/28/19 Lap drainage of perf diverticulitis abscess drainage, Sepsis on admission RESOLVING * WBC down slightly -- NO FEVERS * CHANGE IN OSMAN drain OUTPUT -->YESTERDAY more PURULENT -- prior was w/clear pink tinged serous fluid * Today drain output has decreased -- tannish brown color * (+)FOBT after she reported dark stools DIAGNOSTIC IMAGING * 01/27/19 CT: Perf diverticula w/abscess MICRO * 01/27/19 BCX (-); Urine Cx (-) PHYSICAL EXAMINATION: GENERAL: VSS, NAD HEENT: AT, NC, NECK: Supple, CHEST: Rise symmetrical HEART: Pulse RRR ABDOMEN: OSMAN present w/ serosanguineous drainage EXTREMITIES: Warm, dry SKIN: No rash, no diaphoresis ID ASSESSMENT 48 yo F admit with: 1. SIRS -> s/p Sepsis on admission w/fevers, tachycardia, Leukocytosis/Bandemia * 01/27/19 BCx (-) 2. Acute Perforated Diverticulitis w/abscess present on admission 3. ABD pain due to #[address] w/hx of fibroid removal in past ABX ALLERGIES: MERREM INVASIVES: PIV CURRENT ABX: DAY # => Zosyn + Flagyl ID RECOMMENDATIONS/PLAN: 1. Continue current ABX -- Consider repeat CT ABD for PURULENT drainage . Consultation Date/Type/Reason Admit Date/Time Jan 27, 2019 at 04:42 Initial Consult Date 01/27/19 Date/Time of Note DATE: 02/02/19 TIME: 18:11 Exam/Review of Systems Exam Vitals Vital Signs Date Temp Pulse Resp B/P (MAP) Pulse Ox O2 O2 Flow FiO2 Time Delivery Rate 02/02/19 99.0 85 20 125/82 99 13:40 (96) 01/29/19 Nasal 2.0 22:05 Cannula Intake and Output 02/01/19 02/01/19 02/02/19 1414:59 22:59 06:59 IntakeIntake Total 1440 ml 880 ml 400 ml OutputOutput Total 10 ml 5 ml BalanceBalance 1430 ml 875 ml 400 ml Results Result Diagram: 02/02/1952102/02/19521 Results 24hrs Laboratory Tests Test 02/01/19 18:44 02/02/19 05:22 Stool Occult Blood NEGATIVE White Blood Count 10.9 H Red Blood Count 3.55 L Hemoglobin 10.4 L Hematocrit 32.2 L Mean Corpuscular Volume 90.7 Mean Corpuscular Hemoglobin 29.3 Mean Corpuscular Hemoglobin Concent 32.3 Red Cell Distribution Width 13.2 Platelet Count 282 Mean Platelet Volume 10.0 Immature Granulocytes % 1.100 H Neutrophils % 75.7 Lymphocytes % 15.1 Monocytes % 5.0 Eosinophils % 2.8 Basophils % 0.3 Nucleated Red Blood Cells % 0.0 Immature Granulocytes # 0.120 H Neutrophils # 8.2 H Lymphocytes # 1.7 Monocytes # 0.6 Eosinophils # 0.3 Basophils # 0.0 Nucleated Red Blood Cells # 0.0 Sodium Level 140 Potassium Level 3.8 Chloride Level 107 Carbon Dioxide Level 25 Anion Gap 8 Blood Urea Nitrogen 3 L Creatinine 0.45 Est Glomerular Filtrat Rate mL/min > 60 Glucose Level 89 Calcium Level 8.5 Medications Medication Current Medications IV Flush (NS 3 ml) 3 ml PER PROTOCOL IV ; Start 01/27/19 at 10:30 Ondansetron HCl (Zofran Inj) 4 mg Q6H PRN IV NAUSEA/VOMITING Last administered on 02/02/19at 01:02; Admin Dose 4 MG; Start 01/27/19 at 10:30 Pantoprazole (Protonix Iv) 40 mg DAILY@06 IV Last administered on 02/02/19at 05:24; Admin Dose 40 MG; Start 01/28/19 at 06:00 Piperacillin Sod/ Tazobactam Sod 100 ml @ 200 mls/hr Q8 IVPB Last administered on 02/02/19at 14:22; Admin Dose 200 MLS/HR; Start 01/27/19 at 14:00 Metronidazole 100 ml @ 100 mls/hr Q8 IVPB Last administered on 02/02/19at 13:36; Admin Dose 100 MLS/HR; Start 01/27/19 at 14:00 Morphine Sulfate (morphine) 2 mg Q2H PRN IV BREAKTHROUGH PAIN Last administered on 02/01/19at 21:24; Admin Dose 2 MG; Start 01/28/19 at 19:30 Acetaminophen/ Hydrocodone Bitart ([place] (5/325)) 1 tab Q6H PRN PO PAIN LEVEL 6-10 Last administered on 02/02/19at 13:36; Admin Dose 1 TAB; Start 01/28/19 at 19:30 Acetaminophen (Tylenol Tab) 650 mg Q6H PRN PO MILD PAIN(1-3)OR ELEVATED TEMP; Start 01/28/19 at 19:30 Diphenhydramine HCl (Benadryl) 25 mg Q6H PRN IV ITCHING; Start 01/28/19 at 19:30 Metoclopramide HCl (Reglan) 10 mg Q6H PRN IV NAUSEA AND/OR VOMITING; Start 01/28/19 at 19:30 Ondansetron HCl (Zofran Inj) 4 mg Q6H PRN IV NAUSEA AND/OR VOMITING; Start 01/28/19 at 19:30 Lorazepam (Ativan) 0.5 mg Q8H PRN IV anxiety Last administered on 02/02/19at 14:55; Admin Dose 0.5 MG; Start 01/29/19 at 10:00 LUDWIG JAMES NP Feb 02, 2019 18:14
[2019-02-02 20:00] VITALS: BP 132/81; PULSE 84; RESP 19
[2019-02-03 02:00] VITALS: BP 108/69; PULSE 62; RESP 19
[2019-02-03] MEDS: morphine 2 MG INJ IV PRN ×2 (02:11→21:44)
[2019-02-03] MEDS: PANTOPRAZOLE 40 MG INJ IV SCH (05:34)
[2019-02-03] MEDS: PIPER-TAZO 3.375 GM IV (PMX) 100 ML IVPB SCH ×3 (05:34→21:36)
[2019-02-03] MEDS: metroNIDAZOLE 500 MG/NS (PMX) 100 ML IVPB SCH ×3 (06:33→23:49)
[2019-02-03 07:41] VITALS: BP 113/69; PULSE 59; RESP 20
[2019-02-03] MEDS: HYDROCODONE/APAP (5/325) TAB PO PRN ×2 (10:36→18:37)
--- NOTE | 2019-02-03 11:21 | PN ---
Date/Time of Note Date/Time of Note DATE: 02/03/19 TIME: 11:18 Assessment/Plan VTE Prophylaxis Risk score (from [facility] [place]0 risk: 2 SCD applied (from [facility] [place] Yes Pharmacological prophylaxis: NA/contraindicated Pharm contraindication: low risk/ambulating Lines/Catheters IV [facility] Type (from [facility]): Peripheral IV Urinary Cath still in place: No Assessment/Plan Assessment/Plan Hospital Course 1. Recurrent diverticulitis with pericolonic abscess. S/P Exploratory laparoscopy and drainage of the intra-abdominal abscess on01/28/19 2. Systemic inflammatory response syndrome with leukocytosis secondary to #1. slight up leukocutsis 3. Drug rash, questionable meropenem which has been resolved. 4. History of diverticulosis. 5. Normocytic normochromic anemia. 6. History of inguinal hernia repair. 7. History of uterine fibroid removal in 2018. 8. History of complex uterine mass and vaginal ultrasound need to be followed up with gynecology as an outpatient. 9. Overweight Assessment/Plan -CT A+P ? with persistent OSMAN drain with pus> left message for Dr Lucia - Pain control mORPHINE/NORCO - Full liquid diet - cw zosyn/flagyl - c/w NS with kcl - pain control -DVT prophylaxis ambulate - fu cx, negative 5 days -GI proph Protonix Result Diagram: 02/03/1944002/03/19440 Results 24hrs Laboratory Tests Test 02/03/19 04:41 White Blood Count 12.3 H Red Blood Count 3.49 L Hemoglobin 10.2 L Hematocrit 31.4 L Mean Corpuscular Volume 90.0 Mean Corpuscular Hemoglobin 29.2 Mean Corpuscular Hemoglobin Concent 32.5 Red Cell Distribution Width 13.3 Platelet Count 322 Mean Platelet Volume 9.7 Immature Granulocytes % 0.700 H Neutrophils % 76.0 Lymphocytes % 14.1 L Monocytes % 5.6 Eosinophils % 3.3 Basophils % 0.3 Nucleated Red Blood Cells % 0.0 Immature Granulocytes # 0.090 H Neutrophils # 9.3 H Lymphocytes # 1.7 Monocytes # 0.7 Eosinophils # 0.4 Basophils # 0.0 Nucleated Red Blood Cells # 0.0 Sodium Level 140 Potassium Level 3.9 Chloride Level 107 Carbon Dioxide Level 26 Anion Gap 7 Blood Urea Nitrogen 4 L Creatinine 0.48 Est Glomerular Filtrat Rate mL/min > 60 Glucose Level 88 Calcium Level 8.6 Subjective 24 Hr Interval Summary Free Text/Dictation Still having purulent drainage thru OSMAN pain pain is better Exam/Review of Systems Exam Vitals Vital Signs Date Temp Pulse Resp B/P (MAP) Pulse Ox O2 O2 Flow FiO2 Time Delivery Rate 02/03/19 98.1 59 20 113/69 96 Room Air 07:41 (84) Intake and Output 02/02/19 02/02/19 02/03/19 1515:00 23:00 07:00 IntakeIntake Total 1500 ml 1090 ml 680 ml OutputOutput Total 300 ml 5 ml BalanceBalance 1200 ml 1090 ml 675 ml Exam Constitutional: alert, oriented Respiratory: clear to auscultation Cardiovascular: regular rate and rhythm Gastrointestinal: soft, surgical scars, other (OSMAN with pus) Results Results 24hrs Laboratory Tests Test 02/03/19 04:41 White Blood Count 12.3 H Red Blood Count 3.49 L Hemoglobin 10.2 L Hematocrit 31.4 L Mean Corpuscular Volume 90.0 Mean Corpuscular Hemoglobin 29.2 Mean Corpuscular Hemoglobin Concent 32.5 Red Cell Distribution Width 13.3 Platelet Count 322 Mean Platelet Volume 9.7 Immature Granulocytes % 0.700 H Neutrophils % 76.0 Lymphocytes % 14.1 L Monocytes % 5.6 Eosinophils % 3.3 Basophils % 0.3 Nucleated Red Blood Cells % 0.0 Immature Granulocytes # 0.090 H Neutrophils # 9.3 H Lymphocytes # 1.7 Monocytes # 0.7 Eosinophils # 0.4 Basophils # 0.0 Nucleated Red Blood Cells # 0.0 Sodium Level 140 Potassium Level 3.9 Chloride Level 107 Carbon Dioxide Level 26 Anion Gap 7 Blood Urea Nitrogen 4 L Creatinine 0.48 Est Glomerular Filtrat Rate mL/min > 60 Glucose Level 88 Calcium Level 8.6 Medications Medication Current Medications IV Flush (NS 3 ml) 3 ml PER PROTOCOL IV ; Start 01/27/19 at 10:30 Ondansetron HCl (Zofran Inj) 4 mg Q6H PRN IV NAUSEA/VOMITING Last administered on 02/02/19at 01:02; Admin Dose 4 MG; Start 01/27/19 at 10:30 Pantoprazole (Protonix Iv) 40 mg DAILY@06 IV Last administered on 02/03/19at 05:34; Admin Dose 40 MG; Start 01/28/19 at 06:00 Piperacillin Sod/ Tazobactam Sod 100 ml @ 200 mls/hr Q8 IVPB Last administered on 02/03/19 05:34; Admin Dose 200 MLS/HR; Start 01/27/19 at 14:00 Metronidazole 100 ml @ 100 mls/hr Q8 IVPB Last administered on 02/03/19 06:33; Admin Dose 100 MLS/HR; Start 01/27/19 at 14:00 Morphine Sulfate (morphine) 2 mg Q2H PRN IV BREAKTHROUGH PAIN Last administered on 02/03/19 02:11; Admin Dose 2 MG; Start 01/28/19 at 19:30 Acetaminophen/ Hydrocodone Bitart ([place] (5/325)) 1 tab Q6H PRN PO PAIN LEVEL 6-10 Last administered on 02/03/19at 10:36; Admin Dose 1 TAB; Start 01/28/19 at 19:30 Acetaminophen (Tylenol Tab) 650 mg Q6H PRN PO MILD PAIN(1-3)OR ELEVATED TEMP; Start 01/28/19 at 19:30 Diphenhydramine HCl (Benadryl) 25 mg Q6H PRN IV ITCHING; Start 01/28/19 at 19:30 Metoclopramide HCl (Reglan) 10 mg Q6H PRN IV NAUSEA AND/OR VOMITING; Start 01/28/19 at 19:30 Ondansetron HCl (Zofran Inj) 4 mg Q6H PRN IV NAUSEA AND/OR VOMITING; Start 01/28/19 at 19:30 Lorazepam (Ativan) 0.5 mg Q8H PRN IV anxiety Last administered on 02/02/19at 23:21; Admin Dose 0.5 MG; Start 01/29/19 at 10:00 DANILO KUNZ MD Feb 03, 2019 11:21
[2019-02-03 14:00] VITALS: BP 127/79; PULSE 79; RESP 20
[2019-02-03] MEDS: LORAZEPAM 2 MG INJ IV PRN ×2 (14:47→23:53)
--- NOTE | 2019-02-03 15:22 | CONS ---
Assessment/Plan Assessment/Plan Hospital Course (Demo Recall) ID PROGRESS NOTE CURRENT ABX: DAY # =>Zosyn + Flagyl 24H INTERVAL SUMMARY * POD #6 -> s/p 01/28/19 Lap drainage of perf diverticulitis abscess drainage, Sepsis on admission RESOLVING * WBC rising -- NO FEVERS * CHANGE IN OSMAN drain OUTPUT -->FRI more PURULENT -- prior was w/clear pink tinged serous fluid * Now with - tannish brown color * (+)FOBT after she reported dark stools DIAGNOSTIC IMAGING * 01/27/19 CT: Perf diverticula w/abscess MICRO * 01/27/19 BCX (-); Urine Cx (-) PHYSICAL EXAMINATION: GENERAL: VSS, NAD HEENT: AT, NC, NECK: Supple, CHEST: Rise symmetrical HEART: Pulse RRR ABDOMEN: OSMAN present w/ serosanguineous drainage EXTREMITIES: Warm, dry SKIN: No rash, no diaphoresis ID ASSESSMENT 48 yo F admit with: 1. SIRS -> s/p Sepsis on admission w/fevers, tachycardia, Leukocytosis/Bandemia * 01/27/19 BCx (-) 2. Acute Perforated Diverticulitis w/abscess present on admission 3. ABD pain due to #2 [address]. Uterine Fib[address]ids per CT w/hx of fibroid removal in past ABX ALLERGIES: MERREM INVASIVES: PIV CURRENT ABX: DAY # => Zosyn + Flagyl ID RECOMMENDATIONS/PLAN: 1. Continue current ABX -- Consider repeat CT ABD for PURULENT drainage & rising WBC 2. Follow surgical recommendations . Consultation Date/Type/Reason Admit Date/Time Jan 27, 2019 at 04:42 Initial Consult Date 01/27/19 Date/Time of Note DATE: 02/03/19 TIME: 15:20 Exam/Review of Systems Exam Vitals Vital Signs Date Temp Pulse Resp B/P (MAP) Pulse Ox O2 O2 Flow FiO2 Time Delivery Rate 02/03/19 98.1 59 20 113/69 96 Room Air 07:41 (84) Intake and Output 02/02/19 02/02/19 02/03/19 1515:00 23:00 07:00 IntakeIntake Total 1500 ml 1090 ml 680 ml OutputOutput Total 300 ml 5 ml BalanceBalance 1200 ml 1090 ml 675 ml Results Result Diagram: 02/03/19 0441 02/03/19 0441 Results 24hrs Laboratory Tests Test 02/03/19 04:41 White Blood Count 12.3 H Red Blood Count 3.49 L Hemoglobin 10.2 L Hematocrit 31.4 L Mean Corpuscular Volume 90.0 Mean Corpuscular Hemoglobin 29.2 Mean Corpuscular Hemoglobin Concent 32.5 Red Cell Distribution Width 13.3 Platelet Count 322 Mean Platelet Volume 9.7 Immature Granulocytes % 0.700 H Neutrophils % 76.0 Lymphocytes % 14.1 L Monocytes % 5.6 Eosinophils % 3.3 Basophils % 0.3 Nucleated Red Blood Cells % 0.0 Immature Granulocytes # 0.090 H Neutrophils # 9.3 H Lymphocytes # 1.7 Monocytes # 0.7 Eosinophils # 0.4 Basophils # 0.0 Nucleated Red Blood Cells # 0.0 Sodium Level 140 Potassium Level 3.9 Chloride Level 107 Carbon Dioxide Level 26 Anion Gap 7 Blood Urea Nitrogen 4 L Creatinine 0.48 Est Glomerular Filtrat Rate mL/min > 60 Glucose Level 88 Calcium Level 8.6 Medications Medication Current Medications IV Flush (NS 3 ml) 3 ml PER PROTOCOL IV ; Start 01/27/19 at 10:30 Ondansetron HCl (Zofran Inj) 4 mg Q6H PRN IV NAUSEA/VOMITING Last administered on 02/02/19at 01:02; Admin Dose 4 MG; Start 01/27/19 at 10:30 Pantoprazole (Protonix Iv) 40 mg DAILY@06 IV Last administered on 02/03/19 05:34; Admin Dose 40 MG; Start 01/28/19 at 06:00 Piperacillin Sod/ Tazobactam Sod 100 ml @ 200 mls/hr Q8 IVPB Last administered on 02/03/19at 14:38; Admin Dose 200 MLS/HR; Start 01/27/19 at 14:00 Metronidazole 100 ml @ 100 mls/hr Q8 IVPB Last administered on 02/03/19 14:47; Admin Dose 100 MLS/HR; Start 01/27/19 at 14:00 Morphine Sulfate (morphine) 2 mg Q2H PRN IV BREAKTHROUGH PAIN Last administered on 02/03/19 02:11; Admin Dose 2 MG; Start 01/28/19 at 19:30 Acetaminophen/ Hydrocodone Bitart ([place] (5/325)) 1 tab Q6H PRN PO PAIN LEVEL 6-10 Last administered on 02/03/19at 10:36; Admin Dose 1 TAB; Start 01/28/19 at 19:30 Acetaminophen (Tylenol Tab) 650 mg Q6H PRN PO MILD PAIN(1-3)OR ELEVATED TEMP; Start 01/28/19 at 19:30 Diphenhydramine HCl (Benadryl) 25 mg Q6H PRN IV ITCHING; Start 01/28/19 at 19:30 Metoclopramide HCl (Reglan) 10 mg Q6H PRN IV NAUSEA AND/OR VOMITING; Start 01/28/19 at 19:30 Lorazepam (Ativan) 0.5 mg Q8H PRN IV anxiety Last administered on 02/03/19at 14:47; Admin Dose 0.5 MG; Start 01/29/19 at 10:00 LUDWIG JAMES NP Feb 03, 2019 15:22
--- NOTE | 2019-02-03 18:00 | CONS ---
Assessment/Plan Assessment/Plan Assessment/Plan (Daily) Assessment/Plan Assessment/Plan Assessment/Plan (Daily) 1. Persistent diverticulitis with an abscess. -EXPLORATORY LAPAROSCOPY LOOP ILEOSTOMY planned for today 2. Leukocytosis -resolved -continue with abx 3. Mild anemia, normocytic and normochromic -will monitor 4. H/O inguinal hernia repair. 5. Rash likely drug induced (meropenum) -improved 6. Status post laparoscopic drainage of diverticular abscess, OSMAN drainage has a purulent material PLAN: NPO IVF hydration continue with antibiotics. Continue postoperative care Advance diet as per the surgeon Reviewed CAT scan of the abdomen and pelvis which was just done. If abscess is still persistent then we should send purulent material from the OSMAN drain for culture and sensitivity Consultation Date/Type/Reason Admit Date/Time Jan 27, 2019 at 04:42 Initial Consult Date 01/27/19 Date/Time of Note DATE: 02/03/19 TIME: 17:59 24 HR Interval Summary Free Text/Dictation Complaints of abdominal pain and discharge in the OSMAN drain Constitutional: improved Exam/Review of Systems Exam Vitals Vital Signs Date Temp Pulse Resp B/P (MAP) Pulse Ox O2 O2 Flow FiO2 Time Delivery Rate 02/03/19 98.8 79 20 127/79 99 Room Air 14:00 (95) Intake and Output 02/02/19 02/02/19 02/03/19 1515:00 23:00 07:00 IntakeIntake Total 1500 ml 1090 ml 680 ml OutputOutput Total 300 ml 5 ml BalanceBalance 1200 ml 1090 ml 675 ml Constitutional: alert, oriented, well developed Psych: no complaints, nl mood/affect Head: normocephalic, atraumatic Eyes: nl conjunctiva, EOMI, nl lids, nl sclera, PERRL ENMT: nl external ears & nose, nl lips & teeth, nl nasal mucosa & septum Neck: supple, non-tender Respiratory: clear to auscultation, normal air movement Cardiovascular: regular rate and rhythm, nl pulses Gastrointestinal: soft, nl liver, spleen, non-tender Musculoskeletal: nl extremities to inspection, nl gait and stance Extremities: normal pulses Neurological: LOAN MANAGER II-XII intact, nl mental status, nl speech, nl strength Skin: nl turgor; No rash or lesions Lymph: nl lymph nodes Results Result Diagram: 02/03/19 0441 02/03/19 0441 Results 24hrs Laboratory Tests Test 02/03/19 04:41 White Blood Count 12.3 H Red Blood Count 3.49 L Hemoglobin 10.2 L Hematocrit 31.4 L Mean Corpuscular Volume 90.0 Mean Corpuscular Hemoglobin 29.2 Mean Corpuscular Hemoglobin Concent 32.5 Red Cell Distribution Width 13.3 Platelet Count 322 Mean Platelet Volume 9.7 Immature Granulocytes % 0.700 H Neutrophils % 76.0 Lymphocytes % 14.1 L Monocytes % 5.6 Eosinophils % 3.3 Basophils % 0.3 Nucleated Red Blood Cells % 0.0 Immature Granulocytes # 0.090 H Neutrophils # 9.3 H Lymphocytes # 1.7 Monocytes # 0.7 Eosinophils # 0.4 Basophils # 0.0 Nucleated Red Blood Cells # 0.0 Sodium Level 140 Potassium Level 3.9 Chloride Level 107 Carbon Dioxide Level 26 Anion Gap 7 Blood Urea Nitrogen 4 L Creatinine 0.48 Est Glomerular Filtrat Rate mL/min > 60 Glucose Level 88 Calcium Level 8.6 Medications Medication Current Medications IV Flush (NS 3 ml) 3 ml PER PROTOCOL IV ; Start 01/27/19 at 10:30 Ondansetron HCl (Zofran Inj) 4 mg Q6H PRN IV NAUSEA/VOMITING Last administered on 02/02/19at 01:02; Admin Dose 4 MG; Start 01/27/19 at 10:30 Pantoprazole (Protonix Iv) 40 mg DAILY@06 IV Last administered on 02/03/19at 05:34; Admin Dose 40 MG; Start 01/28/19 at 06:00 Piperacillin Sod/ Tazobactam Sod 100 ml @ 200 mls/hr Q8 IVPB Last administered on 02/03/19at 14:38; Admin Dose 200 MLS/HR; Start 01/27/19 at 14:00 Metronidazole 100 ml @ 100 mls/hr Q8 IVPB Last administered on 02/03/19at 14:47; Admin Dose 100 MLS/HR; Start 01/27/19 at 14:00 Morphine Sulfate (morphine) 2 mg Q2H PRN IV BREAKTHROUGH PAIN Last administered on 02/03/19at 02:11; Admin Dose 2 MG; Start 01/28/19 at 19:30 Acetaminophen/ Hydrocodone Bitart ([place] (5/325)) 1 tab Q6H PRN PO PAIN LEVEL 6-10 Last administered on 02/03/19at 10:36; Admin Dose 1 TAB; Start 01/28/19 at 19:30 Acetaminophen (Tylenol Tab) 650 mg Q6H PRN PO MILD PAIN(1-3)OR ELEVATED TEMP; Start 01/28/19 at 19:30 Diphenhydramine HCl (Benadryl) 25 mg Q6H PRN IV ITCHING; Start 01/28/19 at 19:30 Metoclopramide HCl (Reglan) 10 mg Q6H PRN IV NAUSEA AND/OR VOMITING; Start 01/28/19 at 19:30 Lorazepam (Ativan) 0.5 mg Q8H PRN IV anxiety Last administered on 02/03/19at 14:47; Admin Dose 0.5 MG; Start 01/29/19 at 10:00 LEONA OLIVAREZ MD Feb 03, 2019 18:00
[2019-02-03 20:00] VITALS: BP 131/71; PULSE 80; RESP 18
[2019-02-04 02:00] VITALS: BP 128/67; PULSE 75; RESP 17
[2019-02-04] MEDS: PIPER-TAZO 3.375 GM IV (PMX) 100 ML IVPB SCH ×3 (05:32→21:23)
[2019-02-04] MEDS: PANTOPRAZOLE 40 MG INJ IV SCH (05:32)
[2019-02-04] MEDS: metroNIDAZOLE 500 MG/NS (PMX) 100 ML IVPB SCH ×3 (06:30→22:04)
[2019-02-04 07:51] VITALS: BP 125/72; PULSE 60; RESP 20
--- NOTE | 2019-02-04 13:08 | PN ---
Date/Time of Note Date/Time of Note DATE: 02/04/19 TIME: 13:07 Assessment/Plan Lines/Catheters IV Catheter Type (from Nrsg): Peripheral IV Alberto in Place (from Nrsg): No Subjective 24 Hr Interval Summary Patient is doing better today. Stable afebrile, complains of significantly less pain. Tolerates diet. Having bowel movement. OSMAN drain still small amount and purulent material. CT scan was repeated that showed that the abscess is drained. Patient can be discharged home on the low residual diet and OSMAN drain in place. Patient will be seen by my physician web press operator assistant early next week. Exam/Review of Systems Vital Signs Vitals Vital Signs Date Temp Pulse Resp B/P (MAP) Pulse Ox O2 O2 Flow FiO2 Time Delivery Rate 02/04/19 98.6 60 20 125/72 98 07:51 (89) 02/04/19 Room Air 02:00 Intake and Output 02/03/19 02/03/19 02/04/19 1515:00 23:00 07:00 IntakeIntake Total 340 ml 1500 ml 300 ml OutputOutput Total 15 ml BalanceBalance 340 ml 1485 ml 300 ml Results Result Diagram: 02/04/19 0449 02/04/19 0449 DONNY MEAD MD Feb 04, 2019 13:08
--- NOTE | 2019-02-04 13:43 | PN ---
Date/Time of Note Date/Time of Note DATE: 02/04/19 TIME: 13:41 Assessment/Plan VTE Prophylaxis Risk score (from Ns)>0 risk: 2 SCD applied (from Ns): Yes Pharmacological prophylaxis: NA/contraindicated Pharm contraindication: low risk/ambulating Lines/Catheters IV [facility] (from [facility]): Peripheral IV Urinary Cath still in place: No Assessment/Plan Assessment/Plan 1. Recurrent diverticulitis with pericolonic abscess. S/P Exploratory laparoscopy and drainage of the intra-abdominal abscess on01/28/19 2. Systemic inflammatory response syndrome with leukocytosis secondary to #1. slight up leukocutsis 3. Drug rash, questionable meropenem which has been resolved. 4. History of diverticulosis. 5. Normocytic normochromic anemia. 6. History of inguinal hernia repair. 7. History of uterine fibroid removal in 2018. 8. History of complex uterine mass and vaginal ultrasound need to be followed up with gynecology as an outpatient. 9. Overweight Assessment/Plan -CT A+P ? Surgery and GI reviewed okay to advance diet -dc IV pain medicines -Advance diet - ? po antibiotics - dc soon - fu cx, negative 5 days -GI proph Protonix Result Diagram: 02/04/19 0449 02/04/19448 Results 24hrs Laboratory Tests Test 02/04/19 04:49 White Blood Count 8.2 # Red Blood Count 3.72 L Hemoglobin 10.8 L Hematocrit 33.6 L Mean Corpuscular Volume 90.3 Mean Corpuscular Hemoglobin 29.0 Mean Corpuscular Hemoglobin Concent 32.1 Red Cell Distribution Width 13.7 Platelet Count 336 Mean Platelet Volume 9.4 Immature Granulocytes % 0.700 H Neutrophils % 68.5 Lymphocytes % 18.7 Monocytes % 7.0 Eosinophils % 4.9 Basophils % 0.2 Nucleated Red Blood Cells % 0.0 Immature Granulocytes # 0.060 H Neutrophils # 5.6 Lymphocytes # 1.5 Monocytes # 0.6 Eosinophils # 0.4 Basophils # 0.0 Nucleated Red Blood Cells # 0.0 Sodium Level 142 Potassium Level 4.4 Chloride Level 107 Carbon Dioxide Level 25 Anion Gap 10 Blood Urea Nitrogen 4 L Creatinine 0.46 Est Glomerular Filtrat Rate mL/min > 60 Glucose Level 82 Calcium Level 9.2 Phosphorus Level 4.3 Magnesium Level 2.1 Subjective 24 Hr Interval Summary Free Text/Dictation She feels better. White count has improved Patient was seen by Dr. Farley CT of the abdomen pelvis as well as reviewed by him and plan was to advance diet Exam/Review of Systems Exam Vitals Vital Signs Date Temp Pulse Resp B/P (MAP) Pulse Ox O2 O2 Flow FiO2 Time Delivery Rate 02/04/19 98.6 60 20 125/72 98 07:51 (89) 02/04/19 Room Air 02:00 Intake and Output 02/03/19 02/03/19 02/04/19 1515:00 23:00 07:00 IntakeIntake Total 340 ml 1500 ml 300 ml OutputOutput Total 15 ml BalanceBalance 340 ml 1485 ml 300 ml Exam xam Constitutional: alert, oriented Respiratory: clear to auscultation Cardiovascular: regular rate and rhythm Gastrointestinal: soft, surgical scars, other (OSMAN with pus) Results Results 24hrs Laboratory Tests Test 02/04/19 04:49 White Blood Count 8.2 # Red Blood Count 3.72 L Hemoglobin 10.8 L Hematocrit 33.6 L Mean Corpuscular Volume 90.3 Mean Corpuscular Hemoglobin 29.0 Mean Corpuscular Hemoglobin Concent 32.1 Red Cell Distribution Width 13.7 Platelet Count 336 Mean Platelet Volume 9.4 Immature Granulocytes % 0.700 H Neutrophils % 68.5 Lymphocytes % 18.7 Monocytes % 7.0 Eosinophils % 4.9 Basophils % 0.2 Nucleated Red Blood Cells % 0.0 Immature Granulocytes # 0.060 H Neutrophils # 5.6 Lymphocytes # 1.5 Monocytes # 0.6 Eosinophils # 0.4 Basophils # 0.0 Nucleated Red Blood Cells # 0.0 Sodium Level 142 Potassium Level 4.4 Chloride Level 107 Carbon Dioxide Level 25 Anion Gap 10 Blood Urea Nitrogen 4 L Creatinine 0.46 Est Glomerular Filtrat Rate mL/min > 60 Glucose Level 82 Calcium Level 9.2 Phosphorus Level 4.3 Magnesium Level 2.1 Medications Medication Current Medications IV Flush (NS 3 ml) 3 ml PER PROTOCOL IV ; Start 01/27/19 at 10:30 Ondansetron HCl (Zofran Inj) 4 mg Q6H PRN IV NAUSEA/VOMITING Last administered on 02/02/19at 01:02; Admin Dose 4 MG; Start 01/27/19 at 10:30 Pantoprazole (Protonix Iv) 40 mg DAILY@06 IV Last administered on 02/04/19 05:32; Admin Dose 40 MG; Start 01/28/19 at 06:00 Piperacillin Sod/ Tazobactam Sod 100 ml @ 200 mls/hr Q8 IVPB Last administered on 02/04/19 05:32; Admin Dose 200 MLS/HR; Start 01/27/19 at 14:00 Metronidazole 100 ml @ 100 mls/hr Q8 IVPB Last administered on 02/04/19 06:30; Admin Dose 100 MLS/HR; Start 01/27/19 at 14:00 Acetaminophen/ Hydrocodone Bitart ([place] (5/325)) 1 tab Q6H PRN PO PAIN LEVEL 6-10 Last administered on 02/03/19 18:37; Admin Dose 1 TAB; Start 01/28/19 at 19:30 Acetaminophen (Tylenol Tab) 650 mg Q6H PRN PO MILD PAIN(1-3)OR ELEVATED TEMP; Start 01/28/19 at 19:30 Diphenhydramine HCl (Benadryl) 25 mg Q6H PRN IV ITCHING; Start 01/28/19 at 19:30 Metoclopramide HCl (Reglan) 10 mg Q6H PRN IV NAUSEA AND/OR VOMITING; Start 01/28/19 at 19:30 Lorazepam (Ativan) 0.5 mg Q8H PRN IV anxiety Last administered on 02/03/19 23:53; Admin Dose 0.5 MG; Start 01/29/19 at 10:00 DANILO KUNZ MD Feb 04, 2019 13:43
[2019-02-04 14:22] VITALS: BP 115/75; PULSE 90; RESP 20
[2019-02-04] MEDS: HYDROCODONE/APAP (5/325) TAB PO PRN ×2 (14:34→21:33)
--- NOTE | 2019-02-04 16:34 | CONS ---
Assessment/Plan Assessment/Plan Hospital Course (Demo Recall) No changes overnight patient is alert feels good denies pain no fevers. Antimicrobials: Zosyn, Flagyl Physical examination: Well-developed well-nourished middle-aged woman who is alert in no distress. Head atraumatic normocephalic sclera nonicteric vehicle mucosa pink neck is supple chest rise symmetrical breath sounds clear heart: S1- S2 abdomen soft, OSMAN with small amount of cloudy grayish drainage, bowel tones present. Extremities without cyanosis Assessment: 1. Acute diverticulitis with abscess, s/p exploratory laparoscopy and drainage of the intra-abdominal abscess 01/28/19 2. SIRS Plan: Remains stable, fluid was sent for culture, will add antifungal coverage, follow surgical recommendations Consultation Date/Type/Reason Admit Date/Time Jan 27, 2019 at 04:42 Initial Consult Date 01/27/19 Type of Consult id Date/Time of Note DATE: 02/04/19 TIME: 16:33 Exam/Review of Systems Exam Vitals Vital Signs Date Temp Pulse Resp B/P (MAP) Pulse Ox O2 O2 Flow FiO2 Time Delivery Rate 02/04/19 98.9 90 20 115/75 97 14:22 (88) 02/04/19 Room Air 02:00 Intake and Output 02/03/19 02/03/19 02/04/19 1515:00 23:00 07:00 IntakeIntake Total 340 ml 1500 ml 300 ml OutputOutput Total 15 ml BalanceBalance 340 ml 1485 ml 300 ml Results Result Diagram: 02/04/19 0449 02/04/19 0449 Results 24hrs Laboratory Tests Test 02/04/19 04:49 White Blood Count 8.2 # Red Blood Count 3.72 L Hemoglobin 10.8 L Hematocrit 33.6 L Mean Corpuscular Volume 90.3 Mean Corpuscular Hemoglobin 29.0 Mean Corpuscular Hemoglobin Concent 32.1 Red Cell Distribution Width 13.7 Platelet Count 336 Mean Platelet Volume 9.4 Immature Granulocytes % 0.700 H Neutrophils % 68.5 Lymphocytes % 18.7 Monocytes % 7.0 Eosinophils % 4.9 Basophils % 0.2 Nucleated Red Blood Cells % 0.0 Immature Granulocytes # 0.060 H Neutrophils # 5.6 Lymphocytes # 1.5 Monocytes # 0.6 Eosinophils # 0.4 Basophils # 0.0 Nucleated Red Blood Cells # 0.0 Sodium Level 142 Potassium Level 4.4 Chloride Level 107 Carbon Dioxide Level 25 Anion Gap 10 Blood Urea Nitrogen 4 L Creatinine 0.46 Est Glomerular Filtrat Rate mL/min > 60 Glucose Level 82 Calcium Level 9.2 Phosphorus Level 4.3 Magnesium Level 2.1 Medications Medication Current Medications IV Flush (NS 3 ml) 3 ml PER PROTOCOL IV ; Start 01/27/19 at 10:30 Ondansetron HCl (Zofran Inj) 4 mg Q6H PRN IV NAUSEA/VOMITING Last administered on 02/02/19at 01:02; Admin Dose 4 MG; Start 01/27/19 at 10:30 Piperacillin Sod/ Tazobactam Sod 100 ml @ 200 mls/hr Q8 IVPB Last administered on 02/04/19 14:13; Admin Dose 200 MLS/HR; Start 01/27/19 at 14:00 Metronidazole 100 ml @ 100 mls/hr Q8 IVPB Last administered on 02/04/19at 15:10; Admin Dose 100 MLS/HR; Start 01/27/19 at 14:00 Acetaminophen/ Hydrocodone Bitart ([place] (5/325)) 1 tab Q6H PRN PO PAIN LEVEL 6-10 Last administered on 02/04/19 14:34; Admin Dose 1 TAB; Start 01/28/19 at 19:30 Acetaminophen (Tylenol Tab) 650 mg Q6H PRN PO MILD PAIN(1-3)OR ELEVATED TEMP; Start 01/28/19 at 19:30 Diphenhydramine HCl (Benadryl) 25 mg Q6H PRN IV ITCHING; Start 01/28/19 at 19:30 Metoclopramide HCl (Reglan) 10 mg Q6H PRN IV NAUSEA AND/OR VOMITING; Start 01/28/19 at 19:30 Lorazepam (Ativan) 0.5 mg Q8H PRN IV anxiety Last administered on 02/03/19 23:53; Admin Dose 0.5 MG; Start 01/29/19 at 10:00 Pantoprazole (Protonix Tab) 40 mg DAILY@06 PO ; Start 02/05/19 at 06:00 DALE ARREOLA NP Feb 04, 2019 16:34
[2019-02-04] MEDS ORDERED: FLUCONAZOLE 100 MG TAB PO SCH (17:00)
[2019-02-04] MEDS: FLUCONAZOLE 100 MG TAB PO SCH (18:28)
[2019-02-04 20:02] VITALS: BP 110/81; PULSE 89; RESP 18
[2019-02-04] MEDS: LORAZEPAM 2 MG INJ IV PRN (22:04)
--- NOTE | 2019-02-05 00:54 | CONS ---
DATE OF ADMISSION: 01/27/2019 DATE OF CONSULTATION: HISTORY OF PRESENT ILLNESS: The patient is a 48-year-old female with a perforated walled off diverti culitis with abscess, who underwent laparoscopic drainage. The patient has been drinking a drain oliva ining purulent material. It has reduced in quantity. Her pain is also reduced and she is tolerating feeding. OBJECTIVE: VITAL SIGNS: Stable. ABDOMEN: Benign. The drainage tube is still intact and there is some purulent material coming out. EXTREMITIES: No edema. CENTRAL NERVOUS SYSTEM: Grossly within normal limits. CAT scan of the abdomen was done which still shows acute diverticulitis. There is some fluid collect ion about 3 to 2 cm, but the abscess is no longer seen. PLAN: Continue antibiotic. Discussed the case with the surgeon. He was also in the room when I was examining the patient and he wanted to advance the diet and he felt they can discontinue drainage af ter 1 week. Dictated By: LEONA VILLATORO/GERTRUDE Conf#: [id number] DID#: [id number] CC: DANILO KUNZ;*EndCC*
[2019-02-05 02:19] VITALS: BP 117/78; PULSE 75; RESP 16
[2019-02-05] MEDS: PANTOPRAZOLE (EC) 40 MG TAB PO SCH (05:59)
[2019-02-05] MEDS: PIPER-TAZO 3.375 GM IV (PMX) 100 ML IVPB SCH ×2 (05:59→14:10)
[2019-02-05] MEDS: HYDROCODONE/APAP (5/325) TAB PO PRN ×2 (06:00→22:12)
[2019-02-05] MEDS: metroNIDAZOLE 500 MG/NS (PMX) 100 ML IVPB SCH ×2 (06:30→14:56)
[2019-02-05] MEDS: METOCLOPRAMIDE 10 MG INJ IV PRN ×2 (06:37→22:12)
[2019-02-05 07:30] VITALS: BP 111/68; PULSE 63; RESP 18
--- NOTE | 2019-02-05 08:33 | CONS ---
Assessment/Plan Assessment/Plan Hospital Course (Demo Recall) 48 yo female Pt is tolerating diet. No c/o nausea. Intermittent abd pain. CHERI drain is put ting out minimal drainage 1. Persistent diverticulitis with walled off abscess. -S/P ex lap drainage on 01/28 with cheri drain placed which continues to have purulent drainage which was sent for culture. -improved 2. Leukocytosis -resolved 3. Mild anemia, normocytic and normochromic -will monitor -neg fob 4. H/O inguinal hernia repair. 5. Rash likely drug induced (meropenum) -improved PLAN: Continue abx Continue diet as tolerated Aspiration precautions, please have pt sit up while eating. Pt examined and plan of care d/w Dr. Hoyt Consultation Date/Type/Reason Admit Date/Time Jan 27, 2019 at 04:42 Initial Consult Date 01/27/19 Date/Time of Note DATE: 02/05/19 TIME: 08:25 Exam/Review of Systems Exam Vitals Vital Signs Date Temp Pulse Resp B/P (MAP) Pulse Ox O2 O2 Flow FiO2 Time Delivery Rate 02/05/19 98.8 63 18 111/68 98 07:30 (82) 02/04/19 Room Air 02:00 Intake and Output 02/04/19 02/04/19 02/05/19 1515:00 23:00 07:00 IntakeIntake Total 1540 ml 920 ml 200 ml OutputOutput Total 5 ml 2 ml BalanceBalance 1535 ml 920 ml 198 ml Constitutional: alert, oriented Head: normocephalic Eyes: PERRL Respiratory: diminished breath sounds Cardiovascular: regular rate and rhythm Gastrointestinal: soft, tender Neurological: nl mental status Results Result Diagram: 02/05/19 0447 02/04/19 0449 Results 24hrs Laboratory Tests Test 02/05/19 04:47 White Blood Count 10.8 # Red Blood Count 3.82 L Hemoglobin 11.3 L Hematocrit 34.4 L Mean Corpuscular Volume 90.1 Mean Corpuscular Hemoglobin 29.6 Mean Corpuscular Hemoglobin Concent 32.8 Red Cell Distribution Width 13.6 Platelet Count 358 Mean Platelet Volume 9.4 Immature Granulocytes % 0.700 H Neutrophils % 75.8 Lymphocytes % 15.3 Monocytes % 6.0 Eosinophils % 2.0 Basophils % 0.2 Nucleated Red Blood Cells % 0.0 Immature Granulocytes # 0.070 H Neutrophils # 8.2 H Lymphocytes # 1.6 Monocytes # 0.6 Eosinophils # 0.2 Basophils # 0.0 Nucleated Red Blood Cells # 0.0 Medications Medication Current Medications IV Flush (NS 3 ml) 3 ml PER PROTOCOL IV ; Start 01/27/19 at 10:30 Ondansetron HCl (Zofran Inj) 4 mg Q6H PRN IV NAUSEA/VOMITING Last administered on 02/02/19 01:02; Admin Dose 4 MG; Start 01/27/19 at 10:30 Piperacillin Sod/ Tazobactam Sod 100 ml @ 200 mls/hr Q8 IVPB Last administered on 02/05/19 05:59; Admin Dose 200 MLS/HR; Start 01/27/19 at 14:00 Metronidazole 100 ml @ 100 mls/hr Q8 IVPB Last administered on 02/05/19 06:30; Admin Dose 100 MLS/HR; Start 01/27/19 at 14:00 Acetaminophen/ Hydrocodone Bitart ([place] (5/325)) 1 tab Q6H PRN PO PAIN LEVEL 6-10 Last administered on 02/05/19 06:00; Admin Dose 1 TAB; Start 01/28/19 at 19:30 Acetaminophen (Tylenol Tab) 650 mg Q6H PRN PO MILD PAIN(1-3)OR ELEVATED TEMP; Start 01/28/19 at 19:30 Diphenhydramine HCl (Benadryl) 25 mg Q6H PRN IV ITCHING; Start 01/28/19 at 19:30 Metoclopramide HCl (Reglan) 10 mg Q6H PRN IV NAUSEA AND/OR VOMITING Last administered on 02/05/19 06:37; Admin Dose 10 MG; Start 01/28/19 at 19:30 Lorazepam (Ativan) 0.5 mg Q8H PRN IV anxiety Last administered on 02/04/19 22:04; Admin Dose 0.5 MG; Start 01/29/19 at 10:00 Pantoprazole (Protonix Tab) 40 mg DAILY@06 PO Last administered on 02/05/19 05:59; Admin Dose 40 MG; Start 02/05/19 at 06:00 Fluconazole (Diflucan) 100 mg DAILY PO Last administered on 7/9/19at 18:28; Admin Dose 100 MG; Start 02/04/19 at 17:30 DANIEL CROWLEY Feb 05, 2019 08:33
[2019-02-05] MEDS: FLUCONAZOLE 100 MG TAB PO SCH (09:51)
[2019-02-05] MEDS: ONDANSETRON 4 MG INJ IV PRN (14:16)
--- NOTE | 2019-02-05 14:21 | CONS ---
Assessment/Plan Assessment/Plan Hospital Course (Demo Recall) Patient is sleeping looks comfortable no fevers overnight, WBC 10.8 no shift BUN 4 creatinine 0.46 Antimicrobials: Zosyn, Flagyl Diflucan Physical examination: Well-developed well-nourished middle-aged woman who is in no distress. Head atraumatic normocephalic sclera nonicteric vehicle mucosa pink neck is supple chest rise symmetrical breath sounds clear heart: S1-S2 abdomen soft, OSMAN with small amount of cloudy grayish drainage, bowel tones present. Extremities without cyanosis Assessment: 1. Acute diverticulitis with abscess, s/p exploratory laparoscopy and drainage of the intra-abdominal abscess 01/28/19 2. SIRS Plan: Remains stable, fluid culture negative preliminary, DC Zosyn and start ciprofloxacin Consultation Date/Type/Reason Admit Date/Time Jan 27, 2019 at 04:42 Initial Consult Date 01/27/19 Type of Consult id Date/Time of Note DATE: 02/05/19 TIME: 14:20 Exam/Review of Systems Exam Vitals Vital Signs Date Temp Pulse Resp B/P (MAP) Pulse Ox O2 O2 Flow FiO2 Time Delivery Rate 02/05/19 98.8 63 18 111/68 98 07:30 (82) 02/04/19 Room Air 02:00 Intake and Output 02/04/19 02/04/19 02/05/19 1515:00 23:00 07:00 IntakeIntake Total 1540 ml 920 ml 200 ml OutputOutput Total 5 ml 2 ml BalanceBalance 1535 ml 920 ml 198 ml Results Result Diagram: 02/05/19 0447 02/04/19 0449 Results 24hrs Laboratory Tests Test 02/05/19 04:47 White Blood Count 10.8 # Red Blood Count 3.82 L Hemoglobin 11.3 L Hematocrit 34.4 L Mean Corpuscular Volume 90.1 Mean Corpuscular Hemoglobin 29.6 Mean Corpuscular Hemoglobin Concent 32.8 Red Cell Distribution Width 13.6 Platelet Count 358 Mean Platelet Volume 9.4 Immature Granulocytes % 0.700 H Neutrophils % 75.8 Lymphocytes % 15.3 Monocytes % 6.0 Eosinophils % 2.0 Basophils % 0.2 Nucleated Red Blood Cells % 0.0 Immature Granulocytes # 0.070 H Neutrophils # 8.2 H Lymphocytes # 1.6 Monocytes # 0.6 Eosinophils # 0.2 Basophils # 0.0 Nucleated Red Blood Cells # 0.0 Medications Medication Current Medications IV Flush (NS 3 ml) 3 ml PER PROTOCOL IV ; Start 01/27/19 at 10:30 Ondansetron HCl (Zofran Inj) 4 mg Q6H PRN IV NAUSEA/VOMITING Last administered on 02/05/19 14:16; Admin Dose 4 MG; Start 01/27/19 at 10:30 Piperacillin Sod/ Tazobactam Sod 100 ml @ 200 mls/hr Q8 IVPB Last administered on 02/05/19 14:10; Admin Dose 200 MLS/HR; Start 01/27/19 at 14:00 Metronidazole 100 ml @ 100 mls/hr Q8 IVPB Last administered on 02/05/19 06:30 ; Admin Dose 100 MLS/HR; Start 01/27/19 at 14:00 Acetaminophen/ Hydrocodone Bitart ([place] (5/325)) 1 tab Q6H PRN PO PAIN LEVEL 6-10 Last administered on 02/05/19 06:00; Admin Dose 1 TAB; Start 01/28/19 at 19:30 Acetaminophen (Tylenol Tab) 650 mg Q6H PRN PO MILD PAIN(1-3)OR ELEVATED TEMP; Start 01/28/19 at 19:30 Diphenhydramine HCl (Benadryl) 25 mg Q6H PRN IV ITCHING; Start 01/28/19 at 19:30 Metoclopramide HCl (Reglan) 10 mg Q6H PRN IV NAUSEA AND/OR VOMITING Last administered on 02/05/19 06:37; Admin Dose 10 MG; Start 01/28/19 at 19:30 Lorazepam (Ativan) 0.5 mg Q8H PRN IV anxiety Last administered on 02/04/19 22:04; Admin Dose 0.5 MG; Start 01/29/19 at 10:00 Pantoprazole (Protonix Tab) 40 mg DAILY@06 PO Last administered on 02/05/19 05:59; Admin Dose 40 MG; Start 02/05/19 at 06:00 Fluconazole (Diflucan) 100 mg DAILY PO Last administered on 02/05/19 09:51; Admin Dose 100 MG; Start 02/04/19 at 17:30 DALE ARREOLA LAND SURVEYOR MANAGER Feb 05, 2019 14:21
[2019-02-05 14:37] VITALS: BP 99/66; PULSE 86; RESP 18
--- NOTE | 2019-02-05 15:08 | PN ---
Date/Time of Note Date/Time of Note DATE: 02/05/19 TIME: 15:05 Assessment/Plan VTE Prophylaxis Risk score (from Ns)>0 risk: 2 SCD applied (from Ns): Yes Pharmacological prophylaxis: NA/contraindicated Pharm contraindication: low risk/ambulating Lines/Catheters IV [facility] Type (from [facility]): Peripheral IV Urinary Cath still in place: No Assessment/Plan Assessment/Plan Assessment/Plan 1. Recurrent diverticulitis with pericolonic abscess. S/P Exploratory laparoscopy and drainage of the intra-abdominal abscess on01/28/19 2. Systemic inflammatory response syndrome with leukocytosis secondary to #1. slight up leukocutsis 3. Drug rash, questionable meropenem which has been resolved. 4. History of diverticulosis. 5. Normocytic normochromic anemia. 6. History of inguinal hernia repair. 7. History of uterine fibroid removal in 2018. 8. History of complex uterine mass and vaginal ultrasound need to be followed up with gynecology as an outpatient. 9. Overweight Assessment/Plan - nausea today - monitor today - zofran/reglan for nausea - fu fluid cx - norco for pain - GI/DVT prphylaxsis case management > home health Result Diagram: 02/05/19 0447 02/04/19 0449 Results 24hrs Laboratory Tests Test 02/05/19 04:47 White Blood Count 10.8 # Red Blood Count 3.82 L Hemoglobin 11.3 L Hematocrit 34.4 L Mean Corpuscular Volume 90.1 Mean Corpuscular Hemoglobin 29.6 Mean Corpuscular Hemoglobin Concent 32.8 Red Cell Distribution Width 13.6 Platelet Count 358 Mean Platelet Volume 9.4 Immature Granulocytes % 0.700 H Neutrophils % 75.8 Lymphocytes % 15.3 Monocytes % 6.0 Eosinophils % 2.0 Basophils % 0.2 Nucleated Red Blood Cells % 0.0 Immature Granulocytes # 0.070 H Neutrophils # 8.2 H Lymphocytes # 1.6 Monocytes # 0.6 Eosinophils # 0.2 Basophils # 0.0 Nucleated Red Blood Cells # 0.0 Subjective 24 Hr Interval Summary Free Text/Dictation Feels nauseas whole day Exam/Review of Systems Exam Vitals Vital Signs Date Temp Pulse Resp B/P (MAP) Pulse Ox O2 O2 Flow FiO2 Time Delivery Rate 02/05/19 98.3 86 18 99/66 (77) 96 14:37 02/04/19 Room Air 02:00 Intake and Output 02/04/19 02/04/19 02/05/19 1515:00 23:00 07:00 IntakeIntake Total 1540 ml 920 ml 200 ml OutputOutput Total 5 ml 2 ml BalanceBalance 1535 ml 920 ml 198 ml Exam onstitutional: alert, oriented Respiratory: clear to auscultation Cardiovascular: regular rate and rhythm Gastrointestinal: soft, surgical scars, other (OSMAN with white material Results Results 24hrs Laboratory Tests Test 02/05/19 04:47 White Blood Count 10.8 # Red Blood Count 3.82 L Hemoglobin 11.3 L Hematocrit 34.4 L Mean Corpuscular Volume 90.1 Mean Corpuscular Hemoglobin 29.6 Mean Corpuscular Hemoglobin Concent 32.8 Red Cell Distribution Width 13.6 Platelet Count 358 Mean Platelet Volume 9.4 Immature Granulocytes % 0.700 H Neutrophils % 75.8 Lymphocytes % 15.3 Monocytes % 6.0 Eosinophils % 2.0 Basophils % 0.2 Nucleated Red Blood Cells % 0.0 Immature Granulocytes # 0.070 H Neutrophils # 8.2 H Lymphocytes # 1.6 Monocytes # 0.6 Eosinophils # 0.2 Basophils # 0.0 Nucleated Red Blood Cells # 0.0 Medications Medication Current Medications IV Flush (NS 3 ml) 3 ml PER PROTOCOL IV ; Start 01/27/19 at 10:30 Ondansetron HCl (Zofran Inj) 4 mg Q6H PRN IV NAUSEA/VOMITING Last administered on 02/05/19at 14:16; Admin Dose 4 MG; Start 01/27/19 at 10:30 Acetaminophen/ Hydrocodone Bitart ([place] (5/325)) 1 tab Q6H PRN PO PAIN LEVEL 6-10 Last administered on 02/05/19at 06:00; Admin Dose 1 TAB; Start 01/28/19 at 19:30 Acetaminophen (Tylenol Tab) 650 mg Q6H PRN PO MILD PAIN(1-3)OR ELEVATED TEMP; Start 01/28/19 at 19:30 Diphenhydramine HCl (Benadryl) 25 mg Q6H PRN IV ITCHING; Start 01/28/19 at 19:30 Metoclopramide HCl (Reglan) 10 mg Q6H PRN IV NAUSEA AND/OR VOMITING Last administered on 02/05/19at 06:37; Admin Dose 10 MG; Start 01/28/19 at 19:30 Lorazepam (Ativan) 0.5 mg Q8H PRN IV anxiety Last administered on 02/04/19at 22:04; Admin Dose 0.5 MG; Start 01/29/19 at 10:00 Pantoprazole (Protonix Tab) 40 mg DAILY@06 PO Last administered on 02/05/19at 05:59; Admin Dose 40 MG; Start 02/05/19 at 06:00 Fluconazole (Diflucan) 100 mg DAILY PO Last administered on 02/05/19at 09:51; Admin Dose 100 MG; Start 02/04/19 at 17:30 Ciprofloxacin (Cipro) 500 mg BID@06,18 PO ; Start 02/05/19 at 16:00 Metronidazole (Flagyl) 500 mg Q8 PO ; Start 02/05/19 at 22:00; Status UNDANILO RAMON MD Feb 05, 2019 15:08
[2019-02-05] MEDS: CIPROFLOXACIN 500 MG TAB PO SCH (16:50)
[2019-02-05] MEDS: LORAZEPAM 2 MG INJ IV PRN (16:59)
--- NOTE | 2019-02-05 17:09 | PN ---
Date/Time of Note Date/Time of Note DATE: 02/05/19 TIME: 17:08 Assessment/Plan Lines/Catheters IV Catheter Type (from Nrsg): Peripheral IV Alberto in Place (from Nrsg): No Subjective 24 Hr Interval Summary Continues to drain significant amount of purulent discharge from the OSMAN tube. Although it feels overall good and tolerates diet and having bowel movements the amount of pus coming out of the OSMAN drain is worrisome. Will obtain Gastrografin enema tomorrow to rule out communication between the colon and the drain. Exam/Review of Systems Vital Signs Vitals Vital Signs Date Temp Pulse Resp B/P (MAP) Pulse Ox O2 O2 Flow FiO2 Time Delivery Rate 02/05/19 98.3 86 18 99/66 (77) 96 14:37 02/04/19 Room Air 02:00 Intake and Output 02/04/19 02/04/19 02/05/19 1515:00 23:00 07:00 IntakeIntake Total 1540 ml 920 ml 300 ml OutputOutput Total 5 ml 2 ml BalanceBalance 1535 ml 920 ml 298 ml Results Result Diagram: 02/05/19 0447 02/04/19 0449 DONNY MEAD MD Feb 05, 2019 17:09
[2019-02-05 20:11] VITALS: BP 106/72; PULSE 82; RESP 16
[2019-02-05] MEDS: metroNIDAZOLE 500 MG TAB PO SCH (22:12)
[2019-02-06 02:34] VITALS: BP 106/74; PULSE 66; RESP 16
[2019-02-06] MEDS: CIPROFLOXACIN 500 MG TAB PO SCH ×2 (06:29→17:49)
[2019-02-06] MEDS: metroNIDAZOLE 500 MG TAB PO SCH ×3 (06:29→23:00)
[2019-02-06] MEDS: PANTOPRAZOLE (EC) 40 MG TAB PO SCH (06:29)
[2019-02-06 07:59] VITALS: BP 109/63; PULSE 74; RESP 16
--- NOTE | 2019-02-06 08:29 | CONS ---
Assessment/Plan Assessment/Plan Hospital Course (Demo Recall) 48 yo female NPO for imaging today. No c/o nausea. Intermittent abd pain. CHERI drain is put ting out minimal drainage. WBC wnl. 1. Persistent diverticulitis with walled off abscess. -S/P ex lap drainage on 01/28 with cheri drain placed which continues to have purulent drainage which was sent for culture. CX negative -improved 2. Leukocytosis -resolved 3. Mild anemia, normocytic and normochromic -will monitor -neg fob 4. H/O inguinal hernia repair. 5. Rash likely drug induced (meropenum) -improved PLAN: Imaging to r/o sigmoid fistula today Continue abx Continue diet as tolerated Aspiration precautions, please have pt sit up while eating. Pt examined and plan of care d/w Dr. Hoyt Consultation Date/Type/Reason Admit Date/Time Jan 27, 2019 at 04:42 Initial Consult Date 01/27/19 Date/Time of Note DATE: 02/06/19 TIME: 08:26 Exam/Review of Systems Exam Vitals Vital Signs Date Temp Pulse Resp B/P (MAP) Pulse Ox O2 O2 Flow FiO2 Time Delivery Rate 02/06/19 98.1 74 16 109/63 95 Room Air 07:59 (78) Intake and Output 02/05/19 02/05/19 02/06/19 1515:00 23:00 07:00 IntakeIntake Total 720 ml 680 ml OutputOutput Total 20 ml 5 ml BalanceBalance 720 ml 660 ml -5 ml Results Result Diagram: 02/05/19 0447 02/04/19 0449 Medications Medication Current Medications IV Flush (NS 3 ml) 3 ml PER PROTOCOL IV ; Start 01/27/19 at 10:30 Ondansetron HCl (Zofran Inj) 4 mg Q6H PRN IV NAUSEA/VOMITING Last administered on 02/05/19at 14:16; Admin Dose 4 MG; Start 01/27/19 at 10:30 Acetaminophen/ Hydrocodone Bitart ([place] (5/325)) 1 tab Q6H PRN PO PAIN LEVEL 6-10 Last administered on 02/05/19at 22:12; Admin Dose 1 TAB; Start 01/28/19 at 19:30 Acetaminophen (Tylenol Tab) 650 mg Q6H PRN PO MILD PAIN(1-3)OR ELEVATED TEMP; Start 01/28/19 at 19:30 Diphenhydramine HCl (Benadryl) 25 mg Q6H PRN IV ITCHING; Start 01/28/19 at 19:30 Metoclopramide HCl (Reglan) 10 mg Q6H PRN IV NAUSEA AND/OR VOMITING Last administered on 02/05/19at 22:12; Admin Dose 10 MG; Start 01/28/19 at 19:30 Lorazepam (Ativan) 0.5 mg Q8H PRN IV anxiety Last administered on 02/05/19at 1 6:59; Admin Dose 0.5 MG; Start 01/29/19 at 10:00 Pantoprazole (Protonix Tab) 40 mg DAILY@06 PO Last administered on 02/06/19 06:29; Admin Dose 40 MG; Start 02/05/19 at 06:00 Fluconazole (Diflucan) 100 mg DAILY PO Last administered on 02/05/19at 09:51; Admin Dose 100 MG; Start 02/04/19 at 17:30 Ciprofloxacin (Cipro) 500 mg BID@06,18 PO Last administered on 02/06/19 06:29; Admin Dose 500 MG; Start 02/05/19 at 16:00 Metronidazole (Flagyl) 500 mg Q8 PO Last administered on 02/06/19 06:29; Admin Dose 500 MG; Start 02/05/19 at 22:00 DANIEL CROWLEY Feb 06, 2019 08:29
[2019-02-06] MEDS: FLUCONAZOLE 100 MG TAB PO SCH (09:09)
[2019-02-06] MEDS ORDERED: IOHEXOL 300MG/ML 150 ML BTL ONE (09:45)
--- NOTE | 2019-02-06 14:03 | CONS ---
Assessment/Plan Assessment/Plan Hospital Course (Demo Recall) Patient is alert feels better looks comfortable she had a CT of the abdomen with oral and IV contrast this morning results pending OSMAN fluid culture growing yeast. Antimicrobials: Flagyl Cipro and fluconazole Physical examination: Well-developed well-nourished middle-aged woman who is in no distress. Head atraumatic normocephalic sclera nonicteric vehicle mucosa pink neck is supple chest rise symmetrical breath sounds clear heart: S1-S2 abdomen soft, OSMAN with small amount of cloudy grayish drainage, bowel tones present. Extremities without cyanosis Assessment: 1. Acute diverticulitis with abscess, s/p exploratory laparoscopy and drainage of the intra-abdominal abscess 01/28/19 2. SIRS Plan: Remains stable, continue present care and antibiotics, await for radiographic reading, follow surgical recommendations Consultation Date/Type/Reason Admit Date/Time Jan 27, 2019 at 04:42 Initial Consult Date 01/27/19 Type of Consult id Date/Time of Note DATE: 02/06/19 TIME: 14:02 Exam/Review of Systems Exam Vitals Vital Signs Date Temp Pulse Resp B/P (MAP) Pulse Ox O2 O2 Flow FiO2 Time Delivery Rate 02/06/19 98.1 74 16 109/63 95 Room Air 07:59 (78) Intake and Output 02/05/19 02/05/19 02/06/19 1515:00 23:00 07:00 IntakeIntake Total 720 ml 680 ml OutputOutput Total 20 ml 5 ml BalanceBalance 720 ml 660 ml -5 ml Results Result Diagram: 02/05/19 0447 02/04/19 0449 Medications Medication Current Medications IV Flush (NS 3 ml) 3 ml PER PROTOCOL IV ; Start 01/27/19 at 10:30 Ondansetron HCl (Zofran Inj) 4 mg Q6H PRN IV NAUSEA/VOMITING Last administered on 02/05/19at 14:16; Admin Dose 4 MG; Start 01/27/19 at 10:30 Acetaminophen/ Hydrocodone Bitart ([place] (5/325)) 1 tab Q6H PRN PO PAIN LEVEL 6-10 Last administered on 02/05/19at 22:12; Admin Dose 1 TAB; Start 01/28/19 at 19:30 Acetaminophen (Tylenol Tab) 650 mg Q6H PRN PO MILD PAIN(1-3)OR ELEVATED TEMP; Start 01/28/19 at 19:30 Diphenhydramine HCl (Benadryl) 25 mg Q6H PRN IV ITCHING; Start 01/28/19 at 19:30 Metoclopramide HCl (Reglan) 10 mg Q6H PRN IV NAUSEA AND/OR VOMITING Last administered on 02/05/19 22:12; Admin Dose 10 MG; Start 01/28/19 at 19:30 Lorazepam (Ativan) 0.5 mg Q8H PRN IV anxiety Last administered on 02/05/19 16:59; Admin Dose 0.5 MG; Start 01/29/19 at 10:00 Pantoprazole (Protonix Tab) 40 mg DAILY@06 PO Last administered on 02/06/19 06:29; Admin Dose 40 MG; Start 02/05/19 at 06:00 Fluconazole (Diflucan) 100 mg DAILY PO Last administered on 02/06/19 09:09; Admin Dose 100 MG; Start 02/04/19 at 17:30 Ciprofloxacin (Cipro) 500 mg BID@06,18 PO Last administered on 02/06/19 06:29; Admin Dose 500 MG; Start 02/05/19 at 16:00 Metronidazole (Flagyl) 500 mg Q8 PO Last administered on 02/06/19 06:29; Admin Dose 500 MG; Start 02/05/19 at 22:00 DALE ARREOLA NP Feb 06, 2019 14:03
[2019-02-06 14:45] VITALS: BP 116/74; PULSE 110; RESP 17
--- NOTE | 2019-02-06 16:27 | PN ---
Date/Time of Note Date/Time of Note DATE: 02/06/19 TIME: 16:26 Assessment/Plan VTE Prophylaxis Risk score (from [facility]0 risk: 2 SCD applied (from [facility]): Yes Pharmacological prophylaxis: NA/contraindicated Pharm contraindication: low risk/ambulating Lines/Catheters IV C[facility]ter Type [facility]from [facility] Saline Lock Urinary Cath still in place: No Assessment/Plan Assessment/Plan 1. Recurrent diverticulitis with pericolonic abscess. S/P Exploratory laparoscopy and drainage of the intra-abdominal abscess on01/28/19 +cx yeast 2. Systemic inflammatory response syndrome with leukocytosis secondary to #1. slight up leukocutsis 3. Drug rash, questionable meropenem which has been resolved. 4. History of diverticulosis. 5. Normocytic normochromic anemia. 6. History of inguinal hernia repair. 7. History of uterine fibroid removal in 2018. 8. History of complex uterine mass and vaginal ultrasound need to be followed up with gynecology as an outpatient. 9. Overweight Assessment/Plan - Ba enema neg for situla -+cx yeast> wait for final specaition> ID recs - cw diflucan/cipro/flagyl - monitor today - zofran/reglan for nausea - norco for pain - GI/DVT prphylaxsis Result Diagram: 02/05/1944602/04/19448 Subjective 24 Hr Interval Summary Free Text/Dictation pt feels better today cx+yeast Exam/Review of Systems Exam Vitals Vital Signs Date Temp Pulse Resp B/P (MAP) Pulse Ox O2 O2 Flow FiO2 Time Delivery Rate 02/06/19 98.7 110 17 116/74 99 Room Air 14:45 (88) Intake and Output 02/05/19 02/05/19 02/06/19 1515:00 23:00 07:00 IntakeIntake Total 720 ml 680 ml OutputOutput Total 20 ml 5 ml BalanceBalance 720 ml 660 ml -5 ml Exam onstitutional: alert, oriented Respiratory: clear to auscultation Cardiovascular: regular rate and rhythm Gastrointestinal: soft, surgical scars, other (OSMAN with white material Medications Medication Current Medications IV Flush (NS 3 ml) 3 ml PER PROTOCOL IV ; Start 01/27/19 at 10:30 Ondansetron HCl (Zofran Inj) 4 mg Q6H PRN IV NAUSEA/VOMITING Last administered on 02/05/19 14:16; Admin Dose 4 MG; Start 01/27/19 at 10:30 Acetaminophen/ Hydrocodone Bitart ([place] (5/325)) 1 tab Q6H PRN PO PAIN LEVEL 6-10 Last administered on 02/05/19 22:12; Admin Dose 1 TAB; Start 01/28/19 at 19:30 Acetaminophen (Tylenol Tab) 650 mg Q6H PRN PO MILD PAIN(1-3)OR ELEVATED TEMP; Start 01/28/19 at 19:30 Diphenhydramine HCl (Benadryl) 25 mg Q6H PRN IV ITCHING; Start 01/28/19 at 19:30 Metoclopramide HCl (Reglan) 10 mg Q6H PRN IV NAUSEA AND/OR VOMITING Last administered on 02/05/19 22:12; Admin Dose 10 MG; Start 01/28/19 at 19:30 Lorazepam (Ativan) 0.5 mg Q8H PRN IV anxiety Last administered on 02/05/19 16:59; Admin Dose 0.5 MG; Start 01/29/19 at 10:00 Pantoprazole (Protonix Tab) 40 mg DAILY@06 PO Last administered on 02/06/19 06:29; Admin Dose 40 MG; Start 02/05/19 at 06:00 Fluconazole (Diflucan) 100 mg DAILY PO Last administered on 02/06/19 09:09; Admin Dose 100 MG; Start 02/04/19 at 17:30 Ciprofloxacin (Cipro) 500 mg BID@06,18 PO Last administered on 02/06/19 06:29; Admin Dose 500 MG; Start 02/05/19 at 16:00 Metronidazole (Flagyl) 500 mg Q8 PO Last administered on 02/06/19 14:05; Admin Dose 500 MG; Start 02/05/19 at 22:00 DANILO KUNZ MD Feb 06, 2019 16:27
[2019-02-06 19:55] VITALS: BP 101/69; PULSE 95; RESP 16
[2019-02-06] MEDS: LORAZEPAM 2 MG INJ IV PRN (23:46)
[2019-02-07 01:39] VITALS: BP 110/70; PULSE 85; RESP 16
[2019-02-07] MEDS: PANTOPRAZOLE (EC) 40 MG TAB PO SCH (06:43)
[2019-02-07] MEDS: CIPROFLOXACIN 500 MG TAB PO SCH ×2 (06:43→17:42)
[2019-02-07] MEDS: metroNIDAZOLE 500 MG TAB PO SCH ×2 (06:43→13:14)
[2019-02-07 08:00] VITALS: BP 93/67; PULSE 53; RESP 17
[2019-02-07] MEDS: FLUCONAZOLE 100 MG TAB PO SCH (09:24)
[2019-02-07] MEDS: LORAZEPAM 2 MG INJ IV PRN (09:44)
--- NOTE | 2019-02-07 12:55 | PN ---
Date/Time of Note Date/Time of Note DATE: 02/07/19 TIME: 12:51 Assessment/Plan VTE Prophylaxis Risk score (from [facility])>0 risk: 2 SCD applied (from [facility]): Yes SCD contraindicated: low risk/ambulating Pharmacological prophylaxis: NA/contraindicated Pharm contraindication: low risk/ambulating Lines/Catheters [facility]from [facility] Saline Lock Urinary Cath still in place: No Assessment/Plan Hospital Course 1. Recurrent diverticulitis with pericolonic abscess. 2. Systemic inflammatory response syndrome with leukocytosis secondary to #1. 3. Drug rash, questionable meropenem which has been resolved. 4. History of diverticulosis. 5. Normocytic normochromic anemia. 6. History of inguinal hernia repair. 7. History of uterine fibroid removal in 2018. 8. History of complex uterine mass and vaginal ultrasound need to be followed u p with gynecology as an outpatient. 9. Overweight Assessment/Plan - Barrium enema neg for fistula -+cx yeast> wait for final specaition> ID recs - cw Diflucan/cipro/flagyl - monitor today - zofran/reglan for nausea - norco for pain - GI/DVT prophylaxis Result Diagram: 02/07/19 0528 02/04/19 0449 Results 24hrs Laboratory Tests Test 02/07/19 05:28 White Blood Count 11.9 H Red Blood Count 4.21 Hemoglobin 12.3 Hematocrit 38.2 Mean Corpuscular Volume 90.7 Mean Corpuscular Hemoglobin 29.2 Mean Corpuscular Hemoglobin Concent 32.2 Red Cell Distribution Width 13.8 Platelet Count 404 Mean Platelet Volume 9.5 Immature Granulocytes % 0.700 H Neutrophils % 75.7 Lymphocytes % 15.3 Monocytes % 6.3 Eosinophils % 1.7 Basophils % 0.3 Nucleated Red Blood Cells % 0.0 Immature Granulocytes # 0.080 H Neutrophils # 9.0 H Lymphocytes # 1.8 Monocytes # 0.8 Eosinophils # 0.2 Basophils # 0.0 Nucleated Red Blood Cells # 0.0 Subjective 24 Hr Interval Summary Gastrointestinal: pain Exam/Review of Systems Exam Vitals Vital Signs Date Temp Pulse Resp B/P (MAP) Pulse Ox O2 O2 Flow FiO2 Time Delivery Rate 02/07/19 98.8 53 17 93/67 (76) 99 08:00 02/06/19 Room Air 14:45 Intake and Output 02/06/19 02/06/19 02/07/19 1515:00 23:00 07:00 IntakeIntake Total 360 ml 240 ml 2 ml OutputOutput Total 5 ml 3 ml BalanceBalance 360 ml 235 ml -1 ml Constitutional: alert, oriented Respiratory: clear to auscultation Cardiovascular: regular rate and rhythm Gastrointestinal: soft Results Results 24hrs Laboratory Tests Test 02/07/19 05:28 White Blood Count 11.9 H Red Blood Count 4.21 Hemoglobin 12.3 Hematocrit 38.2 Mean Corpuscular Volume 90.7 Mean Corpuscular Hemoglobin 29.2 Mean Corpuscular Hemoglobin Concent 32.2 Red Cell Distribution Width 13.8 Platelet Count 404 Mean Platelet Volume 9.5 Immature Granulocytes % 0.700 H Neutrophils % 75.7 Lymphocytes % 15.3 Monocytes % 6.3 Eosinophils % 1.7 Basophils % 0.3 Nucleated Red Blood Cells % 0.0 Immature Granulocytes # 0.080 H Neutrophils # 9.0 H Lymphocytes # 1.8 Monocytes # 0.8 Eosinophils # 0.2 Basophils # 0.0 Nucleated Red Blood Cells # 0.0 Medications Medication Current Medications IV Flush (NS 3 ml) 3 ml PER PROTOCOL IV ; Start 01/27/19 at 10:30 Ondansetron HCl (Zofran Inj) 4 mg Q6H PRN IV NAUSEA/VOMITING Last administered on 02/05/19at 14:16; Admin Dose 4 MG; Start 01/27/19 at 10:30 Acetaminophen/ Hydrocodone Bitart ([place] (5/325)) 1 tab Q6H PRN PO PAIN LEVEL 6-10 Last administered on 02/05/19at 22:12; Admin Dose 1 TAB; Start 01/28/19 at 19:30 Acetaminophen (Tylenol Tab) 650 mg Q6H PRN PO MILD PAIN(1-3)OR ELEVATED TEMP; Start 01/28/19 at 19:30 Diphenhydramine HCl (Benadryl) 25 mg Q6H PRN IV ITCHING; Start 01/28/19 at 19:30 Metoclopramide HCl (Reglan) 10 mg Q6H PRN IV NAUSEA AND/OR VOMITING Last administered on 02/05/19at 22:12; Admin Dose 10 MG; Start 01/28/19 at 19:30 Lorazepam (Ativan) 0.5 mg Q8H PRN IV anxiety Last administered on 02/07/19 09:44; Admin Dose 0.5 MG; Start 01/29/19 at 10:00 Pantoprazole (Protonix Tab) 40 mg DAILY@06 PO Last administered on 02/07/19 06:43; Admin Dose 40 MG; Start 02/05/19 at 06:00 Fluconazole (Diflucan) 100 mg DAILY PO Last administered on 02/07/19 09:24; Admin Dose 100 MG; Start 02/04/19 at 17:30 Ciprofloxacin (Cipro) 500 mg BID@06,18 PO Last administered on 02/07/19 06:43; Admin Dose 500 MG; Start 02/05/19 at 16:00 Metronidazole (Flagyl) 500 mg Q8 PO Last administered on 02/07/19 06:43; Admin Dose 500 MG; Start 02/05/19 at 22:00 LAURA FANG Feb 07, 2019 12:55
[2019-02-07] MEDS ORDERED: NICO-546 TRANSDERM (13:19)
[2019-02-07] MEDS ORDERED: METR500T PO (13:19)
[2019-02-07] MEDS ORDERED: FLUC100T PO (13:19)
[2019-02-07] MEDS ORDERED: CIPR500S2 PO (13:19)
--- NOTE | 2019-02-07 14:21 | DS ---
LAURA FANG 02/07/19 1421: Date/Time of Note Date/Time of Note DATE: 02/07/19 TIME: 14:20 Discharge Summary Admission/Discharge Info Admit Date/Time Jan 27, 2019 at 04:42 Discharge Date/Time Discharge Diagnosis intra-abdominal abscess, s/p drainage Patient Condition: Stable Consults Dr Camarillo, ID, Dr Lucia surgery, Dr Hoyt, GI Procedures Exploratory laparoscopy with drainage of the intra-abdominal abscess Hospital Course This is a 48-year-old female with a past medical history of fibroids, history of inguinal hernia repair, history of complex uterine cervical mass, who was recently admitted in [facility] from 01/04/2019 to 01/15/2019. At that time, the patient was treated for diverticulitis. The patient was seen by Dr. Farley for a surgical consultation. The patient had a sore secondary to diverticulitis with abscess. The patient was treated conservatively. The patient's abdominal pain was improved. White count had improved from 12.5 to 5 and the patient was discharged home with Levaquin and Flagyl for 10 days. Acco rding to the patient when she left before, she was also developing rash which was thought probably secondary to meropenem per ID. The patient said that when she went home on 01/18/2019 she had hives all over. She had skin peeling on her hand and she went to [facility]. Her antibiotics were discontinued and she was started on amoxicillin. The patient had been taking the medication; however last night she started having chills, started having lower abdominal pain and came to the emergency department for further evaluation. On admission, the patient had fever of 100.6. Her initial pulse was 139. White count was 22. BMP within normal limit. Had a CT of the abdomen and pelvis that showed overall not significantly acute diverticulitis, approximately 3.5 cm rounded complex fluid collection, small foci of air proximal to mid colon consistent with pericolonic abscess which is significantly changed. The patient was treated for Zosyn and Rocephin and was admitted for further management. PAST MEDICAL HISTORY: 1. History of diverticulitis x2. 2. Inguinal hernia repair in 2013. 3. Fibroid removal in 2012. Ds: 1. Recurrent diverticulitis with pericolonic abscess. 2. Systemic inflammatory response syndrome with leukocytosis secondary to #1. 3. Drug rash, questionable meropenem which has been resolved. 4. History of diverticulosis. 5. Normocytic normochromic anemia. 6. History of inguinal hernia repair. 7. History of uterine fibroid removal in 2018. 8. History of complex uterine mass and vaginal ultrasound need to be followed up with gynecology as an outpatient. 9. Overweight During hospitalization pt was given IV antibiotics per dr Camarillo recommendations. Dr Lucia, surgery consult performed exploratory laparoscopy with drainage of the intra-abdominal abscess, drainage with OSMAN bulb suction for intra-abdominal abscess. Blood culture positive for yeast, we was waiting for final speciation, ID recommended c/w Cipro, Flagyl, and metronidazole. we monitored daily WBC and care for OSMAN drain care. We gave zofran/reglan for nausea. We control [place] for pain. GI consult Dr Hoyt was used. He advanced diet to regular diet. Pt was able to ambulate, tolerated regular diet, but OSMAN persistently drain pus positive for [place]. Barium enema was negative for fistula.Dr Lucia recommended to d/c pt with the drain for removal of the drain when drainage is decreased. Home Meds Active Scripts Fluconazole* (Diflucan*) 100 Mg Tablet, 100 MG PO DAILY for 10 Days, TAB Prov:LAURA FANG 02/07/19 Ciprofloxacin (Ciprofloxacin) 500 Mg/5 Ml Soila.mc.rec, 500 MG PO BID, #10 TAB Prov:LAURA FANG 02/07/19 Metronidazole* (Flagyl*) 500 Mg Tablet, 500 MG PO Q8 for 10 Days, TAB Prov:LAURA FANG 02/07/19 Nicotine* (Nicotine* Patch) 21 mg/day Patch, 1 PATCH TRANSDERM DAILY for 14 Days Prov:LAURA FANG 02/07/19 Reported Medications Biotin (BIOTIN) 1 Mg Capsule, 1 MG PO DAILY, CAP 01/04/19 Calcium Phosphate Trib/Vit D3 (CALCIUM GUMMIES) 1 Each Tab.chew, 1 EACH PO DAILY, TAB.CHEW 01/04/19 Vitamin B Complex* (Vitamin B Complex*) 1 Each Tablet, 1 TAB PO DAILY, TAB 01/04/19 Lactobacillus Acidophilus (Probiotic Acidophilus) 1 Each Tablet, 1 EACH PO DAILY, TAB 01/04/19 Discontinued Reported Medications Acetaminophen with Codeine (Acetaminophen-Cod #3 Tablet) 1 Each Tablet, 1 TAB PO Q6H, #7 TAB 01/04/19 Discontinued Scripts Diphenhydramine Hcl (Benadryl) 25 Mg Cap, 25 MG PO Q8 PRN for rash for 10 Days, CAP Prov:DANILO KUNZ MD 01/15/19 Hydrocodone/Acetaminophen ([place] 5-325 Tablet) 1 Each Tablet, 1 EACH PO Q8 PRN for PAIN for 10 Days, TAB Prov:DANILO KUNZ MD 01/15/19 Ondansetron Hcl* (Zofran*) 4 Mg Tab, 20 MG PO Q6H PRN for NAUSEA AND OR VOMITING for 10 Days, TAB Prov:DANILO KUNZ MD 01/15/19 Levofloxacin* (Levaquin*) 750 Mg Tablet, 750 MG PO DAILY for 10 Days, TAB Prov:DANILO KUNZ MD 01/15/19 Follow-up Plan Dr Lucia called and spoke to nursing to clear pt for DC with OSMAN drain, F/up 1 week PCP 1 week Primary Care Provider Fabian Whitten MD Time spent on discharge: < 30 minutes Pending Labs Laboratory Tests Test 02/07/19 05:28 White Blood Count 11.9 10^3/ul (4.8-10.8) Red Blood Count 4.21 10^6/ul (4.20-5.40) Hemoglobin 12.3 g/dl (12.0-16.0) Hematocrit 38.2 % (37.0-47.0) Mean Corpuscular Volume 90.7 fl (82.0-101.0) Mean Corpuscular Hemoglobin 29.2 pg (29.0-33.0) Mean Corpuscular Hemoglobin Concent 32.2 g/dl (32.0-37.0) Red Cell Distribution Width 13.8 % (11.5-14.5) Platelet Count 404 10^3/UL (140-415) Mean Platelet Volume 9.5 fl (7.4-10.4) Immature Granulocytes % 0.700 % (0.001-0.429) Neutrophils % 75.7 % (39.0-77.0) Lymphocytes % 15.3 % (15.0-51.0) Monocytes % 6.3 % (0.0-11.0) Eosinophils % 1.7 % (0.0-7.0) Basophils % 0.3 % (0.0-2.0) Nucleated Red Blood Cells % 0.0 /100WBC (0.0-0.0) Immature Granulocytes # 0.080 10^3/ul (0.0-0.031) Neutrophils # 9.0 10^3/ul (1.6-7.5) Lymphocytes # 1.8 10^3/ul (0.8-2.9) Monocytes # 0.8 10^3/ul (0.3-0.9) Eosinophils # 0.2 10^3/ul (0.0-0.5) Basophils # 0.0 10^3/ul (0.0-0.1) Nucleated Red Blood Cells # 0.0 10^3/ul (0.0-0.0) DANILO KUNZ MD 02/13/19 1906: Discharge Summary Admission/Discharge Info Hospital Course pt was dischargerd with fluconazole x 10 days per ID Home Meds Active Scripts Fluconazole* (Diflucan*) 100 Mg Tablet, 100 MG PO DAILY for 10 Days, TAB Prov:LAURA FANG 02/07/19 Ciprofloxacin (Ciprofloxacin) 500 Mg/5 Ml Soila..rec, 500 MG PO BID, #10 TAB Prov:LAURA FANG 02/07/19 Metronidazole* (Flagyl*) 500 Mg Tablet, 500 MG PO Q8 for 10 Days, TAB Prov:LAURA FANG 02/07/19 Nicotine* (Nicotine* Patch) 21 mg/day Patch, 1 PATCH TRANSDERM DAILY for 14 Days Prov:LAURA FANG 02/07/19 Reported Medications Biotin (BIOTIN) 1 Mg Capsule, 1 MG PO DAILY, CAP 01/04/19 Calcium Phosphate Trib/Vit D3 (CALCIUM GUMMIES) 1 Each Tab.chew, 1 EACH PO DAILY, TAB.CHEW 01/04/19 Vitamin B Complex* (Vitamin B Complex*) 1 Each Tablet, 1 TAB PO DAILY, TAB 01/04/19 Lactobacillus Acidophilus (Probiotic Acidophilus) 1 Each Tablet, 1 EACH PO DAILY, TAB 01/04/19 Discontinued Reported Medications Acetaminophen with Codeine (Acetaminophen-Cod #3 Tablet) 1 Each Tablet, 1 TAB PO Q6H, #7 TAB 01/04/19 Discontinued Scripts Diphenhydramine Hcl (Benadryl) 25 Mg Cap, 25 MG PO Q8 PRN for rash for 10 Days, CAP Prov:DANILO KUNZ MD 01/15/19 Hydrocodone/Acetaminophen ([place] 5-325 Tablet) 1 Each Tablet, 1 EACH PO Q8 PRN for PAIN for 10 Days, TAB Prov:DANILO KUNZ MD 01/15/19 Ondansetron Hcl* (Zofran*) 4 Mg Tab, 20 MG PO Q6H PRN for NAUSEA AND OR VOMITING for 10 Days, TAB Prov:DANILO KUNZ MD 01/15/19 Levofloxacin* (Levaquin*) 750 Mg Tablet, 750 MG PO DAILY for 10 Days, TAB Prov:DANILO KUNZ MD 01/15/19 LAURA FANG Feb 07, 2019 14:21 DANILO KUNZ MD Feb 13, 2019 19:06
--- NOTE | 2019-02-07 14:22 | PDOCDIS ---
Discharge Instructions DIAGNOSIS Discharge Diagnosis s/p abscess draining. Diverticulitis CONDITION [id number] Patient Condition: [id number] Stable HOME CARE INSTRUCTIONS: [id number] Diet Instructions: [id number] Special Diet: [id number] low residue diet ACTIVITY: [id number] Activity Restrictions: [id number] Slowly Increase Activity Rest between Activity Avoid heavy lifting FOLLOW UP/APPOINTMENTS Follow-up Plan Dr Lucia called and spoke to nursing to clear pt for DC with OSMAN drain, F/up 1 we ek PCP [address] Rubio/[facility] office LAURA FANG Feb 07, 2019 14:22
[2019-02-07 14:34] VITALS: BP 100/67; PULSE 96; RESP 16
--- NOTE | 2019-02-07 15:04 | CONS ---
Assessment/Plan Assessment/Plan Hospital Course (Demo Recall) Patient is alert feels good, no fevers OSMAN fluid culture growing yeast. Antimicrobials: Flagyl Cipro and fluconazole Physical examination: Well-developed well-nourished middle-aged woman who is in no distress. Head atraumatic normocephalic sclera nonicteric vehicle mucosa pink neck is supple chest rise symmetrical breath sounds clear heart: S1-S2 abdomen soft, OSMAN with small amount of cloudy grayish drainage, bowel tones present. Extremities without cyanosis Assessment: 1. Acute diverticulitis with abscess, s/p exploratory laparoscopy and drainage of the intra-abdominal abscess 01/28/19 2. SIRS Plan: Remains stable, ok dc home on current abx, follow with surgery op DW pt Consultation Date/Type/Reason Admit Date/Time Jan 27, 2019 at 04:42 Initial Consult Date 01/27/19 Type of Consult id Date/Time of Note DATE: 02/07/19 TIME: 15:03 Exam/Review of Systems Exam Vitals Vital Signs Date Temp Pulse Resp B/P (MAP) Pulse Ox O2 O2 Flow FiO2 Time Delivery Rate 02/07/19 99.0 96 16 100/67 94 14:34 (78) 02/06/19 Room Air 14:45 Intake and Output 02/06/19 02/06/19 02/07/19 1515:00 23:00 07:00 IntakeIntake Total 360 ml 240 ml 2 ml OutputOutput Total 5 ml 3 ml BalanceBalance 360 ml 235 ml -1 ml Results Result Diagram: 02/07/19 0528 02/04/19 0449 Results 24hrs Laboratory Tests Test 02/07/19 05:28 White Blood Count 11.9 H Red Blood Count 4.21 Hemoglobin 12.3 Hematocrit 38.2 Mean Corpuscular Volume 90.7 Mean Corpuscular Hemoglobin 29.2 Mean Corpuscular Hemoglobin Concent 32.2 Red Cell Distribution Width 13.8 Platelet Count 404 Mean Platelet Volume 9.5 Immature Granulocytes % 0.700 H Neutrophils % 75.7 Lymphocytes % 15.3 Monocytes % 6.3 Eosinophils % 1.7 Basophils % 0.3 Nucleated Red Blood Cells % 0.0 Immature Granulocytes # 0.080 H Neutrophils # 9.0 H Lymphocytes # 1.8 Monocytes # 0.8 Eosinophils # 0.2 Basophils # 0.0 Nucleated Red Blood Cells # 0.0 Medications Medication Current Medications IV Flush (NS 3 ml) 3 ml PER PROTOCOL IV ; Start 01/27/19 at 10:30 Ondansetron HCl (Zofran Inj) 4 mg Q6H PRN IV NAUSEA/VOMITING Last administered on 02/05/19 14:16; Admin Dose 4 MG; Start 01/27/19 at 10:30 Acetaminophen/ Hydrocodone Bitart ([place] (5/325)) 1 tab Q6H PRN PO PAIN LEVEL 6-10 Last administered on 02/05/19 22:12; Admin Dose 1 TAB; Start 01/28/19 at 19:30 Acetaminophen (Tylenol Tab) 650 mg Q6H PRN PO MILD PAIN(1-3)OR ELEVATED TEMP; Start 01/28/19 at 19:30 Diphenhydramine HCl (Benadryl) 25 mg Q6H PRN IV ITCHING; Start 01/28/19 at 19:30 Metoclopramide HCl (Reglan) 10 mg Q6H PRN IV NAUSEA AND/OR VOMITING Last administered on 02/05/19 22:12; Admin Dose 10 MG; Start 01/28/19 at 19:30 Lorazepam (Ativan) 0.5 mg Q8H PRN IV anxiety Last administered on 02/07/19 09:44; Admin Dose 0.5 MG; Start 01/29/19 at 10:00 Pantoprazole (Protonix Tab) 40 mg DAILY@06 PO Last administered on 02/07/19 06:43; Admin Dose 40 MG; Start 02/05/19 at 06:00 Fluconazole (Diflucan) 100 mg DAILY PO Last administered on 02/07/19 09:24; Admin Dose 100 MG; Start 02/04/19 at 17:30 Ciprofloxacin (Cipro) 500 mg BID@06,18 PO Last administered on 02/07/19 06:43; Admin Dose 500 MG; Start 02/05/19 at 16:00 Metronidazole (Flagyl) 500 mg Q8 PO Last administered on 02/07/19 13:14; Admin Dose 500 MG; Start 02/05/19 at 22:00 DALE ARREOLA NP Feb 07, 2019 15:04
--- NOTE | 2019-02-07 16:44 | CONS ---
Assessment/Plan Assessment/Plan Assessment/Plan (Daily) Consultation Assessment/Plan Assessment/Plan Hospital Course (Demo Recall) 48 yo female NPO for imaging today. No c/o nausea. Intermittent abd pain. CHERI drain is putting out minimal drainage. WBC wnl. 1. Persistent diverticulitis with walled off abscess. -S/P ex lap drainage on 01/28 with cheri drain placed which continues to have purulent drainage which was sent for culture. CX negative -improved 2. Leukocytosis -resolved 3. Mild anemia, normocytic and normochromic -will monitor -neg fob 4. H/O inguinal hernia repair. 5. Rash likely drug induced (meropenum) -improved PLAN: Imaging to r/o sigmoid fistula today Continue abx Continue diet as tolerated Aspiration precautions, please have pt sit up while eating. Follow-up in the office after 2 weeks. Colonoscopy after 2 months Consultation Date/Type/Reason Admit Date/Time Jan 27, 2019 at 04:42 Initial Consult Date 01/27/19 Date/Time of Note DATE: 02/07/19 TIME: 16:43 24 HR Interval Summary Constitutional: improved Exam/Review of Systems Exam Vitals Vital Signs Date Temp Pulse Resp B/P (MAP) Pulse Ox O2 O2 Flow FiO2 Time Delivery Rate 02/07/19 99.0 96 16 100/67 94 14:34 (78) 02/06/19 Room Air 14:45 Intake and Output 02/06/19 02/06/19 02/07/19 1515:00 23:00 07:00 IntakeIntake Total 360 ml 240 ml 2 ml OutputOutput Total 5 ml 3 ml BalanceBalance 360 ml 235 ml -1 ml Constitutional: alert, oriented, well developed Psych: no complaints, nl mood/affect Head: normocephalic, atraumatic Eyes: nl conjunctiva, EOMI, nl lids, nl sclera, PERRL ENMT: nl external ears & nose, nl lips & teeth, nl nasal mucosa & septum Neck: supple, non-tender Respiratory: clear to auscultation, normal air movement Cardiovascular: regular rate and rhythm, nl pulses Gastrointestinal: soft, nl liver, spleen, non-tender Musculoskeletal: nl extremities to inspection, nl gait and stance Extremities: normal pulses Neurological: TILE PICKER II-XII intact, nl mental status, nl speech, nl strength Skin: nl turgor; No rash or lesions Lymph: nl lymph nodes Results Result Diagram: 02/07/19 0528 02/04/19 0449 Results 24hrs Laboratory Tests Test 02/07/19 05:28 White Blood Count 11.9 H Red Blood Count 4.21 Hemoglobin 12.3 Hematocrit 38.2 Mean Corpuscular Volume 90.7 Mean Corpuscular Hemoglobin 29.2 Mean Corpuscular Hemoglobin Concent 32.2 Red Cell Distribution Width 13.8 Platelet Count 404 Mean Platelet Volume 9.5 Immature Granulocytes % 0.700 H Neutrophils % 75.7 Lymphocytes % 15.3 Monocytes % 6.3 Eosinophils % 1.7 Basophils % 0.3 Nucleated Red Blood Cells % 0.0 Immature Granulocytes # 0.080 H Neutrophils # 9.0 H Lymphocytes # 1.8 Monocytes # 0.8 Eosinophils # 0.2 Basophils # 0.0 Nucleated Red Blood Cells # 0.0 Medications Medication Current Medications IV Flush (NS 3 ml) 3 ml PER PROTOCOL IV ; Start 01/27/19 at 10:30 Ondansetron HCl (Zofran Inj) 4 mg Q6H PRN IV NAUSEA/VOMITING Last administered on 02/05/19at 14:16; Admin Dose 4 MG; Start 01/27/19 at 10:30 Acetaminophen/ Hydrocodone Bitart ([place] (5/325)) 1 tab Q6H PRN PO PAIN LEVEL 6-10 Last administered on 02/05/19at 22:12; Admin Dose 1 TAB; Start 01/28/19 at 19:30 Acetaminophen (Tylenol Tab) 650 mg Q6H PRN PO MILD PAIN(1-3)OR ELEVATED TEMP; Start 01/28/19 at 19:30 Diphenhydramine HCl (Benadryl) 25 mg Q6H PRN IV ITCHING; Start 01/28/19 at 19:30 Metoclopramide HCl (Reglan) 10 mg Q6H PRN IV NAUSEA AND/OR VOMITING Last administered on 02/05/19at 22:12; Admin Dose 10 MG; Start 01/28/19 at 19:30 Lorazepam (Ativan) 0.5 mg Q8H PRN IV anxiety Last administered on 02/07/19at 09:44; Admin Dose 0.5 MG; Start 01/29/19 at 10:00 Pantoprazole (Protonix Tab) 40 mg DAILY@06 PO Last administered on 02/07/19 06:43; Admin Dose 40 MG; Start 02/05/19 at 06:00 Fluconazole (Diflucan) 100 mg DAILY PO Last administered on 02/07/19 09:24; Admin Dose 100 MG; Start 02/04/19 at 17:30 Ciprofloxacin (Cipro) 500 mg BID@06,18 PO Last administered on 02/07/19 06:43; Admin Dose 500 MG; Start 02/05/19 at 16:00 Metronidazole (Flagyl) 500 mg Q8 PO Last administered on 02/07/19 13:14; Admin Dose 500 MG; Start 02/05/19 at 22:00 LEONA OLIVAREZ MD Feb 07, 2019 16:44
== END 2019-02-07 18:00 | disposition home or self-care (01) | DRG 872 ==
LOC: FTE 21:45 → PP2 01-27 04:42 → 2NE 01-27 11:55
PROVIDERS: ADMIT Internal Medicine; ATTEND Internal Medicine
PROC: 0W9G40Z Drainage of Peritoneal Cavity with Drainage Device, Percutaneous Endoscopic Approach (ICD-10-PCS; principal; 2019-01-28 17:00)
DX: A41.9 Sepsis, unspecified organism (principal); K57.20 Diverticulitis of large intestine with perforation and abscess without bleeding; F17.200 Nicotine dependence, unspecified, uncomplicated; L27.0 Generalized skin eruption due to drugs and medicaments taken internally; D64.9 Anemia, unspecified; E66.3 Overweight; T36.1X5A Adverse effect of cephalosporins and other beta-lactam antibiotics, initial encounter; Y92.009 Unspecified place in unspecified non-institutional (private) residence as the place of occurrence of the external cause
CPT/HCPCS: 36415; 71045; 74176; 74177; 74270; 80048; 80053; 81003; 81025; 82270; 83036; 83605; 83735; 84100; 84484; 85025; 85610; 85730; 87070; 87075; 87081; 87086; 93005; 96365; 96375; C9113; J0696; J1100; J1170; J1885; J2060; J2250; J2270; J2405; J2543; J2710; J2765; J2795; J3010; J3480; J7030; Q9967

== ENCOUNTER 2019-02-20 13:04 | Inpatient (IN) | payer OTHER ==
[~2019-02-20] VITALS: Ht 162.6 cm; Wt 72.5 kg
[~2019-02-20 13:04] MED LIST changes: -ACET1TAB40 PO; +ALPR1TAB7 PO; +CIPR500S2 PO; -DIPH25CA6 PO; +FLUC100T PO; +HYDR-3605 PO; -HYDR-4011 PO; -LEVO750T25 PO
[2019-02-20] MEDS ORDERED: morphine 4 MG/ML VIAL IV STA (14:56)
[2019-02-20] MEDS ORDERED: ONDANSETRON 4 MG INJ IV STA ×2 (14:56→19:02)
[2019-02-20] MEDS ORDERED: SOD CHLORIDE 0.9% 1,000 ML IV STA (14:56)
[2019-02-20] MEDS ORDERED: HYDROmorphONE 2 MG/ML SYG IV STA ×3 (16:23→21:32)
[2019-02-20] MEDS ORDERED: PIPER-TAZO 3.375 GM IV (PMX) 100 ML IVPB STA (16:55)
[2019-02-20] MEDS ORDERED: SODIUM CHLORIDE 0.9% 1L BAG IV* STA (16:55)
--- NOTE | 2019-02-20 16:58 | ERD ---
ER Documentation Chief Complaint Chief Complaint ap; recently dc'd from hospital for diverticulitis HPI 48-year-old female who presents to the emergency room complaining of severe left lower quadrant abdominal pain that is 8 out of 10. Patient just recently had a drainage tube removed secondary to complicated diverticulitis. The patient has been followed by Dr. Lucia. Patient denies any fevers or chills but mild nausea as noted. The pain is constant at this time. She also describes some mild dysuria urgency and frequency. ROS All systems reviewed and are negative except as per history of present illness. Medications Home Meds Discontinued Reported Medications Biotin (BIOTIN) 1 Mg Capsule, 1 MG PO DAILY, CAP 01/04/19 Calcium Phosphate Trib/Vit D3 (CALCIUM GUMMIES) 1 Each Tab.chew, 1 EACH PO DAILY, TAB.CHEW 01/04/19 Vitamin B Complex* (Vitamin B Complex*) 1 Each Tablet, 1 TAB PO DAILY, TAB 01/04/19 Lactobacillus Acidophilus (Probiotic Acidophilus) 1 Each Tablet, 1 EACH PO DAILY, TAB 01/04/19 Discontinued Scripts Fluconazole* (Diflucan*) 100 Mg Tablet, 100 MG PO DAILY for 10 Days, TAB Prov:LAURA FANG NP 02/07/19 Ciprofloxacin (Ciprofloxacin) 500 Mg/5 Ml Soila.mc.rec, 500 MG PO BID, #10 TAB Prov:LAURA FANG NP 02/07/19 Metronidazole* (Flagyl*) 500 Mg Tablet, 500 MG PO Q8 for 10 Days, TAB Prov:LAURA FANG NP 02/07/19 Nicotine* (Nicotine* Patch) 21 mg/day Patch, 1 PATCH TRANSDERM DAILY for 14 Days Prov:LAURA FANG NP 02/07/19 Allergies Allergies: Coded Allergies: meropenem (Verified Allergy, Severe, rash all over the body, 02/20/19) PMhx/Soc History of Surgery: Yes (hernia repair , fibroid removal) Anesthesia Reaction: No Hx Neurological Disorder: No Hx Respiratory Disorders: No Hx Cardiac Disorders: No Hx Psychiatric Problems: No Hx Miscellaneous Medical Probl: Yes (DIVERTICULITIS , ABD ABCESS ) Hx Alcohol Use: No Hx Substance Use: No Hx Tobacco Use: No Smoking Status: Never smoker FmHx Family History: No diabetes Physical Exam Vitals Vital Signs Date Temp Pulse Resp B/P (MAP) Pulse Ox O2 O2 Flow FiO2 Time Delivery Rate 02/20/19 89 18 113/69 98 Room Air 15:00 (84) 02/20/19 98.1 110 18 103/65 97 13:18 (78) Physical Exam General: Uncomfortable Head: Normocephalic, atraumatic. Eyes: Pupils equally reactive, EOM intact ENT: Moist mucous membranes Neck: Supple, no lymphadenopathy Respiratory: Lungs clear bilaterally, no distress Cardiovascular: RRR, no murmurs, rubs, or gallops Abdominal: Soft, focal tenderness to left lower quadrant with voluntary guarding : Deferred MSK: No edema, no unilateral swelling, 5/5 strength Neurologic: Alert and oriented, moving all extremities, normal speech, no focal weakness, no cerebellar signs Skin: No rash Psych: Normal mood Result Diagram: 02/20/19 1507 02/20/19 1507 Results 24 hrs Laboratory Tests Test 02/20/19 15:07 02/20/19 15:09 02/20/19 17:18 White Blood Count 21.0 10^3/ul Red Blood Count 4.47 10^6/ul Hemoglobin 13.1 g/dl Hematocrit 41.3 % Mean Corpuscular Volume 92.4 fl Mean Corpuscular Hemoglobin 29.3 pg Mean Corpuscular 31.7 g/dl Hemoglobin Concent Red Cell Distribution Width 13.4 % Platelet Count 356 10^3/UL Mean Platelet Volume 10.0 fl Immature Granulocytes % 0.800 % Neutrophils % 87.0 % Lymphocytes % 6.3 % Monocytes % 5.6 % Eosinophils % 0.1 % Basophils % 0.2 % Nucleated Red Blood Cells % 0.0 /100WBC Immature Granulocytes # 0.160 10^3/ul Neutrophils # 18.3 10^3/ul Lymphocytes # 1.3 10^3/ul Monocytes # 1.2 10^3/ul Eosinophils # 0.0 10^3/ul Basophils # 0.0 10^3/ul Nucleated Red Blood Cells # 0.0 10^3/ul Prothrombin Time 13.5 Sec Prothrombin Time Ratio 1.1 INR International 1.02 Normalized Ratio Activated Partial Thromboplast 27.4 Sec Time Urine Color YELLOW Urine Clarity TURBID Urine pH 5.0 Urine Specific [place] 1.029 Urine Ketones TRACE mg/dL Urine Nitrite NEGATIVE mg/dL Urine Bilirubin NEGATIVE mg/dL Urine Urobilinogen NEGATIVE mg/dL Urine Leukocyte Esterase NEGATIVE Sena/ul Urine Microscopic RBC 0 /HPF Urine Microscopic WBC 0 /HPF Urine Squamous Epithelial Cells MODERATE /HPF Urine Amorphous Crystals MANY /HPF Urine Mucus MANY /HPF Urine Hemoglobin NEGATIVE mg/dL Urine Glucose NEGATIVE mg/dL Urine Total Protein 1+ mg/dl Sodium Level 143 mmol/L Potassium Level 4.0 mmol/L Chloride Level 105 mmol/L Carbon Dioxide Level 28 mmol/L Anion Gap 10 Blood Urea Nitrogen 8 mg/dl Creatinine 0.56 mg/dl Est Glomerular Filtrat > 60 mL/min Rate mL/min Glucose Level 108 mg/dl Calcium Level 9.2 mg/dl POC Beta HCG, Qualitative NEGATIVE POC Venous Lactate 1.2 mmol/L Current Medications Medications Dose Sig/Trudy Start Time Status Last (Trade) Ordered Route PRN Stop Time Admin Dose Reason Admin Sodium 1,000 ml @ Q1H STAT 02/20/19 DC 02/20/19 Chloride 1,000 mls/hr IV 14:56 15:11 02/20/19 15:55 Morphine 4 mg ONCE STAT 02/20/19 DC 02/20/19 Sulfate IV 14:56 15:11 (morphine) 02/20/19 14:58 Ondansetron 4 mg ONCE STAT 02/20/19 DC 02/20/19 HCl (Zofran IV 14:56 15:11 Inj) 02/20/19 14:58 1 mg ONCE STAT 02/20/19 DC 02/20/19 Hydromorphone IV 16:23 16:33 HCl 02/20/19 16:24 (Dilaudid) Sodium 2,090 ml BOLUS OVER 2 02/20/19 DC 02/20/19 Chloride HOURS STAT 16:55 17:53 (NS) IV* 02/20/19 17:01 Piperacillin 100 ml @ ONCE STAT 02/20/19 DC Sod/ 200 mls/hr IVPB 16:55 Tazobactam 02/20/19 17:09 Sod 100 ml @ ONCE STAT 02/20/19 DC 02/20/19 Metronidazole 100 mls/hr IVPB 17:08 17:53 02/20/19 18:07 200 ml @ ONCE STAT 02/20/19 DC 02/20/19 Ciprofloxacin 200 mls/hr IVPB 17:08 17:53 / Dextrose 02/20/19 18:07 IV Flush 10 ml STK-MED 02/20/19 DC (NS 10 ml) ONCE .ROUTE 17:02/20/19 17:27 Sodium 100 ml @ ud STK-MED 02/20/19 DC Chloride ONCE .ROUTE 17:02/20/19 17:27 Iohexol 150 ml STK-MED 02/20/19 DC (Omnipaque ONCE .ROUTE 17: 300mg/ ml) 02/20/19 17:27 Procedures/MDM EKG, MONITORS, & DIAGNOSTIC IMAGING: CT abdomen and pelvis: IMPRESSION: Recurrent multiloculated pelvic and left lower quadrant abdominal abscesses following removal of laparoscopically placed abscess drain. Ascites. Subcutaneous gas left lower quadrant. Enlarged fibroid uterus. LAB INTERPRETATION: I reviewed the laboratory testing and it shows leukocytosis MEDICAL DECISION MAKING: Patient presents with severe left lower quadrant abdominal pain with recent drain removal. No fever noted. Tachycardia likely secondary to pain. The patient warrants CT imaging with IV contrast. It was noted that the patient has Sirs criteria. Patient is still pending CT imaging of abdomen pelvis so no clear source of infection at this time. However sepsis screening was initiated at 4:57 PM. This will be time 0 Patient had blood cultures, lactic acid, Cipro Flagyl, blood cultures prior to antibiotics. ER COURSE: * Treatment with pain medication fluids and antibiotics as described above. CT pending. * CT resulted at 1808 showing evidence of abscess. * Primary surgeon notified and requests consult be placed to on-call surgeon * Patient has received appropriate broad-spectrum antibiotics in the form of Cipro and Flagyl given allergy profile CONSULTATION: General surgery team as documented above including Dr. Brenner via [employer] DISPOSITION PLAN: Accepting care team and consultations: I discussed the current laboratory data, diagnostic imaging and emergency care provided. Admitting team: Panel team notified Admitting team indication: Insurance directed Sepsis Documentation: Patient's infectious symptoms have not stabilized and the patient is at risk of rapid decompensation. The patient will be admitted for careful hydration, antibiotic therapy, and infectious source control. SEVERE SEPSIS CRITERIA: Infectious source: Interabdominal abscess End organ damage indicated by: None present SEPSIS MANAGEMENT Time of recognition of sepsis: 4:57 PM. Time of recognition of severe sepsis: No severe sepsis at this time. Time of recognition of septic shock: No septic shock at this time. 3 HOUR BUNDLE Blood cultures x 2 before broad-spectrum antibiotics: Yes 30 ml/kg NS bolus completed Initial lactate less than 2 Repeat lactate less than 2 SEPTIC SHOCK ASSESSMENT: No lactic acid > 4.0 No persistent hypotension (SBP < 90 or 40 mmHg drop, MAP < 65) despite 30 mL/kg IV fluid bolus VOLUME REASSESSMENT FOR SEPTIC SHOCK: The patient does not meet criteria for septic shock in the emergency department at this time PERSISTENT HYPOTENSION TREATMENT: Comfort care no Central line not Required Vasopressor started not required I considered further perfusion assessment with CVP measurement, SCVO2, bedside ultrasound volume assessment, passive leg raise, trial of further fluid bolus. And proceeded with 30 ml/kg fluid bolus of NSS, broad spectrum antibiotics, and admission. CRITICAL CARE Critical care time 35 minutes Emergent fluid management while maintaining close respiratory support. Provision of immediate and broad-spectrum antibiotic therapy. Simultaneous assessment for possible sources in order to direct targeted therapy. Consideration for invasive and chemical support to prevent cardiopulmonary collapse. Critical care time is independent of procedures performed. Departure Diagnosis: Primary Impression: Intra-abdominal abscess Additional Impressions: Sepsis Sepsis type: sepsis due to unspecified organism Qualified Codes: A41.9 - Sepsis, unspecified organism Abdominal pain Abdominal location: left lower quadrant Qualified Codes: R10.32 - Left lower quadrant pain Condition: Stable JOSEPHINE GARAY MD Feb 20, 2019 16:58
[2019-02-20] MEDS ORDERED: CIPROFLOXACIN 400MG/D5W 200 ML IVPB STA (17:08)
[2019-02-20] MEDS ORDERED: metroNIDAZOLE 500 MG/NS (PMX) 100 ML IVPB STA (17:08)
[2019-02-20] MEDS ORDERED: IOHEXOL 300MG/ML 150 ML BTL ONE (17:26)
[2019-02-20] MEDS ORDERED: SOD CHLORIDE 0.9% 100 ML ONE (17:26)
[2019-02-20] MEDS ORDERED: ACETAMINOPHEN 325 MG TAB PO PRN (20:30)
[2019-02-20] MEDS ORDERED: ONDANSETRON 4 MG INJ IV PRN (20:30)
--- NOTE | 2019-02-20 20:46 | CONS ---
Assessment/Plan Assessment/Plan Hospital Course (Demo Recall) 1. Recent perforated diverticulitis with pericolonic abscess, non-amenable to IR drain and therefore requiring laparoscopic drainage of abscess on January 28. Drain was removed by primary surgeon 2 days ago however she has started to develop more abdominal pain with chills and significant leukocytosis. CT shows persistent abscesses. She is tachycardic but blood pressure stable. Lactic acid is normal. -Medical optimization -Judicious fluid management -IV antibiotics -Supportive therapy -Pain control -CT with contrast to assess for extent of abscesses, possible re-perforation -Possible surgical exploration for washout, possible colostomy, possible bowel resection (discussed with Dr. Lucia and he plans to explore her this coming week however if she does not improve or worsens may require surgical exploration sooner) 2. Significant leukocytosis secondary to above. 3. Previous recent anemia however currently normocytic, may be dehydrated -Judicious fluid management Thank you very much for consulting me in this patient's care, Consultation Date/Type/Reason Admit Date/Time Date of Consultation: Feb 20, 2019 Type of Consult General surgical (covering for Dr. Barak Lucia) Reason for Consultation Abdominal pain Recent perforated diverticulitis with recurrent abscess after drain removal Leukocytosis Requesting Provider: JOSEPHINE GARAY MD Date/Time of Note DATE: 02/20/19 TIME: 20:28 Hx of Present Illness Avelina Rossi is a 48-year-old female with comorbidities who recently had perforated diverticulitis with pericolonic abscess that was not amenable to IR drainage. She was not improving with IV antibiotics and therefore had laparoscopic drainage of the abscess by Dr. Lucia. She was subsequently dis charged with antibiotics and drain home and had followed up with her surgeon who removed the drain on Sunday (2 days ago). She said last night she started having worsening abdominal pain with nausea chills and since her symptoms persisted today she presented to the emergency room. She is having multiple bowel functions that are soft. She had an episode of vomiting. No fevers or chills. No cough. No seizure. No blood per mouth or rectum. No visual or neurologic changes. No dysuria. No trauma. Her work-up is identified tachycardia but normal blood pressure. White count is elevated. CT is noted with pelvic and abdominal fluid/abscesses. Surgical consult is obtained however Dr. Lucia is unavailable and had asked me to cover him until his return. He is considering taking her to surgery this coming week. 12 point review of system is otherwise negative unless addressed in chart Past Medical History 1. History of diverticulosis and diverticulitis, multiple. Perforation with abscesses 2. Leukocytosis 3. Drug rash, questionable meropenem which has been resolved. 4. Normocytic normochromic anemia. 5. History of complex uterine mass Home Meds Discontinued Reported Medications Biotin (BIOTIN) 1 Mg Capsule, 1 MG PO DAILY, CAP 01/04/19 Calcium Phosphate Trib/Vit D3 (CALCIUM GUMMIES) 1 Each Tab.chew, 1 EACH PO DAILY, TAB.CHEW 01/04/19 Vitamin B Complex* (Vitamin B Complex*) 1 Each Tablet, 1 TAB PO DAILY, TAB 01/04/19 Lactobacillus Acidophilus (Probiotic Acidophilus) 1 Each Tablet, 1 EACH PO DAILY, TAB 01/04/19 Discontinued Scripts Fluconazole* (Diflucan*) 100 Mg Tablet, 100 MG PO DAILY for 10 Days, TAB Prov:LAURA FANG NP 02/07/19 Ciprofloxacin (Ciprofloxacin) 500 Mg/5 Ml Soila.mc.rec, 500 MG PO BID, #10 TAB Prov:LAURA FANG NP 02/07/19 Metronidazole* (Flagyl*) 500 Mg Tablet, 500 MG PO Q8 for 10 Days, TAB Prov:LAURA FANG NP 02/07/19 Nicotine* (Nicotine* Patch) 21 mg/day Patch, 1 PATCH TRANSDERM DAILY for 14 Days Prov:LAURA FANG NP 02/07/19 Medications Current Medications Ondansetron HCl (Zofran Inj) 4 mg BRIDGE ORDER PRN IV NAUSEA/VOMITING; Start 02/20/19 at 20:30; Stop 02/21/19 at 20:29 Acetaminophen (Tylenol Tab) 650 mg ER BRIDGE PRN PO .MILD PAIN 1-3 OR TEMP; Start 02/20/19 at 20:30; Stop 02/21/19 at 20:29 Allergies: Coded Allergies: meropenem (Verified Allergy, Severe, rash all over the body, 02/20/19) Past Surgical History 1. Laparoscopic drainage of abdominal/pelvic abscess by Dr. Lucia 01/28/19 2. Inguinal hernia repair in 2013. 3. Fibroid removal in 2012. Family History Significant Family History: hypertension (Mother), other (Mother with stroke. Father with liver disease) Social History Alcohol Use: rarely Smoking Status: Never smoker Drug Use: none Exam/Review of Systems Exam Vitals Vital Signs Date Temp Pulse Resp B/P (MAP) Pulse Ox O2 O2 Flow FiO2 Time Delivery Rate 02/20/19 98.7 115 15 108/72 99 Room Air 18:45 (84) Constitutional: alert, oriented; No distress Psych: anxiety; No confusion Head: normocephalic, atraumatic Eyes: nl conjunctiva, EOMI, PERRL; No icteric ENMT: nl external ears & nose, mucosa pink and moist Neck: supple, non-tender; No jvd Respiratory: normal air movement; No congested cough, No labored breathing, No wheezing Cardiovascular: nl pulses; No regular rate and rhythm (Tachycardic 100s), No edema Gastrointestinal: soft, distended (Minimally), rebound or guarding (Localized lower abdomen), tender; No firm Musculoskeletal: nl extremities to inspection; No joint tenderness Extremities: normal pulses; No calf tenderness, No cyanosis Neurological: nl mental status, nl speech, nl strength Skin: nl turgor; No rash or lesions, No diaphoresis Lymph: nl lymph nodes Results Result Diagram: 02/20/19 1507 02/20/19 1507 Results 24hrs Laboratory Tests Test 02/20/19 15:07 02/20/19 15:09 02/20/19 17:18 White Blood Count 21.0 #H Red Blood Count 4.47 Hemoglobin 13.1 Hematocrit 41.3 Mean Corpuscular Volume 92.4 Mean Corpuscular Hemoglobin 29.3 Mean Corpuscular Hemoglobin Concent 31.7 L Red Cell Distribution Width 13.4 Platelet Count 356 Mean Platelet Volume 10.0 Immature Granulocytes % 0.800 H Neutrophils % 87.0 H Lymphocytes % 6.3 L Monocytes % 5.6 Eosinophils % 0.1 Basophils % 0.2 Nucleated Red Blood Cells % 0.0 Immature Granulocytes # 0.160 H Neutrophils # 18.3 H Lymphocytes # 1.3 Monocytes # 1.2 H Eosinophils # 0.0 Basophils # 0.0 Nucleated Red Blood Cells # 0.0 Prothrombin Time 13.5 Prothrombin Time Ratio 1.1 INR International Normalized Ratio 1.02 Activated Partial Thromboplast Time 27.4 Urine Color YELLOW Urine Clarity TURBID A Urine pH 5.0 Urine Specific [place] 1.029 Urine Ketones TRACE A Urine Nitrite NEGATIVE Urine Bilirubin NEGATIVE Urine Urobilinogen NEGATIVE Urine Leukocyte Esterase NEGATIVE Urine Microscopic RBC 0 Urine Microscopic WBC 0 Urine Squamous Epithelial Cells MODERATE Urine Amorphous Crystals MANY A Urine Mucus MANY A Urine Hemoglobin NEGATIVE Urine Glucose NEGATIVE Urine Total Protein 1+ H Sodium Level 143 Potassium Level 4.0 Chloride Level 105 Carbon Dioxide Level 28 Anion Gap 10 Blood Urea Nitrogen 8 Creatinine 0.56 Est Glomerular Filtrat Rate mL/min > 60 Glucose Level 108 Calcium Level 9.2 POC Beta HCG, Qualitative NEGATIVE POC Venous Lactate 1.2 Medications Medication Current Medications Ondansetron HCl (Zofran Inj) 4 mg BRIDGE ORDER PRN IV NAUSEA/VOMITING; Start 02/20/19 at 20:30; Stop 02/21/19 at 20:29 Acetaminophen (Tylenol Tab) 650 mg ER BRIDGE PRN PO .MILD PAIN 1-3 OR TEMP; Start 02/20/19 at 20:30; Stop 02/21/19 at 20:29 NAIDA SUGGS MD Feb 20, 2019 20:40
[2019-02-20] MEDS ORDERED: HYDROmorphONE 0.5 MG/0.5 ML SYG IV ONE (22:18)
[2019-02-20 23:16] VITALS: BP 113/65; PULSE 122; RESP 20
[2019-02-20 23:30] VITALS: Ht 162.6 cm; Wt 72.5 kg
[2019-02-21] MEDS ORDERED: NACL 0.9% 3 ML SYG IV SCH
[2019-02-21] MEDS ORDERED: ACETAMINOPHEN 325 MG TAB PO PRN
[2019-02-21] MEDS: PIPER-TAZO 3.375 GM IV (PMX) 100 ML IVPB SCH ×4 (00:37→18:25)
[2019-02-21] MEDS: DEXTROSE 5%-0.45% NACL 1,000 ML IV SCH ×4 (00:37→22:45)
[2019-02-21] MEDS: HYDROmorphONE 0.5 MG/0.5 ML SYG IV PRN ×5 (00:49→19:36)
[2019-02-21 01:16] VITALS: BP 98/61; PULSE 121; RESP 18
[2019-02-21] MEDS ORDERED: SOD CHLORIDE 0.9% 500 ML IV ONE ×4 (02:00→19:30)
[2019-02-21] MEDS ORDERED: IOHEXOL 14.3 MG(I)/ML (ADULT) BTL PO ONE (02:30)
[2019-02-21] MEDS: PANTOPRAZOLE 40 MG INJ IV SCH (05:10)
[2019-02-21] MEDS: ONDANSETRON 4 MG INJ IV PRN ×3 (07:36→17:48)
[2019-02-21 07:52] VITALS: BP 95/63; PULSE 109; RESP 16
[2019-02-21] MEDS ORDERED: IOHEXOL 300MG/ML 150 ML BTL ONE (11:09)
[2019-02-21] MEDS ORDERED: SOD CHLORIDE 0.9% 100 ML ONE (11:09)
[2019-02-21 14:43] VITALS: BP 106/68; PULSE 125; RESP 20
--- NOTE | 2019-02-21 14:48 | PN ---
Date/Time of Note Date/Time of Note DATE: 02/21/19 TIME: 14:44 Assessment/Plan Lines/Catheters IV Catheter Type (from [facility]): Peripheral IV Assessment/Plan Chief Complaint/Hosp Course 1. Recent perforated diverticulitis with pericolonic abscess, non-amenable to IR drain and therefore requiring laparoscopic drainage of abscess on January 28. Drain was removed by primary surgeon 2 days ago however she has started to develop more abdominal pain with chills and significant leukocytosis. CT shows persistent abscesses. She is tachycardic but blood pressure stable. Lactic acid has now normalized. -Spoke with radiologist who states that they can try to drain the abscess this weekend> will order -Medical optimization -Judicious fluid management -IV antibiotics>per ID -Supportive therapy -Pain control -CT with contrast to assess for extent of abscesses, possible re-perforation -Possible surgical exploration for washout, possible colostomy, possible bowel resection (discussed with Dr. Lucia and he plans to explore her this coming week however if she does not improve or worsens may require surgical exploration sooner) 2. Significant leukocytosis secondary to above. -repeat labs ordered 3. Previous recent anemia however currently normocytic, may be dehydrated -Judicious fluid management Thank you. Patient seen and examined in collaboration with Dr. Jean Claude Brenner. Subjective 24 Hr Interval Summary Continues to have abdominal pain. Bloating better. + flatus. Low grade fever. Tachycardia. Nausea. No cp, palpitations, vomiting, sz, rash. Exam/Review of Systems Vital Signs Vitals Vital Signs Date Temp Pulse Resp B/P (MAP) Pulse Ox O2 O2 Flow FiO2 Time Delivery Rate 02/21/19 98.7 109 16 95/63 (74) 98 07:52 02/20/19 Room Air 22:37 Intake and Output 02/20/19 02/20/19 02/21/19 1515:00 23:00 07:00 IntakeIntake Total 1550 ml BalanceBalance 1550 ml Exam Free Text/Dictation Constitutional: alert, oriented; No distress Psych: anxiety; No confusion Head: normocephalic, atraumatic Eyes: nl conjunctiva, EOMI, PERRL; No icteric ENMT: nl external ears & nose, mucosa pink and moist Neck: supple, non-tender; No jvd Respiratory: normal air movement; No congested cough, No labored breathing, No wheezing Cardiovascular: nl pulses; No regular rate and rhythm (Tachycardic 100s), No edema Gastrointestinal: soft, distended (Minimally), rebound or guarding (Localized lower abdomen), tender; No firm Musculoskeletal: nl extremities to inspection; No joint tenderness Extremities: normal pulses; No calf tenderness, No cyanosis Neurological: nl mental status, nl speech, nl strength Skin: nl turgor; No rash or lesions, No diaphoresis Lymph: nl lymph nodes Results Result Diagram: 02/20/19 1507 02/20/19 1507 DIANA PHAN NP Feb 21, 2019 14:48
--- NOTE | 2019-02-21 15:24 | QN ---
Documentation Comment pt seen and examined DANILO KUNZ MD Feb 21, 2019 15:24
[2019-02-21] MEDS ORDERED: LIDOCAINE 1% (MPF) 5 ML VIAL SC ONE (16:00)
[2019-02-21] MEDS ORDERED: ACETAMINOPHEN 1000MG/100ML IV 100 ML IVPB PRN (16:00)
[2019-02-21 17:20] VITALS: BP 105/57; PULSE 124; RESP 18
[2019-02-21] MEDS: metroNIDAZOLE 500 MG/NS (PMX) 100 ML IVPB SCH ×2 (17:47→22:51)
[2019-02-21] MEDS: FLUCONAZOLE 400 MG/NS (PMX) 200 ML IVPB SCH (18:03)
--- NOTE | 2019-02-21 19:23 | CONS ---
DATE OF ADMISSION: 02/20/2019 DATE OF CONSULTATION: 02/21/2019 TYPE OF CONSULTATION: Infectious Disease. REASON FOR CONSULTATION: Antibiotic management. HISTORY OF PRESENT ILLNESS: Avelina Rossi is a 48-year-old female recently discharged from the [facility] with diverticulitis. She presents to the emergency room complaining of left lower quadrant a bdominal pain 8/10. She recently had a drainage tube removed secondary to complicated diverticulitis . She has been followed by Dr. Lucia. She denies fever or chills. Her pain is constant. She descr ibes mild dysuria, urgency and frequency. PAST SURGICAL HISTORY: Status post hernia repair, status post fibroid removal, status post abdominal abscess and diverticulitis. FAMILY HISTORY: Noncontributory. SOCIAL HISTORY: She does not smoke, drink or abuse drugs. ALLERGIES: NONE TO PENICILLIN, SULFA OR FOODS. MEDICATIONS: Per chart. REVIEW OF SYSTEMS: As per HPI. SHE IS ALLERGIC TO MEROPENEM. PHYSICAL EXAMINATION: GENERAL: The patient was uncomfortable, in no acute distress. VITAL SIGNS: Stable. LABORATORY DATA: Her white count was 21,000, H and H 13.1 and 41.3, platelet count 356,000. BUN and creatinine 8/0.56 and she had 87% neutrophils. IMPRESSION AND PLAN: She was seen by Dr. Brenner who noted recent perforated diverticulitis with per icolonic abscess not amenable to IR drainage. Therefore, required a laparoscopic drainage of the abs cess on 01/28. Drain was removed 2 days ago. She started to develop lower abdominal pain. A CT sca n shows persistent abscesses. She is tachycardic. Blood pressure is stable. She is on IV antibioti cs. CT with contrast to assess for the extent of abscess, possible reperforation possible surgical e xploration for washout, possible colostomy, possible bowel resection. Discussed with Dr. Lucia and e plans to explore her this coming week. However, she does not improve or worsens, may require surgi salomon exploration sooner. Significant leukocytosis secondary to above. Previous anemia, currently mod erate normocytic, recently perforated diverticulitis, recurrent abscess after drain and removal and l eukocytosis. PHYSICAL EXAMINATION: GENERAL: She is alert, responsive, in no acute distress. VITAL SIGNS: Stable. She is afebrile. SKIN: Without generalized rash. HEENT: Within normal limits. NECK: Supple. LYMPH NODES: None palpable. CHEST: Decreased breath sounds in the bases. HEART: Without murmur or gallop. ABDOMEN: Soft, distended. She is tender. Minimal rebound or guarding localized to lower abdomen. EXTREMITIES: Without cyanosis, clubbing, or edema. RECTAL AND GENITAL: Deferred. NEUROLOGICAL: No focal neurological abnormalities. HOSPITAL COURSE: The patient is currently on Zosyn, which is appropriate. Her temperature was up to 100.2. A CT scan of the abdomen and pelvis is as previously outlined. We demonstrated inflamed sig moid colon with adjacent air fluid collection suggestive of diverticular abscess and contained perfor ation. Enteric contrast has not reached a segment of bowel, limiting evaluation for possibility of a n enteric contrast leak increased air seen within this collection. ____ demonstrated air-filled trac t along the course of the prior percutaneous drainage catheter in the left abdominal wall. Stable to slight increase in the adjacent small multiloculated fluid collections within the lower abdomen and pelvis as described above. IMPRESSION AND PLAN: We will defer to Dr. Brenner with regards to surgical exploration. She is curr ently on appropriate antibiotic therapy. She has 2 blood cultures pending. She had received Cipro a nd Flagyl before being placed on Zosyn. We will continue to observe. Dictated By: AMANDA NOLAN MD, JD/GERTRUDE Conf#: [id number] DID#: [id number] CC: MAE RODAS MD;*EndCC*
[2019-02-21] MEDS ORDERED: POTASSIUM CHLORIDE 100 ML IVPB ONE (19:30)
[2019-02-21] MEDS ORDERED: LORAZEPAM 2 MG INJ IV PRN (19:30)
[2019-02-21 20:33] VITALS: BP 95/59; PULSE 105; RESP 20
--- NOTE | 2019-02-21 23:34 | HP ---
DATE OF ADMISSION: 02/20/2019 REASON FOR ADMISSION: Abdominal pain. HISTORY OF PRESENT ILLNESS: This is a 48-year-old female with a past medical history of fibroids, hi story of inguinal hernia repair, history of complex uterine cervical mass, with multiple admissions i n the past secondary to diverticulitis. The last admission was 01/27/2019 until 02/07/2019. At that time, patient had CT of the abdomen and pelvis that showed pericolonic abscess. Patient was treated with IV antibiotics. The patient was seen by surgery, Dr. Farley, had exploratory laparoscopy with jojo ortega of intraabdominal abscess. At that time, patient was treated with IV antibiotics. The patie nt was clinically feeling better and was discharged with Cipro, Flagyl and Diflucan. According to th e patient, she went home and followed up with Dr. Farley 2 days ago. She was feeling a lot better. T he drains were draining minimal. The drains were removed by the surgeon. However, patient said that the next day she started having severe lower abdominal pain. She was having fevers of 101. She was also having episodes of nausea, vomiting, poor appetite and that made her come to the emergency depa rtment. On arrival to ED, vital signs showed temperature of initially 98.1 then 100.1. Her white co unt was 21,000, hemoglobin 13.1, platelet count 356. Lactate initially was 2.5, BUN of 8, creatinine of 0.56. UA: 0 WBCs. The patient had a CT of the abdomen and pelvis that showed recurrent multilo culated pelvic and left lower quadrant abdominal abscesses. Following removal of laparoscopic placed abscess drained, the patient was seen by Dr. Brenner and patient was started on IV Zosyn and was adm itted for further management. PAST MEDICAL HISTORY: 1. History of diverticulosis, diverticulitis, recurrent admissions in the past x3 with laparoscopic drainage. 2. Leukocytosis. 3. Drug rash, possibly secondary to MEROPENEM. 4. Normocytic normochromic anemia. 5. History of complex uterine mass. 6. History of fibroids. ALLERGIES: MEROPENEM. PAST SURGICAL HISTORY: 1. She is inguinal hernia repair in 2013. 2. Fibroid removal in 2012. 3. Laparoscopic drainage of the abscess in 12/2018. SOCIAL HISTORY: Ex-smoker and also used marijuana in the past. Lives at home with her family. FAMILY HISTORY: Noncontributory. REVIEW OF SYSTEMS: The patient is complaining of severe lower abdominal pain, episodes of nausea, vo miting, poor appetite, high fevers. Denied any hematemesis, any melena, any blood per rectum. Patie nt had a large bowel movement yesterday, denies any headache, any chest pain, any shortness of breath , any focal neurological deficits. PHYSICAL EXAMINATION: VITAL SIGNS: Currently fever of 101.5, pulse 125, respirations 20, blood pressure 106/68. GENERAL: The patient is awake, alert, oriented; however, appears to be in moderate distress secondar y to pain. HEENT: Pupils equal, round, reactive to light. Oral mucosa dry. NECK: Supple. No JVD. HEART: Tachycardic. No murmur could be appreciated. LUNGS: Clear to auscultate bilaterally. ABDOMEN: Severe lower abdominal tenderness present in the right lower quadrant, left lower quadrant, active bowel sounds. Abdomen is firm. EXTREMITIES: No clubbing, cyanosis, or edema. LABORATORY DATA: Lactate was 2.5, now 1.6. White count 21, hemoglobin 13.1, platelet count 356. CT of the abdomen and pelvis: Intraabdominal abscess, multiloculated pelvic and left lower abdominal a bscesses. ASSESSMENT AND PLAN: 1. This is a 48-year-old female with sepsis secondary to abdominal abscesses. 2. Severe leukocytosis secondary to #1. 3. Lactic acidosis secondary to #1. 4. History of anemia. 5. History of marijuana use. 6. History of amphetamine use. 7. History of a yeast infection in the Gram stain. PLAN: At this period of time, the patient is admitted to med/surg; however, will be transferred to [facility]. We will keep the patient IV Zosyn and also start the patient on IV Diflucan, pain control. Eloise jerome has already been consulted. The patient will need drainage. We will also give the patient NS b oluses. Tylenol for fever. The rest of the treatment will depend on the patient's hospitalization c ourse. Dictated By: DANILO KIRKLAND/GERTRUDE Conf#: [id number] DID#: [id number]
[2019-02-22] MEDS: PIPER-TAZO 3.375 GM IV (PMX) 100 ML IVPB SCH ×5 (00:12→23:21)
[2019-02-22 00:15] VITALS: BP 100/60; PULSE 77; RESP 17
[2019-02-22] MEDS: ONDANSETRON 4 MG INJ IV PRN ×4 (01:56→23:21)
[2019-02-22] MEDS: HYDROmorphONE 0.5 MG/0.5 ML SYG IV PRN ×5 (02:48→20:53)
[2019-02-22 04:13] VITALS: BP 106/62; PULSE 71; RESP 18
[2019-02-22] MEDS: DEXTROSE 5%-0.45% NACL 1,000 ML IV SCH ×4 (05:04→23:21)
[2019-02-22] MEDS: PANTOPRAZOLE 40 MG INJ IV SCH (05:06)
[2019-02-22] MEDS: metroNIDAZOLE 500 MG/NS (PMX) 100 ML IVPB SCH ×3 (05:43→21:40)
[2019-02-22 07:33] VITALS: BP 100/58; PULSE 108; RESP 18
[2019-02-22] MEDS: POTASSIUM CHLORIDE 100 ML IVPB SCH ×2 (08:47→11:00)
[2019-02-22] MEDS ORDERED: MAGNESIUM SULFATE 2 GM/50 ML 50 ML IVPB ONE (10:00)
[2019-02-22] MEDS ORDERED: MIDAZOLAM 1 MG/ML 2 ML INJ ONE (11:34)
[2019-02-22] MEDS ORDERED: FENTAnyl 50 MCG/ML VIAL ONE (11:35)
[2019-02-22] MEDS ORDERED: LIDOCAINE 1% (MDV) 20 ML INJ ONE (11:56)
[2019-02-22 12:53] VITALS: BP 106/63; PULSE 104; RESP 18
--- NOTE | 2019-02-22 13:35 | PN ---
DATE: 02/22/2019 SUBJECTIVE: The patient is status post abdominal abscess with CT-guided drainage catheter placement, total of 20 mL of fluid being aspirated. She is currently awake, a little bit sore throat in the ar ea and no distress with a T-max yesterday 101 and T-current 99.1. WBC 20.4, neutrophils 92, bands 6, BUN 3, creatinine 0.52. MICROBIOLOGY: Blood cultures since admission negative. ANTIMICROBIALS: She remains on Fluconazole and Zosyn. PHYSICAL EXAMINATION: GENERAL: This is well-developed, well-nourished, middle-aged woman who is alert, in no distress. HEENT: Head atraumatic, normocephalic. NECK: Supple. CHEST: Rise symmetrical. Breath sounds diminished to bases. HEART: S1, S2. ABDOMEN: Soft, bowel tones hypoactive. SKIN: The patient has left-sided intraabdominal drainage catheter with grayish drainage. EXTREMITIES: Without cyanosis. ASSESSMENT: 1. Recurrent Intraabdominal abscess, status post CT-guided drainage. 2. Acute perforated diverticulitis, status post exploratory laparoscopy and drainage of intraabdomin al abscess on 01/28/2019. 3. Systemic inflammatory response syndrome with fevers and leukocytosis secondary to #1. PLAN: The patient remains stable post-procedure. Surgery is on the case. Continue antibiotics. Aw ait for fluid cultures. Dictated By: DALE ARREOLA [employer] SUPER[employer] for AMANDA NOLAN MD NI/NTS Conf#: [id number] DID#: [id number] CC: AMANDA NOLAN MD; MAE RODAS MD;*[facility]*
[2019-02-22] MEDS: FLUCONAZOLE 400 MG/NS (PMX) 200 ML IVPB SCH (15:49)
--- NOTE | 2019-02-22 15:54 | PN ---
Date/Time of Note Date/Time of Note DATE: 02/22/19 TIME: 15:51 Assessment/Plan VTE Prophylaxis Risk score (from [facility])>0 risk: 4 SCD applied (from [facility]): Yes Pharmacological prophylaxis: NA/contraindicated Pharm contraindication: surgical contra Lines/Catheters IV C[facility]ter Type (from [facility]): PICC Line Central line still needed: Yes Urinary Cath still in place: No Assessment/Plan Hospital Course 1. Sepsis secondary to abdominal abscesses. 2. Severe leukocytosis secondary to #1. 3. Lactic acidosis secondary to #1. 4. History of anemia. 5. History of marijuana use. 6. History of amphetamine use. 7. History of a yeast infection in the Gram stain. 8. Anemia 9. electrolyte imbalance: hypokalemia, hypophosphatemia 10. Overweight Assessment/Plan - tele. -pain control -CT guided drainage done today, has OSMAN bulb -GI proph. Protonix IV -c/w IV Zosyn and IV Diflucan, -c/w pain control. -Surgery consult dr Brenner. Result Diagram: 02/22/19 0541 02/22/19 0541 Results 24hrs Laboratory Tests Test 02/21/19 19:43 02/22/19 05:41 02/22/19 11:11 Lactic Acid Level 0.8 White Blood Count 20.4 H Red Blood Count 3.22 L Hemoglobin 9.5 L Hematocrit 29.3 L Mean Corpuscular Volume 91.0 Mean Corpuscular Hemoglobin 29.5 Mean Corpuscular Hemoglobin Concent 32.4 Red Cell Distribution Width 13.6 Platelet Count 265 Mean Platelet Volume 10.4 Immature Granulocytes % 3.900 H Neutrophils % Segmented Neutrophils % (Manual) 92 H Band Neutrophils % (Manual) 6 H Lymphocytes % Lymphocytes % (Manual) 1 L Monocytes % Monocytes % (Manual) 1 Eosinophils % Basophils % Nucleated Red Blood Cells % 0.0 Immature Granulocytes # 0.800 H Neutrophils # Neutrophils # (Manual) 19.0 H Band Neutrophils # 1.2 H Lymphocytes (Manual) 0.2 L Lymphocytes # Monocytes # Monocytes # (Manual) 0.2 L Eosinophils # Basophils # Nucleated Red Blood Cells # Platelet Estimate NORMAL Polychromasia 1+ Sodium Level 136 Potassium Level 3.0 L Chloride Level 106 Carbon Dioxide Level 26 Anion Gap 4 L Blood Urea Nitrogen 3 L Creatinine 0.52 Est Glomerular Filtrat Rate mL/min > 60 Glucose Level 127 Calcium Level 7.3 L Phosphorus Level 1.8 L Magnesium Level 1.4 L Total Bilirubin 0.3 Direct Bilirubin 0.00 Indirect Bilirubin 0.3 Aspartate Amino Transf (AST/SGOT) 17 Alanine Aminotransferase (ALT/SGPT) 18 Alkaline Phosphatase 109 Total Protein 5.1 L Albumin 2.4 L Globulin 2.70 Albumin/Globulin Ratio 0.88 Urine Test NEGATIVE Subjective 24 Hr Interval Summary Free Text/Dictation Constitutional: today fever, some chills. EYE: No eye disease. No visual problems. CARDIOVASCULAR: No chest pain. No tachycardia. No Palpitation. RESPIRATORY: No breathing problems. No COPD or disease of respiration. GASTROINTESTINAL: No Nausea. pain in abdomen Endocrine: No excessive thirst, No polyuria, No hot intolerance. No cold intolerance. MUSCULO-SKELETAL: No bone or Joint disease. NEUROLOGICAL: Alert oriented in person, place, time and situation. No Headache, Confusion. No Seizures. No problem with balance. Exam/Review of Systems Exam Vitals Vital Signs Date Temp Pulse Resp B/P (MAP) Pulse Ox O2 O2 Flow FiO2 Time Delivery Rate 02/22/19 99.1 104 18 106/63 98 Room Air 12:53 (77) Intake and Output 02/21/19 02/21/19 02/22/19 1515:00 23:00 07:00 IntakeIntake Total 750 ml 2400 ml 1300 ml OutputOutput Total 300 ml BalanceBalance 750 ml 2400 ml 1000 ml Exam fever , pt had rodedure today Eyes: anicteric, EOM's intact, no pallor Nose: no rhinorrhea Neck: supple, no thyromegaly, no carotid bruits Lungs: clear bilaterally, decreased. CVS: regular rate and rhythm, no murmurs Abdomen: soft, bowel sounds present, OSMAN bulb Rectal: differed. External genitalia: no lesions. Extremities: no edema, DP pulses are palpable Neuro: alert and oriented x 3 Gait: normal Motor strength: 5+/5+ Sensory exam: normal Deep tendon reflexes: normal, Babisky reflexes are absent bilaterally Skin: no lesions Results Results 24hrs Laboratory Tests Test 02/21/19 19:43 02/22/19 05:41 02/22/19 11:11 Lactic Acid Level 0.8 White Blood Count 20.4 H Red Blood Count 3.22 L Hemoglobin 9.5 L Hematocrit 29.3 L Mean Corpuscular Volume 91.0 Mean Corpuscular Hemoglobin 29.5 Mean Corpuscular Hemoglobin Concent 32.4 Red Cell Distribution Width 13.6 Platelet Count 265 Mean Platelet Volume 10.4 Immature Granulocytes % 3.900 H Neutrophils % Segmented Neutrophils % (Manual) 92 H Band Neutrophils % (Manual) 6 H Lymphocytes % Lymphocytes % (Manual) 1 L Monocytes % Monocytes % (Manual) 1 Eosinophils % Basophils % Nucleated Red Blood Cells % 0.0 Immature Granulocytes # 0.800 H Neutrophils # Neutrophils # (Manual) 19.0 H Band Neutrophils # 1.2 H Lymphocytes (Manual) 0.2 L Lymphocytes # Monocytes # Monocytes # (Manual) 0.2 L Eosinophils # Basophils # Nucleated Red Blood Cells # Platelet Estimate NORMAL Polychromasia 1+ Sodium Level 136 Potassium Level 3.0 L Chloride Level 106 Carbon Dioxide Level 26 Anion Gap 4 L Blood Urea Nitrogen 3 L Creatinine 0.52 Est Glomerular Filtrat Rate mL/min > 60 Glucose Level 127 Calcium Level 7.3 L Phosphorus Level 1.8 L Magnesium Level 1.4 L Total Bilirubin 0.3 Direct Bilirubin 0.00 Indirect Bilirubin 0.3 Aspartate Amino Transf (AST/SGOT) 17 Alanine Aminotransferase (ALT/SGPT) 18 Alkaline Phosphatase 109 Total Protein 5.1 L Albumin 2.4 L Globulin 2.70 Albumin/Globulin Ratio 0.88 Urine Test NEGATIVE Medications Medication Current Medications Hydromorphone HCl (Dilaudid) 1 mg Q4H PRN IV PAIN LEVEL 6-10 Last administered on 02/22/19at 13:00; Admin Dose 1 MG; Start 02/20/19 at 22:30 Dextrose/Sodium Chloride 1,000 ml @ 150 mls/hr Q6H40M IV Last administered on 02/22/19at 09:10; Admin Dose 150 MLS/HR; Start 02/20/19 at 23:44 IV Flush (NS 3 ml) 3 ml PER PROTOCOL IV ; Start 02/21/19 at 00:00 Ondansetron HCl (Zofran Inj) 4 mg Q6H PRN IV NAUSEA/VOMITING Last administered on 02/22/19at 11:19; Admin Dose 4 MG; Start 02/21/19 at 00:00 Acetaminophen (Tylenol Tab) 650 mg Q6H PRN PO .PAIN 1-3 OR TEMP Last administered on 02/21/19 01:42; Admin Dose 650 MG; Start 02/21/19 at 00:00 Acetaminophen (Tylenol Supp) 650 mg Q6H PRN [place] .PAIN 1-3 OR TEMP; Start 02/21/19 at 00:00 Pantoprazole (Protonix Iv) 40 mg DAILY@06 IV Last administered on 02/22/19 05:06; Admin Dose 40 MG; Start 02/21/19 at 06:00 Piperacillin Sod/ Tazobactam Sod 100 ml @ 200 mls/hr Q6 IVPB Last administered on 02/22/19 11:24; Admin Dose 200 MLS/HR; Start 02/21/19 at 00:00 Fluconazole 200 ml @ 100 mls/hr Q24H IVPB Last administered on 02/21/19 18:03; Admin Dose 100 MLS/HR; Start 02/21/19 at 16:00 Acetaminophen 100 ml @ 400 mls/hr Q6H PRN IVPB fevr Last administered on 02/21/19 18:11; Admin Dose 400 MLS/HR; Start 02/21/19 at 16:00; Stop 02/22/19 at 15:59 Metronidazole 100 ml @ 100 mls/hr Q8 IVPB Last administered on 02/22/19 13:28; Admin Dose 100 MLS/HR; Start 02/21/19 at 16:00 IV Flush (NS 10 ml) 10 ml PRN PRN IV FLUSH LINE; Start 02/21/19 at 18:30 Lorazepam (Ativan) 0.5 mg Q12H PRN IV anxiety ; Start 02/21/19 at 19:30 LAURA FANG NP Feb 22, 2019 15:54
[2019-02-22 16:17] VITALS: BP 109/68; PULSE 96; RESP 18
[2019-02-22] MEDS ORDERED: POTASSIUM PHOSPHATE 15 MM in SOD CHLORIDE 0.9% 250 ML IVPB ONE (17:00)
[2019-02-22 20:00] VITALS: BP 115/61; PULSE 110; PULSE 98; RESP 18
[2019-02-22] MEDS: ACETAMINOPHEN 650 MG SUPP PR PRN (20:16)
--- NOTE | 2019-02-22 23:17 | PN ---
Date/Time of Note Date/Time of Note DATE: 02/22/19 TIME: 23:17 Assessment/Plan Lines/Catheters IV Catheter Type (from [facility]): PICC Line Alberto in Place (from [facility]): No Assessment/Plan Chief Complaint/Hosp Course 1. Recent perforated diverticulitis with pericolonic abscess, non-amenable to IR drain and therefore requiring laparoscopic drainage of abscess on January 28. Drain was removed by primary surgeon 2 days prior to admission, however she developed more abdominal pain with chills and significant leukocytosis. CT shows persistent abscesses. She is tachycardic but blood pressure stable. Lactic acid normal. -IR drain today -Medical optimization -Judicious fluid management -IV antibiotics>per ID -Supportive therapy -Pain control -Possible surgical exploration for washout, possible colostomy, possible bowel resection (discussed with Dr. Lucia and he plans to explore her this coming week however if she does not improve or worsens may require surgical exploration sooner) 2. Significant leukocytosis secondary to above. Slowly improving. -as above 3. Previous recent anemia however currently normocytic, may be dehydrated -Judicious fluid management Thank you Subjective 24 Hr Interval Summary Pain somewhat improved. Fevers are improving. No chills. No cp/sob. No cough. No sz. No wilkins, visual or neuro changes. No dysuria. Bowel function Labs noted. Exam/Review of Systems Vital Signs Vitals Vital Signs Date Temp Pulse Resp B/P (MAP) Pulse Ox O2 O2 Flow FiO2 Time Delivery Rate 02/23/19 83 01:12 02/23/19 98.0 18 110/73 97 00:00 (85) 02/22/19 Room Air 16:17 Intake and Output 02/22/19 02/22/19 02/23/19 1515:00 23:00 07:00 IntakeIntake Total 500 ml 230 ml OutputOutput Total 0 ml BalanceBalance 500 ml 230 ml Exam Constitutional: alert, oriented; No distress Psych: anxiety Head: normocephalic, atraumatic Eyes: nl conjunctiva, EOMI; No PERRL ENMT: nl external ears & nose, nl lips & teeth Neck: supple, non-tender; No jvd Respiratory: normal air movement; No congested cough, No wheezing Cardiovascular: regular rate and rhythm; No edema Gastrointestinal: soft, distended, rebound or guarding (localized to lower quadrants), tender Musculoskeletal: nl extremities to inspection; No joint tenderness Extremities: normal pulses; No calf tenderness, No cyanosis, No edema Neurological: nl mental status, nl speech, nl strength Skin: nl turgor; No rash or lesions, No diaphoresis Lymph: nl lymph nodes; No nontender Results Result Diagram: 02/22/19 0541 02/22/19 0541 NAIDA SUGGS MD Feb 22, 2019 23:17
[2019-02-23] VITALS (8 sets, daily range): BP systolic 103–117; BP diastolic 60–75; PULSE 79–91; RESP 16–18
[2019-02-23] MEDS: HYDROmorphONE 0.5 MG/0.5 ML SYG IV PRN ×6 (00:43→23:43)
[2019-02-23] MEDS: metroNIDAZOLE 500 MG/NS (PMX) 100 ML IVPB SCH ×2 (05:18→13:19)
[2019-02-23] MEDS: ONDANSETRON 4 MG INJ IV PRN ×3 (05:18→20:58)
[2019-02-23] MEDS: PANTOPRAZOLE 40 MG INJ IV SCH (05:18)
[2019-02-23] MEDS: PIPER-TAZO 3.375 GM IV (PMX) 100 ML IVPB SCH ×4 (05:29→23:51)
[2019-02-23] MEDS: DEXTROSE 5%-0.45% NACL 1,000 ML IV SCH ×3 (05:30→18:32)
--- NOTE | 2019-02-23 13:17 | CONS ---
Consultation Date/Type/Reason Admit Date/Time Feb 20, 2019 at 20:08 Initial Consult Date SUBJECTIVE: The patient is status post abdominal abscess with CT-guided drainage catheter placement, total of 20 mL of fluid being aspirated. Pt is awake, alert, resting in bed. NO fever today. Vs: stable T: 98.3 LABS: Reviewed. WBC- 17.5 Improving MICROBIOLOGY: Blood cultures since admission negative. Body fluid CX: WOUND CULTURE Preliminary Organism 1 GRAM NEGATIVE JORGE QUANTITY SCANT GROWTH Organism 2 STAPHYLOCOCCUS AUREUS QUANTITY 3+ ANTIMICROBIALS: She remains on Fluconazole and Zosyn. PHYSICAL EXAMINATION: GENERAL: This is well-developed, well-nourished, middle-aged woman who is alert, in no distress. HEENT: Head atraumatic, normocephalic. NECK: Supple. CHEST: Rise symmetrical. Breath sounds diminished to bases. HEART: S1, S2. ABDOMEN: Soft, bowel tones hypoactive. SKIN: The patient has left-sided intraabdominal drainage catheter with grayish drainage. EXTREMITIES: Without cyanosis. ASSESSMENT: 1. Recurrent Intraabdominal abscess, status post CT-guided drainage. 2. Acute perforated diverticulitis, status post exploratory laparoscopy and drainage of intraabdominal abscess on 01/28/2019. 3. Systemic inflammatory response syndrome with fevers and leukocytosis seconda ry to #1. PLAN: The patient remains stable. Surgery following. Continue antibiotics. Await for final abscess cultures. Requesting Provider: JOSEPHINE GARAY MD Date/Time of Note DATE: 02/23/19 TIME: 13:12 Exam/Review of Systems Exam Vitals Vital Signs Date Temp Pulse Resp B/P (MAP) Pulse Ox O2 O2 Flow FiO2 Time Delivery Rate 02/23/19 98.3 85 16 104/64 98 Room Air 11:46 (77) Intake and Output 02/22/19 02/22/19 02/23/19 1515:00 23:00 07:00 IntakeIntake Total 500 ml 330 ml 2200 ml OutputOutput Total 0 ml 20 ml BalanceBalance 500 ml 330 ml 2180 ml Results Result Diagram: 02/23/19 0658 02/23/19 0657 Results 24hrs Laboratory Tests Test 02/23/19 06:57 02/23/19 06:58 Sodium Level 141 Potassium Level 3.0 L Chloride Level 109 Carbon Dioxide Level 26 Anion Gap 6 Blood Urea Nitrogen < 2 L Creatinine 0.46 Est Glomerular Filtrat Rate mL/min > 60 Glucose Level 112 Calcium Level 7.7 L White Blood Count 17.5 H Red Blood Count 3.38 L Hemoglobin 9.7 L Hematocrit 30.9 L Mean Corpuscular Volume 91.4 Mean Corpuscular Hemoglobin 28.7 L Mean Corpuscular Hemoglobin Concent 31.4 L Red Cell Distribution Width 13.8 Platelet Count 258 Mean Platelet Volume 10.6 H Immature Granulocytes % 0.700 H Neutrophils % Segmented Neutrophils % (Manual) 97 H Band Neutrophils % (Manual) 1 Lymphocytes % Lymphocytes % (Manual) 1 L Monocytes % Monocytes % (Manual) 1 Eosinophils % Basophils % Nucleated Red Blood Cells % 0.0 Immature Granulocytes # 0.120 H Neutrophils # Neutrophils # (Manual) 17.0 H Band Neutrophils # 0.1 Lymphocytes (Manual) 0.1 L Lymphocytes # Monocytes # Monocytes # (Manual) 0.1 L Eosinophils # Basophils # Nucleated Red Blood Cells # Platelet Estimate NORMAL Polychromasia 1+ Medications Medication Current Medications Hydromorphone HCl (Dilaudid) 1 mg Q4H PRN IV PAIN LEVEL 6-10 Last administered on 02/23/19 09:11; Admin Dose 1 MG; Start 02/20/19 at 22:30 Dextrose/Sodium Chloride 1,000 ml @ 150 mls/hr Q6H40M IV Last administered on 02/23/19 12:14; Admin Dose 150 MLS/HR; Start 02/20/19 at 23:44 IV Flush (NS 3 ml) 3 ml PER PROTOCOL IV ; Start 02/21/19 at 00:00 Ondansetron HCl (Zofran Inj) 4 mg Q6H PRN IV NAUSEA/VOMITING Last administered on 02/23/19 12:09; Admin Dose 4 MG; Start 02/21/19 at 00:00 Acetaminophen (Tylenol Tab) 650 mg Q6H PRN PO .PAIN 1-3 OR TEMP Last administered on 02/21/19 01:42; Admin Dose 650 MG; Start 02/21/19 at 00:00 Acetaminophen (Tylenol Supp) 650 mg Q6H PRN [place] .PAIN 1-3 OR TEMP Last administered on 02/22/19at 20:16; Admin Dose 650 MG; Start 02/21/19 at 00:00 Pantoprazole (Protonix Iv) 40 mg DAILY@06 IV Last administered on 02/23/19 05:18; Admin Dose 40 MG; Start 02/21/19 at 06:00 Piperacillin Sod/ Tazobactam Sod 100 ml @ 200 mls/hr Q6 IVPB Last administered on 02/23/19at 12:14; Admin Dose 200 MLS/HR; Start 02/21/19 at 00:00 Fluconazole 200 ml @ 100 mls/hr Q24H IVPB Last administered on 02/22/19at 15:49; Admin Dose 100 MLS/HR; Start 02/21/19 at 16:00 Metronidazole 100 ml @ 100 mls/hr Q8 IVPB Last administered on 02/23/19 05:18; Admin Dose 100 MLS/HR; Start 02/21/19 at 16:00 IV Flush (NS 10 ml) 10 ml PRN PRN IV FLUSH LINE; Start 02/21/19 at 18:30 Lorazepam (Ativan) 0.5 mg Q12H PRN IV anxiety ; Start 02/21/19 at 19:30 Fat Emulsion Intravenous 250 ml @ 21 mls/hr DAILY@1600 IV ; Start 02/22/19 at 16:00; Status SHARMIN GAMEZ Feb 23, 2019 13:17
[2019-02-23] MEDS: FLUCONAZOLE 400 MG/NS (PMX) 200 ML IVPB SCH (15:26)
--- NOTE | 2019-02-23 15:36 | PN ---
Date/Time of Note Date/Time of Note DATE: 02/23/19 TIME: 15:32 Assessment/Plan VTE Prophylaxis Risk score (from [facility])>0 risk: 1 SCD applied (from [facility]): Yes Pharmacological prophylaxis: NA/contraindicated Pharm contraindication: low risk/ambulating, surgical contra Lines/Catheters IV C[facility]ter Type (from [facility]): PICC Line Central line still needed: Yes Urinary Cath still in place: No Assessment/Plan Hospital Course 1. Sepsis secondary to abdominal abscesses. 2. Severe leukocytosis secondary to #1. 3. Lactic acidosis secondary to #1. 4. History of anemia. 5. History of marijuana use. 6. History of amphetamine use. 7. History of a yeast infection in the Gram stain. 8. Anemia 9. electrolyte imbalance: hypokalemia, hypophosphatemia 10. Overweight Assessment/Plan - tele. -procedure tomorrow -pt is not tolerating pain , insomnia -pain control -CT guided drainage done, has OSMAN bulb -GI proph. Protonix IV -c/w IV Zosyn and IV Diflucan, -c/w pain control. -Surgery consult dr Brenner. Result Diagram: 02/23/19 0658 02/23/19 0657 Results 24hrs Laboratory Tests Test 02/23/19 06:57 02/23/19 06:58 Sodium Level 141 Potassium Level 3.0 L Chloride Level 109 Carbon Dioxide Level 26 Anion Gap 6 Blood Urea Nitrogen < 2 L Creatinine 0.46 Est Glomerular Filtrat Rate mL/min > 60 Glucose Level 112 Calcium Level 7.7 L White Blood Count 17.5 H Red Blood Count 3.38 L Hemoglobin 9.7 L Hematocrit 30.9 L Mean Corpuscular Volume 91.4 Mean Corpuscular Hemoglobin 28.7 L Mean Corpuscular Hemoglobin Concent 31.4 L Red Cell Distribution Width 13.8 Platelet Count 258 Mean Platelet Volume 10.6 H Immature Granulocytes % 0.700 H Neutrophils % Segmented Neutrophils % (Manual) 97 H Band Neutrophils % (Manual) 1 Lymphocytes % Lymphocytes % (Manual) 1 L Monocytes % Monocytes % (Manual) 1 Eosinophils % Basophils % Nucleated Red Blood Cells % 0.0 Immature Granulocytes # 0.120 H Neutrophils # Neutrophils # (Manual) 17.0 H Band Neutrophils # 0.1 Lymphocytes (Manual) 0.1 L Lymphocytes # Monocytes # Monocytes # (Manual) 0.1 L Eosinophils # Basophils # Nucleated Red Blood Cells # Platelet Estimate NORMAL Polychromasia 1+ Subjective 24 Hr Interval Summary Free Text/Dictation insomnia, pain control 12/06, pt is crying Exam/Review of Systems Exam Vitals Vital Signs Date Temp Pulse Resp B/P (MAP) Pulse Ox O2 O2 Flow FiO2 Time Delivery Rate 02/23/19 98.3 85 16 104/64 98 Room Air 11:46 (77) Intake and Output 02/22/19 02/22/19 02/23/19 1515:00 23:00 07:00 IntakeIntake Total 500 ml 330 ml 2200 ml OutputOutput Total 0 ml 20 ml BalanceBalance 500 ml 330 ml 2180 ml Exam No acute distress, insomnia Eyes: anicteric, EOM's intact, no pallor Nose: no rhinorrhea Neck: supple, no thyromegaly, no carotid bruits Lungs: clear bilaterally, decreased. CVS: regular rate and rhythm, no murmurs Abdomen: soft, bowel sounds present, OSMAN bulb, surg. scars Rectal: differed. External genitalia: no lesions. Extremities: no edema, DP pulses are palpable Neuro: alert and oriented x 3 Gait: normal Motor strength: 5+/5+ Sensory exam: normal Deep tendon reflexes: normal, Babisky reflexes are absent bilaterally Skin: no lesions Results Results 24hrs Laboratory Tests Test 02/23/19 06:57 02/23/19 06:58 Sodium Level 141 Potassium Level 3.0 L Chloride Level 109 Carbon Dioxide Level 26 Anion Gap 6 Blood Urea Nitrogen < 2 L Creatinine 0.46 Est Glomerular Filtrat Rate mL/min > 60 Glucose Level 112 Calcium Level 7.7 L White Blood Count 17.5 H Red Blood Count 3.38 L Hemoglobin 9.7 L Hematocrit 30.9 L Mean Corpuscular Volume 91.4 Mean Corpuscular Hemoglobin 28.7 L Mean Corpuscular Hemoglobin Concent 31.4 L Red Cell Distribution Width 13.8 Platelet Count 258 Mean Platelet Volume 10.6 H Immature Granulocytes % 0.700 H Neutrophils % Segmented Neutrophils % (Manual) 97 H Band Neutrophils % (Manual) 1 Lymphocytes % Lymphocytes % (Manual) 1 L Monocytes % Monocytes % (Manual) 1 Eosinophils % Basophils % Nucleated Red Blood Cells % 0.0 Immature Granulocytes # 0.120 H Neutrophils # Neutrophils # (Manual) 17.0 H Band Neutrophils # 0.1 Lymphocytes (Manual) 0.1 L Lymphocytes # Monocytes # Monocytes # (Manual) 0.1 L Eosinophils # Basophils # Nucleated Red Blood Cells # Platelet Estimate NORMAL Polychromasia 1+ Medications Medication Current Medications Hydromorphone HCl (Dilaudid) 1 mg Q4H PRN IV PAIN LEVEL 6-10 Last administered on 02/23/19 13:19; Admin Dose 1 MG; Start 02/20/19 at 22:30 Dextrose/Sodium Chloride 1,000 ml @ 150 mls/hr Q6H40M IV Last administered on 02/23/19 12:14; Admin Dose 150 MLS/HR; Start 02/20/19 at 23:44 IV Flush (NS 3 ml) 3 ml PER PROTOCOL IV ; Start 02/21/19 at 00:00 Ondansetron HCl (Zofran Inj) 4 mg Q6H PRN IV NAUSEA/VOMITING Last administered on 02/23/19 12:09; Admin Dose 4 MG; Start 02/21/19 at 00:00 Acetaminophen (Tylenol Tab) 650 mg Q6H PRN PO .PAIN 1-3 OR TEMP Last administered on 02/21/19 01:42; Admin Dose 650 MG; Start 02/21/19 at 00:00 Acetaminophen (Tylenol Supp) 650 mg Q6H PRN [place] .PAIN 1-3 OR TEMP Last administered on 02/22/19 20:16; Admin Dose 650 MG; Start 02/21/19 at 00:00 Pantoprazole (Protonix Iv) 40 mg DAILY@06 IV Last administered on 02/23/19 05:18; Admin Dose 40 MG; Start 02/21/19 at 06:00 Piperacillin Sod/ Tazobactam Sod 100 ml @ 200 mls/hr Q6 IVPB Last administered on 02/23/19 12:14; Admin Dose 200 MLS/HR; Start 02/21/19 at 00:00 Fluconazole 200 ml @ 100 mls/hr Q24H IVPB Last administered on 02/23/19 15:26; Admin Dose 100 MLS/HR; Start 02/21/19 at 16:00 Metronidazole 100 ml @ 100 mls/hr Q8 IVPB Last administered on 02/23/19 13:19; Admin Dose 100 MLS/HR; Start 02/21/19 at 16:00 IV Flush (NS 10 ml) 10 ml PRN PRN IV FLUSH LINE; Start 02/21/19 at 18:30 Lorazepam (Ativan) 0.5 mg Q12H PRN IV anxiety ; Start 02/21/19 at 19:30 Fat Emulsion Intravenous 250 ml @ 21 mls/hr DAILY@1600 IV ; Start 02/22/19 at 16:00; Status LAURA FLORES CARPENTER BRIDGE Feb 23, 2019 15:36
[2019-02-23] MEDS ORDERED: VANCOMYCIN IV PER PHARMACY XX SCH (16:30)
[2019-02-23] MEDS ORDERED: ONDANSETRON 4 MG INJ IV STA (17:25)
[2019-02-23] MEDS: METOCLOPRAMIDE 10 MG INJ IV PRN (19:15)
[2019-02-23] MEDS ORDERED: PEG/ELECTROLYTES 4L BTL PO ONE (20:00)
[2019-02-23] MEDS ORDERED: VANCOMYCIN 1.5 GM/NS 250 ML 250 ML IVPB SCH (20:00)
[2019-02-23] MEDS ORDERED: POTASSIUM CHLORIDE 100 ML IVPB ONE ×2 (21:00→23:00)
--- NOTE | 2019-02-23 21:29 | PN ---
Date/Time of Note Date/Time of Note DATE: 02/23/19 TIME: :27 Assessment/Plan Lines/Catheters IV Catheter Type (from [facility]): PICC Line Alberto in Place (from [facility]): No Assessment/Plan Chief Complaint/Hosp Course 1. Recent perforated diverticulitis with pericolonic abscess, non-amenable to IR drain and therefore requiring laparoscopic drainage of abscess on January 28. Drain was removed by primary surgeon 2 days prior to admission, however she developed more abdominal pain with chills and significant leukocytosis. CT shows persistent abscesses. She is tachycardic but blood pressure stable. Lactic acid normal. s/p IR drain c 20ml removed 02/22. -Medical optimization -Judicious fluid management -IV antibiotics -Supportive therapy -Pain control -Possible surgical exploration for washout, possible colostomy, possible bowel resection on Sunday by Dr. Lucia < Golytely started 2. Significant leukocytosis secondary to above. Slowly improving. -as above 3. Previous recent anemia however currently normocytic, may be dehydrated -Judicious fluid management Thank you Subjective 24 Hr Interval Summary Pain improving. No Fevers. No chills. No cp/sob. No cough. No sz. No wilkins, visual or neuro changes. No dysuria. Bowel function. WBC improving slowly. Exam/Review of Systems Vital Signs Vitals Vital Signs Date Temp Pulse Resp B/P (MAP) Pulse Ox O2 O2 Flow FiO2 Time Delivery Rate 02/23/19 98.7 91 16 103/60 98 Room Air 15:48 (74) Intake and Output 02/22/19 02/22/19 02/23/19 1515:00 23:00 07:00 IntakeIntake Total 500 ml 330 ml 2200 ml OutputOutput Total 0 ml 20 ml BalanceBalance 500 ml 330 ml 2180 ml Exam Free Text/Dictation Constitutional: alert, oriented; No distress Psych: anxiety Head: normocephalic, atraumatic Eyes: nl conjunctiva, EOMI; No PERRL ENMT: nl external ears & nose, nl lips & teeth Neck: supple, non-tender; No jvd Respiratory: normal air movement; No congested cough, No wheezing Cardiovascular: regular rate and rhythm; No edema Gastrointestinal: soft, distended, rebound or guarding (localized to lower quadrants), tender Musculoskeletal: nl extremities to inspection; No joint tenderness Extremities: normal pulses; No calf tenderness, No cyanosis, No edema Neurological: nl mental status, nl speech, nl strength Skin: nl turgor; No rash or lesions, No diaphoresis Lymph: nl lymph nodes; No nontender Results Result Diagram: 02/23/19 0658 02/23/19 1646 NAIDA SUGGS MD Feb 23, 2019 21:29
[2019-02-24] VITALS (23 sets, daily range): BP systolic 90–131; BP diastolic 57–83; PULSE 63–116; RESP 17–28
[2019-02-24] MEDS: ACETAMINOPHEN 650 MG SUPP PR PRN (00:13)
[2019-02-24] MEDS: VANCOMYCIN 1.25 GM/NS 250 ML 250 ML IVPB SCH ×2 (02:38→09:35)
[2019-02-24] MEDS: METOCLOPRAMIDE 10 MG INJ IV PRN ×2 (02:38→09:25)
[2019-02-24] MEDS: HYDROmorphONE 0.5 MG/0.5 ML SYG IV PRN ×3 (02:39→09:25)
[2019-02-24] MEDS: ONDANSETRON 4 MG INJ IV PRN (05:41)
[2019-02-24] MEDS: PANTOPRAZOLE 40 MG INJ IV SCH (05:50)
[2019-02-24] MEDS: PIPER-TAZO 3.375 GM IV (PMX) 100 ML IVPB SCH (05:50)
[2019-02-24] MEDS ORDERED: D5-NS + KCL 20 MEQ 1,000 ML IV SCH (10:00)
[2019-02-24] MEDS: POTASSIUM CHLORIDE 100 ML IVPB SCH ×2 (10:00→12:00)
--- NOTE | 2019-02-24 12:29 | PREAC ---
Date/Time of Note Date/Time of Note DATE: 02/24/19 TIME: 12:28 Anesthesia Eval and Record Evaluation Time Pre-Procedure Interview DATE: 02/24/19 TIME: 12:28 Age 48 Sex female NPO: 8 hrs Preoperative diagnosis diverticulitis Planned procedure low anterior colon resection Past Medical History Past Medical History: Includes Cardio: HTN Pulm: Smoking Hx Heme: Anemia Recreational drugs: Marijuana Surgery & Anesthesia Issues No known issue Meds Anticoagulation: No Beta Juan Luis within 24 hr: No Reason Beta Juan Luis not given: Pt. not on B-Juan Luis Discontinued Reported Medications Biotin (BIOTIN) 1 Mg Capsule, 1 MG PO DAILY, CAP 01/04/19 Calcium Phosphate Trib/Vit D3 (CALCIUM GUMMIES) 1 Each Tab.chew, 1 EACH PO DAILY, TAB.CHEW 01/04/19 Vitamin B Complex* (Vitamin B Complex*) 1 Each Tablet, 1 TAB PO DAILY, TAB 01/04/19 Lactobacillus Acidophilus (Probiotic Acidophilus) 1 Each Tablet, 1 EACH PO DAILY, TAB 01/04/19 Discontinued Scripts Fluconazole* (Diflucan*) 100 Mg Tablet, 100 MG PO DAILY for 10 Days, TAB Prov:LAURA FANG NP 02/07/19 Ciprofloxacin (Ciprofloxacin) 500 Mg/5 Ml Soila..rec, 500 MG PO BID, #10 TAB Prov:LAURA FANG NP 02/07/19 Metronidazole* (Flagyl*) 500 Mg Tablet, 500 MG PO Q8 for 10 Days, TAB Prov:LAURA FANG NP 02/07/19 Nicotine* (Nicotine* Patch) 21 mg/day Patch, 1 PATCH TRANSDERM DAILY for 14 Days Prov:LAURA FANG NP 02/07/19 Current Medications IV Flush (NS 3 ml) 3 ml PER PROTOCOL IV ; Start 02/21/19 at 00:00 Ondansetron HCl (Zofran Inj) 4 mg Q6H PRN IV NAUSEA/VOMITING Last administered on 02/24/19at 05:41; Admin Dose 4 MG; Start 02/21/19 at 00:00 Acetaminophen (Tylenol Tab) 650 mg Q6H PRN PO .PAIN 1-3 OR TEMP Last administered on 02/21/19at 01:42; Admin Dose 650 MG; Start 02/21/19 at 00:00 Acetaminophen (Tylenol Supp) 650 mg Q6H PRN [place] .PAIN 1-3 OR TEMP Last administered on 02/24/19at 00:13; Admin Dose 650 MG; Start 02/21/19 at 00:00 Pantoprazole (Protonix Iv) 40 mg DAILY@06 IV Last administered on 02/24/19at 05:50; Admin Dose 40 MG; Start 02/21/19 at 06:00 Piperacillin Sod/ Tazobactam Sod 100 ml @ 200 mls/hr Q6 IVPB Last administered on 02/24/19at 05:50; Admin Dose 200 MLS/HR; Start 02/21/19 at 00:00 Fluconazole 200 ml @ 100 mls/hr Q24H IVPB Last administered on 02/23/19at 15:26; Admin Dose 100 MLS/HR; Start 02/21/19 at 16:00 IV Flush (NS 10 ml) 10 ml PRN PRN IV FLUSH LINE; Start 02/21/19 at 18:30 Fat Emulsion Intravenous 250 ml @ 21 mls/hr DAILY@1600 IV ; Start 02/22/19 at 16:00; Status UNV Lorazepam (Ativan) 0.5 mg Q6H PRN IV anxiety , insomnia; Start 02/23/19 at 16:00 Vancomycin HCl (Vanco Iv Per Pharmacy) VANCOMYCIN PER PHARMACY PER PROTOCOL XX ; Start 02/23/19 at 16:30 Diagnostic Test (Pha) (Accu-Chek) 1 ea Q4 XX ; Start 02/23/19 at 17:00; Status UNV Total Parenteral Nutrition 1,000 ml @ 0 mls/hr Q0M IV ; Start 02/23/19 at 16:31; Status UNV Vancomycin/Sodium Chloride 250 ml @ 83.333 mls/ hr Q8H IVPB Last administered on 02/24/19at 09:35; Admin Dose 83.333 MLS/HR; Start 02/24/19 at 02:00 Miscellaneous Information (*Rx Drug Level Order Reminder*) VANCOMCYIN TROUGH 1,700 7/... ONCE ONCE XX ; Start 02/24/19 at 17:00; Stop 02/24/19 at 17:01 Hydromorphone HCl (Dilaudid) 1 mg Q3 PRN IV PAIN LEVEL 6-10 Last administered on 02/24/19at 09:25; Admin Dose 1 MG; Start 02/23/19 at 17:30 Metoclopramide HCl (Reglan) 5 mg Q6H PRN IV NAUSEA Last administered on 02/24/19at 09:25; Admin Dose 5 MG; Start 02/23/19 at 17:30 Potassium Chloride/Dextrose/ Sod Cl 1,000 ml @ 100 mls/hr Q10H IV ; Start 02/24/19 at 10:00 Potassium Chloride 100 ml @ 50 mls/hr Q2H IVPB Last administered on 02/24/19at 12:00; Admin Dose 50 MLS/HR; Start 02/24/19 at 10:00; Stop 02/24/19 at 13:59 Meds reviewed: Yes Allergies Coded Allergies: meropenem (Verified Allergy, Severe, rash all over the body, 02/20/19) Allergies Reviewed: Yes Labs/Studies Labs Reviewed: Reviewed by anesthesiologist Result Diagram: 02/24/1918 02/24/19 0518 Laboratory Tests 02/24/19 05:18 test: Negative Pre-procedure Exam Last vitals Vital Signs Date Temp Pulse Resp B/P (MAP) Pulse Ox O2 O2 Flow FiO2 Time Delivery Rate 02/24/19 98.0 68 18 124/67 98 11:49 (86) 02/23/19 Room Air 15:48 Airway: Adequate mouth opening, Adequate thyromental dist Mallampati: Mallampati II Teeth: Normal Lung: Normal Heart: Normal ASA Physical Status ASA physical status: 3 Emergency: None Planned Anesthetic General/MAC: ETT Planned Pain Management Parenteral pain med Pre-operative Attestations Prior to commencing anesthesia and surgery, the patient was re-evaluated, there was verification of: *The patient's identity *The results of appropriate recent lab work and preoperative vital signs *The above evaluation not changing prior to induction *Anesthetic plan, risk benefits, alternative and complications discussed with patient/family; questions answered; patient/family understands, accepts and wishes to proceed. MERVIN RICHARD Feb 24, 2019 12:29
--- NOTE | 2019-02-24 12:38 | PN ---
Date/Time of Note Date/Time of Note DATE: 02/24/19 TIME: 12:34 Assessment/Plan VTE Prophylaxis Risk score (from Ns)>0 risk: 1 SCD applied (from Ns): Yes Pharmacological prophylaxis: NA/contraindicated Pharm contraindication: low risk/ambulating Lines/Catheters IV [facility]ter [facility]from [facility] PICC Line Central line still needed: Yes Urinary Cath still in place: No Assessment/Plan Assessment/Plan 1 Sepsis secondary to abdominal abscesses. Post IR drainage on 727 with multidrug-resistant organisms Klebsiella and MRSA and had HO recurrent diverticulitis with abscess this post drainage also in January 2. Severe leukocytosis secondary to #1. IMPROVED Proved 3. Lactic acidosis secondary to #1. 4. History of anemia. 5. History of marijuana use. 6. History of amphetamine use. 7. History of a yeast infection in the Gram stain. 8. Anemia 9. electrolyte imbalance: hypokalemia, hypophosphatemia 10. Overweight Assessment/Plan -OR today, clinically improved -cw TPN -cw with vancomycin/Zosyn/Diflucan -Potassium replacement -Continue with Dilaudid 1 mg q. 3 -cw ppi -Surgery consult dr Brenner./Dr. longo Result Diagram: 02/24/19 0518 02/24/19 0518 Results 24hrs Laboratory Tests Test 02/23/19 16:46 02/23/19 17:33 02/24/19 05:18 Sodium Level 137 140 Potassium Level 3.1 L 3.0 L Chloride Level 105 107 Carbon Dioxide Level 27 27 Anion Gap 5 6 Blood Urea Nitrogen < 2 L < 2 L Creatinine 0.47 0.51 Est Glomerular Filtrat Rate mL/min > 60 > 60 Glucose Level 92 102 Calcium Level 7.6 L 7.8 L Phosphorus Level 2.6 2.4 L Magnesium Level 2.0 1.9 Total Bilirubin 0.2 Direct Bilirubin 0.00 Indirect Bilirubin 0.2 Aspartate Amino Transf (AST/SGOT) 10 L Alanine Aminotransferase (ALT/SGPT) 18 Alkaline Phosphatase 104 Total Protein 4.8 L Albumin 2.3 L Globulin 2.50 Albumin/Globulin Ratio 0.92 Prealbumin 4.2 L Triglycerides Level 61 Bedside Glucose 91 White Blood Count 8.3 # Red Blood Count 3.21 L Hemoglobin 9.4 L Hematocrit 28.8 L Mean Corpuscular Volume 89.7 Mean Corpuscular Hemoglobin 29.3 Mean Corpuscular Hemoglobin Concent 32.6 Red Cell Distribution Width 13.7 Platelet Count 232 Mean Platelet Volume 10.3 Immature Granulocytes % 1.200 H Neutrophils % 84.4 H Lymphocytes % 8.0 L Monocytes % 5.3 Eosinophils % 0.7 Basophils % 0.4 Nucleated Red Blood Cells % 0.0 Immature Granulocytes # 0.100 H Neutrophils # 7.0 Lymphocytes # 0.7 L Monocytes # 0.4 Eosinophils # 0.1 Basophils # 0.0 Nucleated Red Blood Cells # 0.0 Subjective 24 Hr Interval Summary Free Text/Dictation She is going to OR today for possible anterior resection /Claudia procedure and ileostomy Low-grade fevers Potassium 3.0 Exam/Review of Systems Exam Vitals Vital Signs Date Temp Pulse Resp B/P (MAP) Pulse Ox O2 O2 Flow FiO2 Time Delivery Rate 02/24/19 98.0 68 18 124/67 98 11:49 (86) 02/23/19 Room Air 15:48 Intake and Output 02/23/19 02/23/19 02/24/19 1515:00 23:00 07:00 IntakeIntake Total 400 ml 2350 ml OutputOutput Total 20 ml 40 ml BalanceBalance -20 ml 400 ml 2310 ml Exam Awake alert oriented Neck: supple, no thyromegaly, no carotid bruits Lungs: clear bilaterally, decreased. CVS: regular rate and rhythm, no murmurs Abdomen: Diffusely tender all over Neuro: alert and oriented x 3 Gait: normal Motor strength: 5+/5+ Sensory exam: normal Deep tendon reflexes: normal, Babisky reflexes are absent bilaterally Skin: no lesions Results Results 24hrs Laboratory Tests Test 02/23/19 16:46 02/23/19 17:33 02/24/19 05:18 Sodium Level 137 140 Potassium Level 3.1 L 3.0 L Chloride Level 105 107 Carbon Dioxide Level 27 27 Anion Gap 5 6 Blood Urea Nitrogen < 2 L < 2 L Creatinine 0.47 0.51 Est Glomerular Filtrat Rate mL/min > 60 > 60 Glucose Level 92 102 Calcium Level 7.6 L 7.8 L Phosphorus Level 2.6 2.4 L Magnesium Level 2.0 1.9 Total Bilirubin 0.2 Direct Bilirubin 0.00 Indirect Bilirubin 0.2 Aspartate Amino Transf (AST/SGOT) 10 L Alanine Aminotransferase (ALT/SGPT) 18 Alkaline Phosphatase 104 Total Protein 4.8 L Albumin 2.3 L Globulin 2.50 Albumin/Globulin Ratio 0.92 Prealbumin 4.2 L Triglycerides Level 61 Bedside Glucose 91 White Blood Count 8.3 # Red Blood Count 3.21 L Hemoglobin 9.4 L Hematocrit 28.8 L Mean Corpuscular Volume 89.7 Mean Corpuscular Hemoglobin 29.3 Mean Corpuscular Hemoglobin Concent 32.6 Red Cell Distribution Width 13.7 Platelet Count 232 Mean Platelet Volume 10.3 Immature Granulocytes % 1.200 H Neutrophils % 84.4 H Lymphocytes % 8.0 L Monocytes % 5.3 Eosinophils % 0.7 Basophils % 0.4 Nucleated Red Blood Cells % 0.0 Immature Granulocytes # 0.100 H Neutrophils # 7.0 Lymphocytes # 0.7 L Monocytes # 0.4 Eosinophils # 0.1 Basophils # 0.0 Nucleated Red Blood Cells # 0.0 Medications Medication Current Medications IV Flush (NS 3 ml) 3 ml PER PROTOCOL IV ; Start 02/21/19 at 00:00 Ondansetron HCl (Zofran Inj) 4 mg Q6H PRN IV NAUSEA/VOMITING Last administered on 02/24/19 05:41; Admin Dose 4 MG; Start 02/21/19 at 00:00 Acetaminophen (Tylenol Tab) 650 mg Q6H PRN PO .PAIN 1-3 OR TEMP Last administered on 02/21/19 01:42; Admin Dose 650 MG; Start 02/21/19 at 00:00 Acetaminophen (Tylenol Supp) 650 mg Q6H PRN [place] .PAIN 1-3 OR TEMP Last administered on 02/24/19 00:13; Admin Dose 650 MG; Start 02/21/19 at 00:00 Pantoprazole (Protonix Iv) 40 mg DAILY@06 IV Last administered on 02/24/19 05:50; Admin Dose 40 MG; Start 02/21/19 at 06:00 Piperacillin Sod/ Tazobactam Sod 100 ml @ 200 mls/hr Q6 IVPB Last administered on 02/24/19 05:50; Admin Dose 200 MLS/HR; Start 02/21/19 at 00:00 Fluconazole 200 ml @ 100 mls/hr Q24H IVPB Last administered on 02/23/19 15:26; Admin Dose 100 MLS/HR; Start 02/21/19 at 16:00 IV Flush (NS 10 ml) 10 ml PRN PRN IV FLUSH LINE; Start 02/21/19 at 18:30 Fat Emulsion Intravenous 250 ml @ 21 mls/hr DAILY@1600 IV ; Start 02/22/19 at 16:00; Status UNV Lorazepam (Ativan) 0.5 mg Q6H PRN IV anxiety , insomnia; Start 02/23/19 at 16:00 Vancomycin HCl (Vanco Iv Per Pharmacy) VANCOMYCIN PER PHARMACY PER PROTOCOL XX ; Start 02/23/19 at 16:30 Diagnostic Test (Pha) (Accu-Chek) 1 ea Q4 XX ; Start 02/23/19 at 17:00; Status UNV Total Parenteral Nutrition 1,000 ml @ 0 mls/hr Q0M IV ; Start 02/23/19 at 16:31; Status UNV Vancomycin/Sodium Chloride 250 ml @ 83.333 mls/ hr Q8H IVPB Last administered on 02/24/19at 09:35; Admin Dose 83.333 MLS/HR; Start 02/24/19 at 02:00 Miscellaneous Information (*Rx Drug Level Order Reminder*) VANCOMCYIN TROUGH 1,700 7/... ONCE ONCE XX ; Start 02/24/19 at 17:00; Stop 02/24/19 at 17:01 Hydromorphone HCl (Dilaudid) 1 mg Q3 PRN IV PAIN LEVEL 6-10 Last administered on 02/24/19at 09:25; Admin Dose 1 MG; Start 02/23/19 at 17:30 Metoclopramide HCl (Reglan) 5 mg Q6H PRN IV NAUSEA Last administered on 02/24/19at 09:25; Admin Dose 5 MG; Start 02/23/19 at 17:30 Potassium Chloride/Dextrose/ Sod Cl 1,000 ml @ 100 mls/hr Q10H IV ; Start 02/24/19 at 10:00 Potassium Chloride 100 ml @ 50 mls/hr Q2H IVPB Last administered on 02/24/19at 12:00; Admin Dose 50 MLS/HR; Start 02/24/19 at 10:00; Stop 02/24/19 at 13:59 DANILO KUNZ MD Feb 24, 2019 12:38
[2019-02-24] MEDS: ACCU-CHEK XX SCH ×3 (13:00→20:30)
--- NOTE | 2019-02-24 13:18 | HPN ---
Date/Time of Note Date/Time of Note DATE: 02/24/19 TIME: 13:18 Interval H&P Admission Note Pt. seen H&P reviewed: No system changes DONNY MEAD MD Feb 24, 2019 13:18
[2019-02-24] MEDS ORDERED: PIPER-TAZO 3.375 GM IV (PMX) 100 ML ONE (13:24)
[2019-02-24] MEDS ORDERED: ROCURONIUM 50 MG INJ ONE (13:30)
[2019-02-24] MEDS ORDERED: PROPOFOL 20 ML ONE (13:30)
[2019-02-24] MEDS ORDERED: LIDOCAINE 2% (SDV) 5 ML INJ ONE (13:30)
[2019-02-24] MEDS ORDERED: FENTAnyl 50 MCG/ML VIAL ONE (13:40)
[2019-02-24] MEDS ORDERED: morphine 10 MG INJ ONE (13:40)
[2019-02-24] MEDS ORDERED: ONDANSETRON 4 MG INJ ONE (13:41)
[2019-02-24] MEDS ORDERED: DEXAMETHASONE 4 MG/ML 5 ML INJ ONE (13:41)
[2019-02-24] MEDS ORDERED: PIPER-TAZO 3.375 GM IV (PMX) 100 ML IVPB ONE (14:00)
--- NOTE | 2019-02-24 14:57 | CONS ---
Assessment/Plan Assessment/Plan Hospital Course (Demo Recall) No acute changes. WBC today 8.3 neutrophils 84.4 BUN to creatinine 0.51 MICROBIOLOGY: Microbiology: Intra-abdominal fluid cultures grew MRSA and Klebsiella pneumonia, both susceptible to Bactrim ANTIMICROBIALS: IV Bactrim. PHYSICAL EXAMINATION: GENERAL: This is well-developed, well-nourished, middle-aged woman who is alert, in no distress. HEENT: Head atraumatic, normocephalic. NECK: Supple. CHEST: Rise symmetrical. Breath sounds diminished to bases. HEART: S1, S2. ABDOMEN: Soft, bowel tones hypoactive. SKIN: The patient has left-sided intraabdominal drainage catheter with grayish drainage. EXTREMITIES: Without cyanosis. ASSESSMENT: 1. Recurrent Intraabdominal abscess, status post CT-guided drainage. 2. Acute perforated diverticulitis, status post exploratory laparoscopy and drainage of intraabdominal abscess on 01/28/2019. 3. Systemic inflammatory response syndrome with fevers and leukocytosis secondary to #1. PLAN: Stable, add Flagyl for anaerobic coverage, continue IV Bactrim, follow surgical recommendations. Consultation Date/Type/Reason Admit Date/Time Feb 20, 2019 at 20:08 Initial Consult Date 02/20/19 Type of Consult id Requesting Provider: JOSEPHINE GARAY MD Date/Time of Note DATE: 02/24/19 TIME: 14:56 Exam/Review of Systems Exam Vitals Vital Signs Date Temp Pulse Resp B/P (MAP) Pulse Ox O2 O2 Flow FiO2 Time Delivery Rate 02/24/19 98.1 88 22 122/69 98 Room Air 13:20 (86) Intake and Output 02/23/19 02/23/19 02/24/19 1515:00 23:00 07:00 IntakeIntake Total 400 ml 2350 ml OutputOutput Total 20 ml 40 ml BalanceBalance -20 ml 400 ml 2310 ml Results Result Diagram: 02/24/1918 02/24/19517 Results 24hrs Laboratory Tests Test 02/23/19 16:46 02/23/19 17:33 02/24/19 05:18 Sodium Level 137 140 Potassium Level 3.1 L 3.0 L Chloride Level 105 107 Carbon Dioxide Level 27 27 Anion Gap 5 6 Blood Urea Nitrogen < 2 L < 2 L Creatinine 0.47 0.51 Est Glomerular Filtrat Rate mL/min > 60 > 60 Glucose Level 92 102 Calcium Level 7.6 L 7.8 L Phosphorus Level 2.6 2.4 L Magnesium Level 2.0 1.9 Total Bilirubin 0.2 Direct Bilirubin 0.00 Indirect Bilirubin 0.2 Aspartate Amino Transf (AST/SGOT) 10 L Alanine Aminotransferase (ALT/SGPT) 18 Alkaline Phosphatase 104 Total Protein 4.8 L Albumin 2.3 L Globulin 2.50 Albumin/Globulin Ratio 0.92 Prealbumin 4.2 L Triglycerides Level 61 Bedside Glucose 91 White Blood Count 8.3 # Red Blood Count 3.21 L Hemoglobin 9.4 L Hematocrit 28.8 L Mean Corpuscular Volume 89.7 Mean Corpuscular Hemoglobin 29.3 Mean Corpuscular Hemoglobin Concent 32.6 Red Cell Distribution Width 13.7 Platelet Count 232 Mean Platelet Volume 10.3 Immature Granulocytes % 1.200 H Neutrophils % 84.4 H Lymphocytes % 8.0 L Monocytes % 5.3 Eosinophils % 0.7 Basophils % 0.4 Nucleated Red Blood Cells % 0.0 Immature Granulocytes # 0.100 H Neutrophils # 7.0 Lymphocytes # 0.7 L Monocytes # 0.4 Eosinophils # 0.1 Basophils # 0.0 Nucleated Red Blood Cells # 0.0 Medications Medication Current Medications IV Flush (NS 3 ml) 3 ml PER PROTOCOL IV ; Start 02/21/19 at 00:00 Ondansetron HCl (Zofran Inj) 4 mg Q6H PRN IV NAUSEA/VOMITING Last administered on 02/24/19at 05:41; Admin Dose 4 MG; Start 02/21/19 at 00:00 Acetaminophen (Tylenol Tab) 650 mg Q6H PRN PO .PAIN 1-3 OR TEMP Last administered on 02/21/19at 01:42; Admin Dose 650 MG; Start 02/21/19 at 00:00 Acetaminophen (Tylenol Supp) [address] .PAIN 1-3 OR TEMP Last administered on 02/24/19at 00:13; Admin Dose 650 MG; Start 02/21/19 at 00:00 Pantoprazole (Protonix Iv) 40 mg DAILY@06 IV Last administered on 02/24/19at 05:50; Admin Dose 40 MG; Start 02/21/19 at 06:00 IV Flush (NS 10 ml) 10 ml PRN PRN IV FLUSH LINE; Start 02/21/19 at 18:30 Fat Emulsion Intravenous 250 ml @ 21 mls/hr DAILY@1600 IV ; Start 02/22/19 at 16:00; Status UNV Lorazepam (Ativan) 0.5 mg Q6H PRN IV anxiety , insomnia; Start 02/23/19 at 16:00 Vancomycin HCl (Vanco Iv Per Pharmacy) VANCOMYCIN PER PHARMACY PER PROTOCOL XX ; Start 02/23/19 at 16:30 Diagnostic Test (Pha) (Accu-Chek) 1 ea Q4 XX ; Start 02/23/19 at 17:00; Status UNV Total Parenteral Nutrition 1,000 ml @ 0 mls/hr Q0M IV ; Start 02/23/19 at 16:31; Status UNV Vancomycin/Sodium Chloride 250 ml @ 83.333 mls/ hr Q8H IVPB Last administered on 02/24/19at 09:35; Admin Dose 83.333 MLS/HR; Start 02/24/19 at 02:00 Miscellaneous Information (*Rx Drug Level Order Reminder*) VANCOMCYIN TROUGH 1,700 7/... ONCE ONCE XX ; Start 02/24/19 at 17:00; Stop 02/24/19 at 17:01 Hydromorphone HCl (Dilaudid) 1 mg Q3 PRN IV PAIN LEVEL 6-10 Last administered on 02/24/19at 09:25; Admin Dose 1 MG; Start 02/23/19 at 17:30 Metoclopramide HCl (Reglan) 5 mg Q6H PRN IV NAUSEA Last administered on 02/24/19at 09:25; Admin Dose 5 MG; Start 02/23/19 at 17:30 Potassium Chloride/Dextrose/ Sod Cl 1,000 ml @ 100 mls/hr Q10H IV ; Start 02/24/19 at 10:00 Trimethoprim/ Sulfamethoxazole 15 ml/Dextrose 515 ml @ 343.333 mls/hr Q8 IVPB ; Start 02/24/19 at 14:00; Status UNV DALE ARREOLA MAINFRAME CONSULTANT Feb 24, 2019 14:57
[2019-02-24] MEDS ORDERED: SUGAMMADEX SODIUM 200 MG/2 ML VIAL IV ONE (15:35)
--- NOTE | 2019-02-24 15:59 | OPR ---
Date/Time of Note Date/Time of Note DATE: 02/24/19 TIME: 15:49 Operative Report Procedure Date: Feb 24, 2019 Preoperative Diagnosis Perforated diverticulitis Postoperative Diagnosis Perforated diverticulitis with intra-abdominal abscess. Operation/Procedure Performed 1. Open Claudia procedure. 2. Drainage of the intra-abdominal abscess. 3. Splenic flexure mobilization. Surgeon see signature line Transport Analyst None Anesthesia Type: general Anesthesiologist: CYRUS RICHARD MD Estimated Blood Loss: 50 - 100 ml's Transfusion none Specimen Sigmoid colon Grafts/Implants none Complications none Pt Condition Post Procedure: stable Disposition: PACU Indications 48-year-old female with perforated diverticulitis, status post laparoscopic drainage of the abscess. Patient was discharged home and drain was removed few days ago. Patient returned to emergency room with high fever in the high white count and nearly septic condition. CT scan confirmed recurrent abscess. It was drained percutaneously. Patient was taking the semi-urgently to the operating room for sigmoid colectomy. Procedure Description We discussed risks and benefits were discussed possible side effects, possible complications including but not limited to bleeding, infection, injury to other organs, anesthesia complication, patient understood risk and benefits and wished to proceed. Patient was taken to the operating room positioned in lithotomy position. General endotracheal anesthesia was induced. The abdomen and perineum was prepped and draped in usual sterile fashion. Alberto catheter was placed. After that the midline lower laparotomy was performed that was carried down through the fascia intra-abdominal cavity. By the opening of the intra-abdominal cavity approximately 200 cc of the caitie pus was evacuated. After that the omentum was retracted and another 200 cc of caitie pus was evacuated. After that the wound protector device was placed and the Bookwalter wound retractor was brought to the field. The wound was retracted and I started by dissecting off the omentum off the sigmoid colon. The omentum was bluntly dissected off. And I found mu ltiple loops of small bowel densely adherent to the sigmoid colon. It took me about 30 minutes to dissect the small bowel off the colon. Few the sterilizations were created which were repaired with interrupted 3-0 silk sutures. After the oldest loops of small bowel were dissected of the sigmoid colon I inspected the bowel and found a viable without evidence of perforation. The sigmoid colon was found to be significantly thickened with possible perforation site that was not readily observed. In the significant amount of pus in the abdomen the decision was made to perform the Claudia procedure not to restore the continuity. The sigmoid colon was traced down to the rectum where it was divided at the level just below the promontory room with a contour stapler with green load. After that the mesentery of the sigmoid was divided between clamps taking care to stay very close to the bowel. Approximately 20 cm of sigmoid colon was dissected and then the descending colon was transected with a contour stapler. Specimen was removed. After that the left colon was completely mobilized including splenic flexure to ensure sufficient length of the bowel to create colostomy. After that the abdomen was irrigated with few liters of warm normal saline all the fluid was carefully sucked out. Hemostasis was again confirmed. After that the wound retractor and wound protector were removed, the stoma site was picked up, skin was not excised and the round patient, the fascia was opened and the left colon sample was passed through the opening to the skin. After that the laparotomy wound was closed by running PDS 0 suture with few 0 Vicryl retaining sutures. The skin was approximated with skin stapler. Sterile dressing was applied. After that the stoma was patient in the Mami mode with interrupted 3-0 Vicryl sutures. Colostomy appliance was applied. Patient tolerated procedure well was extubated transferred to recovery room. Instrument and sponge counts were correct x2. DONNY MEAD MD Feb 24, 2019 15:59
[2019-02-24] MEDS ORDERED: LORAZEPAM 0.5 MG TAB PO PRN (16:00)
[2019-02-24] MEDS ORDERED: DIPHENHYDRAMINE 50 MG INJ IV PRN ×2 (16:00)
[2019-02-24] MEDS ORDERED: METOCLOPRAMIDE 10 MG INJ IV PRN (16:00)
[2019-02-24] MEDS ORDERED: HYDROmorphONE 1 MG/5 ML IV SYRINGE IV PRN (16:00)
[2019-02-24] MEDS ORDERED: EPHEDrine 25 MG/5 ML SYG IV PRN (16:00)
[2019-02-24] MEDS ORDERED: ONDANSETRON 4 MG INJ IV PRN ×2 (16:00)
[2019-02-24] MEDS ORDERED: MEPERIDINE 25 MG INJ IV PRN (16:00)
[2019-02-24] MEDS ORDERED: hydrALAzine 20 MG INJ IV PRN (16:00)
[2019-02-24] MEDS ORDERED: LABETALOL HCL 20MG INJ IV PRN (16:00)
[2019-02-24] MEDS ORDERED: ALBUMIN HUMAN 5% 250 ML IV PRN (16:00)
[2019-02-24] MEDS ORDERED: KETOROLAC 30 MG INJ IV PRN (16:00)
[2019-02-24] MEDS ORDERED: MIDAZOLAM 1 MG/ML 2 ML INJ IV PRN (16:00)
[2019-02-24] MEDS ORDERED: NALOXONE (0.4 MG/ML) INJ IV PRN (16:00)
[2019-02-24] MEDS ORDERED: ZOLPIDEM 5 MG TAB PO PRN (16:00)
[2019-02-24] MEDS ORDERED: ALBUTEROL 0.083% (NEB) 2.5 MG/3 ML AMP HHN PRN (16:00)
[2019-02-24] MEDS: HYDROmorphONE 1 MG/5 ML IV SYRINGE IV PRN ×4 (16:24→17:10)
[2019-02-24] MEDS: HYDROmorphONE 0.2 MG/ML PCA IV SCH (16:34)
[2019-02-24] MEDS: metroNIDAZOLE 500 MG/NS (PMX) 100 ML IVPB SCH ×2 (16:40→21:18)
[2019-02-24] MEDS: TRIMETHOPRIM/SULFAMETHOXAZOLE 15 ML in DEXTROSE 5% 500 ML IVPB SCH ×2 (17:24→22:26)
[2019-02-24] MEDS: D5W-0.45 NACL + KCL 20 MEQ 1,000 ML IV SCH ×2 (18:21→21:32)
[2019-02-24] MEDS: KETOROLAC 30 MG INJ IV PRN (20:30)
[2019-02-24] MEDS: TPN 1,000 ML IV SCH (21:18)
[2019-02-25] MEDS: ACCU-CHEK XX SCH ×6 (01:21→21:43)
[2019-02-25] MEDS: LORAZEPAM 2 MG INJ IV PRN ×2 (01:30→21:58)
[2019-02-25 03:44] VITALS: BP 100/69; PULSE 67; RESP 20
[2019-02-25] MEDS: KETOROLAC 30 MG INJ IV PRN ×3 (04:26→20:48)
[2019-02-25] MEDS: TRIMETHOPRIM/SULFAMETHOXAZOLE 15 ML in DEXTROSE 5% 500 ML IVPB SCH ×3 (05:27→21:49)
[2019-02-25] MEDS: PANTOPRAZOLE 40 MG INJ IV SCH (05:27)
[2019-02-25] MEDS: metroNIDAZOLE 500 MG/NS (PMX) 100 ML IVPB SCH ×3 (05:27→21:49)
[2019-02-25 07:15] VITALS: BP 102/67; PULSE 58; RESP 20
[2019-02-25] MEDS: HEPARIN 5,000 UNIT/1 ML VIAL SC SCH ×2 (08:49→21:42)
[2019-02-25] MEDS: POTASSIUM CHLORIDE 100 ML IVPB SCH ×2 (10:31→13:00)
[2019-02-25 11:24] VITALS: BP 106/70; PULSE 64; RESP 20
--- NOTE | 2019-02-25 12:57 | PN ---
Date/Time of Note Date/Time of Note DATE: 02/25/19 TIME: 12:54 Assessment/Plan VTE Prophylaxis Risk score (from [facility] [place])>0 risk: 10 SCD applied (from [facility] [place]): Yes Pharmacological prophylaxis: NA/contraindicated Pharm contraindication: low risk/ambulating Lines/Catheters IV Catheter Type (from [facility]): PICC Line Central line still needed: Yes Urinary Cath still in place: Yes Reason Cath still needed: urinary retention Assessment/Plan Assessment/Plan ssessment/Plan 1 Sepsis secondary to abdominal abscesses. Post IR drainage on 02/22 with multidrug-resistant organisms Klebsiella and MRSA and had HO recurrent diverticulitis with abscess this post drainage also in January now p erforated diverticulitis with intra-abdominal abscess.sp. Open Claudia procedure. 2. Drainage of the intra-abdominal abscess. 3. Splenic flexure mobilization on 02/24/19 2. Severe leukocytosis secondary to #1. IMPROVED Proved 3. Lactic acidosis secondary to #1. 4. History of anemia. 5. History of marijuana use. 6. History of amphetamine use. 7. History of a yeast infection in the Gram stain. 8. Anemia 9. electrolyte imbalance: hypokalemia, hypophosphatemia 10. Overweight Assessment/Plan -pod #1, colostomy bag care -cw TPN -cw with bactrim/flagyl - PCP pump -Potassium replacement -cw ppi -Surgery consult dr Brenner./Dr. longo> fu recs - post op care Result Diagram: 02/25/19 0614 02/25/19 0614 Results 24hrs Laboratory Tests Test 02/24/19 20:29 02/25/19 01:17 02/25/19 04:21 02/25/19 06:14 Bedside Glucose 154 195 168 White Blood Count 8.9 Red Blood Count 2.89 L Hemoglobin 8.3 L Hematocrit 25.9 L Mean Corpuscular 89.6 Volume Mean Corpuscular 28.7 L Hemoglobin Mean Corpuscular 32.0 Hemoglobin Concent Red Cell 13.9 Distribution Width Platelet Count 242 Mean Platelet Volume 10.1 Immature 1.200 H Granulocytes % Neutrophils % 85.1 H Lymphocytes % 7.2 L Monocytes % 6.2 Eosinophils % 0.0 Basophils % 0.3 Nucleated Red Blood 0.0 Cells % Immature 0.110 H Granulocytes # Neutrophils # 7.6 H Lymphocytes # 0.6 L Monocytes # 0.6 Eosinophils # 0.0 Basophils # 0.0 Nucleated Red Blood 0.0 Cells # Sodium Level 140 Potassium Level 3.2 L Chloride Level 106 Carbon Dioxide Level 29 Anion Gap 5 Blood Urea Nitrogen 6 L Creatinine 0.44 Est Glomerular > 60 Filtrat Rate mL/min Glucose Level 188 Calcium Level 7.8 L Phosphorus Level 2.5 Magnesium Level 2.0 Total Bilirubin 0.1 L Direct Bilirubin 0.00 Indirect Bilirubin 0.1 Aspartate Amino 17 Transf (AST/SGOT) Alanine 21 Aminotransferase (AL T/SGPT) Alkaline Phosphatase 72 Total Protein 4.7 L Albumin 2.2 L Globulin 2.50 Albumin/Globulin 0.88 Ratio Test 02/25/19 08:40 Bedside Glucose 158 Subjective 24 Hr Interval Summary Free Text/Dictation Perforated diverticulitis with intra-abdominal abscess. Operation/Procedure Performed sp 1. Open Claudia procedure. 2. Drainage of the intra-abdominal abscess. 3. Splenic flexure mobilization. on CLINICAL HAEMATOLOGIST pump Exam/Review of Systems Exam Vitals Vital Signs Date Temp Pulse Resp B/P (MAP) Pulse Ox O2 O2 Flow FiO2 Time Delivery Rate 02/25/19 98.4 64 20 106/70 96 Nasal 11:24 (82) Cannula 02/24/19 2.0 20:00 Intake and Output 02/24/19 02/24/19 02/25/19 1515:00 23:00 07:00 IntakeIntake Total 350 ml 1300 ml 1408 ml OutputOutput Total 675 ml 1900 ml 1200 ml BalanceBalance -325 ml -600 ml 208 ml Exam Exam Awake alert oriented Neck: supple, no thyromegaly, no carotid bruits Lungs: clear bilaterally, decreased. CVS: regular rate and rhythm, no murmurs Abdomen: Diffusely tender all over, +colostomy Neuro: alert and oriented x 3 Gait: normal Motor strength: 5+/5+ Sensory exam: normal Deep tendon reflexes: normal, Babisky reflexes are absent bilaterally Skin: no lesions Results Results 24hrs Laboratory Tests Test 02/24/19 20:29 02/25/19 01:17 02/25/19 04:21 02/25/19 06:14 Bedside Glucose 154 195 168 White Blood Count 8.9 Red Blood Count 2.89 L Hemoglobin 8.3 L Hematocrit 25.9 L Mean Corpuscular 89.6 Volume Mean Corpuscular 28.7 L Hemoglobin Mean Corpuscular 32.0 Hemoglobin Concent Red Cell 13.9 Distribution Width Platelet Count 242 Mean Platelet Volume 10.1 Immature 1.200 H Granulocytes % Neutrophils % 85.1 H Lymphocytes % 7.2 L Monocytes % 6.2 Eosinophils % 0.0 Basophils % 0.3 Nucleated Red Blood 0.0 Cells % Immature 0.110 H Granulocytes # Neutrophils # 7.6 H Lymphocytes # 0.6 L Monocytes # 0.6 Eosinophils # 0.0 Basophils # 0.0 Nucleated Red Blood 0.0 Cells # Sodium Level 140 Potassium Level 3.2 L Chloride Level 106 Carbon Dioxide Level 29 Anion Gap 5 Blood Urea Nitrogen 6 L Creatinine 0.44 Est Glomerular > 60 Filtrat Rate mL/min Glucose Level 188 Calcium Level 7.8 L Phosphorus Level 2.5 Magnesium Level 2.0 Total Bilirubin 0.1 L Direct Bilirubin 0.00 Indirect Bilirubin 0.1 Aspartate Amino 17 Transf (AST/SGOT) Alanine 21 Aminotransferase (AL T/SGPT) Alkaline Phosphatase 72 Total Protein 4.7 L Albumin 2.2 L Globulin 2.50 Albumin/Globulin 0.88 Ratio Test 02/25/19 08:40 Bedside Glucose 158 Medications Medication Current Medications IV Flush (NS 3 ml) 3 ml PER PROTOCOL IV ; Start 02/21/19 at 00:00 Acetaminophen (Tylenol Tab) 650 mg Q6H PRN PO .PAIN 1-3 OR TEMP Last administered on 02/21/19at 01:42; Admin Dose 650 MG; Start 02/21/19 at 00:00 Acetaminophen (Tylenol Supp) 650 mg Q6H PRN [place] .PAIN 1-3 OR TEMP Last administered on 02/24/19at 00:13; Admin Dose 650 MG; Start 02/21/19 at 00:00 Pantoprazole (Protonix Iv) 40 mg DAILY@06 IV Last administered on 02/25/19at 05:27; Admin Dose 40 MG; Start 02/21/19 at 06:00 IV Flush (NS 10 ml) 10 ml PRN PRN IV FLUSH LINE; Start 02/21/19 at 18:30 Fat Emulsion Intravenous 250 ml @ 20.833 mls/ hr MoWeFr@1600 IV ; Start 02/26/19 at 16:00 Lorazepam (Ativan) 0.5 mg Q6H PRN IV anxiety , insomnia Last administered on 02/25/19 01:30; Admin Dose 0.5 MG; Start 02/23/19 at 16:00 Diagnostic Test (Pha) (Accu-Chek) 1 ea Q4 XX Last administered on 02/25/19at 08:36; Admin Dose 1 EA; Start 02/23/19 at 17:00 Total Parenteral Nutrition 1,000 ml @ 60 mls/hr [id number] IV Last administered on 02/24/19at 21:18; Admin Dose 60 MLS/HR; Start 02/24/19 at 22:00 Hydromorphone HCl (Dilaudid) 1 mg Q3 PRN IV PAIN LEVEL 6-10 Last administered on 02/24/19 09:25; Admin Dose 1 MG; Start 02/23/19 at 17:30 Trimethoprim/ Sulfamethoxazole 15 ml/Dextrose 515 ml @ 343.333 mls/hr Q8 IVPB Last administered on 02/25/19 05:27; Admin Dose 343.333 MLS/HR; Start 02/24/19 at 16:30 Metronidazole 100 ml @ 100 mls/hr Q8 IVPB Last administered on 02/25/19 05:27; Admin Dose 100 MLS/HR; Start 02/24/19 at 15:00 Naloxone HCl (Narcan) 0.2 mg PRN PRN IV RR < 8; Start 02/24/19 at 16:00 Hydromorphone HCl (Dilaudid CLINICAL HAEMATOLOGIST) Q4PCA IV Last administered on 02/24/19at 16:34; Admin Dose 6 MG; Start 02/24/19 at 16:00; Stop 02/26/19 at 06:00 Diphenhydramine HCl (Benadryl) 25 mg Q6H PRN IV .ITCHING; Start 02/24/19 at 16:00 Miscellaneous Information 1. Discontinue CLINICAL HAEMATOLOGIST... CLINICAL HAEMATOLOGIST IV ; Start 02/24/19 at 16:00 Miscellaneous Information 1. Discontinue CLINICAL HAEMATOLOGIST... CLINICAL HAEMATOLOGIST IV ; Start 02/24/19 at 16:00 Ketorolac Tromethamine (Toradol) 30 mg Q6H PRN IV PAIN Last administered on 02/25/19 04:26; Admin Dose 30 MG; Start 02/24/19 at 20:00; Stop 02/27/19 at 19:59 Metoclopramide HCl (Reglan) 10 mg Q6H PRN IV NAUSEA AND/OR VOMITING; Start 02/24/19 at 20:00 Ondansetron HCl (Zofran Inj) 4 mg Q6H PRN IV NAUSEA AND/OR VOMITING; Start 02/24/19 at 16:00 Potassium Chloride/Dextrose/ Sod Cl 1,000 ml @ 0 mls/hr Q10H IV Last administered on 02/24/19at 21:32; Admin Dose 10 MLS/HR; Start 02/24/19 at 15:59 Heparin Sodium (Porcine) (Heparin (5000 Units/1ml)) 5,000 unit Q12 SC Last administered on 02/25/19at 08:49; Admin Dose 5,000 UNIT; Start 02/25/19 at 09:00 Zolpidem Tartrate (Ambien) 5 mg HS PRN PO INSOMNIA; Start 02/24/19 at 16:00 Lorazepam (Ativan) 0.5 mg HS MAY REPEAT X 1 PRN PO INSOMNIA; Start 02/24/19 at 16:00 Potassium Chloride 100 ml @ 50 mls/hr Q2H IVPB Last administered on 02/25/19at 10:31; Admin Dose 50 MLS/HR; Start 02/25/19 at 10:00; Stop 02/25/19 at 13:59 DANILO KUNZ MD Feb 25, 2019 12:57
--- NOTE | 2019-02-25 13:08 | CONS ---
Assessment/Plan Assessment/Plan Hospital Course (Demo Recall) Patient is alert comfortable with adequate control on METAL PATTERNMAKER pump, no fevers overnight MICROBIOLOGY: Microbiology: Intra-abdominal fluid cultures grew MRSA and Klebsiella pneumonia, both susceptible to Bactrim ANTIMICROBIALS: IV Bactrim Flagyl. PHYSICAL EXAMINATION: GENERAL: This is well-developed, well-nourished, middle-aged woman who is alert, in no distress. HEENT: Head atraumatic, normocephalic. NECK: Supple. CHEST: Rise symmetrical. Breath sounds diminished to bases. HEART: S1, S2. ABDOMEN: Left-sided colostomy, mid abdominal dressing intact hypoactive bowel tones EXTREMITIES: Without cyanosis. ASSESSMENT: 1. Recurrent Intraabdominal abscess, status post open Claudia procedure and drainage of the intra-abdominal abscess January 25, 2019 2. Acute perforated diverticulitis, status post exploratory laparoscopy and drainage of intraabdominal abscess on 01/28/2019. 3. Systemic inflammatory response syndrome with fevers and leukocytosis secondary to #1. PLAN: Stable postoperatively day #1, continue antibiotics, pain management, incentive spirometry, follow surgical recommendations. Consultation Date/Type/Reason Admit Date/Time Feb 20, 2019 at 20:08 Initial Consult Date 02/20/19 Type of Consult id Requesting Provider: JOSEPHINE GARAY MD Date/Time of Note DATE: 02/25/19 TIME: 13:06 Exam/Review of Systems Exam Vitals Vital Signs Date Temp Pulse Resp B/P (MAP) Pulse Ox O2 O2 Flow FiO2 Time Delivery Rate 02/25/19 98.4 64 20 106/70 96 Nasal 11:24 (82) Cannula 02/24/19 2.0 20:00 Intake and Output 02/24/19 02/24/19 02/25/19 1515:00 23:00 07:00 IntakeIntake Total 350 ml 1300 ml 1408 ml OutputOutput Total 675 ml 1900 ml 1200 ml BalanceBalance -325 ml -600 ml 208 ml Results Result Diagram: 02/25/19 0614 02/25/19 0614 Results 24hrs Laboratory Tests Test 02/24/19 20:29 02/25/19 01:17 02/25/19 04:21 02/25/19 06:14 Bedside Glucose 154 195 168 White Blood Count 8.9 Red Blood Count 2.89 L Hemoglobin 8.3 L Hematocrit 25.9 L Mean Corpuscular 89.6 Volume Mean Corpuscular 28.7 L Hemoglobin Mean Corpuscular 32.0 Hemoglobin Concent Red Cell 13.9 Distribution Width Platelet Count 242 Mean Platelet Volume 10.1 Immature 1.200 H Granulocytes % Neutrophils % 85.1 H Lymphocytes % 7.2 L Monocytes % 6.2 Eosinophils % 0.0 Basophils % 0.3 Nucleated Red Blood 0.0 Cells % Immature 0.110 H Granulocytes # Neutrophils # 7.6 H Lymphocytes # 0.6 L Monocytes # 0.6 Eosinophils # 0.0 Basophils # 0.0 Nucleated Red Blood 0.0 Cells # Sodium Level 140 Potassium Level 3.2 L Chloride Level 106 Carbon Dioxide Level 29 Anion Gap 5 Blood Urea Nitrogen 6 L Creatinine 0.44 Est Glomerular > 60 Filtrat Rate mL/min Glucose Level 188 Calcium Level 7.8 L Phosphorus Level 2.5 Magnesium Level 2.0 Total Bilirubin 0.1 L Direct Bilirubin 0.00 Indirect Bilirubin 0.1 Aspartate Amino 17 Transf (AST/SGOT) Alanine 21 Aminotransferase (AL T/SGPT) Alkaline Phosphatase 72 Total Protein 4.7 L Albumin 2.2 L Globulin 2.50 Albumin/Globulin 0.88 Ratio Test 02/25/19 08:40 Bedside Glucose 158 Medications Medication Current Medications IV Flush (NS 3 ml) 3 ml PER PROTOCOL IV ; Start 02/21/19 at 00:00 Acetaminophen (Tylenol Tab) 650 mg Q6H PRN PO .PAIN 1-3 OR TEMP Last administered on 02/21/19at 01:42; Admin Dose 650 MG; Start 02/21/19 at 00:00 Acetaminophen (Tylenol Supp) 650 mg Q6H PRN [place] .PAIN 1-3 OR TEMP Last administered on 02/24/19at 00:13; Admin Dose 650 MG; Start 02/21/19 at 00:00 Pantoprazole (Protonix Iv) 40 mg DAILY@06 IV Last administered on 02/25/19at 05:27; Admin Dose 40 MG; Start 02/21/19 at 06:00 IV Flush (NS 10 ml) 10 ml PRN PRN IV FLUSH LINE; Start 02/21/19 at 18:30 Fat Emulsion Intravenous 250 ml @ 20.833 mls/ hr MoWeFr@1600 IV ; Start 02/26/19 at 16:00 Lorazepam (Ativan) 0.5 mg Q6H PRN IV anxiety , insomnia Last administered on 02/25/19 01:30; Admin Dose 0.5 MG; Start 02/23/19 at 16:00 Diagnostic Test (Pha) (Accu-Chek) 1 ea Q4 XX Last administered on 02/25/19 08:36; Admin Dose 1 EA; Start 02/23/19 at 17:00 Total Parenteral Nutrition 1,000 ml @ 60 mls/hr [id number] IV Last administered on 02/24/19 21:18; Admin Dose 60 MLS/HR; Start 02/24/19 at 22:00 Hydromorphone HCl (Dilaudid) 1 mg Q3 PRN IV PAIN LEVEL 6-10 Last administered on 02/24/19 09:25; Admin Dose 1 MG; Start 02/23/19 at 17:30 Trimethoprim/ Sulfamethoxazole 15 ml/Dextrose 515 ml @ 343.333 mls/hr Q8 IVPB Last administered on 02/25/19 05:27; Admin Dose 343.333 MLS/HR; Start 02/24/19 at 16:30 Metronidazole 100 ml @ 100 mls/hr Q8 IVPB Last administered on 02/25/19 05:27; Admin Dose 100 MLS/HR; Start 02/24/19 at 15:00 Naloxone HCl (Narcan) 0.2 mg PRN PRN IV RR < 8; Start 02/24/19 at 16:00 Hydromorphone HCl (Dilaudid METAL PATTERNMAKER) Q4PCA IV Last administered on 02/24/19at 16:34; Admin Dose 6 MG; Start 02/24/19 at 16:00; Stop 02/26/19 at 06:00 Diphenhydramine HCl (Benadryl) 25 mg Q6H PRN IV .ITCHING; Start 02/24/19 at 16:00 Miscellaneous Information 1. Discontinue METAL PATTERNMAKER... METAL PATTERNMAKER IV ; Start 02/24/19 at 16:00 Miscellaneous Information 1. Discontinue METAL PATTERNMAKER... METAL PATTERNMAKER IV ; Start 02/24/19 at 16:00 Ketorolac Tromethamine (Toradol) 30 mg Q6H PRN IV PAIN Last administered on 02/25/19at 12:59; Admin Dose 30 MG; Start 02/24/19 at 20:00; Stop 02/27/19 at 19:59 Metoclopramide HCl (Reglan) 10 mg Q6H PRN IV NAUSEA AND/OR VOMITING; Start 02/24/19 at 20:00 Ondansetron HCl (Zofran Inj) 4 mg Q6H PRN IV NAUSEA AND/OR VOMITING; Start 02/24/19 at 16:00 Potassium Chloride/Dextrose/ Sod Cl 1,000 ml @ 0 mls/hr Q10H IV Last a dministered on 02/24/19at 21:32; Admin Dose 10 MLS/HR; Start 02/24/19 at 15:59 Heparin Sodium (Porcine) (Heparin (5000 Units/1ml)) 5,000 unit Q12 SC Last administered on 02/25/19at 08:49; Admin Dose 5,000 UNIT; Start 02/25/19 at 09:00 Zolpidem Tartrate (Ambien) 5 mg HS PRN PO INSOMNIA; Start 02/24/19 at 16:00 Lorazepam (Ativan) 0.5 mg HS MAY REPEAT X 1 PRN PO INSOMNIA; Start 02/24/19 at 16:00 Potassium Chloride 100 ml @ 50 mls/hr Q2H IVPB Last administered on 02/25/19at 13:00; Admin Dose 50 MLS/HR; Start 02/25/19 at 10:00; Stop 02/25/19 at 13:59 DALE ARREOLA NP Feb 25, 2019 13:08
[2019-02-25] MEDS: TPN 1,000 ML IV SCH (13:41)
[2019-02-25] MEDS: METOCLOPRAMIDE 10 MG INJ IV PRN (13:41)
[2019-02-25 15:18] VITALS: BP 108/66; PULSE 63; RESP 20
[2019-02-25 19:57] VITALS: BP 114/73; RESP 20
[2019-02-25] MEDS: ONDANSETRON 4 MG INJ IV PRN (21:49)
[2019-02-25 23:46] VITALS: BP 105/68; PULSE 74; RESP 19
[2019-02-26] MEDS: HYDROmorphONE 0.2 MG/ML PCA IV SCH (00:42)
[2019-02-26] MEDS: ACCU-CHEK XX SCH ×6 (00:57→20:42)
[2019-02-26 03:29] VITALS: BP 100/66; PULSE 60; RESP 20
[2019-02-26] MEDS: TPN 1,000 ML IV SCH ×3 (05:21→23:56)
[2019-02-26] MEDS: TRIMETHOPRIM/SULFAMETHOXAZOLE 15 ML in DEXTROSE 5% 500 ML IVPB SCH ×3 (05:21→22:47)
[2019-02-26] MEDS: PANTOPRAZOLE 40 MG INJ IV SCH (05:21)
[2019-02-26] MEDS: metroNIDAZOLE 500 MG/NS (PMX) 100 ML IVPB SCH ×3 (05:21→21:46)
[2019-02-26] MEDS: METOCLOPRAMIDE 10 MG INJ IV PRN (06:44)
[2019-02-26] MEDS: KETOROLAC 30 MG INJ IV PRN ×3 (06:45→20:34)
[2019-02-26 07:36] VITALS: BP 105/69; PULSE 63; RESP 22
[2019-02-26] MEDS: HEPARIN 5,000 UNIT/1 ML VIAL SC SCH ×2 (08:35→20:50)
[2019-02-26] MEDS: POTASSIUM CHLORIDE 100 ML IVPB SCH ×4 (10:21→19:37)
[2019-02-26 11:36] VITALS: BP 100/61; PULSE 76; RESP 22
--- NOTE | 2019-02-26 13:55 | CONS ---
Assessment/Plan Assessment/Plan Hospital Course (Demo Recall) No events. Patient is alert, feels ok, no fevers MICROBIOLOGY: Microbiology: Intra-abdominal fluid cultures grew MRSA and Klebsiella pneumonia, both susceptible to Bactrim ANTIMICROBIALS: IV Bactrim Flagyl. PHYSICAL EXAMINATION: GENERAL: This is well-developed, well-nourished, middle-aged woman who is alert, in no distress. HEENT: Head atraumatic, normocephalic. NECK: Supple. CHEST: Rise symmetrical. Breath sounds diminished to bases. HEART: S1, S2. ABDOMEN: Left-sided colostomy, mid abdominal dressing intact, + bowel tones EXTREMITIES: Without cyanosis. ASSESSMENT: 1. Recurrent Intraabdominal abscess, status post open Claudia procedure and drainage of the intra-abdominal abscess January 25, 2019 2. Acute perforated diverticulitis, status post exploratory laparoscopy and drainage of intraabdominal abscess on 01/28/2019. 3. Systemic inflammatory response syndrome with fevers and leukocytosis secondary to #1. PLAN: Stable postoperatively day #2, tolerates ice chips, passing gas, continue antibiotics, pain management, incentive spirometry, follow surgical shanelle mmendations. Consultation Date/Type/Reason Admit Date/Time Feb 20, 2019 at 20:08 Initial Consult Date 02/20/19 Type of Consult id Requesting Provider: JOSEPHINE GARAY MD Date/Time of Note DATE: 02/26/19 TIME: 13:54 Exam/Review of Systems Exam Vitals Vital Signs Date Temp Pulse Resp B/P (MAP) Pulse Ox O2 O2 Flow FiO2 Time Delivery Rate 02/26/19 98.7 76 22 100/61 96 Nasal 11:36 (74) Cannula 02/26/19 3.0 07:36 Intake and Output 02/25/19 02/25/19 02/26/19 1515:00 23:00 07:00 IntakeIntake Total 740 ml 200 ml 2238 ml OutputOutput Total 1000 ml 2450 ml BalanceBalance 740 ml -800 ml -212 ml Results Result Diagram: 02/26/19 0618 02/26/19 0618 Results 24hrs Laboratory Tests Test 02/25/19 17:00 02/25/19 20:52 02/26/19 00:50 02/26/19 04:28 Bedside Glucose 149 126 112 127 Test 02/26/19 06:18 02/26/19 08:29 02/26/19 12:40 White Blood Count 8.6 Red Blood Count 2.81 L Hemoglobin 8.2 L Hematocrit 25.5 L Mean Corpuscular 90.7 Volume Mean Corpuscular 29.2 Hemoglobin Mean Corpuscular 32.2 Hemoglobin Concent Red Cell 14.0 Distribution Width Platelet Count 249 Mean Platelet Volume 10.2 Immature 5.900 H Granulocytes % Neutrophils % Segmented 72 Neutrophils % (Manual) Lymphocytes % Lymphocytes % 18 (Manual) Monocytes % Monocytes % (Manual) 8 Eosinophils % Eosinophils % 1 (Manual) Basophils % Metamyelocytes % 1 H (manual) Nucleated Red Blood 0.0 Cells % Immature 0.510 H Granulocytes # Neutrophils # Lymphocytes (Manual) 1.5 Lymphocytes # Monocytes # Monocytes # (Manual) 0.6 Eosinophils # Basophils # Metamyelocytes # 0.0 Nucleated Red Blood Cells # Platelet Estimate NORMAL Giant Platelets 2 H Polychromasia 2+ Anisocytosis 1+ Microcytosis 1+ Sodium Level 137 Potassium Level 2.8 *L Chloride Level 105 Carbon Dioxide Level 28 Anion Gap 4 L Blood Urea Nitrogen 11 Creatinine 0.51 Est Glomerular > 60 Filtrat Rate mL/min Glucose Level 140 # Calcium Level 7.5 L Phosphorus Level 2.6 Magnesium Level 2.0 Bedside Glucose 98 107 Medications Medication Current Medications IV Flush (NS 3 ml) 3 ml PER PROTOCOL IV ; Start 02/21/19 at 00:00 Acetaminophen (Tylenol Tab) 650 mg Q6H PRN PO .PAIN 1-3 OR TEMP Last administered on 02/21/19at 01:42; Admin Dose 650 MG; Start 02/21/19 at 00:00 Acetaminophen (Tylenol Supp) 650 mg Q6H PRN [place] .PAIN 1-3 OR TEMP Last administered on 02/24/19at 00:13; Admin Dose 650 MG; Start 02/21/19 at 00:00 Pantoprazole (Protonix Iv) 40 mg DAILY@06 IV Last administered on 02/26/19at 05:21; Admin Dose 40 MG; Start 02/21/19 at 06:00 IV Flush (NS 10 ml) 10 ml PRN PRN IV FLUSH LINE; Start 02/21/19 at 18:30 Fat Emulsion Intravenous 250 ml @ 20.833 mls/ hr MoWeFr@1600 IV ; Start 02/26/19 at 16:00 Lorazepam (Ativan) 0.5 mg Q6H PRN IV anxiety , insomnia Last administered on 02/25/19 21:58; Admin Dose 0.5 MG; Start 02/23/19 at 16:00 Diagnostic Test (Pha) (Accu-Chek) 1 ea Q4 XX Last administered on 02/26/19 12:40; Admin Dose 1 EA; Start 02/23/19 at 17:00 Total Parenteral Nutrition 1,000 ml @ 60 mls/hr [id number] IV Last administered on 02/26/19 05:21; Admin Dose 60 MLS/HR; Start 02/24/19 at 22:00 Hydromorphone HCl (Dilaudid) 1 mg Q3 PRN IV PAIN LEVEL 6-10 Last administered on 02/24/19 09:25; Admin Dose 1 MG; Start 02/23/19 at 17:30 Trimethoprim/ Sulfamethoxazole 15 ml/Dextrose 515 ml @ 343.333 mls/hr Q8 IVPB Last administered on 02/26/19 05:21; Admin Dose 343.333 MLS/HR; Start 02/24/19 at 16:30 Metronidazole 100 ml @ 100 mls/hr Q8 IVPB Last administered on 02/26/19 05:21; Admin Dose 100 MLS/HR; Start 02/24/19 at 15:00 Naloxone HCl (Narcan) 0.2 mg PRN PRN IV RR < 8; Start 02/24/19 at 16:00 Diphenhydramine HCl (Benadryl) 25 mg Q6H PRN IV .ITCHING; Start 02/24/19 at 16:00 Miscellaneous Information 1. Discontinue HOME CARE GIVER... HOME CARE GIVER IV ; Start 02/24/19 at 16:00 Miscellaneous Information 1. Discontinue HOME CARE GIVER... HOME CARE GIVER IV ; Start 02/24/19 at 16:00 Ketorolac Tromethamine (Toradol) 30 mg Q6H PRN IV PAIN Last administered on 02/26/19 06:45; Admin Dose 30 MG; Start 02/24/19 at 20:00; Stop 02/27/19 at 19:59 Metoclopramide HCl (Reglan) 10 mg Q6H PRN IV NAUSEA AND/OR VOMITING Last administered on 02/26/19 06:44; Admin Dose 10 MG; Start 02/24/19 at 20:00 Ondansetron HCl (Zofran Inj) 4 mg Q6H PRN IV NAUSEA AND/OR VOMITING Last administered on 02/25/19at 21:49; Admin Dose 4 MG; Start 02/24/19 at 16:00 Potassium Chloride/Dextrose/ Sod Cl 1,000 ml @ 0 mls/hr Q10H IV Last administered on 02/24/19at 21:32; Admin Dose 10 MLS/HR; Start 02/24/19 at 15:59 Heparin Sodium (Porcine) (Heparin (5000 Units/1ml)) 5,000 unit Q12 SC Last administered on 02/26/19at 08:35; Admin Dose 5,000 UNIT; Start 02/25/19 at 09:00 Zolpidem Tartrate (Ambien) 5 mg HS PRN PO INSOMNIA; Start 02/24/19 at 16:00 Lorazepam (Ativan) 0.5 mg HS MAY REPEAT X 1 PRN PO INSOMNIA; Start 02/24/19 at 16:00 Potassium Chloride 100 ml @ 50 mls/hr Q2H IVPB Last administered on 02/26/19at 13:17; Admin Dose 50 MLS/HR; Start 02/26/19 at 10:00; Stop 02/26/19 at 17:59 DALE ARREOLA NP Feb 26, 2019 13:55
[2019-02-26 14:45] VITALS: BP 105/61; PULSE 68; RESP 20
[2019-02-26] MEDS ORDERED: FAT EMULSION 20% 250 ML IV SCH (16:00)
--- NOTE | 2019-02-26 16:18 | PN ---
Date/Time of Note Date/Time of Note DATE: 02/26/19 TIME: 16:15 Assessment/Plan VTE Prophylaxis [place] [facility] [place]: 9 [place]CD applied [place] [facility] [place] Yes Pharmacological prophylaxis: NA/contraindicated Pharm contraindication: low risk/ambulating Lines/Catheters IV C[facility]ter Type (from [facility] PICC Line Central line still needed: Yes Urinary Cath still in place: Yes Reason Cath still needed: urinary retention Assessment/Plan Assessment/Plan 1 Sepsis secondary to abdominal abscesses. Post IR drainage on 02/22 with mu ltidrug-resistant organisms Klebsiella and MRSA and had HO recurrent diverticulitis with abscess this post drainage also in January now p erforated diverticulitis with intra-abdominal abscess.sp. Open Claudia procedure. 2. Drainage of the intra-abdominal abscess. 3. Splenic flexure mobilization on 02/24/19 2. Severe leukocytosis secondary to #1. IMPROVED Proved 3. Lactic acidosis secondary to #1. 4. History of anemia. 5. History of marijuana use. 6. History of amphetamine use. 7. History of a yeast infection in the Gram stain. 8. Anemia 9. electrolyte imbalance: hypokalemia, hypophosphatemia 10. Overweight Assessment/Plan -pod #2, colostomy bag care -cw TPN, iv K to be repleted - PCP pump and folet to be managed by surgery -cw with bactrim/flagyl -cw ppi -Surgery consult dr Brenner./Dr. longo> fu recs - post op care - GI and dvt prophylaxsis Result Diagram: 02/26/1961702/26/1918 Results 24hrs Laboratory Tests Test 02/25/19 17:00 02/25/19 20:52 02/26/19 00:50 02/26/19 04:28 Bedside Glucose 149 126 112 127 Test 02/26/19 06:18 02/26/19 08:29 02/26/19 12:40 White Blood Count 8.6 Red Blood Count 2.81 L Hemoglobin 8.2 L Hematocrit 25.5 L Mean Corpuscular 90.7 Volume Mean Corpuscular 29.2 Hemoglobin Mean Corpuscular 32.2 Hemoglobin Concent Red Cell 14.0 Distribution Width Platelet Count 249 Mean Platelet Volume 10.2 Immature 5.900 H Granulocytes % Neutrophils % Segmented 72 Neutrophils % (Manual) Lymphocytes % Lymphocytes % 18 (Manual) Monocytes % Monocytes % (Manual) 8 Eosinophils % Eosinophils % 1 (Manual) Basophils % Metamyelocytes % 1 H (manual) Nucleated Red Blood 0.0 Cells % Immature 0.510 H Granulocytes # Neutrophils # Lymphocytes (Manual) 1.5 Lymphocytes # Monocytes # Monocytes # (Manual) 0.6 Eosinophils # Basophils # Metamyelocytes # 0.0 Nucleated Red Blood Cells # Platelet Estimate NORMAL Giant Platelets 2 H Polychromasia 2+ Anisocytosis 1+ Microcytosis 1+ Sodium Level 137 Potassium Level 2.8 *L Chloride Level 105 Carbon Dioxide Level 28 Anion Gap 4 L Blood Urea Nitrogen 11 Creatinine 0.51 Est Glomerular > 60 Filtrat Rate mL/min Glucose Level 140 # Calcium Level 7.5 L Phosphorus Level 2.6 Magnesium Level 2.0 Bedside Glucose 98 107 Subjective 24 Hr Interval Summary Free Text/Dictation And is passing some gas. 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 CVS: regular rate and rhythm, no murmurs Abdomen: Diffusely tender all over, +colostomy, + faint bowel sounds Neuro: alert and oriented x 3 Gait: normal Motor strength: 5+/5+ Sensory exam: normal Deep tendon reflexes: normal, Babisky reflexes are absent bilaterally Skin: no lesions Results Results 24hrs Laboratory Tests Test 02/25/19 17:00 02/25/19 20:52 02/26/19 00:50 02/26/19 04:28 Bedside Glucose 149 126 112 127 Test 02/26/19 06:18 02/26/19 08:29 02/26/19 12:40 White Blood Count 8.6 Red Blood Count 2.81 L Hemoglobin 8.2 L Hematocrit 25.5 L Mean Corpuscular 90.7 Volume Mean Corpuscular 29.2 Hemoglobin Mean Corpuscular 32.2 Hemoglobin Concent Red Cell 14.0 Distribution Width Platelet Count 249 Mean Platelet Volume 10.2 Immature 5.900 H Granulocytes % Neutrophils % Segmented 72 Neutrophils % (Manual) Lymphocytes % Lymphocytes % 18 (Manual) Monocytes % Monocytes % (Manual) 8 Eosinophils % Eosinophils % 1 (Manual) Basophils % Metamyelocytes % 1 H (manual) Nucleated Red Blood 0.0 Cells % Immature 0.510 H Granulocytes # Neutrophils # Lymphocytes (Manual) 1.5 Lymphocytes # Monocytes # Monocytes # (Manual) 0.6 Eosinophils # Basophils # Metamyelocytes # 0.0 Nucleated Red Blood Cells # Platelet Estimate NORMAL Giant Platelets 2 H Polychromasia 2+ Anisocytosis 1+ Microcytosis 1+ Sodium Level 137 Potassium Level 2.8 *L Chloride Level 105 Carbon Dioxide Level 28 Anion Gap 4 L Blood Urea Nitrogen 11 Creatinine 0.51 Est Glomerular > 60 Filtrat Rate mL/min Glucose Level 140 # Calcium Level 7.5 L Phosphorus Level 2.6 Magnesium Level 2.0 Bedside Glucose 98 107 Medications Medication Current Medications IV Flush (NS 3 ml) 3 ml PER PROTOCOL IV ; Start 02/21/19 at 00:00 Acetaminophen (Tylenol Tab) 650 mg Q6H PRN PO .PAIN 1-3 OR TEMP Last ad ministered on 02/21/19at 01:42; Admin Dose 650 MG; Start 02/21/19 at 00:00 Acetaminophen (Tylenol Supp) 650 mg Q6H PRN [place] .PAIN 1-3 OR TEMP Last administered on 02/24/19at 00:13; Admin Dose 650 MG; Start 02/21/19 at 00:00 Pantoprazole (Protonix Iv) 40 mg DAILY@06 IV Last administered on 02/26/19at 05 :21; Admin Dose 40 MG; Start 02/21/19 at 06:00 IV Flush (NS 10 ml) 10 ml PRN PRN IV FLUSH LINE; Start 02/21/19 at 18:30 Fat Emulsion Intravenous 250 ml @ 20.833 mls/ hr MoWeFr@1600 IV ; Start at 16:00 Lorazepam (Ativan) 0.5 mg Q6H PRN IV anxiety , insomnia Last administered on 02/25/19 21:58; Admin Dose 0.5 MG; Start 02/23/19 at 16:00 Diagnostic Test (Pha) (Accu-Chek) 1 ea Q4 XX Last administered on 02/26/19 12:40; Admin Dose 1 EA; Start 02/23/19 at 17:00 Total Parenteral Nutrition 1,000 ml @ 60 mls/hr [id number] IV Last administered on 02/26/19 05:21; Admin Dose 60 MLS/HR; Start 02/24/19 at 22:00 Hydromorphone HCl (Dilaudid) 1 mg Q3 PRN IV PAIN LEVEL 6-10 Last administered o n 02/24/19 09:25; Admin Dose 1 MG; Start 02/23/19 at 17:30 Trimethoprim/ Sulfamethoxazole 15 ml/Dextrose 515 ml @ 343.333 mls/hr Q8 IVPB Last administered on 02/26/19 05:21; Admin Dose 343.333 MLS/HR; Start 02/24/19 at 16:30 Metronidazole 100 ml @ 100 mls/hr Q8 IVPB Last administered on 02/26/19 15:52; Admin Dose 100 MLS/HR; Start 02/24/19 at 15:00 Naloxone HCl (Narcan) 0.2 mg PRN PRN IV RR < 8; Start 02/24/19 at 16:00 Diphenhydramine HCl (Benadryl) 25 mg Q6H PRN IV .ITCHING; Start 02/24/19 at 16:00 Miscellaneous Information 1. Discontinue ENGINE ROOM HELPER... ENGINE ROOM HELPER IV ; Start 02/24/19 at 16:00 Miscellaneous Information 1. Discontinue ENGINE ROOM HELPER... ENGINE ROOM HELPER IV ; Start 02/24/19 at 16:00 Ketorolac Tromethamine (Toradol) 30 mg Q6H PRN IV PAIN Last administered on 02/26/19 14:21; Admin Dose 30 MG; Start 02/24/19 at 20:00; Stop 02/27/19 at 19:59 Metoclopramide HCl (Reglan) 10 mg Q6H PRN IV NAUSEA AND/OR VOMITING Last administered on 02/26/19 06:44; Admin Dose 10 MG; Start 02/24/19 at 20:00 Ondansetron HCl (Zofran Inj) 4 mg Q6H PRN IV NAUSEA AND/OR VOMITING Last administered on 02/25/19at 21:49; Admin Dose 4 MG; Start 02/24/19 at 16:00 Potassium Chloride/Dextrose/ Sod Cl 1,000 ml @ 0 mls/hr Q10H IV Last administered on 02/24/19at 21:32; Admin Dose 10 MLS/HR; Start 02/24/19 at 15:59 Heparin Sodium (Porcine) (Heparin (5000 Units/1ml)) 5,000 unit Q12 SC Last administered on 02/26/19at 08:35; Admin Dose 5,000 UNIT; Start 02/25/19 at 09:00 Zolpidem Tartrate (Ambien) 5 mg HS PRN PO INSOMNIA; Start 02/24/19 at 16:00 Lorazepam (Ativan) 0.5 mg HS MAY REPEAT X 1 PRN PO INSOMNIA; Start 02/24/19 at 16:00 Potassium Chloride 100 ml @ 50 mls/hr Q2H IVPB Last administered on 02/26/19at 13:17; Admin Dose 50 MLS/HR; Start 02/26/19 at 10:00; Stop 02/26/19 at 17:59 DANILO KUNZ MD Feb 26, 2019 16:18
[2019-02-26 20:00] VITALS: BP 109/66; PULSE 71; RESP 18
[2019-02-26] MEDS: ZOLPIDEM 5 MG TAB PO PRN (20:35)
[2019-02-27] VITALS: BP 105/68; PULSE 63; RESP 18
[2019-02-27] MEDS: LORAZEPAM 2 MG INJ IV PRN (00:28)
[2019-02-27] MEDS: DIPHENHYDRAMINE 50 MG INJ IV PRN ×2 (02:09→11:16)
[2019-02-27 04:00] VITALS: BP 106/67; PULSE 60; RESP 19
[2019-02-27] MEDS: KETOROLAC 30 MG INJ IV PRN ×2 (04:53→11:08)
[2019-02-27] MEDS: metroNIDAZOLE 500 MG/NS (PMX) 100 ML IVPB SCH ×3 (05:02→21:03)
[2019-02-27] MEDS: PANTOPRAZOLE 40 MG INJ IV SCH (05:35)
[2019-02-27] MEDS: TRIMETHOPRIM/SULFAMETHOXAZOLE 15 ML in DEXTROSE 5% 500 ML IVPB SCH ×3 (06:18→22:28)
[2019-02-27] MEDS: ACCU-CHEK XX SCH ×4 (06:19→23:34)
[2019-02-27 07:44] VITALS: BP 113/67; PULSE 63; RESP 22
[2019-02-27] MEDS: HEPARIN 5,000 UNIT/1 ML VIAL SC SCH ×2 (08:54→21:38)
[2019-02-27 12:18] VITALS: BP 106/70; PULSE 71; RESP 22
[2019-02-27] MEDS ORDERED: HYDROmorphONE 0.5 MG/0.5 ML SYG IV PRN (15:00)
[2019-02-27] MEDS ORDERED: [UNRECOGNIZED DRUG - REMARK] XX ONE (15:00)
--- NOTE | 2019-02-27 15:26 | CONS ---
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 PHYSICAL EXAMINATION: GENERAL: This is well-developed, well-nourished, middle-aged woman who is alert, in no distress. HEENT: Head atraumatic, normocephalic. NECK: Supple. CHEST: Rise symmetrical. Breath sounds diminished to bases. HEART: S1, S2. ABDOMEN: Left-sided colostomy, mid abdominal dressing intact, + bowel tones EXTREMITIES: Without cyanosis. ASSESSMENT: 1. Recurrent Intraabdominal abscess, status post open Claudia procedure and drainage of the intra-abdominal abscess January 25, 2019 2. Acute perforated diverticulitis, status post exploratory laparoscopy and drainage of intraabdominal abscess on 01/28/2019. 3. Systemic inflammatory response syndrome with fevers and leukocytosis secondary to #1. PLAN: Stable postoperatively day #3, continue antibiotics, pain management, incentive spirometry, follow surgical recommendations. Consultation Date/Type/Reason Admit Date/Time Feb 20, 2019 at 20:08 Initial Consult Date 02/20/19 Type of Consult id Requesting Provider: JOSEPHINE GARAY MD Date/Time of Note DATE: 02/27/19 TIME: 15:26 Exam/Review of Systems Exam Vitals Vital Signs Date Temp Pulse Resp B/P (MAP) Pulse Ox O2 O2 Flow FiO2 Time Delivery Rate 02/27/19 98.3 71 22 106/70 96 Nasal 2.0 12:18 (82) Cannula Intake and Output 02/26/19 02/26/19 02/27/19 1515:00 23:00 07:00 IntakeIntake Total 100 ml 2270 ml 1405 ml OutputOutput Total 2500 ml 1700 ml BalanceBalance -2400 ml 570 ml 1405 ml Results Result Diagram: 02/27/19 0527 02/27/19 0527 Results 24hrs Laboratory Tests Test 02/26/19 17:05 02/26/19 20:41 02/27/19 05:27 02/27/19 06:19 Bedside Glucose 169 103 106 White Blood Count 10.2 Red Blood Count 3.01 L Hemoglobin 8.7 L Hematocrit 27.2 L Mean Corpuscular 90.4 Volume Mean Corpuscular 28.9 L Hemoglobin Mean Corpuscular 32.0 Hemoglobin Concent Red Cell Distribution 13.9 Width Platelet Count 298 Mean Platelet Volume 10.1 Immature Granulocytes 9.700 H % Neutrophils % Segmented Neutrophils 55 % (Manual) Band Neutrophils % 1 (Manual) Lymphocytes % Lymphocytes % (Manual) 30 Monocytes % Monocytes % (Manual) 5 Eosinophils % Eosinophils % (Manual) 6 Basophils % Basophils % (Manual) 1 Myelocytes % (Manual) 2 H Nucleated Red Blood 1 H Cells % Immature Granulocytes 0.990 H # Neutrophils # Neutrophils # (Manual) 5.6 Band Neutrophils # 0.1 Lymphocytes (Manual) 3.0 H Lymphocytes # Monocytes # Monocytes # (Manual) 0.5 Eosinophils # Basophils # Basophils # (Manual) 0.1 H Myelocytes # 0.2 H Nucleated Red Blood Cells # Platelet Estimate NORMAL Polychromasia 2+ Hypochromasia 1+ Anisocytosis 1+ Spherocytes 1+ Sodium Level 139 Potassium Level 4.1 Chloride Level 109 Carbon Dioxide Level 24 Anion Gap 6 Blood Urea Nitrogen 10 Creatinine 0.53 Est Glomerular Filtrat > 60 Rate mL/min Glucose Level 104 Calcium Level 8.2 L Total Bilirubin 0.1 L Direct Bilirubin 0.00 Indirect Bilirubin 0.1 Aspartate Amino 22 Transf (AST/SGOT) Alanine 26 Aminotransferase (ALT/ SGPT) Alkaline Phosphatase 75 Total Protein 4.9 L Albumin 2.5 L Globulin 2.40 Albumin/Globulin Ratio 1.04 Test 02/27/19 11:11 Bedside Glucose 109 Medications Medication Current Medications IV Flush (NS 3 ml) 3 ml PER PROTOCOL IV ; Start 02/21/19 at 00:00 Acetaminophen (Tylenol Tab) 650 mg Q6H PRN PO .PAIN 1-3 OR TEMP Last administered on 02/21/19at 01:42; Admin Dose 650 MG; Start 02/21/19 at 00:00 Acetaminophen (Tylenol Supp) 650 mg Q6H PRN [place] .PAIN 1-3 OR TEMP Last administered on 02/24/19at 00:13; Admin Dose 650 MG; Start 02/21/19 at 00:00 Pantoprazole (Protonix Iv) 40 mg DAILY@06 IV Last administered on 02/27/19at 05:35; Admin Dose 40 MG; Start 02/21/19 at 06:00 IV Flush (NS 10 ml) 10 ml PRN PRN IV FLUSH LINE; Start 02/21/19 at 18:30 Fat Emulsion Intravenous 250 ml @ 20.833 mls/ hr MoWeFr@1600 IV Last administered on 02/26/19 16:07; Admin Dose 20.833 MLS/HR; Start 02/26/19 at 16:00 Lorazepam (Ativan) 0.5 mg Q6H PRN IV anxiety , insomnia Last administered on 02/27/19at 00:28; Admin Dose 0.5 MG; Start 02/23/19 at 16:00 Total Parenteral Nutrition 1,000 ml @ 30 mls/hr Q24H IV Last administered on 02/26/19 22:09; Admin Dose 60 MLS/HR; Start 02/24/19 at 22:00 Trimethoprim/ Sulfamethoxazole 15 ml/Dextrose 515 ml @ 343.333 mls/hr Q8 IVPB Last administered on 02/27/19at 15:17; Admin Dose 343.333 MLS/HR; Start 02/24/19 at 16:30 Metronidazole 100 ml @ 100 mls/hr Q8 IVPB Last administered on 02/27/19at 14:02; Admin Dose 100 MLS/HR; Start 02/24/19 at 15:00 Naloxone HCl (Narcan) 0.2 mg PRN PRN IV RR < 8; Start 02/24/19 at 16:00 Diphenhydramine HCl (Benadryl) 25 mg Q6H PRN IV .ITCHING Last administered on 02/27/19at 11:16; Admin Dose 25 MG; Start 02/24/19 at 16:00 Ketorolac Tromethamine (Toradol) 30 mg Q6H PRN IV PAIN Last administered on 02/27/19 11:08; Admin Dose 30 MG; Start 02/24/19 at 20:00; Stop 02/27/19 at 19:59 Metoclopramide HCl (Reglan) 10 mg Q6H PRN IV NAUSEA AND/OR VOMITING Last administered on 02/26/19 06:44; Admin Dose 10 MG; Start 02/24/19 at 20:00 Ondansetron HCl (Zofran Inj) 4 mg Q6H PRN IV NAUSEA AND/OR VOMITING Last administered on 02/25/19at 21:49; Admin Dose 4 MG; Start 02/24/19 at 16:00 Potassium Chloride/Dextrose/ Sod Cl 1,000 ml @ 0 mls/hr Q10H IV Last administered on 02/24/19at 21:32; Admin Dose 10 MLS/HR; Start 02/24/19 at 15:59 Heparin Sodium (Porcine) (Heparin (5000 Units/1ml)) 5,000 unit Q12 SC Last administered on 02/27/19at 08:54; Admin Dose 5,000 UNIT; Start 02/25/19 at 09:00 Zolpidem Tartrate (Ambien) 5 mg HS PRN PO INSOMNIA Last administered on 02/26/19 20:35; Admin Dose 5 MG; Start 02/24/19 at 16:00 Lorazepam (Ativan) 0.5 mg HS MAY REPEAT X 1 PRN PO INSOMNIA Last administered on 02/26/19at 22:03; Admin Dose 0.5 MG; Start 02/24/19 at 16:00 Diagnostic Test (Pha) (Accu-Chek) 1 ea Q6 XX Last administered on 02/27/19at 11:20; Admin Dose 1 EA; Start 02/27/19 at 06:00 Acetaminophen/ Hydrocodone Bitart ([place] (7.5-325)) 1 tab Q4H PRN PO MODERATE PAIN LEVEL 4-6; Start 02/27/19 at 15:00 Hydromorphone HCl (Dilaudid) 1 mg Q2H PRN IV PAIN LEVEL 6-10; Start 02/27/19 at 15:02 DALE ARREOLA NP Feb 27, 2019 15:26
[2019-02-27 15:37] VITALS: BP 113/72; PULSE 65; RESP 20
--- NOTE | 2019-02-27 15:58 | PAC ---
Date/Time of Note Date/Time of Note DATE: 02/27/19 TIME: 15:58 Post-Anesthesia Notes Post-Anesthesia Note Last documented vital signs Vital Signs Date Temp Pulse Resp B/P (MAP) Pulse Ox O2 O2 Flow FiO2 Time Delivery Rate 02/27/19 98.0 65 20 113/72 96 Nasal 15:37 (86) Cannula 02/27/19 2.0 12:18 Activity: WNL Respiratory function: WNL Cardiovascular function: WNL Mental status: Baseline Pain reasonably controlled: Yes Hydration appropriate: Yes Nausea/Vomiting absent: Yes MERVIN RICHARD Feb 27, 2019 15:58
--- NOTE | 2019-02-27 19:24 | PN ---
Date/Time of Note Date/Time of Note DATE: 02/27/19 TIME: 19:17 Assessment/Plan VTE Prophylaxis Risk score (from [facility])>0 risk: 9 [place] [facility] [place] Pharmacological prophylaxis: NA/contraindicated Pharm contraindication: low risk/ambulating Lines/Catheters IV [facility] Type (from [facility] PICC Line Central line still needed: Yes Urinary Cath still in place: No Assessment/Plan Assessment/Plan Assessment/Plan 1 Sepsis secondary to abdominal abscesses. Post IR drainage on 02/22 with multidrug-resistant organisms Klebsiella and MRSA and had HO recurrent diverticulitis with abscess this post drainage also in January now p erforated diverticulitis with intra-abdominal abscess.sp. Open Claudia procedure. 2. Drainage of the intra-abdominal abscess. 3. Splenic flexure mobilization on 02/24/19 2. Severe leukocytosis secondary to #1. IMPROVED Proved 3. Lactic acidosis secondary to #1. 4. History of anemia. 5. History of marijuana use. 6. History of amphetamine use. 7. History of a yeast infection in the Gram stain. 8. Anemia 9. electrolyte imbalance: hypokalemia, hypophosphatemia 10. 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 longo> fu recs - post op care - GI and dvt prophylaxsis Result Diagram: 02/27/1927 02/27/19526 Results 24hrs Laboratory Tests Test 02/26/19 20:41 02/27/19 05:27 02/27/19 06:19 02/27/19 11:11 Bedside Glucose 103 106 109 White Blood Count 10.2 Red Blood Count 3.01 L Hemoglobin 8.7 L Hematocrit 27.2 L Mean Corpuscular Volume 90.4 Mean Corpuscular 28.9 L Hemoglobin Mean Corpuscular 32.0 Hemoglobin Concent Red Cell Distribution 13.9 Width Platelet Count 298 Mean Platelet Volume 10.1 Immature Granulocytes % 9.700 H Neutrophils % Segmented Neutrophils 55 % (Manual) Band Neutrophils % 1 (Manual) Lymphocytes % Lymphocytes % (Manual) 30 Monocytes % Monocytes % (Manual) 5 Eosinophils % Eosinophils % (Manual) 6 Basophils % Basophils % (Manual) 1 Myelocytes % (Manual) 2 H Nucleated Red Blood 1 H Cells % Immature Granulocytes # 0.990 H Neutrophils # Neutrophils # (Manual) 5.6 Band Neutrophils # 0.1 Lymphocytes (Manual) 3.0 H Lymphocytes # Monocytes # Monocytes # (Manual) 0.5 Eosinophils # Basophils # Basophils # (Manual) 0.1 H Myelocytes # 0.2 H Nucleated Red Blood Cells # Platelet Estimate NORMAL Polychromasia 2+ Hypochromasia 1+ Anisocytosis 1+ Spherocytes 1+ Sodium Level 139 Potassium Level 4.1 Chloride Level 109 Carbon Dioxide Level 24 Anion Gap 6 Blood Urea Nitrogen 10 Creatinine 0.53 Est Glomerular Filtrat > 60 Rate mL/min Glucose Level 104 Calcium Level 8.2 L Total Bilirubin 0.1 L Direct Bilirubin 0.00 Indirect Bilirubin 0.1 Aspartate Amino 22 Transf (AST/SGOT) Alanine 26 Aminotransferase (ALT/S GPT) Alkaline Phosphatase 75 Total Protein 4.9 L Albumin 2.5 L Globulin 2.40 Albumin/Globulin Ratio 1.04 Test 02/27/19 17:24 Bedside Glucose 90 Subjective 24 Hr Interval Summary Free Text/Dictation still has pain bur colostomy draining well Exam/Review of Systems Exam Vitals Vital Signs Date Temp Pulse Resp B/P (MAP) Pulse Ox O2 O2 Flow FiO2 Time Delivery Rate 02/27/19 98.0 65 20 113/72 96 Nasal 15:37 (86) Cannula 02/27/19 2.0 12:18 Intake and Output 02/26/19 02/26/19 02/27/19 1515:00 23:00 07:00 IntakeIntake Total 100 ml 2270 ml 1405 ml OutputOutput Total 2500 ml 1700 ml BalanceBalance -2400 ml 570 ml 1405 ml Exam antonio alert oriented Neck: supple, no thyromegaly, no carotid bruits Lungs: clear bilaterally, decreased. CVS: regular rate and rhythm, no murmurs Abdomen: Diffusely tender all over, +colostomydraining well, + faint bowel sounds Neuro: alert and oriented x 3 Gait: normal Motor strength: 5+/5+ Sensory exam: normal Deep tendon reflexes: normal, Babisky reflexes are absent bilaterally Skin: no lesions Results Results 24hrs Laboratory Tests Test 02/26/19 20:41 02/27/19 05:27 02/27/19 06:19 02/27/19 11:11 Bedside Glucose 103 106 109 White Blood Count 10.2 Red Blood Count 3.01 L Hemoglobin 8.7 L Hematocrit 27.2 L Mean Corpuscular Volume 90.4 Mean Corpuscular 28.9 L Hemoglobin Mean Corpuscular 32.0 Hemoglobin Concent Red Cell Distribution 13.9 Width Platelet Count 298 Mean Platelet Volume 10.1 Immature Granulocytes % 9.700 H Neutrophils % Segmented Neutrophils 55 % (Manual) Band Neutrophils % 1 (Manual) Lymphocytes % Lymphocytes % (Manual) 30 Monocytes % Monocytes % (Manual) 5 Eosinophils % Eosinophils % (Manual) 6 Basophils % Basophils % (Manual) 1 Myelocytes % (Manual) 2 H Nucleated Red Blood 1 H Cells % Immature Granulocytes # 0.990 H Neutrophils # Neutrophils # (Manual) 5.6 Band Neutrophils # 0.1 Lymphocytes (Manual) 3.0 H Lymphocytes # Monocytes # Monocytes # (Manual) 0.5 Eosinophils # Basophils # Basophils # (Manual) 0.1 H Myelocytes # 0.2 H Nucleated Red Blood Cells # Platelet Estimate NORMAL Polychromasia 2+ Hypochromasia 1+ Anisocytosis 1+ Spherocytes 1+ Sodium Level 139 Potassium Level 4.1 Chloride Level 109 Carbon Dioxide Level 24 Anion Gap 6 Blood Urea Nitrogen 10 Creatinine 0.53 Est Glomerular Filtrat > 60 Rate mL/min Glucose Level 104 Calcium Level 8.2 L Total Bilirubin 0.1 L Direct Bilirubin 0.00 Indirect Bilirubin 0.1 Aspartate Amino 22 Transf (AST/SGOT) Alanine 26 Aminotransferase (ALT/S GPT) Alkaline Phosphatase 75 Total Protein 4.9 L Albumin 2.5 L Globulin 2.40 Albumin/Globulin Ratio 1.04 Test 02/27/19 17:24 Bedside Glucose 90 Medications Medication Current Medications IV Flush (NS 3 ml) 3 ml PER PROTOCOL IV ; Start 02/21/19 at 00:00 Acetaminophen (Tylenol Tab) 650 mg Q6H PRN PO .PAIN 1-3 OR TEMP Last administered on 02/21/19at 01:42; Admin Dose 650 MG; Start 02/21/19 at 00:00 Acetaminophen (Tylenol Supp) 650 mg Q6H PRN [place] .PAIN 1-3 OR TEMP Last administered on 02/24/19at 00:13; Admin Dose 650 MG; Start 02/21/19 at 00:00 Pantoprazole (Protonix Iv) 40 mg DAILY@06 IV Last administered on 02/27/19 05:35; Admin Dose 40 MG; Start 02/21/19 at 06:00 IV Flush (NS 10 ml) 10 ml PRN PRN IV FLUSH LINE; Start 02/21/19 at 18:30 Fat Emulsion Intravenous 250 ml @ 20.833 mls/ hr MoWeFr@1600 IV Last administered on 02/26/19 16:07; Admin Dose 20.833 MLS/HR; Start 02/26/19 at 16:00 Lorazepam (Ativan) 0.5 mg Q6H PRN IV anxiety , insomnia Last administered on 02/27/19 00:28; Admin Dose 0.5 MG; Start 02/23/19 at 16:00 Total Parenteral Nutrition 1,000 ml @ 30 mls/hr Q24H IV Last administered on 02/26/19 22:09; Admin Dose 60 MLS/HR; Start 02/24/19 at 22:00 Trimethoprim/ Sulfamethoxazole 15 ml/Dextrose 515 ml @ 343.333 mls/hr Q8 IVPB Last administered on 02/27/19 15:17; Admin Dose 343.333 MLS/HR; Start 02/24/19 at 16:30 Metronidazole 100 ml @ 100 mls/hr Q8 IVPB Last administered on 02/27/19 14:02; Admin Dose 100 MLS/HR; Start 02/24/19 at 15:00 Naloxone HCl (Narcan) 0.2 mg PRN PRN IV RR < 8; Start 02/24/19 at 16:00 Diphenhydramine HCl (Benadryl) 25 mg Q6H PRN IV .ITCHING Last administered on 02/27/19 11:16; Admin Dose 25 MG; Start 02/24/19 at 16:00 Ketorolac Tromethamine (Toradol) 30 mg Q6H PRN IV PAIN Last administered on 02/27/19 11:08; Admin Dose 30 MG; Start 02/24/19 at 20:00; Stop 02/27/19 at 19:59 Metoclopramide HCl (Reglan) 10 mg Q6H PRN IV NAUSEA AND/OR VOMITING Last administered on 02/26/19 06:44; Admin Dose 10 MG; Start 02/24/19 at 20:00 Ondansetron HCl (Zofran Inj) 4 mg Q6H PRN IV NAUSEA AND/OR VOMITING Last administered on 02/25/19 21:49; Admin Dose 4 MG; Start 02/24/19 at 16:00 Heparin Sodium (Porcine) (Heparin (5000 Units/1ml)) 5,000 unit Q12 SC Last administered on 02/27/19 08:54; Admin Dose 5,000 UNIT; Start 02/25/19 at 09:00 Zolpidem Tartrate (Ambien) 5 mg HS PRN PO INSOMNIA Last administered on 02/26/19 20:35; Admin Dose 5 MG; Start 02/24/19 at 16:00 Lorazepam (Ativan) 0.5 mg HS MAY REPEAT X 1 PRN PO INSOMNIA Last administered on 02/26/19 22:03; Admin Dose 0.5 MG; Start 02/24/19 at 16:00 Diagnostic Test (Pha) (Accu-Chek) 1 ea Q6 XX Last administered on 02/27/19at 11:20; Admin Dose 1 EA; Start 02/27/19 at 06:00 Acetaminophen/ Hydrocodone Bitart ([place] (7.5-325)) 1 tab Q4H PRN PO MODERATE PAIN LEVEL 4-6; Start 02/27/19 at 15:00 Hydromorphone HCl (Dilaudid) 1 mg Q2H PRN IV PAIN LEVEL 6-10; Start 02/27/19 at 15:02 DANILO KUNZ MD Feb 27, 2019 19:24
[2019-02-27] MEDS: HYDROmorphONE 1 MG/ML SYG IV PRN ×2 (19:46→23:32)
[2019-02-27 20:00] VITALS: BP 108/71; PULSE 61; RESP 18
[2019-02-27] MEDS: HYDROCODONE/APAP (7.5/325) TAB PO PRN (20:57)
[2019-02-27] MEDS: TPN 1,000 ML IV SCH (20:57)
[2019-02-27] MEDS: ZOLPIDEM 5 MG TAB PO PRN (22:35)
[2019-02-28] VITALS (7 sets, daily range): BP systolic 103–123; BP diastolic 55–78; PULSE 60–96; RESP 16–20
[2019-02-28] MEDS: HYDROmorphONE 1 MG/ML SYG IV PRN ×6 (03:39→18:53)
[2019-02-28] MEDS: PANTOPRAZOLE 40 MG INJ IV SCH (05:19)
[2019-02-28] MEDS: metroNIDAZOLE 500 MG/NS (PMX) 100 ML IVPB SCH ×3 (05:19→21:01)
[2019-02-28] MEDS: HYDROCODONE/APAP (7.5/325) TAB PO PRN (05:27)
[2019-02-28] MEDS: ONDANSETRON 4 MG INJ IV PRN ×3 (05:36→20:47)
[2019-02-28] MEDS: ACCU-CHEK XX SCH ×3 (05:40→17:34)
[2019-02-28] MEDS: TRIMETHOPRIM/SULFAMETHOXAZOLE 15 ML in DEXTROSE 5% 500 ML IVPB SCH ×3 (06:36→21:01)
[2019-02-28] MEDS: HEPARIN 5,000 UNIT/1 ML VIAL SC SCH ×2 (08:54→20:51)
--- NOTE | 2019-02-28 15:51 | CONS ---
Assessment/Plan Assessment/Plan Hospital Course (Demo Recall) Alert, c/o nausea, no fevers, nad MICROBIOLOGY: Microbiology: Intra-abdominal fluid cultures grew MRSA and Klebsiella pneumonia, both susceptible to Bactrim ANTIMICROBIALS: IV Bactrim Flagyl. PHYSICAL EXAMINATION: GENERAL: This is well-developed, well-nourished, middle-aged woman who is alert, in no distress. HEENT: Head atraumatic, normocephalic. NECK: Supple. CHEST: Rise symmetrical. Breath sounds diminished to bases. HEART: S1, S2. ABDOMEN: Left-sided colostomy, mid abdominal dressing intact, + bowel tones EXTREMITIES: Without cyanosis. ASSESSMENT: 1. Recurrent Intraabdominal abscess, status post open Claudia procedure and drainage of the intra-abdominal abscess January 25, 2019 2. Acute perforated diverticulitis, status post exploratory laparoscopy and drainage of intraabdominal abscess on 01/28/2019. 3. Systemic inflammatory response syndrome PLAN: Stable postoperatively day #4, continue antibiotics, pain management, incentive spirometry, monitor labs. Check KUB in am, if wbc continues to increase may need repeat abdominal CT. Surgical rec-s Consultation Date/Type/Reason Admit Date/Time Feb 20, 2019 at 20:08 Initial Consult Date 02/20/19 Type of Consult id Requesting Provider: JOSEPHINE GARAY MD Date/Time of Note DATE: 02/28/19 TIME: 15:50 Exam/Review of Systems Exam Vitals Vital Signs Date Temp Pulse Resp B/P (MAP) Pulse Ox O2 O2 Flow FiO2 Time Delivery Rate 02/28/19 98.0 67 18 103/55 97 15:36 (71) 02/27/19 Nasal 15:37 Cannula 02/27/19 2.0 12:18 Intake and Output 02/27/19 02/27/19 02/28/19 1515:00 23:00 07:00 IntakeIntake Total 350 ml 1450 ml 1115 ml OutputOutput Total 400 ml BalanceBalance -50 ml 1450 ml 1115 ml Results Result Diagram: 02/28/19 0526 02/28/19 1353 Results 24hrs Laboratory Tests Test 02/27/19 17:24 02/27/19 23:31 02/28/19 05:26 02/28/19 05:40 Bedside Glucose 90 158 100 White Blood Count 12.2 H Red Blood Count 3.58 L Hemoglobin 10.2 L Hematocrit 32.8 #L Mean Corpuscular Volume 91.6 Mean Corpuscular 28.5 L Hemoglobin Mean Corpuscular 31.1 L Hemoglobin Concent Red Cell Distribution 14.1 Width Platelet Count 331 Mean Platelet Volume 10.2 Immature Granulocytes % 14.600 H Neutrophils % Segmented Neutrophils 62 % (Manual) Band Neutrophils % 3 (Manual) Lymphocytes % Lymphocytes % (Manual) 20 Reactive Lymphocytes 1 H % (Manual) Monocytes % Monocytes % (Manual) 3 Eosinophils % Eosinophils % (Manual) 4 Basophils % Basophils % (Manual) 2 Metamyelocytes % 1 H (manual) Myelocytes % (Manual) 3 H Promyelocytes % (Manual) 1 H Nucleated Red Blood 0.2 H Cells % Immature Granulocytes # 1.790 H Neutrophils # Neutrophils # (Manual) 7.6 H Band Neutrophils # 0.3 Lymphocytes (Manual) 2.4 Lymphocytes # Reactive Lymphocytes # 0.1 H Monocytes # Monocytes # (Manual) 0.3 Eosinophils # Basophils # Basophils # (Manual) 0.2 H Metamyelocytes # 0.1 H Myelocytes # 0.3 H Promyelocytes # 0.1 H Nucleated Red Blood Cells # Platelet Estimate NORMAL Giant Platelets 1 H Polychromasia 3+ Hypochromasia 1+ Anisocytosis 1+ Microcytosis 1+ Sodium Level 136 Potassium Level 4.2 Chloride Level 105 Carbon Dioxide Level 22 Anion Gap 9 Blood Urea Nitrogen 12 Creatinine 0.63 Est Glomerular Filtrat > 60 Rate mL/min Glucose Level 101 Calcium Level 8.7 Phosphorus Level 5.6 #H Magnesium Level 2.0 Test 02/28/19 11:33 02/28/19 13:53 Bedside Glucose 107 Sodium Level 139 Potassium Level 4.6 Chloride Level 105 Carbon Dioxide Level 24 Anion Gap 10 Blood Urea Nitrogen 11 Creatinine 0.58 Est Glomerular Filtrat > 60 Rate mL/min Glucose Level 108 Calcium Level 8.7 Phosphorus Level 6.2 H Magnesium Level 2.0 Medications Medication Current Medications IV Flush (NS 3 ml) 3 ml PER PROTOCOL IV ; Start 02/21/19 at 00:00 Acetaminophen (Tylenol Tab) 650 mg Q6H PRN PO .PAIN 1-3 OR TEMP Last administered on 02/21/19at 01:42; Admin Dose 650 MG; Start 02/21/19 at 00:00 Acetaminophen (Tylenol Supp) 650 mg Q6H PRN [place] .PAIN 1-3 OR TEMP Last administered on 02/24/19 00:13; Admin Dose 650 MG; Start 02/21/19 at 00:00 Pantoprazole (Protonix Iv) 40 mg DAILY@06 IV Last administered on 02/28/19 05:19; Admin Dose 40 MG; Start 02/21/19 at 06:00 IV Flush (NS 10 ml) 10 ml PRN PRN IV FLUSH LINE; Start 02/21/19 at 18:30 Lorazepam (Ativan) 0.5 mg Q6H PRN IV anxiety , insomnia Last administered on 02/27/19 00:28; Admin Dose 0.5 MG; Start 02/23/19 at 16:00 Trimethoprim/ Sulfamethoxazole 15 ml/Dextrose 515 ml @ 343.333 mls/hr Q8 IVPB Last administered on 02/28/19 14:15; Admin Dose 343.333 MLS/HR; Start 02/24/19 at 16:30 Metronidazole 100 ml @ 100 mls/hr Q8 IVPB Last administered on 02/28/19 15:35; Admin Dose 100 MLS/HR; Start 02/24/19 at 15:00 Naloxone HCl (Narcan) 0.2 mg PRN PRN IV RR < 8; Start 02/24/19 at 16:00 Diphenhydramine HCl (Benadryl) 25 mg Q6H PRN IV .ITCHING Last administered on 02/27/19 11:16; Admin Dose 25 MG; Start 02/24/19 at 16:00 Metoclopramide HCl (Reglan) 10 mg Q6H PRN IV NAUSEA AND/OR VOMITING Last administered on 02/26/19 06:44; Admin Dose 10 MG; Start 02/24/19 at 20:00 Ondansetron HCl (Zofran Inj) 4 mg Q6H PRN IV NAUSEA AND/OR VOMITING Last ad ministered on 02/28/19 11:31; Admin Dose 4 MG; Start 02/24/19 at 16:00 Heparin Sodium (Porcine) (Heparin (5000 Units/1ml)) 5,000 unit Q12 SC Last administered on 02/28/19 08:54; Admin Dose 5,000 UNIT; Start 02/25/19 at 09:00 Zolpidem Tartrate (Ambien) 5 mg HS PRN PO INSOMNIA Last administered on 02/27/19 22:35; Admin Dose 5 MG; Start 02/24/19 at 16:00 Lorazepam (Ativan) 0.5 mg HS MAY REPEAT X 1 PRN PO INSOMNIA Last administered on 02/26/19 22:03; Admin Dose 0.5 MG; Start 02/24/19 at 16:00 Diagnostic Test (Pha) (Accu-Chek) 1 ea Q6 XX Last administered on 02/28/19 11:33; Admin Dose 1 EA; Start 02/27/19 at 06:00 Acetaminophen/ Hydrocodone Bitart ([place] (7.5-325)) 1 tab Q4H PRN PO MODERATE PAIN LEVEL 4-6 Last administered on 02/28/19 05:27; Admin Dose 1 TAB; Start 02/27/19 at 15:00 Hydromorphone HCl (Dilaudid) 1 mg Q2H PRN IV PAIN LEVEL 6-10 Last administered on 02/28/19 14:21; Admin Dose 1 MG; Start 02/27/19 at 15:02 DALE CABALLERO NP Feb 28, 2019 15:51
--- NOTE | 2019-02-28 16:43 | PN ---
Date/Time of Note Date/Time of Note DATE: 02/28/19 TIME: 16:41 Assessment/Plan VTE Prophylaxis Risk score (from Ns)>0 risk: 2 [place] [facility] [place] contraindicated: low risk/ambulating Pharmacological prophylaxis: NA/contraindicated Pharm contraindication: surgical contra Lines/Catheters [facility] ([facility] PICC Line Central line still needed: Yes Urinary Cath still in place: No Assessment/Plan Hospital Course 1. Sepsis secondary to abdominal abscesses. s.p colectomy with colostomy creation 2. Severe leukocytosis secondary to #1. 3. Lactic acidosis secondary to #1. 4. Anemia. 5. History of marijuana use. 6. History of amphetamine use. 7. History of a yeast infection in the Gram stain. 8. Overweight 9. electrolyte imbalance: hypokalemia, hypophosphatemia 10. Leucocytosis. Assessment/Plan -pod # 4 , colostomy bag care - cld> taper off TPN - DC evaluation analyst pump> iv dilaudid/norco -cw with bactrim/flagyl -cw ppi -Surgery consult dr Brenner./Dr. Lucia> fu recs - post op care - GI and dvt prophylaxis Result Diagram: 02/28/19 0526 02/28/19 1353 Results 24hrs Laboratory Tests Test 02/27/19 17:24 02/27/19 23:31 02/28/19 05:26 02/28/19 05:40 Bedside Glucose 90 158 100 White Blood Count 12.2 H Red Blood Count 3.58 L Hemoglobin 10.2 L Hematocrit 32.8 #L Mean Corpuscular Volume 91.6 Mean Corpuscular 28.5 L Hemoglobin Mean Corpuscular 31.1 L Hemoglobin Concent Red Cell Distribution 14.1 Width Platelet Count 331 Mean Platelet Volume 10.2 Immature Granulocytes % 14.600 H Neutrophils % Segmented Neutrophils 62 % (Manual) Band Neutrophils % 3 (Manual) Lymphocytes % Lymphocytes % (Manual) 20 Reactive Lymphocytes 1 H % (Manual) Monocytes % Monocytes % (Manual) 3 Eosinophils % Eosinophils % (Manual) 4 Basophils % Basophils % (Manual) 2 Metamyelocytes % 1 H (manual) Myelocytes % (Manual) 3 H Promyelocytes % (Manual) 1 H Nucleated Red Blood 0.2 H Cells % Immature Granulocytes # 1.790 H Neutrophils # Neutrophils # (Manual) 7.6 H Band Neutrophils # 0.3 Lymphocytes (Manual) 2.4 Lymphocytes # Reactive Lymphocytes # 0.1 H Monocytes # Monocytes # (Manual) 0.3 Eosinophils # Basophils # Basophils # (Manual) 0.2 H Metamyelocytes # 0.1 H Myelocytes # 0.3 H Promyelocytes # 0.1 H Nucleated Red Blood Cells # Platelet Estimate NORMAL Giant Platelets 1 H Polychromasia 3+ Hypochromasia 1+ Anisocytosis 1+ Microcytosis 1+ Sodium Level 136 Potassium Level 4.2 Chloride Level 105 Carbon Dioxide Level 22 Anion Gap 9 Blood Urea Nitrogen 12 Creatinine 0.63 Est Glomerular Filtrat > 60 Rate mL/min Glucose Level 101 Calcium Level 8.7 Phosphorus Level 5.6 #H Magnesium Level 2.0 Test 02/28/19 11:33 02/28/19 13:53 Bedside Glucose 107 Sodium Level 139 Potassium Level 4.6 Chloride Level 105 Carbon Dioxide Level 24 Anion Gap 10 Blood Urea Nitrogen 11 Creatinine 0.58 Est Glomerular Filtrat > 60 Rate mL/min Glucose Level 108 Calcium Level 8.7 Phosphorus Level 6.2 H Magnesium Level 2.0 Subjective 24 Hr Interval Summary Free Text/Dictation no flatus today, abd. pain Exam/Review of Systems Exam Vitals Vital Signs Date Temp Pulse Resp B/P (MAP) Pulse Ox O2 O2 Flow FiO2 Time Delivery Rate 02/28/19 98.0 67 18 103/55 97 15:36 (71) 02/27/19 Nasal 15:37 Cannula 02/27/19 2.0 12:18 Intake and Output 02/27/19 02/27/19 02/28/19 1515:00 23:00 07:00 IntakeIntake Total 350 ml 1450 ml 1115 ml OutputOutput Total 400 ml BalanceBalance -50 ml 1450 ml 1115 ml Constitutional: alert, oriented Psych: no complaints, anxiety Head: normocephalic, atraumatic Eyes: nl conjunctiva Neck: supple, non-tender Respiratory: diminished breath sounds Cardiovascular: regular rate and rhythm Gastrointestinal: soft, surgical scars, other (colostomy) Musculoskeletal: nl extremities to inspection Extremities: normal pulses Results Results 24hrs Laboratory Tests Test 02/27/19 17:24 02/27/19 23:31 02/28/19 05:26 02/28/19 05:40 Bedside Glucose 90 158 100 White Blood Count 12.2 H Red Blood Count 3.58 L Hemoglobin 10.2 L Hematocrit 32.8 #L Mean Corpuscular Volume 91.6 Mean Corpuscular 28.5 L Hemoglobin Mean Corpuscular 31.1 L Hemoglobin Concent Red Cell Distribution 14.1 Width Platelet Count 331 Mean Platelet Volume 10.2 Immature Granulocytes % 14.600 H Neutrophils % Segmented Neutrophils 62 % (Manual) Band Neutrophils % 3 (Manual) Lymphocytes % Lymphocytes % (Manual) 20 Reactive Lymphocytes 1 H % (Manual) Monocytes % Monocytes % (Manual) 3 Eosinophils % Eosinophils % (Manual) 4 Basophils % Basophils % (Manual) 2 Metamyelocytes % 1 H (manual) Myelocytes % (Manual) 3 H Promyelocytes % (Manual) 1 H Nucleated Red Blood 0.2 H Cells % Immature Granulocytes # 1.790 H Neutrophils # Neutrophils # (Manual) 7.6 H Band Neutrophils # 0.3 Lymphocytes (Manual) 2.4 Lymphocytes # Reactive Lymphocytes # 0.1 H Monocytes # Monocytes # (Manual) 0.3 Eosinophils # Basophils # Basophils # (Manual) 0.2 H Metamyelocytes # 0.1 H Myelocytes # 0.3 H Promyelocytes # 0.1 H Nucleated Red Blood Cells # Platelet Estimate NORMAL Giant Platelets 1 H Polychromasia 3+ Hypochromasia 1+ Anisocytosis 1+ Microcytosis 1+ Sodium Level 136 Potassium Level 4.2 Chloride Level 105 Carbon Dioxide Level 22 Anion Gap 9 Blood Urea Nitrogen 12 Creatinine 0.63 Est Glomerular Filtrat > 60 Rate mL/min Glucose Level 101 Calcium Level 8.7 Phosphorus Level 5.6 #H Magnesium Level 2.0 Test 02/28/19 11:33 02/28/19 13:53 Bedside Glucose 107 Sodium Level 139 Potassium Level 4.6 Chloride Level 105 Carbon Dioxide Level 24 Anion Gap 10 Blood Urea Nitrogen 11 Creatinine 0.58 Est Glomerular Filtrat > 60 Rate mL/min Glucose Level 108 Calcium Level 8.7 Phosphorus Level 6.2 H Magnesium Level 2.0 Medications Medication Current Medications IV Flush (NS 3 ml) 3 ml PER PROTOCOL IV ; Start 02/21/19 at 00:00 Acetaminophen (Tylenol Tab) 650 mg Q6H PRN PO .PAIN 1-3 OR TEMP Last administered on 02/21/19at 01:42; Admin Dose 650 MG; Start 02/21/19 at 00:00 Acetaminophen (Tylenol Supp) 650 mg Q6H PRN [place] .PAIN 1-3 OR TEMP Last administered on 02/24/19 00:13; Admin Dose 650 MG; Start 02/21/19 at 00:00 Pantoprazole (Protonix Iv) 40 mg DAILY@06 IV Last administered on 02/28/19 05:19; Admin Dose 40 MG; Start 02/21/19 at 06:00 IV Flush (NS 10 ml) 10 ml PRN PRN IV FLUSH LINE; Start 02/21/19 at 18:30 Lorazepam (Ativan) 0.5 mg Q6H PRN IV anxiety , insomnia Last administered on 02/27/19 00:28; Admin Dose 0.5 MG; Start 02/23/19 at 16:00 Trimethoprim/ Sulfamethoxazole 15 ml/Dextrose 515 ml @ 343.333 mls/hr Q8 IVPB Last administered on 02/28/19 14:15; Admin Dose 343.333 MLS/HR; Start 02/24/19 at 16:30 Metronidazole 100 ml @ 100 mls/hr Q8 IVPB Last administered on 02/28/19 15:35; Admin Dose 100 MLS/HR; Start 02/24/19 at 15:00 Naloxone HCl (Narcan) 0.2 mg PRN PRN IV RR < 8; Start 02/24/19 at 16:00 Diphenhydramine HCl (Benadryl) 25 mg Q6H PRN IV .ITCHING Last administered on 02/27/19 11:16; Admin Dose 25 MG; Start 02/24/19 at 16:00 Metoclopramide HCl (Reglan) 10 mg Q6H PRN IV NAUSEA AND/OR VOMITING Last administered on 02/26/19 06:44; Admin Dose 10 MG; Start 02/24/19 at 20:00 Ondansetron HCl (Zofran Inj) 4 mg Q6H PRN IV NAUSEA AND/OR VOMITING Last administered on 02/28/19 11:31; Admin Dose 4 MG; Start 02/24/19 at 16:00 Heparin Sodium (Porcine) (Heparin (5000 Units/1ml)) 5,000 unit Q12 SC Last administered on 02/28/19 08:54; Admin Dose 5,000 UNIT; Start 02/25/19 at 09:00 Zolpidem Tartrate (Ambien) 5 mg HS PRN PO INSOMNIA Last administered on 02/27/19 22:35; Admin Dose 5 MG; Start 02/24/19 at 16:00 Lorazepam (Ativan) 0.5 mg HS MAY REPEAT X 1 PRN PO INSOMNIA Last administered on 02/26/19 22:03; Admin Dose 0.5 MG; Start 02/24/19 at 16:00 Diagnostic Test (Pha) (Accu-Chek) 1 ea Q6 XX Last administered on 02/28/19 11:33; Admin Dose 1 EA; Start 02/27/19 at 06:00 Acetaminophen/ Hydrocodone Bitart ([place] (7.5-325)) 1 tab Q4H PRN PO MODERATE PAIN LEVEL 4-6 Last administered on 02/28/19 05:27; Admin Dose 1 TAB; Start 02/27/19 at 15:00 Hydromorphone HCl (Dilaudid) 1 mg Q2H PRN IV PAIN LEVEL 6-10 Last administered on 02/28/19 14:21; Admin Dose 1 MG; Start 02/27/19 at 15:02 LAURA FANG NP Feb 28, 2019 16:43
[2019-02-28] MEDS: METOCLOPRAMIDE 10 MG INJ IV PRN (23:07)
[2019-03-01] MEDS: LORAZEPAM 2 MG INJ IV PRN (01:13)
[2019-03-01] MEDS: HYDROmorphONE 1 MG/ML SYG IV PRN ×5 (01:13→19:10)
[2019-03-01 03:17] VITALS: BP 107/73; PULSE 83; RESP 19
[2019-03-01] MEDS: TRIMETHOPRIM/SULFAMETHOXAZOLE 15 ML in DEXTROSE 5% 500 ML IVPB SCH ×3 (05:29→22:23)
[2019-03-01] MEDS: METOCLOPRAMIDE 10 MG INJ IV PRN ×2 (05:29→16:10)
[2019-03-01] MEDS: PANTOPRAZOLE 40 MG INJ IV SCH (05:29)
[2019-03-01] MEDS: metroNIDAZOLE 500 MG/NS (PMX) 100 ML IVPB SCH ×3 (05:30→21:12)
[2019-03-01 07:39] VITALS: BP 106/59; PULSE 77; RESP 18
[2019-03-01] MEDS: HEPARIN 5,000 UNIT/1 ML VIAL SC SCH (09:41)
[2019-03-01] MEDS: ONDANSETRON 4 MG INJ IV PRN (10:29)
[2019-03-01 11:53] VITALS: BP 100/66; PULSE 74; RESP 18
--- NOTE | 2019-03-01 13:18 | PN ---
Date/Time of Note Date/Time of Note DATE: 03/01/19 TIME: 13:17 Assessment/Plan Lines/Catheters IV Catheter Type (from Nrs): PICC Line Alberto in Place (from Nrs): No Assessment/Plan Assessment/Plan Slowly advance diet. Patient can stay on full liquids if she does not tolerate solid food currently. Patient can advance her diet at home. Subjective 24 Hr Interval Summary 5 days after Claudia procedure for perforated diverticulitis. Patient overall is doing well. Stable afebrile. Had episode of emesis yesterday related to r ise. Otherwise abdomen is soft not tender not distended, wound is clean. Colostomy functions well. TPN was discontinued. Exam/Review of Systems Vital Signs Vitals Vital Signs Date Temp Pulse Resp B/P (MAP) Pulse Ox O2 O2 Flow FiO2 Time Delivery Rate 03/01/19 97.8 74 18 100/66 97 Room Air 11:53 (77) 02/27/19 2.0 12:18 Intake and Output 02/28/19 02/28/19 03/01/19 1515:00 23:00 07:00 IntakeIntake Total 500 ml 940 ml 650 ml OutputOutput Total 1000 ml BalanceBalance 500 ml -60 ml 650 ml Results Result Diagram: 03/01/19 0550 03/01/19 0550 DONNY MEAD MD Mar 01, 2019 13:18
--- NOTE | 2019-03-01 13:56 | CONS ---
Assessment/Plan Assessment/Plan Hospital Course (Demo Recall) ID PROGRESS NOTE CURRENT ABX: DAY # =>Bactrim + Flagyl 03/01/19 0550 03/01/19 0550 24H INTERVAL SUMMARY * POD # 5 ==>Operation/Procedure Performed1. Open Claudia procedure. 2. Drainage of the intra-abdominal abscess.3. Splenic flexure mobilization * Nausea w/emesis last night and today -- she is not able to hold any food down * No fevers, WBC up today w/6% BANDS DIAGNOSTIC IMAGING * 02/28/2019 ABD XR: Nonspecific nondistended loops of small bowel in the right mid abdomen may be due to a localized ileus in this clinical setting. Evaluation for air-fluid levels is limited without an upright view. MICRO * 02/22/19 WOUND CULTURE Final Organism 1 K.PNEUMONIAE SSP PNEUMONIAE QUANTITY SCANT GROWTH Organism 2 METHICILLIN RESISTANT S.AUREUS QUANTITY 3+ . MULTI DRUG RESISTANT ORGANISM K PNE SPP MRSA M.I.C. RX M.I.C. RX --------- --- --------- --- CEFAZOLIN I R CEFOTAXIME S CIPROFLOXACIN <=0.25 S >=8 R CLINDAMYCIN <=0.25 S DOXYCYCLINE S ERYTHROMYCIN >=8 R GENTAMICIN <=1 S LEVOFLOXACIN <=0.12 S 4 R OXACILLIN >=4 R PENICILLIN-G >=0.5 R RIFAMPIN <=0.5 S VANCOMYCIN <=0.5 S TOBRAMYCIN <=1 S TRIMETHOPRIM/SULFAMETHOXAZOLE <=20 S <=10 S * 02/20/19 BCX (-) * 01/27/19 BCX (-); Urine Cx (-) PHYSICAL EXAMINATION: GENERAL: VSS, NAD HEENT: AT, NC, NECK: Supple, CHEST: Rise symmetrical HEART: Pulse RRR ABDOMEN: Colostomy bag with fecal matter -- RLQ tenderness EXTREMITIES: Warm, dry SKIN: No rash, no diaphoresis ID ASSESSMENT 48 yo F admit with: 1. SIRS -> s/p Sepsis on admission w/fevers, tachycardia, Leukocytosis/Bandemia * 02/20/19 BCX (-) * No fevers, WBC up today w/6% BANDS 2. Acute Perforated Diverticulitis w/abscess * s/p 01/28/19 Lap drainage of perf diverticulitis abscess drainage * POD # 5--> S/P 02/24/19 Open Claudia procedure. Drainage of the intra- abdominal abscess. Splenic flexure mobilization. 3. ABD pain due to #2 4. Nausea + Emesis 5. Uterine Fibroids per CT w/hx of fibroid removal in past ABX ALLERGIES: MERREM INVASIVES: PIV CURRENT ABX: DAY # => Bactrim + Flagyl ID RECOMMENDATIONS/PLAN: 1. Continue current ABX -- Zofran PRN 2. Follow surgical recommendations Consultation Date/Type/Reason Admit Date/Time Feb 20, 2019 at 20:08 Initial Consult Date 02/20/19 Requesting Provider: JOSEPHINE GARAY MD Date/Time of Note DATE: 03/01/19 TIME: 13:56 Exam/Review of Systems Exam Vitals Vital Signs Date Temp Pulse Resp B/P (MAP) Pulse Ox O2 O2 Flow FiO2 Time Delivery Rate 03/01/19 97.8 74 18 100/66 97 Room Air 11:53 (77) 02/27/19 2.0 12:18 Intake and Output 02/28/19 02/28/19 03/01/19 1515:00 23:00 07:00 IntakeIntake Total 500 ml 940 ml 650 ml OutputOutput Total 1000 ml BalanceBalance 500 ml -60 ml 650 ml Results Result Diagram: 03/01/19 0550 03/01/19 0550 Results 24hrs Laboratory Tests Test 02/28/19 17:34 03/01/19 05:50 Bedside Glucose 92 White Blood Count 14.6 H Red Blood Count 3.55 L Hemoglobin 10.1 L Hematocrit 32.3 L Mean Corpuscular Volume 91.0 Mean Corpuscular Hemoglobin 28.5 L Mean Corpuscular Hemoglobin Concent 31.3 L Red Cell Distribution Width 14.1 Platelet Count 407 # Mean Platelet Volume 9.8 Immature Granulocytes % 8.600 H Neutrophils % Segmented Neutrophils % (Manual) 64 Band Neutrophils % (Manual) 6 H Lymphocytes % Lymphocytes % (Manual) 20 Monocytes % Monocytes % (Manual) 4 Eosinophils % Eosinophils % (Manual) 3 Basophils % Metamyelocytes % (manual) 1 H Myelocytes % (Manual) 1 H Promyelocytes % (Manual) 1 H Nucleated Red Blood Cells % 0.0 Immature Granulocytes # 1.260 H Neutrophils # Neutrophils # (Manual) 9.5 H Band Neutrophils # 0.8 H Lymphocytes (Manual) 2.9 Lymphocytes # Monocytes # Monocytes # (Manual) 0.5 Eosinophils # Basophils # Metamyelocytes # 0.1 H Myelocytes # 0.1 H Promyelocytes # 0.1 H Nucleated Red Blood Cells # Platelet Estimate NORMAL Polychromasia 3+ Anisocytosis 1+ Sodium Level 138 Potassium Level 4.1 Chloride Level 103 Carbon Dioxide Level 26 Anion Gap 9 Blood Urea Nitrogen 8 Creatinine 0.58 Est Glomerular Filtrat Rate mL/min > 60 Glucose Level 112 Calcium Level 8.9 Medications Medication Current Medications IV Flush (NS 3 ml) 3 ml PER PROTOCOL IV ; Start 02/21/19 at 00:00 Acetaminophen (Tylenol Tab) 650 mg Q6H PRN PO .PAIN 1-3 OR TEMP Last administered on 02/21/19at 01:42; Admin Dose 650 MG; Start 02/21/19 at 00:00 Acetaminophen (Tylenol Supp) 650 mg Q6H PRN [place] .PAIN 1-3 OR TEMP Last administered on 02/24/19 00:13; Admin Dose 650 MG; Start 02/21/19 at 00:00 Pantoprazole (Protonix Iv) 40 mg DAILY@06 IV Last administered on 03/01/19 05:29; Admin Dose 40 MG; Start 02/21/19 at 06:00 IV Flush (NS 10 ml) 10 ml PRN PRN IV FLUSH LINE; Start 02/21/19 at 18:30 Lorazepam (Ativan) 0.5 mg Q6H PRN IV anxiety , insomnia Last administered on 03/01/19 01:13; Admin Dose 0.5 MG; Start 02/23/19 at 16:00 Trimethoprim/ Sulfamethoxazole 15 ml/Dextrose 515 ml @ 343.333 mls/hr Q8 IVPB Last administered on 03/01/19 05:29; Admin Dose 343.333 MLS/HR; Start 02/24/19 at 16:30 Metronidazole 100 ml @ 100 mls/hr Q8 IVPB Last administered on 03/01/19 05:30; Admin Dose 100 MLS/HR; Start 02/24/19 at 15:00 Naloxone HCl (Narcan) 0.2 mg PRN PRN IV RR < 8; Start 02/24/19 at 16:00 Diphenhydramine HCl (Benadryl) 25 mg Q6H PRN IV .ITCHING Last administered on 02/27/19 11:16; Admin Dose 25 MG; Start 02/24/19 at 16:00 Metoclopramide HCl (Reglan) 10 mg Q6H PRN IV NAUSEA AND/OR VOMITING Last a dministered on 03/01/19 05:29; Admin Dose 10 MG; Start 02/24/19 at 20:00 Ondansetron HCl (Zofran Inj) 4 mg Q6H PRN IV NAUSEA AND/OR VOMITING Last administered on 03/01/19 10:29; Admin Dose 4 MG; Start 02/24/19 at 16:00 Heparin Sodium (Porcine) (Heparin (5000 Units/1ml)) 5,000 unit Q12 SC Last adm inistered on 03/01/19 09:41; Admin Dose 5,000 UNIT; Start 02/25/19 at 09:00 Zolpidem Tartrate (Ambien) 5 mg HS PRN PO INSOMNIA Last administered on 02/27/19 22:35; Admin Dose 5 MG; Start 02/24/19 at 16:00 Lorazepam (Ativan) 0.5 mg HS MAY REPEAT X 1 PRN PO INSOMNIA Last administered on 02/26/19 22:03; Admin Dose 0.5 MG; Start 02/24/19 at 16:00 Acetaminophen/ Hydrocodone Bitart ([place] (7.5-325)) 1 tab Q4H PRN PO MODERATE PAIN LEVEL 4-6 Last administered on 02/28/19 05:27; Admin Dose 1 TAB; Start 02/27/19 at 15:00 Hydromorphone HCl (Dilaudid) 1 mg Q2H PRN IV PAIN LEVEL 6-10 Last administered on 03/01/19 10:30; Admin Dose 1 MG; Start 02/27/19 at 15:02 LUDWIG JAMES NP Mar 01, 2019 13:56
[2019-03-01 15:37] VITALS: BP 127/66; PULSE 113; RESP 20
[2019-03-01] MEDS ORDERED: BARIUM SULF 2% 450 ML BTL (BERRY SMOOTHIE) PO ONE (17:00)
--- NOTE | 2019-03-01 17:21 | PN ---
Date/Time of Note Date/Time of Note DATE: 03/01/19 TIME: 17:14 Assessment/Plan VTE Prophylaxis Risk score (from Ns)>0 risk: 2 SCD applied (from [facility]): No SCD contraindicated: low risk/ambulating Pharmacological prophylaxis: heparin Lines/Catheters IV Catheter Type (from [facility]): PICC Line Central line still needed: Yes Urinary Cath still in place: No Assessment/Plan Hospital Course 1. Sepsis secondary to abdominal abscesses. s.p colectomy with colostomy creation 2. Severe leukocytosis secondary to #1. 3. Lactic acidosis secondary to #1. 4. Anemia. 5. History of marijuana use. 6. History of amphetamine use. 7. History of a yeast infection in the Gram stain. 8. Overweight 9. electrolyte imbalance: hypokalemia, hypophosphatemia 10. Leucocytosis. Assessment/Plan -stop heparin BID due pt ambulation and forming local pain -npo for CT scan with contrast -unusually prolong treatment due to nausea and vomit -on KUB non confirmed ileus -c/w amb. pt has PT -c/w a/b , spoke to ESTELA Higgins to switch -start Marinol as antiemetic -c/w contact isolation MRSA wound -support nursing -reglan over the clock Result Diagram: 03/01/19 0550 03/01/19 0550 Results 24hrs Laboratory Tests Test 02/28/19 17:34 03/01/19 05:50 Bedside Glucose 92 White Blood Count 14.6 H Red Blood Count 3.55 L Hemoglobin 10.1 L Hematocrit 32.3 L Mean Corpuscular Volume 91.0 Mean Corpuscular Hemoglobin 28.5 L Mean Corpuscular Hemoglobin Concent 31.3 L Red Cell Distribution Width 14.1 Platelet Count 407 # Mean Platelet Volume 9.8 Immature Granulocytes % 8.600 H Neutrophils % Segmented Neutrophils % (Manual) 64 Band Neutrophils % (Manual) 6 H Lymphocytes % Lymphocytes % (Manual) 20 Monocytes % Monocytes % (Manual) 4 Eosinophils % Eosinophils % (Manual) 3 Basophils % Metamyelocytes % (manual) 1 H Myelocytes % (Manual) 1 H Promyelocytes % (Manual) 1 H Nucleated Red Blood Cells % 0.0 Immature Granulocytes # 1.260 H Neutrophils # Neutrophils # (Manual) 9.5 H Band Neutrophils # 0.8 H Lymphocytes (Manual) 2.9 Lymphocytes # Monocytes # Monocytes # (Manual) 0.5 Eosinophils # Basophils # Metamyelocytes # 0.1 H Myelocytes # 0.1 H Promyelocytes # 0.1 H Nucleated Red Blood Cells # Platelet Estimate NORMAL Polychromasia 3+ Anisocytosis 1+ Sodium Level 138 Potassium Level 4.1 Chloride Level 103 Carbon Dioxide Level 26 Anion Gap 9 Blood Urea Nitrogen 8 Creatinine 0.58 Est Glomerular Filtrat Rate mL/min > 60 Glucose Level 112 Calcium Level 8.9 Subjective 24 Hr Interval Summary Gastrointestinal: pain, nausea Psychological: anxiety Exam/Review of Systems Exam Vitals Vital Signs Date Temp Pulse Resp B/P (MAP) Pulse Ox O2 O2 Flow FiO2 Time Delivery Rate 03/01/19 98.5 113 20 127/66 98 Room Air 15:37 (86) 02/27/19 2.0 12:18 Intake and Output 02/28/19 02/28/19 03/01/19 1515:00 23:00 07:00 IntakeIntake Total 500 ml 940 ml 650 ml OutputOutput Total 1000 ml BalanceBalance 500 ml -60 ml 650 ml Exam throwing up, anxious , crying Eyes: anicteric, EOM's intact, no pallor Nose: no rhinorrhea Neck: supple, no thyromegaly, no carotid bruits Lungs: clear bilaterally, decreased. CVS: regular rate and rhythm, no murmurs Abdomen: soft, right side surg wound with palpable mass, colostomy Rectal: differed. External genitalia: no lesions. Extremities: no edema, DP pulses are palpable Neuro: alert and oriented x 3 Gait: normal Motor strength: 5+/5+ Sensory exam: normal Deep tendon reflexes: normal, Babisky reflexes are absent bilaterally Skin: bruises Results Results 24hrs Laboratory Tests Test 02/28/19 17:34 03/01/19 05:50 Bedside Glucose 92 White Blood Count 14.6 H Red Blood Count 3.55 L Hemoglobin 10.1 L Hematocrit 32.3 L Mean Corpuscular Volume 91.0 Mean Corpuscular Hemoglobin 28.5 L Mean Corpuscular Hemoglobin Concent 31.3 L Red Cell Distribution Width 14.1 Platelet Count 407 # Mean Platelet Volume 9.8 Immature Granulocytes % 8.600 H Neutrophils % Segmented Neutrophils % (Manual) 64 Band Neutrophils % (Manual) 6 H Lymphocytes % Lymphocytes % (Manual) 20 Monocytes % Monocytes % (Manual) 4 Eosinophils % Eosinophils % (Manual) 3 Basophils % Metamyelocytes % (manual) 1 H Myelocytes % (Manual) 1 H Promyelocytes % (Manual) 1 H Nucleated Red Blood Cells % 0.0 Immature Granulocytes # 1.260 H Neutrophils # Neutrophils # (Manual) 9.5 H Band Neutrophils # 0.8 H Lymphocytes (Manual) 2.9 Lymphocytes # Monocytes # Monocytes # (Manual) 0.5 Eosinophils # Basophils # Metamyelocytes # 0.1 H Myelocytes # 0.1 H Promyelocytes # 0.1 H Nucleated Red Blood Cells # Platelet Estimate NORMAL Polychromasia 3+ Anisocytosis 1+ Sodium Level 138 Potassium Level 4.1 Chloride Level 103 Carbon Dioxide Level 26 Anion Gap 9 Blood Urea Nitrogen 8 Creatinine 0.58 Est Glomerular Filtrat Rate mL/min > 60 Glucose Level 112 Calcium Level 8.9 Medications Medication Current Medications IV Flush (NS 3 ml) 3 ml PER PROTOCOL IV ; Start 02/21/19 at 00:00 Acetaminophen (Tylenol Tab) 650 mg Q6H PRN PO .PAIN 1-3 OR TEMP Last administered on 02/21/19at 01:42; Admin Dose 650 MG; Start 02/21/19 at 00:00 Acetaminophen (Tylenol Supp) 650 mg Q6H PRN [place] .PAIN 1-3 OR TEMP Last administered on 02/24/19at 00:13; Admin Dose 650 MG; Start 02/21/19 at 00:00 Pantoprazole (Protonix Iv) 40 mg DAILY@06 IV Last administered on 03/01/19 05:29; Admin Dose 40 MG; Start 02/21/19 at 06:00 IV Flush (NS 10 ml) 10 ml PRN PRN IV FLUSH LINE; Start 02/21/19 at 18:30 Lorazepam (Ativan) 0.5 mg Q6H PRN IV anxiety , insomnia Last administered on 03/01/19 01:13; Admin Dose 0.5 MG; Start 02/23/19 at 16:00 Trimethoprim/ Sulfamethoxazole 15 ml/Dextrose 515 ml @ 343.333 mls/hr Q8 IVPB Last administered on 03/01/19at 14:00; Admin Dose 343.333 MLS/HR; Start 02/24/19 at 16:30 Metronidazole 100 ml @ 100 mls/hr Q8 IVPB Last administered on 03/01/19 16:10; Admin Dose 100 MLS/HR; Start 02/24/19 at 15:00 Naloxone HCl (Narcan) 0.2 mg PRN PRN IV RR < 8; Start 02/24/19 at 16:00 Diphenhydramine HCl (Benadryl) 25 mg Q6H PRN IV .ITCHING Last administered on 02/27/19 11:16; Admin Dose 25 MG; Start 02/24/19 at 16:00 Metoclopramide HCl (Reglan) 10 mg Q6H PRN IV NAUSEA AND/OR VOMITING Last administered on 03/01/19 16:10; Admin Dose 10 MG; Start 02/24/19 at 20:00 Ondansetron HCl (Zofran Inj) 4 mg Q6H PRN IV NAUSEA AND/OR VOMITING Last administered on 03/01/19 10:29; Admin Dose 4 MG; Start 02/24/19 at 16:00 Heparin Sodium (Porcine) (Heparin (5000 Units/1ml)) 5,000 unit Q12 SC Last administered on 03/01/19 09:41; Admin Dose 5,000 UNIT; Start 02/25/19 at 09:00 Zolpidem Tartrate (Ambien) 5 mg HS PRN PO INSOMNIA Last administered on 02/27/19 22:35; Admin Dose 5 MG; Start 02/24/19 at 16:00 Lorazepam (Ativan) 0.5 mg HS MAY REPEAT X 1 PRN PO INSOMNIA Last administered on 02/26/19 22:03; Admin Dose 0.5 MG; Start 02/24/19 at 16:00 Acetaminophen/ Hydrocodone Bitart ([place] (7.5-325)) 1 tab Q4H PRN PO MODERATE PAIN LEVEL 4-6 Last administered on 02/28/19 05:27; Admin Dose 1 TAB; Start 02/27/19 at 15:00 Hydromorphone HCl (Dilaudid) 1 mg Q2H PRN IV PAIN LEVEL 6-10 Last administered on 03/01/19 14:04; Admin Dose 1 MG; Start 02/27/19 at 15:02 Gentamicin Sulfate (Gentamicin Iv Per Pharmacy) GENTAMICIN PER PHARM... NOTE XX ; Start 03/01/19 at 17:30; Status LAURA FLORES NP Mar 01, 2019 17:21
[2019-03-01] MEDS ORDERED: SOD CHLORIDE 0.9% 100 ML ONE (17:29)
[2019-03-01] MEDS ORDERED: IOHEXOL 300MG/ML 150 ML BTL ONE (17:29)
[2019-03-01] MEDS ORDERED: GENTAMICIN IV PER PHARMACY XX SCH (17:30)
[2019-03-01] MEDS: METOCLOPRAMIDE 10 MG INJ IV SCH ×2 (18:46→21:11)
[2019-03-01] MEDS: ALPRAZOLAM 1 MG TAB PO SCH (18:46)
[2019-03-01 19:53] VITALS: BP 103/62; PULSE 88; RESP 19
[2019-03-01] MEDS: DRONABINOL 2.5 MG CAP PO SCH (21:11)
[2019-03-02] VITALS (7 sets, daily range): BP systolic 90–102; BP diastolic 58–70; PULSE 79–94; RESP 18–20
[2019-03-02] MEDS: GENTAMICIN 280 MG in SOD CHLORIDE 0.9% 100 ML IVPB SCH (00:13)
[2019-03-02] MEDS: HYDROmorphONE 1 MG/ML SYG IV PRN ×3 (04:37→20:24)
[2019-03-02] MEDS: PANTOPRAZOLE (EC) 40 MG TAB PO SCH (05:28)
[2019-03-02] MEDS: metroNIDAZOLE 500 MG/NS (PMX) 100 ML IVPB SCH ×3 (05:28→22:27)
[2019-03-02] MEDS: LORAZEPAM 2 MG INJ IV PRN (06:13)
[2019-03-02] MEDS: TRIMETHOPRIM/SULFAMETHOXAZOLE 15 ML in DEXTROSE 5% 500 ML IVPB SCH ×3 (06:38→23:02)
[2019-03-02] MEDS: ALPRAZOLAM 1 MG TAB PO SCH ×2 (08:16→17:07)
[2019-03-02] MEDS: DRONABINOL 2.5 MG CAP PO SCH ×2 (08:16→20:24)
[2019-03-02] MEDS: ONDANSETRON 4 MG INJ IV PRN (08:16)
--- NOTE | 2019-03-02 13:26 | PN ---
Date/Time of Note Date/Time of Note DATE: 03/02/19 TIME: 13:26 Assessment/Plan Lines/Catheters IV Catheter Type (from Nrsg): PICC Line Alberto in Place (from Nrsg): No Subjective 24 Hr Interval Summary Doing well. Having bowel movement. Tolerated soft diet. Wound clean. DC planning. Exam/Review of Systems Vital Signs Vitals Vital Signs Date Temp Pulse Resp B/P (MAP) Pulse Ox O2 O2 Flow FiO2 Time Delivery Rate 03/02/19 98.6 91 18 90/58 (69) 96 Room Air 11:08 02/27/19 2.0 12:18 Intake and Output 03/01/19 03/01/19 03/02/19 1515:00 23:00 07:00 IntakeIntake Total 120 ml 900 ml 872 ml OutputOutput Total 600 ml 400 ml BalanceBalance -480 ml 500 ml 872 ml Results Result Diagram: 03/02/19 0753 03/02/19 0820 DONNY MEAD MD Mar 02, 2019 13:26
--- NOTE | 2019-03-02 15:14 | PN ---
Date/Time of Note Date/Time of Note DATE: 03/02/19 TIME: 15:13 Assessment/Plan VTE Prophylaxis [place] [facility] risk: 7 SCD applied ([place] [facility] Yes SCD contraindicated: low risk/ambulating Pharmacological prophylaxis: NA/contraindicated Pharm contraindication: surgical contra Lines/Catheters IV Catheter Type (from [facility]): PICC Line Central line still needed: Yes Urinary Cath still in place: No Assessment/Plan Hospital Course 1. Sepsis secondary to abdominal abscesses. s.p colectomy with colostomy creation 2. Severe leukocytosis secondary to #1. 3. Lactic acidosis secondary to #1. 4. Anemia. 5. History of marijuana use. 6. History of amphetamine use. 7. History of a yeast infection in the Gram stain. 8. Overweight 9. electrolyte imbalance: hypokalemia, hypophosphatemia 10. Leucocytosis. Assessment/Plan -CT abdomen is unremarkable. -dc planning -diet is tolerated -no nausea -c.w Marinol -c/w XAnax -c/w gentamicin. Result Diagram: 03/02/19 0753 03/02/19 0820 Results 24hrs Laboratory Tests Test 03/02/19 07:53 03/02/19 08:20 White Blood Count 14.1 H Red Blood Count 3.40 L Hemoglobin 9.7 L Hematocrit 31.4 L Mean Corpuscular Volume 92.4 Mean Corpuscular Hemoglobin 28.5 L Mean Corpuscular Hemoglobin Concent 30.9 L Red Cell Distribution Width 14.5 Platelet Count 412 Mean Platelet Volume 9.7 Immature Granulocytes % 5.100 H Neutrophils % Segmented Neutrophils % (Manual) 63 Band Neutrophils % (Manual) 3 Lymphocytes % Lymphocytes % (Manual) 25 Reactive Lymphocytes % (Manual) 1 H Monocytes % Monocytes % (Manual) 5 Eosinophils % Basophils % Basophils % (Manual) 1 Metamyelocytes % (manual) 1 H Myelocytes % (Manual) 1 H Nucleated Red Blood Cells % 0.0 Immature Granulocytes # 0.720 H Neutrophils # Neutrophils # (Manual) 8.9 H Band Neutrophils # 0.4 Lymphocytes (Manual) 3.5 H Lymphocytes # Reactive Lymphocytes # 0.1 H Monocytes # Monocytes # (Manual) 0.7 Eosinophils # Basophils # Basophils # (Manual) 0.1 H Metamyelocytes # 0.1 H Myelocytes # 0.1 H Nucleated Red Blood Cells # Platelet Estimate NORMAL Polychromasia 3+ Anisocytosis 1+ Microcytosis 1+ Prealbumin 26.3 Random Gentamicin Level 2.2 Blood Urea Nitrogen 7 Creatinine 0.62 Subjective 24 Hr Interval Summary Constitutional: improved Gastrointestinal: constipation, decreased appetite; No no complaints, No pain, No blood, No diarrhea, No flatus, No nausea, No p assing stool, No vomiting, No other Genitourinary: dysuria; No no complaints, No bleeding, No discharge, No flank pain, No hematuria, No other Psychological: anxiety; No no complaints, No nl mood/affect, No confusion, No depression, No suicidal, No other Exam/Review of Systems Exam Vitals Vital Signs Date Temp Pulse Resp B/P (MAP) Pulse Ox O2 O2 Flow FiO2 Time Delivery Rate 03/02/19 98.6 91 18 90/58 (69) 96 Room Air 11:08 02/27/19 2.0 12:18 Intake and Output 03/01/19 03/01/19 03/02/19 1515:00 23:00 07:00 IntakeIntake Total 120 ml 900 ml 872 ml OutputOutput Total 600 ml 400 ml BalanceBalance -480 ml 500 ml 872 ml Exam No acute distress, no events overnight. Eyes: anicteric, EOM's intact, no pallor Nose: no rhinorrhea Neck: supple, no thyromegaly, no carotid bruits Lungs: clear bilaterally, decreased. CVS: regular rate and rhythm, no murmurs Abdomen: soft, surg wound stapled, Colostomy pink, nontender Rectal: differed. External genitalia: no lesions. Extremities: no edema, DP pulses are palpable Neuro: alert and oriented x 3 Gait: normal Motor strength: 5+/5+ Sensory exam: normal Deep tendon reflexes: normal, Babisky reflexes are absent bilaterally Skin: pale Results Results 24hrs Laboratory Tests Test 03/02/19 07:53 03/02/19 08:20 White Blood Count 14.1 H Red Blood Count 3.40 L Hemoglobin 9.7 L Hematocrit 31.4 L Mean Corpuscular Volume 92.4 Mean Corpuscular Hemoglobin 28.5 L Mean Corpuscular Hemoglobin Concent 30.9 L Red Cell Distribution Width 14.5 Platelet Count 412 Mean Platelet Volume 9.7 Immature Granulocytes % 5.100 H Neutrophils % Segmented Neutrophils % (Manual) 63 Band Neutrophils % (Manual) 3 Lymphocytes % Lymphocytes % (Manual) 25 Reactive Lymphocytes % (Manual) 1 H Monocytes % Monocytes % (Manual) 5 Eosinophils % Basophils % Basophils % (Manual) 1 Metamyelocytes % (manual) 1 H Myelocytes % (Manual) 1 H Nucleated Red Blood Cells % 0.0 Immature Granulocytes # 0.720 H Neutrophils # Neutrophils # (Manual) 8.9 H Band Neutrophils # 0.4 Lymphocytes (Manual) 3.5 H Lymphocytes # Reactive Lymphocytes # 0.1 H Monocytes # Monocytes # (Manual) 0.7 Eosinophils # Basophils # Basophils # (Manual) 0.1 H Metamyelocytes # 0.1 H Myelocytes # 0.1 H Nucleated Red Blood Cells # Platelet Estimate NORMAL Polychromasia 3+ Anisocytosis 1+ Microcytosis 1+ Prealbumin 26.3 Random Gentamicin Level 2.2 Blood Urea Nitrogen 7 Creatinine 0.62 Medications Medication Current Medications IV Flush (NS 3 ml) 3 ml PER PROTOCOL IV ; Start 02/21/19 at 00:00 Acetaminophen (Tylenol Tab) 650 mg Q6H PRN PO .PAIN 1-3 OR TEMP Last administered on 02/21/19at 01:42; Admin Dose 650 MG; Start 02/21/19 at 00:00 Acetaminophen (Tylenol Supp) 650 mg Q6H PRN [place] .PAIN 1-3 OR TEMP Last administered on 02/24/19at 00:13; Admin Dose 650 MG; Start 02/21/19 at 00:00 IV Flush (NS 10 ml) 10 ml PRN PRN IV FLUSH LINE; Start 02/21/19 at 18:30 Lorazepam (Ativan) 0.5 mg Q6H PRN IV anxiety , insomnia Last administered on 03/02/19 06:13; Admin Dose 0.5 MG; Start 02/23/19 at 16:00 Trimethoprim/ Sulfamethoxazole 15 ml/Dextrose 515 ml @ 343.333 mls/hr Q8 IVPB Last administered on 03/02/19 15:07; Admin Dose 343.333 MLS/HR; Start 02/24/19 at 16:30 Metronidazole 100 ml @ 100 mls/hr Q8 IVPB Last administered on 03/02/19 13:06; Admin Dose 100 MLS/HR; Start 02/24/19 at 15:00 Naloxone HCl (Narcan) 0.2 mg PRN PRN IV RR < 8; Start 02/24/19 at 16:00 Diphenhydramine HCl (Benadryl) 25 mg Q6H PRN IV .ITCHING Last administered on 02/27/19 11:16; Admin Dose 25 MG; Start 02/24/19 at 16:00 Ondansetron HCl (Zofran Inj) 4 mg Q6H PRN IV NAUSEA AND/OR VOMITING Last administered on 03/02/19 08:16; Admin Dose 4 MG; Start 02/24/19 at 16:00 Zolpidem Tartrate (Ambien) 5 mg HS PRN PO INSOMNIA Last administered on 02/27/19 22:35; Admin Dose 5 MG; Start 02/24/19 at 16:00 Lorazepam (Ativan) 0.5 mg HS MAY REPEAT X 1 PRN PO INSOMNIA Last administered on 02/26/19 22:03; Admin Dose 0.5 MG; Start 02/24/19 at 16:00 Acetaminophen/ Hydrocodone Bitart ([place] (7.5-325)) 1 tab Q4H PRN PO MODERATE PAIN LEVEL 4-6 Last administered on 02/28/19 05:27; Admin Dose 1 TAB; Start 02/27/19 at 15:00 Gentamicin Sulfate (Gentamicin Iv Per Pharmacy) GENTAMICIN PER PHARM... NOTE XX ; Start 03/01/19 at 17:30 Metoclopramide HCl (Reglan) 10 mg AC DINNER BEDTIME IV Last administered on 03/01/19 21:11; Admin Dose 10 MG; Start 03/01/19 at 17:25 Dronabinol (Marinol) 5 mg BID PO Last administered on 03/02/19 08:16; Admin Dose 5 MG; Start 03/01/19 at 21:00 Alprazolam (Xanax) 1 mg 0900,1800 PO Last administered on 03/02/19 08:16; Admin Dose 1 MG; Start 03/01/19 at 19:00 Hydromorphone HCl (Dilaudid) 1 mg Q6 PRN IV PAIN LEVEL 6-10 Last administered on 03/02/19 13:06; Admin Dose 1 MG; Start 03/01/19 at 17:30 Pantoprazole (Protonix Tab) 40 mg DAILY@06 PO Last administered on 03/02/19at 05:28; Admin Dose 40 MG; Start 03/02/19 at 06:00 Gentamicin Sulfate 280 mg/ Sodium Chloride 107 ml @ 107 mls/hr Q24H IVPB Last administered on 03/02/19at 00:13; Admin Dose 107 MLS/HR; Start 03/02/19 at 00:00 LAURA FANG NP Mar 02, 2019 15:14
[2019-03-02] MEDS: METOCLOPRAMIDE 10 MG INJ IV SCH ×2 (17:07→20:23)
--- NOTE | 2019-03-02 20:13 | CONS ---
Assessment/Plan Assessment/Plan Hospital Course (Demo Recall) ID PROGRESS NOTE CURRENT ABX: DAY # =>Bactrim + Flagyl + GENT #2 03/02/19 0753 03/02/19 0820 24H INTERVAL SUMMARY * POD # 6 ==>. Open Claudia procedure. 2. Drainage of the intra-abdominal abscess.3. Splenic flexure mobilization * REPEAT CT 03/01/19 with 6.7 x 3.6 cm loculated fluid or ascites in the left lower quadrant. * Nausea w/emesis -- she is not able to hold any food down * BM today * No fevers, WBC up today -- yesterday w/6% BANDS DIAGNOSTIC IMAGING * 02/28/2019 ABD XR: Nonspecific nondistended loops of small bowel in the right mid abdomen may be due to a localized ileus in this clinical setting. Evaluation for air-fluid levels is limited without an upright view. MICRO * 02/22/19 WOUND CULTURE Final Organism 1 K.PNEUMONIAE SSP PNEUMONIAE QUANTITY SCANT GROWTH Organism 2 METHICILLIN RESISTANT S.AUREUS QUANTITY 3+ . MULTI DRUG RESISTANT ORGANISM K PNE SPP MRSA M.I.C. RX M.I.C. RX --------- --- --------- --- CEFAZOLIN I R CEFOTAXIME S CIPROFLOXACIN <=0.25 S >=8 R CLINDAMYCIN <=0.25 S DOXYCYCLINE S ERYTHROMYCIN >=8 R GENTAMICIN <=1 S LEVOFLOXACIN <=0.12 S 4 R OXACILLIN >=4 R PENICILLIN-G >=0.5 R RIFAMPIN <=0.5 S VANCOMYCIN <=0.5 S TOBRAMYCIN <=1 S TRIMETHOPRIM/SULFAMETHOXAZOLE <=20 S <=10 S * 02/20/19 BCX (-) * 01/27/19 BCX (-); Urine Cx (-) PHYSICAL EXAMINATION: GENERAL: VSS, NAD HEENT: AT, NC, NECK: Supple, CHEST: Rise symmetrical HEART: Pulse RRR ABDOMEN: Colostomy bag with fecal matter -- RLQ tenderness EXTREMITIES: Warm, dry SKIN: No rash, no diaphoresis ID ASSESSMENT 48 yo F admit with: 1. SIRS -> s/p Sepsis on admission w/fevers, tachycardia, Leukocytosis/Bandemia * 02/20/19 BCX (-) * No fevers, WBC up today w/6% BANDS 2. Acute Perforated Diverticulitis w/abscess * s/p 01/28/19 Lap drainage of perf diverticulitis abscess drainage * POD # 6--> S/P 02/24/19 Open Claudia procedure. Drainage of the intra- abdominal abscess. Splenic flexure mobilization. * REPEAT CT 03/01/19 with 6.7 x 3.6 cm loculated fluid or ascites in the left lower quadrant. 3. ABD pain due to #2 4. Nausea + Emesis 5. Uterine Fibroids per CT w/hx of fibroid removal in past ABX ALLERGIES: MERREM INVASIVES: PIV CURRENT ABX: DAY # => Bactrim + Flagyl + GENT #2 ID RECOMMENDATIONS/PLAN: 1. Continue current ABX -- Zofran PRN 2. REPEAT CT 03/01/19 with 6.7 x 3.6 cm loculated fluid or ascites in the left lower quadrant. * surgical recommendations for DC planning -- is there a concern for new infection on CT 03/01/19? Consultation Date/Type/Reason Admit Date/Time Feb 20, 2019 at 20:08 Initial Consult Date 02/20/19 Requesting Provider: JOSEPHINE GARAY MD Date/Time of Note DATE: 03/02/19 TIME: 20:09 Exam/Review of Systems Exam Vitals Vital Signs Date Temp Pulse Resp B/P (MAP) Pulse Ox O2 O2 Flow FiO2 Time Delivery Rate 03/02/19 98.1 94 19 99/70 (80) 97 Room Air 19:32 02/27/19 2.0 12:18 Intake and Output 03/01/19 03/01/19 03/02/19 1515:00 23:00 07:00 IntakeIntake Total 120 ml 900 ml 872 ml OutputOutput Total 600 ml 400 ml BalanceBalance -480 ml 500 ml 872 ml Results Result Diagram: 03/02/19 0753 03/02/19 0820 Results 24hrs Laboratory Tests Test 03/02/19 07:53 03/02/19 08:20 White Blood Count 14.1 H Red Blood Count 3.40 L Hemoglobin 9.7 L Hematocrit 31.4 L Mean Corpuscular Volume 92.4 Mean Corpuscular Hemoglobin 28.5 L Mean Corpuscular Hemoglobin Concent 30.9 L Red Cell Distribution Width 14.5 Platelet Count 412 Mean Platelet Volume 9.7 Immature Granulocytes % 5.100 H Neutrophils % Segmented Neutrophils % (Manual) 63 Band Neutrophils % (Manual) 3 Lymphocytes % Lymphocytes % (Manual) 25 Reactive Lymphocytes % (Manual) 1 H Monocytes % Monocytes % (Manual) 5 Eosinophils % Basophils % Basophils % (Manual) 1 Metamyelocytes % (manual) 1 H Myelocytes % (Manual) 1 H Nucleated Red Blood Cells % 0.0 Immature Granulocytes # 0.720 H Neutrophils # Neutrophils # (Manual) 8.9 H Band Neutrophils # 0.4 Lymphocytes (Manual) 3.5 H Lymphocytes # Reactive Lymphocytes # 0.1 H Monocytes # Monocytes # (Manual) 0.7 Eosinophils # Basophils # Basophils # (Manual) 0.1 H Metamyelocytes # 0.1 H Myelocytes # 0.1 H Nucleated Red Blood Cells # Platelet Estimate NORMAL Polychromasia 3+ Anisocytosis 1+ Microcytosis 1+ Prealbumin 26.3 Random Gentamicin Level 2.2 Blood Urea Nitrogen 7 Creatinine 0.62 Medications Medication Current Medications IV Flush (NS 3 ml) 3 ml PER PROTOCOL IV ; Start 02/21/19 at 00:00 Acetaminophen (Tylenol Tab) 650 mg Q6H PRN PO .PAIN 1-3 OR TEMP Last administered on 02/21/19at 01:42; Admin Dose 650 MG; Start 02/21/19 at 00:00 Acetaminophen (Tylenol Supp) 650 mg Q6H PRN [place] .PAIN 1-3 OR TEMP Last administered on 02/24/19at 00:13; Admin Dose 650 MG; Start 02/21/19 at 00:00 IV Flush (NS 10 ml) 10 ml PRN PRN IV FLUSH LINE; Start 02/21/19 at 18:30 Lorazepam (Ativan) 0.5 mg Q6H PRN IV anxiety , insomnia Last administered on 03/02/19 06:13; Admin Dose 0.5 MG; Start 02/23/19 at 16:00 Trimethoprim/ Sulfamethoxazole 15 ml/Dextrose 515 ml @ 343.333 mls/hr Q8 IVPB Last administered on 03/02/19 15:07; Admin Dose 343.333 MLS/HR; Start 02/24/19 at 16:30 Metronidazole 100 ml @ 100 mls/hr Q8 IVPB Last administered on 03/02/19 13:06; Admin Dose 100 MLS/HR; Start 02/24/19 at 15:00 Naloxone HCl (Narcan) 0.2 mg PRN PRN IV RR < 8; Start 02/24/19 at 16:00 Diphenhydramine HCl (Benadryl) 25 mg Q6H PRN IV .ITCHING Last administered on 02/27/19 11:16; Admin Dose 25 MG; Start 02/24/19 at 16:00 Ondansetron HCl (Zofran Inj) 4 mg Q6H PRN IV NAUSEA AND/OR VOMITING Last administered on 03/02/19 08:16; Admin Dose 4 MG; Start 02/24/19 at 16:00 Zolpidem Tartrate (Ambien) 5 mg HS PRN PO INSOMNIA Last administered on 02/27/19 22:35; Admin Dose 5 MG; Start 02/24/19 at 16:00 Lorazepam (Ativan) 0.5 mg HS MAY REPEAT X 1 PRN PO INSOMNIA Last administered on 02/26/19 22:03; Admin Dose 0.5 MG; Start 02/24/19 at 16:00 Acetaminophen/ Hydrocodone Bitart ([place] (7.5-325)) 1 tab Q4H PRN PO MODERATE PAIN LEVEL 4-6 Last administered on 02/28/19 05:27; Admin Dose 1 TAB; Start 02/27/19 at 15:00 Gentamicin Sulfate (Gentamicin Iv Per Pharmacy) GENTAMICIN PER PHARM... NOTE XX ; Start 03/01/19 at 17:30 Metoclopramide HCl (Reglan) 10 mg AC DINNER BEDTIME IV Last administered on 03/02/19 17:07; Admin Dose 10 MG; Start 03/01/19 at 17:25 Dronabinol (Marinol) 5 mg BID PO Last administered on 03/02/19 08:16; Admin Dose 5 MG; Start 03/01/19 at 21:00 Alprazolam (Xanax) 1 mg 0900,1800 PO Last administered on 03/02/19 17:07; Admin Dose 1 MG; Start 03/01/19 at 19:00 Hydromorphone HCl (Dilaudid) 1 mg Q6 PRN IV PAIN LEVEL 6-10 Last administered on 8/4/19at 13:06; Admin Dose 1 MG; Start 03/01/19 at 17:30 Pantoprazole (Protonix Tab) 40 mg DAILY@06 PO Last administered on 03/02/19at 05:28; Admin Dose 40 MG; Start 03/02/19 at 06:00 Gentamicin Sulfate 280 mg/ Sodium Chloride 107 ml @ 107 mls/hr Q24H IVPB Last administered on 03/02/19at 00:13; Admin Dose 107 MLS/HR; Start 03/02/19 at 00:00 LUDWIG JAMES NP Mar 02, 2019 20:13
[2019-03-03] MEDS: GENTAMICIN 280 MG in SOD CHLORIDE 0.9% 100 ML IVPB SCH (00:44)
[2019-03-03] MEDS: HYDROmorphONE 1 MG/ML SYG IV PRN ×3 (02:40→14:59)
[2019-03-03 04:24] VITALS: BP 98/62; PULSE 81; RESP 19
[2019-03-03] MEDS: metroNIDAZOLE 500 MG/NS (PMX) 100 ML IVPB SCH ×2 (06:09→13:27)
[2019-03-03] MEDS: TRIMETHOPRIM/SULFAMETHOXAZOLE 15 ML in DEXTROSE 5% 500 ML IVPB SCH ×2 (06:09→13:27)
[2019-03-03] MEDS: PANTOPRAZOLE (EC) 40 MG TAB PO SCH (06:09)
[2019-03-03 07:28] VITALS: BP 95/63; PULSE 77; RESP 19
[2019-03-03] MEDS: ONDANSETRON 4 MG INJ IV PRN (08:16)
[2019-03-03] MEDS: ALPRAZOLAM 1 MG TAB PO SCH ×2 (08:16→16:49)
[2019-03-03] MEDS: DRONABINOL 2.5 MG CAP PO SCH (08:16)
--- NOTE | 2019-03-03 11:02 | PN ---
Date/Time of Note Date/Time of Note DATE: 03/03/19 TIME: 10:59 Assessment/Plan VTE Prophylaxis [place] [facility] [place] [facility] risk: 7 SCD applied [place] [facility] Yes Pharmacological prophylaxis: NA/contraindicated Pharm contraindication: low risk/ambulating Lines/Catheters IV Catheter Type (from [facility]): PICC Line Central line still needed: Yes Urinary Cath still in place: No Assessment/Plan Assessment/Plan 1. Sepsis secondary to abdominal abscesses. Post IR drainage on 02/22 with multidrug-resistant organisms Klebsiella and MRSA and had HO recurrent diverticulitis with abscess this post drainage also in January now p erforated diverticulitis with intra-abdominal abscess.sp. Open Claudia procedure. 2. Drainage of the intra-abdominal abscess. 3. Splenic flexure mobilization on 02/24/19 2. Severe leukocytosis secondary to #1. 3. Lactic acidosis secondary to #1. 4. Anemia. 5. History of marijuana use. 6. History of amphetamine use. 7. History of a yeast infection in the Gram stain. 8. Overweight 9. electrolyte imbalance: hypokalemia, hypophosphatemia 10. Leucocytosis. Assessment/Plan -CT abdomen is reviewed per surgery - clearence from surgery and ID - ABX per ID -dc planning -diet is tolerated Result Diagram: 03/03/19 0618 03/03/19 0618 Results 24hrs Laboratory Tests Test 03/03/19 06:18 White Blood Count 11.4 H Red Blood Count 3.47 L Hemoglobin 9.9 L Hematocrit 32.1 L Mean Corpuscular Volume 92.5 Mean Corpuscular Hemoglobin 28.5 L Mean Corpuscular Hemoglobin Concent 30.8 L Red Cell Distribution Width 14.6 H Platelet Count 395 Mean Platelet Volume 9.5 Immature Granulocytes % 3.300 H Neutrophils % 69.2 Lymphocytes % 18.5 Monocytes % 6.8 Eosinophils % 2.0 Basophils % 0.2 Nucleated Red Blood Cells % 0.0 Immature Granulocytes # 0.380 H Neutrophils # 7.9 H Lymphocytes # 2.1 Monocytes # 0.8 Eosinophils # 0.2 Basophils # 0.0 Nucleated Red Blood Cells # 0.0 Sodium Level 136 Potassium Level 4.3 Chloride Level 103 Carbon Dioxide Level 27 Anion Gap 6 Blood Urea Nitrogen 9 Creatinine 0.75 Est Glomerular Filtrat Rate mL/min > 60 Glucose Level 98 Calcium Level 8.8 Subjective 24 Hr Interval Summary Free Text/Dictation Feels better. tolerating diet colostomy draining well Exam/Review of Systems Exam Vitals Vital Signs Date Temp Pulse Resp B/P (MAP) Pulse Ox O2 O2 Flow FiO2 Time Delivery Rate 03/03/19 97.6 77 19 95/63 (74) 95 07:28 03/03/19 Room Air 04:24 02/27/19 2.0 12:18 Intake and Output 03/02/19 03/02/19 03/03/19 1515:00 23:00 07:00 IntakeIntake Total 480 ml 1000 ml OutputOutput Total 500 ml 400 ml 1200 ml BalanceBalance -20 ml -400 ml -200 ml Exam no acute distress, no events overnight. Neck: supple, no thyromegaly, no carotid bruits Lungs: clear bilaterally, decreased. CVS: regular rate and rhythm, no murmurs Abdomen: soft, surg wound stapled, Colostomy pink, nontender Neuro: alert and oriented x 3 Gait: normal Motor strength: 5+/5+ Sensory exam: normal Deep tendon reflexes: normal, [place]y reflexes are absent bilaterally Skin: pale Results Results 24hrs Laboratory Tests Test 03/03/19 06:18 White Blood Count 11.4 H Red Blood Count 3.47 L Hemoglobin 9.9 L Hematocrit 32.1 L Mean Corpuscular Volume 92.5 Mean Corpuscular Hemoglobin 28.5 L Mean Corpuscular Hemoglobin Concent 30.8 L Red Cell Distribution Width 14.6 H Platelet Count 395 Mean Platelet Volume 9.5 Immature Granulocytes % 3.300 H Neutrophils % 69.2 Lymphocytes % 18.5 Monocytes % 6.8 Eosinophils % 2.0 Basophils % 0.2 Nucleated Red Blood Cells % 0.0 Immature Granulocytes # 0.380 H Neutrophils # 7.9 H Lymphocytes # 2.1 Monocytes # 0.8 Eosinophils # 0.2 Basophils # 0.0 Nucleated Red Blood Cells # 0.0 Sodium Level 136 Potassium Level 4.3 Chloride Level 103 Carbon Dioxide Level 27 Anion Gap 6 Blood Urea Nitrogen 9 Creatinine 0.75 Est Glomerular Filtrat Rate mL/min > 60 Glucose Level 98 Calcium Level 8.8 Medications Medication Current Medications IV Flush (NS 3 ml) 3 ml PER PROTOCOL IV ; Start 02/21/19 at 00:00 Acetaminophen (Tylenol Tab) 650 mg Q6H PRN PO .PAIN 1-3 OR TEMP Last administered on 02/21/19 01:42; Admin Dose 650 MG; Start 02/21/19 at 00:00 Acetaminophen (Tylenol Supp) 650 mg Q6H PRN SD .PAIN 1-3 OR TEMP Last administered on 02/24/19 00:13; Admin Dose 650 MG; Start 02/21/19 at 00:00 IV Flush (NS 10 ml) 10 ml PRN PRN IV FLUSH LINE; Start 02/21/19 at 18:30 Lorazepam (Ativan) 0.5 mg Q6H PRN IV anxiety , insomnia Last administered on 03/02/19 06:13; Admin Dose 0.5 MG; Start 02/23/19 at 16:00 Trimethoprim/ Sulfamethoxazole 15 ml/Dextrose 515 ml @ 343.333 mls/hr Q8 IVPB Last administered on 03/03/19 06:09; Admin Dose 343.333 MLS/HR; Start 02/24/19 at 16:30 Metronidazole 100 ml @ 100 mls/hr Q8 IVPB Last administered on 03/03/19 06:09; Admin Dose 100 MLS/HR; Start 02/24/19 at 15:00 Naloxone HCl (Narcan) 0.2 mg PRN PRN IV RR < 8; Start 02/24/19 at 16:00 Diphenhydramine HCl (Benadryl) 25 mg Q6H PRN IV .ITCHING Last administered on 02/27/19 11:16; Admin Dose 25 MG; Start 02/24/19 at 16:00 Ondansetron HCl (Zofran Inj) 4 mg Q6H PRN IV NAUSEA AND/OR VOMITING Last admi nistered on 03/03/19 08:16; Admin Dose 4 MG; Start 02/24/19 at 16:00 Zolpidem Tartrate (Ambien) 5 mg HS PRN PO INSOMNIA Last administered on 02/27/19 22:35; Admin Dose 5 MG; Start 02/24/19 at 16:00 Lorazepam (Ativan) 0.5 mg HS MAY REPEAT X 1 PRN PO INSOMNIA Last administered on 02/26/19 22:03; Admin Dose 0.5 MG; Start 02/24/19 at 16:00 Acetaminophen/ Hydrocodone Bitart ([place] (7.5-325)) 1 tab Q4H PRN PO MODERATE PAIN LEVEL 4-6 Last administered on 02/28/19 05:27; Admin Dose 1 TAB; Start 02/27 at 15:00 Gentamicin Sulfate (Gentamicin Iv Per Pharmacy) GENTAMICIN PER PHARM... NOTE XX ; Start 03/01/19 at 17:30 Metoclopramide HCl (Reglan) 10 mg AC DINNER BEDTIME IV Last administered on 03/02/19 20:23; Admin Dose 10 MG; Start 03/01/19 at 17:25 Dronabinol (Marinol) 5 mg BID PO Last administered on 03/03/19 08:16; Admin Dose 5 MG; Start 03/01/19 at 21:00 Alprazolam (Xanax) 1 mg 0900,1800 PO Last administered on 03/03/19 08:16; Admin Dose 1 MG; Start 03/01/19 at 19:00 Hydromorphone HCl (Dilaudid) 1 mg Q6 PRN IV PAIN LEVEL 6-10 Last administered on 03/03/19 08:57; Admin Dose 1 MG; Start 03/01/19 at 17:30 Pantoprazole (Protonix Tab) 40 mg DAILY@06 PO Last administered on 03/03/19 06:09; Admin Dose 40 MG; Start 03/02/19 at 06:00 Gentamicin Sulfate 280 mg/ Sodium Chloride 107 ml @ 107 mls/hr Q24H IVPB Last administered on 03/03/19 00:44; Admin Dose 107 MLS/HR; Start 03/02/19 at 00:00 DANILO KUNZ MD Mar 03, 2019 11:02
--- NOTE | 2019-03-03 11:04 | PDOCDIS ---
Discharge Instructions DIAGNOSIS Discharge Diagnosis p erforated diverticulitis with intra-abdominal abscess.sp. Open Claudia procedure. 2. Drainage of the intra-abdominal abscess. 3. Splenic flexure mobilization on 02/24/19 CONDITION [id number] Patient Condition: [id number] Fair HOME CARE INSTRUCTIONS: [id number] Special Diet: [id number] LOW RESIDUE ACTIVITY: [id number] Activity Restrictions: [id number] Slowly Increase Activity Rest between Activity Avoid heavy lifting FOLLOW UP/APPOINTMENTS Follow-up Plan FU PCP in 1-[address] Bagley in 1 week re ER if has severe abdominal pain nausea vomiting fevers and chills DANILO KUNZ MD Mar 03, 2019 11:04
[2019-03-03 12:00] VITALS: BP 96/59; PULSE 85; RESP 20
--- NOTE | 2019-03-03 15:44 | CONS ---
Assessment/Plan Assessment/Plan Hospital Course (Demo Recall) Alert, feels good, no fevers/n/v/d MICROBIOLOGY: Microbiology: Intra-abdominal fluid cultures grew MRSA and Klebsiella pneumonia, both susceptible to Bactrim ANTIMICROBIALS: IV Bactrim Flagyl. PHYSICAL EXAMINATION: GENERAL: This is well-developed, well-nourished, middle-aged woman who is alert, in no distress. HEENT: Head atraumatic, normocephalic. NECK: Supple. CHEST: Rise symmetrical. Breath sounds diminished to bases. HEART: S1, S2. ABDOMEN: Left-sided colostomy, mid abdominal dressing intact, + bowel tones EXTREMITIES: Without cyanosis. ASSESSMENT: 1. Recurrent Intraabdominal abscess, status post open Claudia procedure and drainage of the intra-abdominal abscess January 25, 2019 2. Acute perforated diverticulitis, status post exploratory laparoscopy and drainage of intraabdominal abscess on 01/28/2019. 3. Systemic inflammatory response syndrome PLAN: Patient is stable cleared by surgery, okay discharge off antibiotics Consultation Date/Type/Reason Admit Date/Time Feb 20, 2019 at 20:08 Initial Consult Date 02/20/19 Type of Consult id Requesting Provider: JOSEPHINE GARAY MD Date/Time of Note DATE: 03/03/19 TIME: 15:43 Exam/Review of Systems Exam Vitals Vital Signs Date Temp Pulse Resp B/P (MAP) Pulse Ox O2 O2 Flow FiO2 Time Delivery Rate 03/03/19 98.4 85 20 96/59 (71) 96 12:00 03/03/19 Room Air 04:24 02/27/19 2.0 12:18 Intake and Output 03/02/19 03/02/19 03/03/19 1414:59 22:59 06:59 IntakeIntake Total 120 ml 360 ml 1000 ml OutputOutput Total 500 ml 400 ml 1200 ml BalanceBalance -380 ml -40 ml -200 ml Results Result Diagram: 03/03/1961703/03/19617 Results 24hrs Laboratory Tests Test 03/03/19 06:18 White Blood Count 11.4 H Red Blood Count 3.47 L Hemoglobin 9.9 L Hematocrit 32.1 L Mean Corpuscular Volume 92.5 Mean Corpuscular Hemoglobin 28.5 L Mean Corpuscular Hemoglobin Concent 30.8 L Red Cell Distribution Width 14.6 H Platelet Count 395 Mean Platelet Volume 9.5 Immature Granulocytes % 3.300 H Neutrophils % 69.2 Lymphocytes % 18.5 Monocytes % 6.8 Eosinophils % 2.0 Basophils % 0.2 Nucleated Red Blood Cells % 0.0 Immature Granulocytes # 0.380 H Neutrophils # 7.9 H Lymphocytes # 2.1 Monocytes # 0.8 Eosinophils # 0.2 Basophils # 0.0 Nucleated Red Blood Cells # 0.0 Sodium Level 136 Potassium Level 4.3 Chloride Level 103 Carbon Dioxide Level 27 Anion Gap 6 Blood Urea Nitrogen 9 Creatinine 0.75 Est Glomerular Filtrat Rate mL/min > 60 Glucose Level 98 Calcium Level 8.8 Medications Medication Current Medications IV Flush (NS 3 ml) 3 ml PER PROTOCOL IV ; Start 02/21/19 at 00:00 Acetaminophen (Tylenol Tab) 650 mg Q6H PRN PO .PAIN 1-3 OR TEMP Last administered on 02/21/19at 01:42; Admin Dose 650 MG; Start 02/21/19 at 00:00 Acetaminophen (Tylenol Supp) 650 mg Q6H PRN [place] .PAIN 1-3 OR TEMP Last administered on 02/24/19at 00:13; Admin Dose 650 MG; Start 02/21/19 at 00:00 IV Flush (NS 10 ml) 10 ml PRN PRN IV FLUSH LINE; Start 02/21/19 at 18:30 Lorazepam (Ativan) 0.5 mg Q6H PRN IV anxiety , insomnia Last administered on 03/02/19 06:13; Admin Dose 0.5 MG; Start 02/23/19 at 16:00 Trimethoprim/ Sulfamethoxazole 15 ml/Dextrose 515 ml @ 343.333 mls/hr Q8 IVPB Last administered on 03/03/19 13:27; Admin Dose 343.333 MLS/HR; Start 02/24/19 at 16:30 Metronidazole 100 ml @ 100 mls/hr Q8 IVPB Last administered on 03/03/19 13:27; Admin Dose 100 MLS/HR; Start 02/24/19 at 15:00 Naloxone HCl (Narcan) 0.2 mg PRN PRN IV RR < 8; Start 02/24/19 at 16:00 Diphenhydramine HCl (Benadryl) 25 mg Q6H PRN IV .ITCHING Last administered on 02/27/19 11:16; Admin Dose 25 MG; Start 02/24/19 at 16:00 Ondansetron HCl (Zofran Inj) 4 mg Q6H PRN IV NAUSEA AND/OR VOMITING Last administered on 03/03/19 08:16; Admin Dose 4 MG; Start 02/24/19 at 16:00 Zolpidem Tartrate (Ambien) 5 mg HS PRN PO INSOMNIA Last administered on 02/27/19 22:35; Admin Dose 5 MG; Start 02/24/19 at 16:00 Lorazepam (Ativan) 0.5 mg HS MAY REPEAT X 1 PRN PO INSOMNIA Last administered on 02/26/19 22:03; Admin Dose 0.5 MG; Start 02/24/19 at 16:00 Acetaminophen/ Hydrocodone Bitart ([place] (7.5-325)) 1 tab Q4H PRN PO MODERATE PAIN LEVEL 4-6 Last administered on 02/28/19 05:27; Admin Dose 1 TAB; Start 02/27/19 at 15:00 Gentamicin Sulfate (Gentamicin Iv Per Pharmacy) GENTAMICIN PER PHARM... NOTE XX ; Start 03/01/19 at 17:30 Metoclopramide HCl (Reglan) 10 mg AC DINNER BEDTIME IV Last administered on 03/02/19 20:23; Admin Dose 10 MG; Start 03/01/19 at 17:25 Dronabinol (Marinol) 5 mg BID PO Last administered on 03/03/19 08:16; Admin Dose 5 MG; Start 03/01/19 at 21:00 Alprazolam (Xanax) 1 mg 0900,1800 PO Last administered on 03/03/19 08:16; Admin Dose 1 MG; Start 03/01/19 at 19:00 Hydromorphone HCl (Dilaudid) 1 mg Q6 PRN IV PAIN LEVEL 6-10 Last administered on 03/03/19 14:59; Admin Dose 1 MG; Start 03/01/19 at 17:30 Pantoprazole (Protonix Tab) 40 mg DAILY@06 PO Last administered on 03/03/19 06 :09; Admin Dose 40 MG; Start 03/02/19 at 06:00 Gentamicin Sulfate 280 mg/ Sodium Chloride 107 ml @ 107 mls/hr Q24H IVPB Last administered on 03/03/19at 00:44; Admin Dose 107 MLS/HR; Start 03/02/19 at 00:00 Miscellaneous Information (*Rx Drug Level Order Reminder*) MAURA TR 2300 ONCE XX ; Start 03/03/19 at 23:00; Stop 03/03/19 at 23:01 DALE CABALLERO NP Mar 03, 2019 15:44
[2019-03-03] MEDS: METOCLOPRAMIDE 10 MG INJ IV SCH (16:49)
--- NOTE | 2019-03-04 14:52 | DS ---
DATE OF ADMISSION: 02/20/2019 DATE OF DISCHARGE: 03/03/2019 HISTORY OF PRESENT ILLNESS AND HOSPITAL COURSE: This is a 48-year-old female with a past medical history of fibroids, inguinal hernia repair, history of complex uterine, cervical mass, history of multiple admissions in the past secondary to diverticulitis. The patient was seen by Dr. Lucia and had initially exploratory laparoscopy with drainage of abdominal abscess. At that time, the patient was treated with IV antibiotics. The patient was clinically feeling better and was discharged with Cipro, Flagyl and Diflucan. According to the patient, when she went home, followed up with 2 days ago, she was feeling a lot better. The drains were draining minimal. The drains were removed by the surgeon. Since then, the next day, the patient started having lower abdominal pain. On ED, vital signs were temperature 98.1, then 100.1. White count was 21,000, hemoglobin 13.1, platelet count 256. Lactate initially was 2.5, BUN of 8, creatinine 0.56. The patient had a CT of the abdomen and pelvis with recurrent multiloculated pelvic and left lower quadrant abdominal abscesses. The patient was initially seen by Dr. Brenner, who was covering for Dr. Lucia and was started on IV Zosyn and was admitted for further management. The patient was thought to have sepsis secondary to abdominal abscesses. The patient was given IV fluid boluses. Surgery was consulted immediately. The patient was also started on Diflucan and vancomycin. The patient was seen by ID consultation and their recommendations were followed. The patient had abscess drainage on February [address]-guided drainage of abdominal abscesses. A 10-Arabic drainage catheter was left in place , a 20 mL of brown pus was aspirated, fluid was sent for culture. The culture grew out Klebsiella pneumoniae MRSA. Antibiotics were tapered per ID. The patient was started on Bactrim and Flagyl and then continued on gentamicin. The patient also had a PICC line placed. The patient was seen by Dr. lucia and on February 24, went to OR and then open Claudia procedure with drainage of intra-abdominal abscess and splenic flexure mobilization. Postop, the patient was kept on [employer] pump. Antibiotics were adjusted per ID. Blood cultures were done that were negative. The patient was recovering slowly. The patient was also started on TPN white count came down. The patient was not having any fevers. The patient was slowly advanced to diet. TPN was tapered off. The patient was tolerating soft diet without any pain. The patient also had a repeat CT scan that showed interval partial colectomy with left lower quadrant colostomy 6.7 x 3.6 cm loculated fluid ascites in the left lower quadrant. However, the patient was clinically feeling a lot better. The patient was seen by ID and also by surgery, Dr. Lucia_ and clinically stable to be discharged home. Currently finished antibiotics course per ID. FINAL DISCHARGE DIAGNOSES: 1. Sepsis secondary to perforated diverticulitis with abdominal abscesses. Post IR drainage on February 22, multidrug resistant organisms and history of recurrent diverticulitis sp post-drainage with perforated diverticulitis, abdominal abscess, status post open Claudia procedure, drainage of intra- abdominal abscess, splenic flexure mobilization on February 24. 2. Severe leukocytosis secondary to #1, resolved. 3. Lactic acid secondary to #1, resolved. 4. Anemia. 5. History of marijuana use. 6. History of amphetamine use. 7. History of yeast infection in the Gram stain. 8. Overweight. 9. Electrolyte hypokalemia, hypophosphatemia. 10. Leukocytosis. DISCHARGE CONDITION: Stable. DISCHARGE DIET: Low residue diet. DISCHARGE MEDICATIONS: 1. [place] 1 tab p.o. q.4 p.r.n. pain. 2. Ativan 1 mg p.o. p.r.n. anxiety. 3. Zofran 4 mg p.o. q.4 p.r.n. nausea, vomiting. 4. Per ID finish the course of antibiotics. The patient was instructed to follow with the PCP in 1 to [address] Lucia in about 1 week. Arrangement was also done for home health for wound care and colostomy teaching. The patient was instructed to return to the ER for severe abdominal pain, nausea, vomiting, fevers and chills. Dictated By: DANILO KIRKLAND/GERTRUDE Conf#: [id number] DID#: [id number] CC: AMANDA NOLAN MD; MAE RODAS MD;*EndCC* [facility]
== END 2019-03-03 19:59 | disposition home health service (06) | DRG 854 ==
LOC: E/R 13:04 → 2NE 20:08 → TEL 23:10
PROVIDERS: ADMIT Internal Medicine Nephrology; ATTEND Internal Medicine Nephrology
PROC: 02HV33Z Insertion of Infusion Device into Superior Vena Cava, Percutaneous Approach (ICD-10-PCS; 2019-02-21)
PROC: 0W9G30Z Drainage of Peritoneal Cavity with Drainage Device, Percutaneous Approach (ICD-10-PCS; 2019-02-22)
PROC: 0D1M0Z4 Bypass Descending Colon to Cutaneous, Open Approach (ICD-10-PCS; 2019-02-24)
PROC: 0DNN0ZZ Release Sigmoid Colon, Open Approach (ICD-10-PCS; 2019-02-24)
PROC: 0DTN0ZZ Resection of Sigmoid Colon, Open Approach (ICD-10-PCS; principal; 2019-02-24 12:30)
DX: A41.9 Sepsis, unspecified organism (principal); K57.80 Diverticulitis of intestine, part unspecified, with perforation and abscess without bleeding; E87.2 Acidosis; E66.3 Overweight; E87.6 Hypokalemia; E83.39 Other disorders of phosphorus metabolism; D64.9 Anemia, unspecified; K66.0 Peritoneal adhesions (postprocedural) (postinfection); B95.62 Methicillin resistant Staphylococcus aureus infection as the cause of diseases classified elsewhere; B96.1 Klebsiella pneumoniae [K. pneumoniae] as the cause of diseases classified elsewhere; Z68.27 Body mass index [BMI] 27.0-27.9, adult; Z87.891 Personal history of nicotine dependence
CPT/HCPCS: 36415; 36569; 71045; 74018; 74176; 74177; 76937; 77012; 80048; 80053; 80170; 81001; 81025; 82565; 82962; 83605; 83735; 84100; 84134; 84478; 84520; 84703; 85025; 85610; 85730; 87070; 88305; 96374; 96375; 96376; 97116; 97163; 97530; C1729; C9113; J0131; J0744; J1100; J1170; J1200; J1450; J1580; J1644; J1885; J2060; J2175; J2250; J2270; J2405; J2543; J2765; J3010; J3370; J3475; J3480; J7030; J7040; J7042; J7050; J7060; Q9967